=== PATIENT | male | born 1940 | race Caucasian/White ===

== ENCOUNTER 2018-01-17 13:00 | Inpatient (IN) | payer MEDICARE, SELFPAY ==
[2018-01-17] VITALS (11 sets, daily range): BP systolic 122–168; BP diastolic 60–97; PULSE 103–123; RESP 18–28; TEMP 36.5–37.3; O2SAT 89–96; BMI 25.2
--- NOTE | 2018-01-17 13:31 | EKG12_ITS ---
Test Reason : SOB Blood Pressure : / mmHG Vent. Rate : 104 BPM Atrial Rate : 104 BPM P-R Int : 182 ms QRS Dur : 082 ms QT Int : 336 ms P-R-T Axes : 049 028 092 degrees QTc Int : 441 ms Sinus tachycardia Nonspecific T wave abnormality Abnormal ECG Confirmed by HARSHA MARINELLI, GRAHAM ([id number]), multimedia editor AZAEL MEJIA ([id number] on 01/19/2018 1:26:49 PM Referred By: Artem Ward Confirmed By:GRAHAM MCLEOD MD
--- NOTE | 2018-01-17 13:32 | ED.VISSUMM ---
- ER Visit Summary Date of Service: 01/17/18 Chief Complaint: Shortness of breath History of Present Illness: The patient is a 77 M presenting with shortness of breath. This has been worsening over the past week. It is worse with exertion. He has had a productive cough. He denies fever. He denies chest pain. He is not currently on home O2. He has history of COPD, diabetes, hypertension. He is a smoker. Physical Examination: Vitals are stable. Patient is afebrile. Alert no acute distress. HEENT exam is unremarkable. Neck is supple. Lungs are wheezing bilaterally. Heart is regular rate and rhythm. Abdomen is soft nontender nondistended. Extremities are unremarkable. Skin is warm and dry. No focal neurologic deficit. Remainder of exam is unremarkable. Emergency Department Course and Treatment: Patient given albuterol, Atrovent aerosol. EKG is sinus tachycardia rate of 104. Chest x-ray shows no acute process. CBC shows a white count 11.9. Chemistry shows sodium 130, glucose 167. Troponin is less than 0.015. With attempting ambulation, patient's pulse ox dropped to 88% with just sitting in bed on room air. He was given Solu-Medrol IV. Will discuss with the hospitalist for admission. Disposition: Admission Impression: COPD exacerbation This note was generated with [employer] ([employer] / [employer]) dictation software. It may contain incorrect words, spelling, and punctuation that were not noted in review of the chart prior to signing ED Disposition - Plan for ED Patient: Chief Complaint: Shortness of Breath Referrals: [facility] [Primary Care Provider] -
[2018-01-17] MEDS: Albuterol 2.5 MG/3 ML VIAL.NEB. INHALATION ×2 (13:41)
[2018-01-17] MEDS: Ipratropium/Albuterol Sulfate 3 ML AMPUL.NEB INHALATION ×2 (13:41→19:16)
--- NOTE | 2018-01-17 13:45 | RAD_ITS ---
STUDY: X-RAY CHEST REASON FOR EXAM: Male, 77 years old. Shortness of breath, dysphagia. TECHNIQUE: Portable chest COMPARISON: 08/05/2016. FINDINGS: Median sternotomy, CABG. No cardiomegaly. Normal mediastinal silhouette, amanda and pleural margins. Clear bilateral lungs. No effusion, pneumothorax or infiltrate. No acute osseous or upper abdominal process. RAD/Chest 1 View (Portable) IMPRESSION: No acute cardiopulmonary process. Electronically Signed: Jag Haynes, at 14:10 EDT Tel , Service support ,
[2018-01-17 13:52] LABS: Absolute Lymphocyte Count 0.95 X10^3/ul (0.83-4.51); Absolute Neutrophil Count 9.9 X10^3/uL (2.0-7.7); Basophil# 0.02 X10^3/uL; Basophil% 0.2 % (0-1); Eosinophil# 0.14 X10^3/uL; Eosinophils% 1.2 % (0-5); Hematocrit 39.6 % (40-54); Hemoglobin 13.3 g/dl (13.0-16.5); Lymphocyte # 0.95 X10^3/ul (4.0); Mean Corp Hgb Conc 33.6 g/gl (32-36); Mean Corpuscular Hgb 31.8 pg (27.0-32.0); Mean Corpuscular Volume 94.7 fL (80-94); Mean Platelet Vol. 10.2 fl (6.2-12.0); Monocyte# 0.88 X10^3/uL; Monocyte% 7.4 % (0-10); Neutrophil # 9.93 X10^3/uL (2.7-7.7); Neutrophil % 83.1 % (47-70); Platelet Count 177 K/mm3 (150-450); RBC Distribution Width CV 12.2 % (11.6-14.6); RBC Distribution Width SD 41.5 fl (35.1-43.9); Red Blood Count 4.18 M/mm3 (4.6-6.2); White Blood Count 11.9 K/mm3 (4.4-11.0)
[2018-01-17 13:53] LABS: POSITIVE COUNT NO; POSITIVE DIFFERENTIAL NO; POSITIVE MORPHOLOGY NO
[2018-01-17 14:08] LABS: Anion Gap 7 (5-15); BUN 12 mg/dL (7-18); BUN/Creat Ratio 15.3 RATIO (10-20); Calcium,Total 8.6 mg/dL (8.5-10.1); Chloride 94 mmol/L (98-107); Creatinine, Serum 0.78 mg/dL (0.70-1.30); EST Glomerular Filtration Rate 102 mL/min (>60); Est Glom Filt Rate - Afr Amer 124 mL/min (>60); Estimated Creatinine Clearance 72.13 ml/min; Glucose 167 mg/dL (74-106); Potassium 3.7 mmol/L (3.5-5.1); Sodium Level 130 mmol/L (136-145)
--- NOTE | 2018-01-17 15:05 | NURSING ---
MED SURG COPD EXAC, HYPOXIA KARL
[2018-01-17] MEDS: MethylPREDNISolone 125 MG/2 ML Vial IV (15:22)
--- NOTE | 2018-01-17 15:36 | HP.PCM_ITS ---
<Yosvany Lugo - Last Filed: 01/17/18 15:32> Problem List (1) Acute respiratory failure with hypoxia Status: Acute (2) Sepsis Status: Acute (3) Acute bronchitis Status: Acute (4) COPD exacerbation Status: Acute (5) Stage 3 severe COPD by GOLD classification Status: Chronic (6) CAD S/P percutaneous coronary angioplasty Status: Chronic Comment: Stents x 3 (7) Tobacco dependence syndrome Status: Chronic (8) History of gastroesophageal reflux (GERD) Status: Chronic (9) Dyslipidemia Status: Chronic (10) Benign essential hypertension Status: Chronic (11) GERD (gastroesophageal reflux disease) Status: Chronic (12) Iron deficiency anemia Status: Chronic (13) BPH (benign prostatic hypertrophy) Status: Chronic (14) Vitamin D deficiency Status: Chronic (15) Atrial fibrillation Status: Chronic (16) Hyperlipidemia Status: Chronic (17) Hypertension Status: Chronic (18) Diabetes mellitus Status: Chronic History of Present Illness Date of Admission: 01/17/18 Chief Complaint: sob The patient is a 77 year old M with a hx of severe COPD, still smokes 4-6 cigarettes/day, CAD, type 2 diabetes, paroxysmal atrial fibrillation, GERD, BPH, hypertension, hyperlipidemia who presents the emergency room with chief complaint of worsening shortness of breath over the past week. Shortness of breath has been progressively worsening, and he has developed a significant cough with green mucus production. He has no fevers or chills. He denies sick contacts. He has no chest pain or pleurisy. No dizziness, lightheadedness. He does not normally use oxygen at home. He was found to be hypoxic in the emergency room and requires 4 L/min of oxygen via nasal cannula to maintain good saturations at this time. He is a patient of [facility]. [] Past Medical History Past Medical History (Chronic Problems): Chronic Problems (Last Updated 06/13/17 @ 13:39 by Selena Guido) Stage 3 severe COPD by GOLD classification (Chronic) CAD S/P percutaneous coronary angioplasty (Chronic) Stents x 3 Tobacco dependence syndrome (Chronic) History of gastroesophageal reflux (GERD) (Chronic) Dyslipidemia (Chronic) Type II diabetes mellitus (Chronic) BPH (benign prostatic hyperplasia) (Chronic) Benign essential hypertension (Chronic) Shortness of breath (Chronic) GERD (gastroesophageal reflux disease) (Chronic) Iron deficiency anemia (Chronic) BPH (benign prostatic hypertrophy) (Chronic) Vitamin D deficiency (Chronic) History of alcohol dependence (Chronic) Atrial fibrillation (Chronic) Hyperlipidemia (Chronic) Hypertension (Chronic) Diabetes mellitus (Chronic) Chronic obstruct airways disease (Chronic) Medical History: Medical History (Last Updated 06/13/17 @ 13:39 by Selena Guido) Hypoxia (Acute) R09.02 Stage 3 severe COPD by GOLD classification (Chronic) J44.9 CAD S/P percutaneous coronary angioplasty (Chronic) I25.10, Z98.61 Stents x 3 Tobacco dependence syndrome (Chronic) F17.200 History of gastroesophageal reflux (GERD) (Chronic) Z87.19 Dyslipidemia (Chronic) E78.5 Type II diabetes mellitus (Chronic) E11.9 BPH (benign prostatic hyperplasia) (Chronic) Benign essential hypertension (Chronic) I10 Adenovirus infection (Acute) Shortness of breath (Chronic) R06.02 GERD (gastroesophageal reflux disease) (Chronic) K21.9 Iron deficiency anemia (Chronic) D50.9 BPH (benign prostatic hypertrophy) (Chronic) N40.0 Vitamin D deficiency (Chronic) E55.9 History of alcohol dependence (Chronic) F10.21 Atrial fibrillation (Chronic) I48.91 Hyperlipidemia (Chronic) E78.5 Hypertension (Chronic) I10 Diabetes mellitus (Chronic) E11.9 Unstable angina (Acute) Abnormal electrocardiogram [ECG] [EKG] (Acute) R94.31 Pneumonia (Acute) J18.9 Chest pain (Acute) R07.9 Chronic obstruct airways disease (Chronic) J44.9 Allergies propoxyphene HCl [From Darvon] Allergy (Verified 01/17/18 13:05) Itching Home Medications: Ambulatory Orders Medication Instructions Recorded Metoprolol Tartrate [Lopressor 75 mg PO BID 07/24/16 (beta killian)] Multivitamin [Daily Multiple 1 ea PO DAILY 07/24/16 Vitamin] Tiotropium [place] [Spiriva] 1 puff IH DAILY 07/24/16 Docusate Sodium [Colace] 100 mg PO BID PRN PRN cap 07/30/16 Acetaminophen [Tylenol Tablet] 650 mg PO Q6H PRN 01/17/18 Albuterol Aerosols [Ventolin 2.5 mg INHALATION Q6H PRN PRN 01/17/18 Aerosols] Albuterol Inhaler [Ventolin Hfa] 2 puff INHALATION Q6H PRN 01/17/18 Aspirin E.C. [Ecotrin] 81 mg PO DAILY@0800 01/17/18 Atorvastatin Calcium [Lipitor] 80 mg PO QHS 01/17/18 Carboxymethylcellulose Sodium 1 drop EACH EYE TID 01/17/18 [Lubricant Plus] Cholecalciferol (VIT D3) [Vitamin 2,000 unit PO DAILY 01/17/18 D3] Clopidogrel Bisulfate [Clopidogrel] 75 mg PO DAILY 01/17/18 Finasteride [Proscar] 5 mg PO DAILY 01/17/18 Hydrochlorothiazide [Hctz] 25 mg PO DAILY 01/17/18 Lisinopril [Zestril] 20 mg PO BID 01/17/18 Magnesium Oxide 420 mg PO DAILY 01/17/18 Metformin HCl [Glucophage] 1,000 mg PO BIDCM 01/17/18 Nitroglycerin [Nitrostat] 0.4 mg SUBLINGUAL Q5M PRN 01/17/18 Pantoprazole Sodium [Protonix] 20 mg PO DAILY 01/17/18 Tamsulosin HCl [Flomax] 0.8 mg PO QHS 01/17/18 Surgical History: rotator cuff repair, - Psychiatric History: Depression Lives: Alone Smoking Status: Current every day smoker Tobacco Use: Cigarettes Alcohol: None Drugs: None - *Family History Sibling Family History: Family History (Last Updated 06/13/17 @ 13:40 by Selena Guido) Father Polio History Items: Cancer Maternal Family History: Family History (Last Updated 06/13/17 @ 13:40 by Selena Guido) Father Polio History Items: Cancer, - Paternal Family History: Family History (Last Updated 06/13/17 @ 13:40 by Selena Guido) Father Polio History Items: - Review of Systems Constitutional: Denies: Chills, Fever, Weight Change HEENT: Denies: Head Aches, Sinus Congestion, Sinus Drainage Cardiovascular: Denies: Chest Pain, Palpitations Respiratory: Reports: Cough, Shortness of Breath, Shortness of breath at rest, Sputum production, Wheezing. Denies: Hemoptysis Gastrointestinal: Denies: Abdominal Pain, Nausea, Vomiting Genitourinary: Denies: Dysuria Musculoskeletal: Denies: Joint Pain, Joint Tenderness Skin: Denies: Rash, Wounds Neurological: Denies: Numbness, Tingling, Focal weakness Psychiatric: Denies: Anxiety, Depression, Homicidal Ideations, Suicidal Ideations Hematologic/ Lymphatic: Denies: Easy Bruising, Easy Bleeding VTE Information - Inpt Only VTE Present on Admission: No VTE Mechan Device Prophylaxis: None VTE Pharm Prophylaxis ordered?: Yes Patient Problems: Active and Suspected Problems (Last Updated 06/13/17 @ 13:39 by Selena Guido) Acute respiratory failure with hypoxia (Acute) Sepsis (Acute) Acute bronchitis (Acute) COPD exacerbation (Acute) - Physical Exam General: Alert, Oriented x3, Cooperative HEENT: Atraumatic, PERRLA, EOMI, Normocephalic Neck: Supple, No JVD, Negative Carotid Bruits Lungs: Diminished, Wheezes Cardiovascular: Regular rate, No murmurs Abdomen: Bowel Sounds Present, Soft, Non Tender Extremities: No edema, Capillary Refill Less than 3 Seconds Skin: No rashes, No breakdown Musculoskeletal: No Tenderness to Palpation of Joints or Extremities Neurological: Cranial nerves II-XII grossly intact Psych/Mental Status: Normal Affect, Appropriate, Alert and oriented to time, place, person, mood and affect Vital Signs Temp Pulse Resp BP Pulse Ox 99.1 F 118 H 28 H 122/80 H 93 01/17/18 13:01 01/17/18 15:23 01/17/18 15:23 01/17/18 15:23 01/17/18 15:23 Oxygen Flow Rate (L/min) 4 Oxygen Delivery Method Nasal Cannula Weight: 190 lb 14.052 oz Body Mass Index (BMI) 25.2 Laboratory Tests Past 24 Hrs 01/17/18 01/17/18 13:40 13:40 WBC 11.9 H RBC 4.18 L Hgb 13.3 Hct 39.6 L MCV 94.7 H MCH 31.8 MCHC 33.6 RDW 12.2 RDW Differential 41.5 Plt Count 177 MPV 10.2 Immature Gran % (Auto) 0.100 Neut % (Auto) 83.1 H Lymph % (Auto) 8.0 L [place] % (Auto) 7.4 Eos % (Auto) 1.2 Baso % (Auto) 0.2 Absolute Neuts (auto) 9.9 H Absolute Lymphs (auto) 0.95 Total Counted Not Reportable Sodium 130 L Potassium 3.7 Chloride 94 L Carbon Dioxide 29.0 Anion Gap 7 BUN 12 Creatinine 0.78 Estim Creat Clear Calc 72.13 Est GFR (MDRD) Af Amer 124 Est GFR (MDRD) Non-Af 102 BUN/Creatinine Ratio 15.3 Glucose 167 H Calcium 8.6 Troponin I < 0.015 Assessment/Plan All Active Problems (Last Updated 06/13/17 @ 13:39 by Selena Guido) Acute respiratory failure with hypoxia (Acute) Sepsis (Acute) Acute bronchitis (Acute) COPD exacerbation (Acute) Hypoxia (Acute) Adenovirus infection (Acute) Unstable angina (Acute) Abnormal electrocardiogram [ECG] [EKG] (Acute) Pneumonia (Acute) Chest pain (Acute) 1. Acute sepsis 2/2 acute bronchitis - start doxy. CXR without infiltrate. Check lactate, blood and sputum cultures. + white count, tachycardia. Trop neg. Afebrile. Provide duonebs, Solumedrol, IS, PEP therapy. Provide IV fluids. No sign of volume overload. 2. Acute hypoxic respiratory failure 2/2 acute COPD exacerbation - requiring 4lpm to maintain good sats. Otherwise care as above. Not on home o2. follows [facility] 3. Nicotine abuse - declines patch 4. CAD - no CP, trop neg. asa, statin, bb, janes. 5. T2 DM - titrate insulins and add SSI. 6. Paroxysmal Afib - sinus tachy. Continue beta killian, cardizem. Not on OAC. 7. GERD - ppi 8. Hyponatremia - unclear etiology. Provide IV gentle IV fluids. hold diuretics. DVT ppx: lovenox DC Planning: PTOT, may need home o2 This patient was seen by Yosvany Lugo PA-C under the supervision of Doctor Ed. <Artem Ward - Last Filed: 01/17/18 17:38> History of Present Illness The patient is a 77 year old M [] Past Medical History Medical History: Medical History (Last Updated 06/13/17 @ 13:39 by Selena Guido) Hypoxia (Acute) R09.02 Stage 3 severe COPD by GOLD classification (Chronic) J44.9 CAD S/P percutaneous coronary angioplasty (Chronic) I25.10, Z98.61 Stents x 3 Tobacco dependence syndrome (Chronic) F17.200 History of gastroesophageal reflux (GERD) (Chronic) Z87.19 Dyslipidemia (Chronic) E78.5 Type II diabetes mellitus (Chronic) E11.9 BPH (benign prostatic hyperplasia) (Chronic) Benign essential hypertension (Chronic) I10 Adenovirus infection (Acute) Shortness of breath (Chronic) R06.02 GERD (gastroesophageal reflux disease) (Chronic) K21.9 Iron deficiency anemia (Chronic) D50.9 BPH (benign prostatic hypertrophy) (Chronic) N40.0 Vitamin D deficiency (Chronic) E55.9 History of alcohol dependence (Chronic) F10.21 Atrial fibrillation (Chronic) I48.91 Hyperlipidemia (Chronic) E78.5 Hypertension (Chronic) I10 Diabetes mellitus (Chronic) E11.9 Unstable angina (Acute) Abnormal electrocardiogram [ECG] [EKG] (Acute) R94.31 Pneumonia (Acute) J18.9 Chest pain (Acute) R07.9 Chronic obstruct airways disease (Chronic) J44.9 Allergies propoxyphene HCl [From Darvon] Allergy (Verified 01/17/18 13:05) Itching - *Family History Sibling Family History: Family History (Last Updated 06/13/17 @ 13:40 by Selena Guido) Father Polio Maternal Family History: Family History (Last Updated 06/13/17 @ 13:40 by Selena Guido) Father Polio Paternal Family History: Family History (Last Updated 06/13/17 @ 13:40 by Selena Guido) Father Polio - Physical Exam Vital Signs Temp Pulse Resp BP Pulse Ox 98.7 F 116 H 28 H 168/90 H 93 01/17/18 16:51 01/17/18 16:51 01/17/18 16:51 01/17/18 16:51 01/17/18 16:51 Oxygen Flow Rate (L/min) 4 Oxygen Delivery Method Nasal Cannula Weight: 190 lb 12.8 oz Body Mass Index (BMI) 25.2 Laboratory Tests Past 24 Hrs 01/17/18 01/17/18 01/17/18 13:40 13:40 16:16 WBC 11.9 H RBC 4.18 L Hgb 13.3 Hct 39.6 L MCV 94.7 H MCH 31.8 MCHC 33.6 RDW 12.2 RDW Differential 41.5 Plt Count 177 MPV 10.2 Immature Gran % (Auto) 0.100 Neut % (Auto) 83.1 H Lymph % (Auto) 8.0 L [place] % (Auto) 7.4 Eos % (Auto) 1.2 Baso % (Auto) 0.2 Absolute Neuts (auto) 9.9 H Absolute Lymphs (auto) 0.95 Total Counted Not Reportable Sodium 130 L Potassium 3.7 Chloride 94 L Carbon Dioxide 29.0 Anion Gap 7 BUN 12 Creatinine 0.78 Estim Creat Clear Calc 72.13 Est GFR (MDRD) Af Amer 124 Est GFR (MDRD) Non-Af 102 BUN/Creatinine Ratio 15.3 Glucose 167 H Lactic Acid 1.7 Calcium 8.6 Troponin I < 0.015 Code Visit Addendum: Dr. Ward I personally examined the patient and reviewed the chart. I agree with the above. 35-year-old man with a history of coronary artery disease, COPD, diabetes, hyperlipidemia presents with worsening shortness of breath. ER he was hypoxic and required nasal cannula to maintain sats greater than 92. On exam he has a significant amount of expiratory wheezing bilaterally. Will provide duo nebs, Solu-Medrol 40 mg 3 times daily IV, and azithromycin. Inpatient E&M: 37560 Init Hosp L3
[2018-01-17 17:03] LABS: Lactic Acid 1.7 mmol/L (0.4-2.0)
[2018-01-17] MEDS: Glucerna Shake 120 ML LIQUID PO ×2 (18:15→21:22)
[2018-01-17 18:35] LABS: Bedside Glucose 209 mg/dL (70-110)
[2018-01-17] MEDS: Atorvastatin Calcium 80 MG Tablet PO (21:22)
[2018-01-17] MEDS: 0.9% NaCl Peripheral Flush Adult/Peds IV (21:22)
[2018-01-17] MEDS: Tamsulosin HCl 0.4 MG Capsule 0.8 MG PO (21:22)
[2018-01-17] MEDS: guaiFENesin 10 ML UDC (200MG/10ML) PO (21:22)
[2018-01-17] MEDS: Lisinopril 20 MG Tablet PO (21:22)
[2018-01-17] MEDS: Glycerin/Hypromellose/PEG400 15 ml Bottle 1 DRP EACH EYE (21:22)
[2018-01-17] MEDS: Heparin Injection (Vial) 5,000 UNIT/ML VIAL 5000 UNIT SC (21:22)
[2018-01-17] MEDS: Metoprolol Tartrate 25 MG Tablet 75 MG PO (21:22)
[2018-01-17] MEDS: Insulin Lispro 100 UNIT/ML INSULN.PEN SC (21:23)
[2018-01-17 22:05] LABS: Bedside Glucose 268 mg/dL (70-110)
[2018-01-18] VITALS (11 sets, daily range): BP systolic 129–153; BP diastolic 77–96; PULSE 84–102; RESP 18–22; TEMP 36.4–36.7; O2SAT 90–94
[2018-01-18] MEDS: Ipratropium/Albuterol Sulfate 3 ML AMPUL.NEB INHALATION ×5 (01:02→19:40)
[2018-01-18 06:15] LABS: Absolute Lymphocyte Count 0.64 X10^3/ul (0.83-4.51); Absolute Neutrophil Count 10.3 X10^3/uL (2.0-7.7); Basophil# 0.01 X10^3/uL; Basophil% 0.1 % (0-1); Hematocrit 40.7 % (40-54); Hemoglobin 13.8 g/dl (13.0-16.5); Lymphocyte # 0.64 X10^3/ul (4.0); Lymphocyte % 5.6 % (19-41); Mean Corp Hgb Conc 33.9 g/gl (32-36); Mean Corpuscular Hgb 32.2 pg (27.0-32.0); Mean Corpuscular Volume 94.9 fL (80-94); Mean Platelet Vol. 10.7 fl (6.2-12.0); Monocyte# 0.46 X10^3/uL; Platelet Count 183 K/mm3 (150-450); RBC Distribution Width CV 12.1 % (11.6-14.6); RBC Distribution Width SD 40.9 fl (35.1-43.9); Red Blood Count 4.29 M/mm3 (4.6-6.2); White Blood Count 11.4 K/mm3 (4.4-11.0)
[2018-01-18 06:22] LABS: POSITIVE COUNT NO; POSITIVE DIFFERENTIAL NO; POSITIVE MORPHOLOGY NO
[2018-01-18 06:27] LABS: Anion Gap 9 (5-15); BUN 13 mg/dL (7-18); BUN/Creat Ratio 18.1 RATIO (10-20); Calcium,Total 8.9 mg/dL (8.5-10.1); Chloride 97 mmol/L (98-107); Creatinine, Serum 0.72 mg/dL (0.70-1.30); EST Glomerular Filtration Rate 113 mL/min (>60); Est Glom Filt Rate - Afr Amer 137 mL/min (>60); Estimated Creatinine Clearance 72.13 ml/min; Glucose 158 mg/dL (74-106); Potassium 4.3 mmol/L (3.5-5.1); Sodium Level 134 mmol/L (136-145)
[2018-01-18] MEDS: Glycerin/Hypromellose/PEG400 15 ml Bottle 1 DRP EACH EYE ×3 (06:30→22:54)
[2018-01-18] MEDS: 0.9% Saline Lock 10 ML Syringe IV ×2 (06:30→23:01)
[2018-01-18 06:41] LABS: Bedside Glucose 145 mg/dL (70-110)
[2018-01-18] MEDS: Aspirin E.C. 81 MG Tablet PO (08:40)
[2018-01-18] MEDS: Pantoprazole Sodium 20 MG Tablet PO (08:41)
[2018-01-18] MEDS: hydroCHLOROthiazide 25 MG Tablet PO (08:41)
[2018-01-18] MEDS: Finasteride 5 MG Tablet PO (08:42)
--- NOTE | 2018-01-18 10:35 | CASEMGMT ---
LEXY WELLS Face to Face with patient for initial transition planning/care coordination assessment. RN RUSSELL introduced self and role at [facility]. Patient sitting in chair, alert and oriented. Patient willing to participate in assessment and is able to answer all questions appropriately. Care providers, pharmacy, and demographics verified. Patient lives with sister in 1 story home. Patient is independent at home and sister can provide transportation. Patient wishes to discharge home, denies need for home health at this time. Patient states he has no further needs or concerns at this time. CM to follow for discharge planning needs that may arise. Disposition Plan: Patient to discharge home with family support and follow-up plans in place. Will monitor for need for home oxygen. Elina GOLDSTEIN, RN, CM
[2018-01-18] MEDS: Heparin Injection (Vial) 5,000 UNIT/ML VIAL 5000 UNIT SC (11:46)
[2018-01-18] MEDS: Metoprolol Tartrate 25 MG Tablet 75 MG PO ×2 (11:47→22:56)
[2018-01-18] MEDS: Clopidogrel Bisulfate 75 MG Tablet PO (11:51)
[2018-01-18] MEDS: Lisinopril 20 MG Tablet PO ×2 (11:51→22:55)
[2018-01-18] MEDS: Glucerna Shake 120 ML LIQUID PO ×3 (11:51→23:00)
[2018-01-18] MEDS: Insulin Lispro 100 UNIT/ML INSULN.PEN SC ×3 (12:20→22:55)
[2018-01-18 12:25] LABS: Bedside Glucose 221 mg/dL (70-110)
--- NOTE | 2018-01-18 13:37 | PCM.PROGNOTE ---
Patient Problems: Active and Suspected Problems (Last Updated 06/13/17 @ 13:39 by Selena Guido) Acute respiratory failure with hypoxia (Acute) Sepsis (Acute) Acute bronchitis (Acute) COPD exacerbation (Acute) Subjective: Still very wheezy and SOB. Using O2. Does not use at home. Cough with yellow mucus production. No fever or chills. No LE edema. States is very ill with the same thing now. - Physical Exam General: Alert, Oriented x3, Cooperative HEENT: Atraumatic, PERRLA, EOMI, Normocephalic Neck: Supple, No JVD, Negative Carotid Bruits Lungs: Rales - R>L, Wheezes Cardiovascular: Regular rate, No murmurs Abdomen: Bowel Sounds Present, Soft, Non Tender Extremities: No edema, Capillary Refill Less than 3 Seconds Skin: No rashes, No breakdown Musculoskeletal: No Tenderness to Palpation of Joints or Extremities Neurological: Cranial nerves II-XII grossly intact Psych/Mental Status: Normal Affect, Appropriate, Alert and oriented to time, place, person, mood and affect Vital Signs Temp Pulse Resp BP Pulse Ox 98.0 F 102 H 22 H 129/77 H 92 01/18/18 08:30 01/18/18 11:47 01/18/18 11:05 01/18/18 11:47 01/18/18 08:30 Oxygen Flow Rate (L/min) 3 Oxygen Delivery Method Nasal Cannula Weight: 190 lb 12.785 oz Body Mass Index (BMI) 25.2 Intake and Output for Last 24 Hours 01/16/18 01/17/18 01/18/18 23:59 23:59 23:59 Intake Total 300 / 300 380 / 380 Output Total 375 / 375 525 / 525 Balance -75 / -75 -145 / -145 Microbiology Past 72 Hours 01/18/18 07:30 Respiratory Panel (PCR) - Final Mucosa - Nasopharyngeal Laboratory Tests Past 24 Hrs 01/17/18 01/17/18 01/17/18 13:40 13:40 16:16 WBC 11.9 H RBC 4.18 L Hgb 13.3 Hct 39.6 L MCV 94.7 H MCH 31.8 MCHC 33.6 RDW 12.2 RDW Differential 41.5 Plt Count 177 MPV 10.2 Immature Gran % (Auto) 0.100 Neut % (Auto) 83.1 H Lymph % (Auto) 8.0 L [place] % (Auto) 7.4 Eos % (Auto) 1.2 Baso % (Auto) 0.2 Absolute Neuts (auto) 9.9 H Absolute Lymphs (auto) 0.95 Total Counted Not Reportable Sodium 130 L Potassium 3.7 Chloride 94 L Carbon Dioxide 29.0 Anion Gap 7 BUN 12 Creatinine 0.78 Estim Creat Clear Calc 72.13 Est GFR (MDRD) Af Amer 124 Est GFR (MDRD) Non-Af 102 BUN/Creatinine Ratio 15.3 Glucose 167 H Lactic Acid 1.7 Calcium 8.6 Troponin I < 0.015 01/18/18 01/18/18 05:20 05:20 WBC 11.4 H RBC 4.29 L Hgb 13.8 Hct 40.7 MCV 94.9 H MCH 32.2 H MCHC 33.9 RDW 12.1 RDW Differential 40.9 Plt Count 183 MPV 10.7 Immature Gran % (Auto) 0.300 Neut % (Auto) 90.0 H Lymph % (Auto) 5.6 L [place] % (Auto) 4.0 Eos % (Auto) 0.0 Baso % (Auto) 0.1 Absolute Neuts (auto) 10.3 H Absolute Lymphs (auto) 0.64 L Total Counted Not Reportable Sodium 134 L Potassium 4.3 Chloride 97 L Carbon Dioxide 28.0 Anion Gap 9 BUN 13 Creatinine 0.72 Estim Creat Clear Calc 72.13 Est GFR (MDRD) Af Amer 137 Est GFR (MDRD) Non-Af 113 BUN/Creatinine Ratio 18.1 Glucose 158 H Lactic Acid Calcium 8.9 Troponin I POC Glucose 01/18/18 01/18/18 01/17/18 12:18 06:28 21:18 POC Glucose 221 H 145 H 268 H 01/17/18 18:30 POC Glucose 209 H Medical Necessity - Tobacco Use Smoking Status: Current every day smoker Tobacco Use: Cigarettes Assessment/Plan All Active Problems (Last Updated 06/13/17 @ 13:39 by Selena Guido) Acute respiratory failure with hypoxia (Acute) Sepsis (Acute) Acute bronchitis (Acute) COPD exacerbation (Acute) Hypoxia (Acute) Adenovirus infection (Acute) Unstable angina (Acute) Abnormal electrocardiogram [ECG] [EKG] (Acute) Pneumonia (Acute) Chest pain (Acute) 1. Acute sepsis 2/2 acute bronchitis - azithro, sputum cultures. lactate neg. Resp panel neg. 2. Acute hypoxic respiratory failure 2/2 acute COPD exacerbation - still very wheezy and requiring O2. Continue duonebs/solumedrol. 3. Nicotine abuse - declines patch 4. CAD - no CP, trop neg. asa, statin, bb, janes. 5. T2 DM - titrate insulins and add SSI. 6. Paroxysmal Afib - sinus tachy. Continue beta killian, cardizem. Not on OAC. 7. GERD - ppi 8. Hyponatremia - improved. dc HCTZ. DVT ppx: lovenox DC Planning: PTOT, may need home o2 This patient was seen by Yosvany Lugo PA-C under the supervision of Doctor Vale.
[2018-01-18] MEDS: guaiFENesin 10 ML UDC (200MG/10ML) PO ×2 (13:59→17:31)
[2018-01-18 17:25] LABS: Bedside Glucose 158 mg/dL (70-110)
[2018-01-18] MEDS: Tamsulosin HCl 0.4 MG Capsule 0.8 MG PO (22:54)
[2018-01-18] MEDS: Atorvastatin Calcium 80 MG Tablet PO (22:55)
[2018-01-18 23:21] LABS: Bedside Glucose 192 mg/dL (70-110)
[2018-01-19] VITALS (15 sets, daily range): BP systolic 139–168; BP diastolic 82–94; PULSE 77–95; RESP 18–24; TEMP 36.4–36.7; O2SAT 87–96
--- NOTE | 2018-01-19 03:50 | NURSING ---
CPS called for breathing treatment for pt.
[2018-01-19] MEDS: guaiFENesin 10 ML UDC (200MG/10ML) PO (03:51)
--- NOTE | 2018-01-19 05:10 | NURSING ---
called cps as breathing treatment hasnt been completed on pt yet. cps states pt said he could wait until morning treatment. pt has audible wheezing ,asked cps to come and give pt a breathing treatment. spoke to pt who agrees to take treatment.
[2018-01-19] MEDS: Glycerin/Hypromellose/PEG400 15 ml Bottle 1 DRP EACH EYE ×3 (05:16→21:28)
[2018-01-19] MEDS: Enoxaparin 40 MG/0.4 ML Syringe SC (05:16)
[2018-01-19] MEDS: 0.9% Saline Lock 10 ML Syringe IV ×3 (05:17→21:37)
[2018-01-19] MEDS: Albuterol 2.5 MG/3 ML VIAL.NEB. INHALATION ×2 (05:20→13:56)
[2018-01-19 06:21] LABS: Absolute Lymphocyte Count 0.97 X10^3/ul (0.83-4.51); Absolute Neutrophil Count 13.6 X10^3/uL (2.0-7.7); Hemoglobin 13.2 g/dl (13.0-16.5); Lymphocyte # 0.97 X10^3/ul (4.0); Lymphocyte % 6.3 % (19-41); Mean Corp Hgb Conc 33.8 g/gl (32-36); Mean Corpuscular Hgb 31.9 pg (27.0-32.0); Mean Corpuscular Volume 94.2 fL (80-94); Mean Platelet Vol. 10.6 fl (6.2-12.0); Monocyte# 0.77 X10^3/uL; Neutrophil # 13.56 X10^3/uL (2.7-7.7); Neutrophil % 88.4 % (47-70); Platelet Count 223 K/mm3 (150-450); RBC Distribution Width CV 11.6 % (11.6-14.6); RBC Distribution Width SD 39.4 fl (35.1-43.9); Red Blood Count 4.14 M/mm3 (4.6-6.2); White Blood Count 15.3 K/mm3 (4.4-11.0)
[2018-01-19 06:23] LABS: POSITIVE COUNT NO; POSITIVE DIFFERENTIAL NO; POSITIVE MORPHOLOGY NO
[2018-01-19 06:34] LABS: Anion Gap 6 (5-15); BUN 16 mg/dL (7-18); BUN/Creat Ratio 21.8 RATIO (10-20); Calcium,Total 8.3 mg/dL (8.5-10.1); Chloride 95 mmol/L (98-107); Creatinine, Serum 0.74 mg/dL (0.70-1.30); EST Glomerular Filtration Rate 110 mL/min (>60); Est Glom Filt Rate - Afr Amer 134 mL/min (>60); Estimated Creatinine Clearance 72.13 ml/min; Glucose 150 mg/dL (74-106); Potassium 4.5 mmol/L (3.5-5.1); Sodium Level 130 mmol/L (136-145)
[2018-01-19] MEDS: Insulin Lispro 100 UNIT/ML INSULN.PEN SC ×4 (06:34→21:28)
[2018-01-19 06:41] LABS: Bedside Glucose 163 mg/dL (70-110)
[2018-01-19] MEDS: Ipratropium/Albuterol Sulfate 3 ML AMPUL.NEB INHALATION ×5 (06:57→22:54)
[2018-01-19] MEDS: Pantoprazole Sodium 20 MG Tablet PO (08:19)
[2018-01-19] MEDS: Metoprolol Tartrate 25 MG Tablet 75 MG PO ×2 (08:19→21:34)
[2018-01-19] MEDS: Lisinopril 20 MG Tablet PO ×2 (08:19→21:35)
[2018-01-19] MEDS: Clopidogrel Bisulfate 75 MG Tablet PO (08:19)
[2018-01-19] MEDS: Finasteride 5 MG Tablet PO (08:20)
[2018-01-19] MEDS: Aspirin E.C. 81 MG Tablet PO (08:20)
[2018-01-19] MEDS: hydroCHLOROthiazide 25 MG Tablet PO (08:21)
[2018-01-19] MEDS: Glucerna Shake 120 ML LIQUID PO ×4 (08:23→21:36)
[2018-01-19 11:30] LABS: Bedside Glucose 200 mg/dL (70-110)
[2018-01-19 16:15] LABS: Bedside Glucose 151 mg/dL (70-110)
--- NOTE | 2018-01-19 16:16 | PCM.PN.HOSP ---
Patient Problems: Active and Suspected Problems (Last Updated 06/13/17 @ 13:39 by Selena Guido) Acute respiratory failure with hypoxia (Acute) Sepsis (Acute) Acute bronchitis (Acute) COPD exacerbation (Acute) Subjective: Patient seen and examined. Complains of worsening SOB and wheezes. Denies fever, chills. Vitals/I&O's: Vital Signs Temp Pulse Resp BP Pulse Ox 98.0 F 95 20 H 168/89 H 96 01/19/18 16:13 01/19/18 16:13 01/19/18 16:13 01/19/18 16:13 01/19/18 16:13 Oxygen Flow Rate (L/min) 4 Oxygen Delivery Method Nasal Cannula Weight: 86.545 kg Body Mass Index (BMI) 25.2 Intake and Output for Last 24 Hours 01/17/18 01/18/18 01/19/18 23:59 23:59 23:59 Intake Total 300 / 300 1360 / 1360 708 / 708 Output Total 375 / 375 1600 / 1600 1800 / 1800 Balance -75 / -75 -240 / -240 -1092 / -1092 General: Alert, Oriented x3, Cooperative, No apparent distress, - - on 4L oxygen HEENT: Atraumatic, PERRLA, EOMI, Normocephalic Oral: Moist Mucosa Neck: Supple, No JVD, Negative Carotid Bruits Lungs: Diminished, Wheezes Cardiovascular: Regular rate, Regular Rhythm, Normal S1, Normal S2, No murmurs Abdomen: Bowel Sounds Present, Soft, Non Tender, Non-Distended, No Hepato-splenomegaly Extremities: No edema Skin: No rashes, No breakdown Musculoskeletal: No Tenderness to Palpation of Joints or Extremities Lymphatic: No Cervical, Supraclavicular, or Inguinal Adenopathy Neurological: Cranial nerves II-XII grossly intact, Neuro grossly intact Psych/Mental Status: Normal Affect, Appropriate Microbiology Past 72 Hours 01/18/18 11:07 Sputum, Expectorated/Coughed Gram Stain - Final 01/18/18 07:30 Mucosa - Nasopharyngeal Respiratory Panel (PCR) - Final Laboratory Results 01/18/18 16:35: POC Glucose 158 H 01/18/18 22:51: POC Glucose 192 H 01/19/18 05:32: WBC 15.3 H, RBC 4.14 L, Hgb 13.2, Hct 39.0 L, MCV 94.2 H, MCH 31.9, MCHC 33.8, RDW 11.6, RDW Differential 39.4, Plt Count 223, MPV 10.6, Immature Gran % (Auto) 0.300, Neut % (Auto) 88.4 H, Lymph % (Auto) 6.3 L, [place] % (Auto) 5.0, Eos % (Auto) 0.0, Baso % (Auto) 0.0, Absolute Neuts (auto) 13.6 H, Absolute Lymphs (auto) 0.97, Total Counted Not Reportable 01/19/18 05:32: Sodium 130 L, Potassium 4.5, Chloride 95 L, Carbon Dioxide 29.0, Anion Gap 6, BUN 16, Creatinine 0.74, Estim Creat Clear Calc 72.13, Est GFR (MDRD) Af Amer 134, Est GFR (MDRD) Non-Af 110, BUN/Creatinine Ratio 21.8 H, Glucose 150 H, Calcium 8.3 L 01/19/18 06:32: POC Glucose 163 H 01/19/18 11:14: POC Glucose 200 H 01/19/18 16:07: POC Glucose 151 H Current Medications Acetaminophen (Tylenol) 650 mg PO Q6H PRN PRN PRN Reason: PAIN Albuterol Sulfate (Ventolin Aerosols) 2.5 mg INHALATION Q2H PRN PRN PRN Reason: dyspnea, wheezing Last Admin: 01/19/18 13:56 Dose: 2.5 mg Albuterol/Ipratropium (Duoneb) 3 ml INHALATION Q4HWA.RT [facility] Last Admin: 01/19/18 15:40 Dose: 3 ml Aspirin (Ecotrin) 81 mg PO DAILY@0800 [facility] Last Admin: 01/19/18 08:20 Dose: 81 mg Atorvastatin Calcium (Lipitor) 80 mg PO QHS [facility] Last Admin: 01/18/18 22:55 Dose: 80 mg Cholecalciferol (Vitamin D) 2,000 unit PO DAILYCM [facility] Last Admin: 01/19/18 08:19 Dose: 2,000 unit Clopidogrel Bisulfate (Plavix) 75 mg PO DAILY [facility] Last Admin: 01/19/18 08:19 Dose: 75 mg Docusate Sodium (Colace) 100 mg PO BID PRN PRN PRN Reason: Constipation Enoxaparin Sodium (Lovenox) 40 mg SC DAILY@0600 [facility] Last Admin: 01/19/18 05:16 Dose: 40 mg Finasteride (Proscar) 5 mg PO DAILY [facility] Last Admin: 01/19/18 08:20 Dose: 5 mg Guaifenesin (Robitussin) 10 ml PO Q4H PRN PRN PRN Reason: COUGH Last Admin: 01/19/18 03:51 Dose: 10 ml Hydrochlorothiazide (Hctz) 25 mg PO DAILY [facility] Last Admin: 01/19/18 08:21 Dose: 25 mg Sodium Chloride () 250 mls @ 15 mls/hr IV .[id number] PRN PRN Reason: SALINE FLUSH Azithromycin 500 mg/ Dextrose 255 mls @ 250 mls/hr IV Q24@2200 [facility] Last Admin: 01/18/18 23:01 Dose: 250 mls/hr Insulin Human Lispro (Humalog Kwikpen (Bkc)) 0 unit SC ACHS [facility]; Protocol Last Admin: 01/19/18 16:08 Dose: 1 units Lisinopril (Zestril) 20 mg PO BID [facility] Last Admin: 01/19/18 08:19 Dose: 20 mg Magnesium Hydroxide (Milk Of Magnesia) 30 ml PO DAILY PRN PRN PRN Reason: Constipation Methylprednisolone (Solu-Medrol) 40 mg IV Q8 [facility] Last Admin: 01/19/18 13:15 Dose: 40 mg Metoprolol Tartrate (Lopressor (Beta Killian)) 75 mg PO BID [facility] Last Admin: 01/19/18 08:19 Dose: 75 mg Nutritional Formula (Lactose Free) (Glucerna Shake) 120 ml PO 4X/DAY [facility] Last Admin: 01/19/18 16:12 Dose: 120 ml Pantoprazole Sodium (Protonix) 20 mg PO DAILY [facility] Last Admin: 01/19/18 08:19 Dose: 20 mg Sodium Chloride () 5 - 30 ml IV UD PRN PRN Reason: SALINE FLUSH Last Admin: 01/19/18 05:17 Dose: 10 ml Tamsulosin HCl (Flomax) 0.8 mg PO QHS [facility] Last Admin: 01/18/18 22:54 Dose: 0.8 mg Medical Necessity - Tobacco Use Smoking Status: Current every day smoker Tobacco Use: Cigarettes Assessment/Plan All Active Problems (Last Updated 06/13/17 @ 13:39 by Selena Guido) Acute respiratory failure with hypoxia (Acute) Sepsis (Acute) Acute bronchitis (Acute) COPD exacerbation (Acute) Hypoxia (Acute) Adenovirus infection (Acute) Unstable angina (Acute) Abnormal electrocardiogram [ECG] [EKG] (Acute) Pneumonia (Acute) Chest pain (Acute) 77 y/o male with PMHx of Chronic nicotine use disorder, COPD, not on oxygen, GERD, Hypertension, hyperlipidemia Diabetes mellitus type II admitted with worsening shortness of breath. 1. Acute Sepsis secondary to Acute on chronic COPD exacerbation/Bronchitis, patient has very slight improvement, remains on 4 L of oxygen Will continue on IV Solu-Medrol, IV Azithromycin, scheduled breathing treatment, encourage use of incentive spirometer 2. Acute Hypoxia secondary to acute on chronic COPD exacerbation, will continue to wean off oxygen, encourage incentive spirometer, will need ambulatory oxygen assessment prior to discharge 3. Diabetes mellitus type II, sugars are fairly controlled, continue on ADA diet, accu checks w/ ISS. 4. CAD, s/p PCI x 3, on asa, plavix, statin, BB. 5. PAF: Maintain on home metoprolol regimen, asa, plavix, sinus tachycardia upon presentation. 6. Tobacco Abuse: Encouraged cessation, inpatient consultation per RT, NR if desired. 7. Hypertension, blood pressure has been fluctuating, continue on regimen including lisinopril, metoprolol. We will add a calcium channel killian from tomorrow if blood pressure remains uncontrolled 8. Hyponatremia, secondary to hydrochlorothiazide use as well as dehydration, HCTZ on hold, sodium appears the same as admission, will continue to monitor with BMP trending 9. BPH, on flomax. 10. DVT Ppx- Lovenox SC Code Visit Inpatient E&M: 47509 Subs Hosp L2
--- NOTE | 2018-01-19 16:21 | PN_ITS ---
Patient Problems: Active and Suspected Problems (Last Updated 06/13/17 @ 13:39 by Selena Guido) Acute respiratory failure with hypoxia (Acute) Sepsis (Acute) Acute bronchitis (Acute) COPD exacerbation (Acute) Subjective: Patient seen and examined. Complains of worsening SOB and wheezes. Denies fever, chills. Vitals/I&O's: Vital Signs Temp Pulse Resp BP Pulse Ox 98.0 F 95 20 H 168/89 H 96 01/19/18 16:13 01/19/18 16:13 01/19/18 16:13 01/19/18 16:13 01/19/18 16:13 Oxygen Flow Rate (L/min) 4 Oxygen Delivery Method Nasal Cannula Weight: 86.545 kg Body Mass Index (BMI) 25.2 Intake and Output for Last 24 Hours 01/17/18 01/18/18 01/19/18 23:59 23:59 23:59 Intake Total 300 / 300 1360 / 1360 708 / 708 Output Total 375 / 375 1600 / 1600 1800 / 1800 Balance -75 / -75 -240 / -240 -1092 / -1092 General: Alert, Oriented x3, Cooperative, No apparent distress, - - on 4L oxygen HEENT: Atraumatic, PERRLA, EOMI, Normocephalic Oral: Moist Mucosa Neck: Supple, No JVD, Negative Carotid Bruits Lungs: Diminished, Wheezes Cardiovascular: Regular rate, Regular Rhythm, Normal S1, Normal S2, No murmurs Abdomen: Bowel Sounds Present, Soft, Non Tender, Non-Distended, No Hepato- splenomegaly Extremities: No edema Skin: No rashes, No breakdown Musculoskeletal: No Tenderness to Palpation of Joints or Extremities Lymphatic: No Cervical, Supraclavicular, or Inguinal Adenopathy Neurological: Cranial nerves II-XII grossly intact, Neuro grossly intact Psych/Mental Status: Normal Affect, Appropriate Microbiology Past 72 Hours 01/18/18 11:07 Sputum, Expectorated/Coughed Gram Stain - Final 01/18/18 07:30 Mucosa - Nasopharyngeal Respiratory Panel (PCR) - Final Laboratory Results 01/18/18 16:35: POC Glucose 158 H 01/18/18 22:51: POC Glucose 192 H 01/19/18 05:32: WBC 15.3 H, RBC 4.14 L, Hgb 13.2, Hct 39.0 L, MCV 94.2 H, MCH 31.9, MCHC 33.8, RDW 11.6, RDW Differential 39.4, Plt Count 223, MPV 10.6, Immature Gran % (Auto) 0.300, Neut % (Auto) 88.4 H, Lymph % (Auto) 6.3 L, [place] % (Auto) 5.0, Eos % (Auto) 0.0, Baso % (Auto) 0.0, Absolute Neuts (auto) 13.6 H, Absolute Lymphs (auto) 0.97, Total Counted Not Reportable 01/19/18 05:32: Sodium 130 L, Potassium 4.5, Chloride 95 L, Carbon Dioxide 29.0, Anion Gap 6, BUN 16, Creatinine 0.74, Estim Creat Clear Calc 72.13, Est GFR (MDRD) Af Amer 134, Est GFR (MDRD) Non-Af 110, BUN/Creatinine Ratio 21.8 H, Glucose 150 H, Calcium 8.3 L 01/19/18 06:32: POC Glucose 163 H 01/19/18 11:14: POC Glucose 200 H 01/19/18 16:07: POC Glucose 151 H Current Medications Acetaminophen (Tylenol) 650 mg PO Q6H PRN PRN PRN Reason: PAIN Albuterol Sulfate (Ventolin Aerosols) 2.5 mg INHALATION Q2H PRN PRN PRN Reason: dyspnea, wheezing Last Admin: 01/19/18 13:56 Dose: 2.5 mg Albuterol/Ipratropium (Duoneb) 3 ml INHALATION Q4HWA.RT [facility] Last Admin: 01/19/18 15:40 Dose: 3 ml Aspirin (Ecotrin) 81 mg PO DAILY@0800 [facility] Last Admin: 01/19/18 08:20 Dose: 81 mg Atorvastatin Calcium (Lipitor) 80 mg PO QHS [facility] Last Admin: 01/18/18 22:55 Dose: 80 mg Cholecalciferol (Vitamin D) 2,000 unit PO DAILYCM [facility] Last Admin: 01/19/18 08:19 Dose: 2,000 unit Clopidogrel Bisulfate (Plavix) 75 mg PO DAILY [facility] Last Admin: 01/19/18 08:19 Dose: 75 mg Docusate Sodium (Colace) 100 mg PO BID PRN PRN PRN Reason: Constipation Enoxaparin Sodium (Lovenox) 40 mg SC DAILY@0600 [facility] Last Admin: 01/19/18 05:16 Dose: 40 mg Finasteride (Proscar) 5 mg PO DAILY [facility] Last Admin: 01/19/18 08:20 Dose: 5 mg Guaifenesin (Robitussin) 10 ml PO Q4H PRN PRN PRN Reason: COUGH Last Admin: 01/19/18 03:51 Dose: 10 ml Hydrochlorothiazide (Hctz) 25 mg PO DAILY [facility] Last Admin: 01/19/18 08:21 Dose: 25 mg Sodium Chloride () 250 mls @ 15 mls/hr IV .[id number] PRN PRN Reason: SALINE FLUSH Azithromycin 500 mg/ Dextrose 255 mls @ 250 mls/hr IV Q24@2200 [facility] Last Admin: 01/18/18 23:01 Dose: 250 mls/hr Insulin Human Lispro (Humalog Kwikpen (Bkc)) 0 unit SC ACHS [facility]; Protocol Last Admin: 01/19/18 16:08 Dose: 1 units Lisinopril (Zestril) 20 mg PO BID [facility] Last Admin: 01/19/18 08:19 Dose: 20 mg Magnesium Hydroxide (Milk Of Magnesia) 30 ml PO DAILY PRN PRN PRN Reason: Constipation Methylprednisolone (Solu-Medrol) 40 mg IV Q8 [facility] Last Admin: 01/19/18 13:15 Dose: 40 mg Metoprolol Tartrate (Lopressor (Beta Killian)) 75 mg PO BID [facility] Last Admin: 01/19/18 08:19 Dose: 75 mg Nutritional Formula (Lactose Free) (Glucerna Shake) 120 ml PO 4X/DAY [facility] Last Admin: 01/19/18 16:12 Dose: 120 ml Pantoprazole Sodium (Protonix) 20 mg PO DAILY [facility] Last Admin: 01/19/18 08:19 Dose: 20 mg Sodium Chloride () 5 - 30 ml IV UD PRN PRN Reason: SALINE FLUSH Last Admin: 01/19/18 05:17 Dose: 10 ml Tamsulosin HCl (Flomax) 0.8 mg PO QHS [facility] Last Admin: 01/18/18 22:54 Dose: 0.8 mg Medical Necessity - Tobacco Use Smoking Status: Current every day smoker Tobacco Use: Cigarettes Assessment/Plan All Active Problems (Last Updated 06/13/17 @ 13:39 by Selena Guido) Acute respiratory failure with hypoxia (Acute) Sepsis (Acute) Acute bronchitis (Acute) COPD exacerbation (Acute) Hypoxia (Acute) Adenovirus infection (Acute) Unstable angina (Acute) Abnormal electrocardiogram [ECG] [EKG] (Acute) Pneumonia (Acute) Chest pain (Acute) 77 y/o male with PMHx of Chronic nicotine use disorder, COPD, not on oxygen, G ERD, Hypertension, hyperlipidemia Diabetes mellitus type II admitted with worsening shortness of breath. 1. Acute Sepsis secondary to Acute on chronic COPD exacerbation/Bronchitis, patient has very slight improvement, remains on 4 L of oxygen Will continue on IV Solu-Medrol, IV Azithromycin, scheduled breathing treatment, encourage use of incentive spirometer 2. Acute Hypoxia secondary to acute on chronic COPD exacerbation, will continue to wean off oxygen, encourage incentive spirometer, will need ambulatory oxygen assessment prior to discharge 3. Diabetes mellitus type II, sugars are fairly controlled, continue on ADA diet, accu checks w/ ISS. 4. CAD, s/p PCI x 3, on asa, plavix, statin, BB. 5. PAF: Maintain on home metoprolol regimen, asa, plavix, sinus tachycardia upon presentation. 6. Tobacco Abuse: Encouraged cessation, inpatient consultation per RT, NR if desired. 7. Hypertension, blood pressure has been fluctuating, continue on regimen including lisinopril, metoprolol. We will add a calcium channel killian from tomorrow if blood pressure remains uncontrolled 8. Hyponatremia, secondary to hydrochlorothiazide use as well as dehydration, HCTZ on hold, sodium appears the same as admission, will continue to monitor with BMP trending 9. BPH, on flomax. 10. DVT Ppx- Lovenox SC Code Visit Inpatient E&M: 22928 Subs Hosp L2
[2018-01-19 21:26] LABS: Bedside Glucose 212 mg/dL (70-110)
[2018-01-19] MEDS: Atorvastatin Calcium 80 MG Tablet PO (21:35)
[2018-01-19] MEDS: Tamsulosin HCl 0.4 MG Capsule 0.8 MG PO (21:35)
[2018-01-20] VITALS (15 sets, daily range): BP systolic 143–200; BP diastolic 85–124; PULSE 79–100; RESP 18–24; TEMP 36.6–36.9; O2SAT 92–94
[2018-01-20] MEDS: Albuterol 2.5 MG/3 ML VIAL.NEB. INHALATION (02:32)
[2018-01-20] MEDS: 0.9% Saline Lock 10 ML Syringe IV ×2 (05:33→15:27)
[2018-01-20] MEDS: Enoxaparin 40 MG/0.4 ML Syringe SC (05:33)
[2018-01-20] MEDS: Glycerin/Hypromellose/PEG400 15 ml Bottle 1 DRP EACH EYE ×3 (05:33→22:13)
[2018-01-20] MEDS: Insulin Lispro 100 UNIT/ML INSULN.PEN SC ×4 (06:34→22:14)
[2018-01-20 06:41] LABS: Bedside Glucose 186 mg/dL (70-110)
[2018-01-20 06:46] LABS: Absolute Lymphocyte Count 1.16 X10^3/ul (0.83-4.51); Basophil# 0.02 X10^3/uL; Basophil% 0.1 % (0-1); Eosinophil# 0.01 X10^3/uL; Eosinophils% 0.1 % (0-5); Hemoglobin 14.6 g/dl (13.0-16.5); Lymphocyte # 1.16 X10^3/ul (4.0); Lymphocyte % 8.2 % (19-41); Mean Corpuscular Hgb 31.8 pg (27.0-32.0); Mean Corpuscular Volume 93.7 fL (80-94); Mean Platelet Vol. 10.6 fl (6.2-12.0); Monocyte% 6.4 % (0-10); Neutrophil # 11.95 X10^3/uL (2.7-7.7); Neutrophil % 84.3 % (47-70); Platelet Count 257 K/mm3 (150-450); RBC Distribution Width CV 11.8 % (11.6-14.6); RBC Distribution Width SD 39.9 fl (35.1-43.9); Red Blood Count 4.59 M/mm3 (4.6-6.2); White Blood Count 14.2 K/mm3 (4.4-11.0)
[2018-01-20 06:47] LABS: POSITIVE COUNT NO; POSITIVE DIFFERENTIAL NO; POSITIVE MORPHOLOGY NO
[2018-01-20 06:53] LABS: Anion Gap 11 (5-15); BUN 18 mg/dL (7-18); BUN/Creat Ratio 20.4 RATIO (10-20); Chloride 93 mmol/L (98-107); Creatinine, Serum 0.88 mg/dL (0.70-1.30); EST Glomerular Filtration Rate 89 mL/min (>60); Est Glom Filt Rate - Afr Amer 108 mL/min (>60); Estimated Creatinine Clearance 81.97 ml/min; Glucose 157 mg/dL (74-106); Potassium 4.3 mmol/L (3.5-5.1); Sodium Level 132 mmol/L (136-145)
[2018-01-20] MEDS: Ipratropium/Albuterol Sulfate 3 ML AMPUL.NEB INHALATION ×5 (06:53→22:24)
[2018-01-20] MEDS: Lisinopril 20 MG Tablet PO ×2 (09:58→16:44)
[2018-01-20] MEDS: Magnesium Oxide 400 MG Tablet PO (09:58)
[2018-01-20] MEDS: Finasteride 5 MG Tablet PO (09:58)
[2018-01-20] MEDS: Clopidogrel Bisulfate 75 MG Tablet PO (09:58)
[2018-01-20] MEDS: Aspirin E.C. 81 MG Tablet PO (09:59)
[2018-01-20] MEDS: hydroCHLOROthiazide 25 MG Tablet PO (09:59)
[2018-01-20] MEDS: Pantoprazole Sodium 20 MG Tablet PO (09:59)
[2018-01-20] MEDS: Metoprolol Tartrate 25 MG Tablet 75 MG PO ×2 (09:59→16:44)
[2018-01-20] MEDS: Glucerna Shake 120 ML LIQUID PO ×4 (10:02→22:13)
[2018-01-20] MEDS: guaiFENesin 10 ML UDC (200MG/10ML) PO ×2 (10:03→15:36)
--- NOTE | 2018-01-20 10:15 | CASEMGMT ---
RN CM Note. Intro role of CM to patient in room. [facility]. Pt is declining transfer, understands hospitalization will be billed to [facility]. Questions answered, [facility]. Gilbert SNIDERN RN ACM
[2018-01-20] MEDS: Multivitamins,Therapeutic Tablet 1 TABLET PO (11:32)
--- NOTE | 2018-01-20 13:59 | PCM.PN.HOSP ---
Patient Problems: Active and Suspected Problems (Last Updated 06/13/17 @ 13:39 by Selena Guido) Acute respiratory failure with hypoxia (Acute) Sepsis (Acute) Acute bronchitis (Acute) COPD exacerbation (Acute) Subjective: Patient was seen and examined. Feels slightly improved. Denies any fever. Remains on 4 L of oxygen Objective: General: Alert, Oriented x3, Cooperative, No apparent distress, - - on 4L oxygen HEENT: Atraumatic, PERRLA, EOMI, Normocephalic Oral: Moist Mucosa Neck: Supple, No JVD, Negative Carotid Bruits Lungs: Diminished, Wheezes, generalised, improved from yesterday Cardiovascular: Regular rate, Regular Rhythm, Normal S1, Normal S2, No murmurs Abdomen: Bowel Sounds Present, Soft, Non Tender, Non-Distended, No Hepato-splenomegaly Extremities: No edema Skin: No rashes, No breakdown Musculoskeletal: No Tenderness to Palpation of Joints or Extremities Lymphatic: No Cervical, Supraclavicular, or Inguinal Adenopathy Neurological: Cranial nerves II-XII grossly intact, Neuro grossly intact Psych/Mental Status: Normal Affect, Appropriate Vitals/I&O's: Vital Signs Temp Pulse Resp BP Pulse Ox 98.2 F 79 22 H 143/85 H 94 01/20/18 10:05 01/20/18 11:43 01/20/18 11:43 01/20/18 10:05 01/20/18 10:05 Oxygen Flow Rate (L/min) 4 Oxygen Delivery Method Nasal Cannula Weight: 86.545 kg Body Mass Index (BMI) 25.2 Intake and Output for Last 24 Hours 01/18/18 01/19/18 01/20/18 23:59 23:59 23:59 Intake Total 1360 / 1360 1068 / 1068 1189 / 1189 Output Total 1600 / 1600 1800 / 1800 1250 / 1250 Balance -240 / -240 -732 / -732 -61 / -61 Microbiology Past 72 Hours 01/18/18 11:07 Sputum, Expectorated/Coughed Gram Stain - Final 01/18/18 11:07 Sputum, Expectorated/Coughed Respiratory Culture - Preliminary Haemophilus influenzae Gram negative allie 01/18/18 07:30 Mucosa - Nasopharyngeal Respiratory Panel (PCR) - Final Laboratory Results 01/19/18 16:07: POC Glucose 151 H 01/19/18 21:17: POC Glucose 212 H 01/20/18 05:30: WBC 14.2 H, RBC 4.59 L, Hgb 14.6, Hct 43.0, MCV 93.7, MCH 31.8, MCHC 34.0, RDW 11.8, RDW Differential 39.9, Plt Count 257, MPV 10.6, Immature Gran % (Auto) 0.900, Neut % (Auto) 84.3 H, Lymph % (Auto) 8.2 L, [place] % (Auto) 6.4, Eos % (Auto) 0.1, Baso % (Auto) 0.1, Absolute Neuts (auto) 12.0 H, Absolute Lymphs (auto) 1.16, Total Counted Not Reportable 01/20/18 05:30: Sodium 132 L, Potassium 4.3, Chloride 93 L, Carbon Dioxide 28.0, Anion Gap 11, BUN 18, Creatinine 0.88, Estim Creat Clear Calc 81.97, Est GFR (MDRD) Af Amer 108, Est GFR (MDRD) Non-Af 89, BUN/Creatinine Ratio 20.4 H, Glucose 157 H, Calcium 9.0 01/20/18 06:29: POC Glucose 186 H Current Medications Acetaminophen (Tylenol) 650 mg PO Q6H PRN PRN PRN Reason: PAIN Albuterol Sulfate (Ventolin Aerosols) 2.5 mg INHALATION Q2H PRN PRN PRN Reason: dyspnea, wheezing Last Admin: 01/20/18 02:32 Dose: 2.5 mg Albuterol/Ipratropium (Duoneb) 3 ml INHALATION Q4HWA.RT [facility] Last Admin: 01/20/18 11:42 Dose: 3 ml Aspirin (Ecotrin) 81 mg PO DAILY@0800 [facility] Last Admin: 01/20/18 09:59 Dose: 81 mg Atorvastatin Calcium (Lipitor) 80 mg PO QHS [facility] Last Admin: 01/19/18 21:35 Dose: 80 mg Cholecalciferol (Vitamin D) 2,000 unit PO DAILYCM [facility] Last Admin: 01/20/18 09:59 Dose: 2,000 unit Clopidogrel Bisulfate (Plavix) 75 mg PO DAILY [facility] Last Admin: 01/20/18 09:58 Dose: 75 mg Docusate Sodium (Colace) 100 mg PO BID PRN PRN PRN Reason: Constipation Enoxaparin Sodium (Lovenox) 40 mg SC DAILY@0600 [facility] Last Admin: 01/20/18 05:33 Dose: 40 mg Finasteride (Proscar) 5 mg PO DAILY [facility] Last Admin: 01/20/18 09:58 Dose: 5 mg Guaifenesin (Robitussin) 10 ml PO Q4H PRN PRN PRN Reason: COUGH Last Admin: 01/20/18 10:03 Dose: 10 ml Hydrochlorothiazide (Hctz) 25 mg PO DAILY [facility] Last Admin: 01/20/18 09:59 Dose: 25 mg Sodium Chloride () 250 mls @ 15 mls/hr IV .[id number] PRN PRN Reason: SALINE FLUSH Azithromycin 500 mg/ Dextrose 255 mls @ 250 mls/hr IV Q24@2200 [facility] Last Admin: 01/19/18 21:37 Dose: 250 mls/hr Insulin Human Lispro (Humalog Kwikpen (Bkc)) 0 [facility] SC [facility]; Protocol Last Admin: 01/20/18 11:30 Dose: 3 units Lisinopril (Zestril) 20 mg PO BID [facility] Last Admin: 01/20/18 09:58 Dose: 20 mg Magnesium Hydroxide (Milk Of Magnesia) 30 ml PO DAILY PRN PRN PRN Reason: Constipation Magnesium Oxide (Mag-Ox 400) 400 mg PO DAILY [facility] Last Admin: 01/20/18 09:58 Dose: 400 mg Metformin [facility] ([facility]uc[facility]) [facility] Methylprednisolone (Solu-Medrol) 40 mg IV Q8 [facility] Last Admin: 01/20/18 05:33 Dose: 40 mg Metoprolol Tartrate (Lopressor (Beta Naif)) 75 mg PO BID [facility] Last Admin: 01/20/18 09:59 Dose: 75 mg Multivitamins (Multivitamin) 1 tablet PO DAILY@0800 [facility] Last Admin: 01/20/18 11:32 Dose: 1 tablet Nutritional Formula (Lactose Free) (Glucerna Shake) 120 ml PO 4X/DAY [facility] Last Admin: 01/20/18 10:02 Dose: 120 ml Pantoprazole Sodium (Protonix) 20 mg PO DAILY [facility] Last Admin: 01/20/18 09:59 Dose: 20 mg Sodium Chloride () 5 - 30 ml IV UD PRN PRN Reason: SALINE FLUSH Last Admin: 01/20/18 05:33 Dose: 10 ml Tamsulosin HCl (Flomax) 0.8 mg PO QHS [facility] Last Admin: 01/19/18 21:35 Dose: 0.8 mg Medical Necessity - Tobacco Use Smoking Status: Current every day smoker Tobacco Use: Cigarettes Assessment/Plan All Active Problems (Last Updated 06/13/17 @ 13:39 by Selena Guido) Acute respiratory failure with hypoxia (Acute) Sepsis (Acute) Acute bronchitis (Acute) COPD exacerbation (Acute) Hypoxia (Acute) Adenovirus infection (Acute) Unstable angina (Acute) Abnormal electrocardiogram [ECG] [EKG] (Acute) Pneumonia (Acute) Chest pain (Acute) 77 y/o male with PMHx of Chronic nicotine use disorder, COPD, not on oxygen, GERD, Hypertension, hyperlipidemia Diabetes mellitus type II admitted with worsening shortness of breath. 1. Acute Sepsis secondary to Acute on chronic COPD exacerbation/ Haemophilus infuenzae, beta-lactamase negative bronchitis, Sputum cultures grew above organism improving, on azithromycin(day 5), will add Augmentin for H. influenzae for 1 week. 2. Acute Hypoxic respiratory failure secondary to acute on chronic COPD exacerbation, remains on 4 L of oxygen, minimal improvement Patient does not wear oxygen at home, admitted with SPO2 of 88% will continue to attempt to wean off oxygen, encourage incentive spirometer, ambulatory oxygen assessment prior to discharge Start steroid taper from tomorrow. 3. Diabetes mellitus type II, sugars are uncontrolled, resume home metformin, continue on ADA diet, accuchecks w/ ISS. 4. CAD, s/p PCI x 3, on aspirin, plavix, statin, BB. 5. PAF, in NSR, on metoprolol, asa, plavix, 6. Nicotine dependency, advised to quit 7. Hypertension, blood pressure has been fluctuating, continue on regimen including lisinopril, metoprolol. Will continue to monitor. 8. Hyponatremia, secondary to hydrochlorothiazide use as well as dehydration, HCTZ on hold, sodium remains about the same, will monitor 9. BPH, on flomax. 10. DVT Ppx- Lovenox SC Code Visit Inpatient E&M: 79213 Subs Hosp L2
[2018-01-20 14:16] LABS: Bedside Glucose 245 mg/dL (70-110)
--- NOTE | 2018-01-20 14:21 | PN_ITS ---
Patient Problems: Active and Suspected Problems (Last Updated 06/13/17 @ 13:39 by Selena Guido) Acute respiratory failure with hypoxia (Acute) Sepsis (Acute) Acute bronchitis (Acute) COPD exacerbation (Acute) Subjective: Patient was seen and examined. Feels slightly improved. Denies any fever. Remains on 4 L of oxygen Objective: General: Alert, Oriented x3, Cooperative, No apparent distress, - - on 4L oxygen HEENT: Atraumatic, PERRLA, EOMI, Normocephalic Oral: Moist Mucosa Neck: Supple, No JVD, Negative Carotid Bruits Lungs: Diminished, Wheezes, generalised, improved from yesterday Cardiovascular: Regular rate, Regular Rhythm, Normal S1, Normal S2, No murmurs Abdomen: Bowel Sounds Present, Soft, Non Tender, Non-Distended, No Hepato- splenomegaly Extremities: No edema Skin: No rashes, No breakdown Musculoskeletal: No Tenderness to Palpation of Joints or Extremities Lymphatic: No Cervical, Supraclavicular, or Inguinal Adenopathy Neurological: Cranial nerves II-XII grossly intact, Neuro grossly intact Psych/Mental Status: Normal Affect, Appropriate Vitals/I&O's: Vital Signs Temp Pulse Resp BP Pulse Ox 98.2 F 79 22 H 143/85 H 94 01/20/18 10:05 01/20/18 11:43 01/20/18 11:43 01/20/18 10:05 01/20/18 10:05 Oxygen Flow Rate (L/min) 4 Oxygen Delivery Method Nasal Cannula Weight: 86.545 kg Body Mass Index (BMI) 25.2 Intake and Output for Last 24 Hours 01/18/18 01/19/18 01/20/18 23:59 23:59 23:59 Intake Total 1360 / 1360 1068 / 1068 1189 / 1189 Output Total 1600 / 1600 1800 / 1800 1250 / 1250 Balance -240 / -240 -732 / -732 -61 / -61 Microbiology Past 72 Hours 01/18/18 11:07 Sputum, Expectorated/Coughed Gram Stain - Final 01/18/18 11:07 Sputum, Expectorated/Coughed Respiratory Culture - Preliminary Haemophilus influenzae Gram negative allie 01/18/18 07:30 Mucosa - Nasopharyngeal Respiratory Panel (PCR) - Final Laboratory Results 01/19/18 16:07: POC Glucose 151 H 01/19/18 21:17: POC Glucose 212 H 01/20/18 05:30: WBC 14.2 H, RBC 4.59 L, Hgb 14.6, Hct 43.0, MCV 93.7, MCH 31.8, MCHC 34.0, RDW 11.8, RDW Differential 39.9, Plt Count 257, MPV 10.6, Immature Gran % (Auto) 0.900, Neut % (Auto) 84.3 H, Lymph % (Auto) 8.2 L, [place] % (Auto) 6.4, Eos % (Auto) 0.1, Baso % (Auto) 0.1, Absolute Neuts (auto) 12.0 H, Absolute Lymphs (auto) 1.16, Total Counted Not Reportable 01/20/18 05:30: Sodium 132 L, Potassium 4.3, Chloride 93 L, Carbon Dioxide 28.0, Anion Gap 11, BUN 18, Creatinine 0.88, Estim Creat Clear Calc 81.97, Est GFR (MDRD) Af Amer 108, Est GFR (MDRD) Non-Af 89, BUN/Creatinine Ratio 20.4 H, Glucose 157 H, Calcium 9.0 01/20/18 06:29: POC Glucose 186 H Current Medications Acetaminophen (Tylenol) 650 mg PO Q6H PRN PRN PRN Reason: PAIN Albuterol Sulfate (Ventolin Aerosols) 2.5 mg INHALATION Q2H PRN PRN PRN Reason: dyspnea, wheezing Last Admin: 01/20/18 02:32 Dose: 2.5 mg Albuterol/Ipratropium (Duoneb) 3 ml INHALATION Q4HWA.RT [facility] Last Admin: 01/20/18 11:42 Dose: 3 ml Aspirin (Ecotrin) 81 mg PO DAILY@0800 [facility] Last Admin: 01/20/18 09:59 Dose: 81 mg Atorvastatin Calcium (Lipitor) 80 mg PO QHS [facility] Last Admin: 01/19/18 21:35 Dose: 80 mg Cholecalciferol (Vitamin D) 2,000 unit PO DAILYCM [facility] Last Admin: 01/20/18 09:59 Dose: 2,000 unit Clopidogrel Bisulfate (Plavix) 75 mg PO DAILY [facility] Last Admin: 01/20/18 09:58 Dose: 75 mg Docusate Sodium (Colace) 100 mg PO BID PRN PRN PRN Reason: Constipation Enoxaparin Sodium (Lovenox) 40 mg SC DAILY@0600 [facility] Last Admin: 01/20/18 05:33 Dose: 40 mg Finasteride (Proscar) 5 mg PO DAILY [facility] Last Admin: 01/20/18 09:58 Dose: 5 mg Guaifenesin (Robitussin) 10 ml PO Q4H PRN PRN PRN Reason: COUGH Last Admin: 01/20/18 10:03 Dose: 10 ml Hydrochlorothiazide (Hctz) 25 mg PO DAILY [facility] Last Admin: 01/20/18 09:59 Dose: 25 mg Sodium Chloride () 250 mls @ 15 mls/hr IV .[id number] PRN PRN Reason: SALINE FLUSH Azithromycin 500 mg/ Dextrose 255 mls @ 250 mls/hr IV Q24@2200 [facility] Last Admin: 01/19/18 21:37 Dose: 250 mls/hr Insulin Human Lispro (Humalog Kwikpen (Bkc)) 0 unit SC [facility]; Protocol Last Admin: 01/20/18 11:30 Dose: 3 units Lisinopril (Zestril) 20 mg PO BID [facility] Last Admin: 01/20/18 09:58 Dose: 20 mg Magnesium Hydroxide (Milk Of Magnesia) 30 ml PO DAILY PRN PRN PRN Reason: Constipation Magnesium Oxide (Mag-Ox 400) 400 mg PO DAILY [facility] Last Admin: 01/20/18 09:58 Dose: 400 mg Metformin HCl (Glucophage) [facility] Methylprednisolone (Solu-Medrol) 40 mg IV Q8 [facility] Last Admin: 01/20/18 05:33 Dose: 40 mg Metoprolol Tartrate (Lopressor (Beta Naif)) 75 mg PO BID [facility] Last Admin: 01/20/18 09:59 Dose: 75 mg Multivitamins (Multivitamin) 1 tablet PO DAILY@0800 [facility] Last Admin: 01/20/18 11:32 Dose: 1 tablet Nutritional Formula (Lactose Free) (Glucerna Shake) 120 ml PO 4X/DAY [facility] Last Admin: 01/20/18 10:02 Dose: 120 ml Pantoprazole Sodium (Protonix) 20 mg PO DAILY [facility] Last Admin: 01/20/18 09:59 Dose: 20 mg Sodium Chloride () 5 - 30 ml IV UD PRN PRN Reason: SALINE FLUSH Last Admin: 01/20/18 05:33 Dose: 10 ml Tamsulosin HCl (Flomax) 0.8 mg PO QHS [facility] Last Admin: 01/19/18 21:35 Dose: 0.8 mg Medical Necessity - Tobacco Use Smoking Status: Current every day smoker Tobacco Use: Cigarettes Assessment/Plan All Active Problems (Last Updated 06/13/17 @ 13:39 by Selena Guido) Acute respiratory failure with hypoxia (Acute) Sepsis (Acute) Acute bronchitis (Acute) COPD exacerbation (Acute) Hypoxia (Acute) Adenovirus infection (Acute) Unstable angina (Acute) Abnormal electrocardiogram [ECG] [EKG] (Acute) Pneumonia (Acute) Chest pain (Acute) 77 y/o male with PMHx of Chronic nicotine use disorder, COPD, not on oxygen, GERD, Hypertension, hyperlipidemia Diabetes mellitus type II admitted with worsening shortness of breath. 1. Acute Sepsis secondary to Acute on chronic COPD exacerbation/ Haemophilus infuenzae, beta-lactamase negative bronchitis, Sputum cultures grew above organism improving, on azithromycin(day 5), will add Augmentin for H. influenzae for 1 week. 2. Acute Hypoxic respiratory failure secondary to acute on chronic COPD exacerbation, remains on 4 L of oxygen, minimal improvement Patient does not wear oxygen at home, admitted with SPO2 of 88% will continue to attempt to wean off oxygen, encourage incentive spirometer, ambulatory oxygen assessment prior to discharge Start steroid taper from tomorrow. 3. Diabetes mellitus type II, sugars are uncontrolled, resume home metformin, continue on ADA diet, accuchecks w/ ISS. 4. CAD, s/p PCI x 3, on aspirin, plavix, statin, BB. 5. PAF, in NSR, on metoprolol, asa, plavix, 6. Nicotine dependency, advised to quit 7. Hypertension, blood pressure has been fluctuating, continue on regimen including lisinopril, metoprolol. Will continue to monitor. 8. Hyponatremia, secondary to hydrochlorothiazide use as well as dehydration, HCTZ on hold, sodium remains about the same, will monitor 9. BPH, on flomax. 10. DVT Ppx- Lovenox SC Code Visit Inpatient E&M: 20373 Subs Hosp L2
[2018-01-20] MEDS: Amox/Clavulanate 875 MG Tablet PO ×2 (15:30→22:12)
[2018-01-20] MEDS: metFORMIN HCl 1,000 MG Tablet 1000 MG PO (16:44)
[2018-01-20 17:00] LABS: Bedside Glucose 178 mg/dL (70-110)
[2018-01-20] MEDS: Atorvastatin Calcium 80 MG Tablet PO (22:12)
[2018-01-20] MEDS: Tamsulosin HCl 0.4 MG Capsule 0.8 MG PO (22:12)
[2018-01-20] MEDS: hydrALAZINE 20 MG/ML Vial 10 MG IV (22:21)
[2018-01-20 22:35] LABS: Bedside Glucose 160 mg/dL (70-110)
[2018-01-21] VITALS (10 sets, daily range): BP systolic 125–160; BP diastolic 73–86; PULSE 79–100; RESP 16–20; TEMP 36.4–36.9; O2SAT 91–94
[2018-01-21] MEDS: Albuterol 2.5 MG/3 ML VIAL.NEB. INHALATION (02:51)
[2018-01-21] MEDS: Insulin Lispro 100 UNIT/ML INSULN.PEN SC (06:56)
[2018-01-21] MEDS: Enoxaparin 40 MG/0.4 ML Syringe SC (06:57)
[2018-01-21] MEDS: Glycerin/Hypromellose/PEG400 15 ml Bottle 1 DRP EACH EYE (06:59)
[2018-01-21 07:06] LABS: Bedside Glucose 166 mg/dL (70-110)
[2018-01-21] MEDS: Ipratropium/Albuterol Sulfate 3 ML AMPUL.NEB INHALATION ×2 (07:17→10:54)
[2018-01-21] MEDS: amLODIPine 5 MG Tablet PO (08:32)
[2018-01-21] MEDS: Metoprolol Tartrate 25 MG Tablet 75 MG PO (08:32)
[2018-01-21] MEDS: Finasteride 5 MG Tablet PO (08:32)
[2018-01-21] MEDS: Pantoprazole Sodium 20 MG Tablet PO (08:32)
[2018-01-21] MEDS: metFORMIN HCl 1,000 MG Tablet 1000 MG PO (08:33)
[2018-01-21] MEDS: Amox/Clavulanate 875 MG Tablet PO (08:33)
[2018-01-21] MEDS: Lisinopril 20 MG Tablet PO (08:33)
[2018-01-21] MEDS: Azithromycin 250 MG Tablet 500 MG PO (08:33)
[2018-01-21] MEDS: predniSONE 10 MG Tablet 40 MG PO (08:33)
[2018-01-21] MEDS: Clopidogrel Bisulfate 75 MG Tablet PO (08:33)
[2018-01-21] MEDS: Glucerna Shake 120 ML LIQUID PO (08:33)
[2018-01-21] MEDS: Aspirin E.C. 81 MG Tablet PO (08:33)
[2018-01-21] MEDS: hydroCHLOROthiazide 25 MG Tablet PO (08:33)
[2018-01-21] MEDS: Multivitamins,Therapeutic Tablet 1 TABLET PO (08:33)
[2018-01-21] MEDS: Magnesium Oxide 400 MG Tablet PO (08:34)
[2018-01-21] MEDS: guaiFENesin 10 ML UDC (200MG/10ML) PO (09:25)
--- NOTE | 2018-01-21 09:56 | PCM.DC ---
- Discharge Diagnoses Current Active Problems: Current Active and Chronic Problems (Last Updated 06/13/17 @ 13:39 by Selena Guido) Acute respiratory failure with hypoxia (Acute) Sepsis (Acute) Acute bronchitis (Acute) COPD exacerbation (Acute) Reason(s) for Visit for Discharge Instructions: Shortness of breath You will use the following diet at home:: Calorie/Carbohydrate Controlled (specify 1200, 1400, etc), Cardiac Your food should be the consistency of: Regular Your liquids should be the consistency of: Regular/Thin Discharge Activity: Return to Normal Activity Additional Instructions: Follow-up within 2 weeks with your primary care doctor and block making machine operator. Continue to use your breathing treatments. Complete your prednisone taper. Complete your antibiotics. Allergies/Adverse Reactions: Allergies propoxyphene HCl [From Darvon] Allergy (Verified 01/17/18 13:05) Itching Medications to take at Discharge Metoprolol Tartrate [Lopressor (beta killian)] 75 mg PO BID 07/24/16 Multivitamin [Daily Multiple Vitamin] 1 ea PO DAILY 07/24/16 Tiotropium [place] [Spiriva] 1 puff IH DAILY 07/24/16 Docusate Sodium [Colace] 100 mg PO BID PRN PRN cap 07/30/16 Acetaminophen [Tylenol Tablet] 650 mg PO Q6H PRN 01/17/18 Albuterol Aerosols [Ventolin Aerosols] 2.5 mg INHALATION Q6H PRN PRN 01/17/18 Albuterol Inhaler [Ventolin Hfa] 2 puff INHALATION Q6H PRN 01/17/18 Aspirin E.C. [Ecotrin] 81 mg PO DAILY@0800 01/17/18 Atorvastatin Calcium [Lipitor] 80 mg PO QHS 01/17/18 Carboxymethylcellulose Sodium [Lubricant Plus] 1 drop EACH EYE TID 01/17/18 Cholecalciferol (VIT D3) [Vitamin D3] 2,000 unit PO DAILY 01/17/18 Clopidogrel Bisulfate [Clopidogrel] 75 mg PO DAILY 01/17/18 Finasteride [Proscar] 5 mg PO DAILY 01/17/18 Hydrochlorothiazide [Hctz] 25 mg PO DAILY 01/17/18 Lisinopril [Zestril] 20 mg PO BID 01/17/18 Magnesium Oxide 420 mg PO DAILY 01/17/18 Metformin HCl [Glucophage] 1,000 mg PO BIDCM 01/17/18 Nitroglycerin [Nitrostat] 0.4 mg SUBLINGUAL Q5M PRN 01/17/18 Pantoprazole Sodium [Protonix] 20 mg PO DAILY 01/17/18 Tamsulosin HCl [Flomax] 0.8 mg PO QHS 01/17/18 Amlodipine [Norvasc] 5 mg PO DAILY #30 tablet 01/21/18 Amox/Clavulanate Tablet [Augmentin Tablet] 875 mg PO BID #12 tablet 01/21/18 Glucerna Shake 120 ml PO 4X/DAY #100 liquid 01/21/18 Ipratropium/Albuterol Sulfate [Duoneb] 3 ml INHALATION Q4HWA.RT #1 box 01/21/18 Prednisone 10 mg PO UD #30 tablet 01/21/18 The following prescriptions were given: Amlodipine [Norvasc] 5 mg PO DAILY #30 tablet Prednisone 10 mg PO UD #30 tablet Amox/Clavulanate Tablet [Augmentin Tablet] 875 mg PO BID #12 tablet Glucerna Shake 120 ml PO 4X/DAY #100 liquid Primary Care Physician: [facility],[place] [Primary Care Provider] - Please follow up with your Primary Care Physician in: within 2 weeks with your primary care doctor and block making machine operator Test Results: Test results from this visit will be discussed in further detail at your follow-up appointment, if applicable. Proposed Discharge Date: 01/21/18
--- NOTE | 2018-01-21 10:00 | DCINST_ITS ---
- Discharge Diagnoses Current Active Problems: Current Active and Chronic Problems (Last Updated 06/13/17 @ 13:39 by Selena Guido) Acute respiratory failure with hypoxia (Acute) Sepsis (Acute) Acute bronchitis (Acute) COPD exacerbation (Acute) Reason(s) for Visit for Discharge Instructions: Shortness of breath You will use the following diet at home:: Calorie/Carbohydrate Controlled (specify 1200, 1400, etc), Cardiac Your food should be the consistency of: Regular Your liquids should be the consistency of: Regular/Thin Discharge Activity: Return to Normal Activity Additional Instructions: Follow-up within 2 weeks with your primary care doctor and assistant food service manager. Continue to use your breathing treatments. Complete your prednisone taper. Complete your antibiotics. Allergies/Adverse Reactions: Allergies propoxyphene HCl [From Darvon] Allergy (Verified 01/17/18 13:05) Itching Medications to take at Discharge Metoprolol Tartrate [Lopressor (beta killian)] 75 mg PO BID 07/24/16 Multivitamin [Daily Multiple Vitamin] 1 ea PO DAILY 07/24/16 Tiotropium [place] [Spiriva] 1 puff IH DAILY 07/24/16 Docusate Sodium [Colace] 100 mg PO BID PRN PRN cap 07/30/16 Acetaminophen [Tylenol Tablet] 650 mg PO Q6H PRN 01/17/18 Albuterol Aerosols [Ventolin Aerosols] 2.5 mg INHALATION Q6H PRN PRN 01/17/18 Albuterol Inhaler [Ventolin Hfa] 2 puff INHALATION Q6H PRN 01/17/18 Aspirin E.C. [Ecotrin] 81 mg PO DAILY@0800 01/17/18 Atorvastatin Calcium [Lipitor] 80 mg PO QHS 01/17/18 Carboxymethylcellulose Sodium [Lubricant Plus] 1 drop EACH EYE TID 01/17/18 Cholecalciferol (VIT D3) [Vitamin D3] 2,000 unit PO DAILY 01/17/18 Clopidogrel Bisulfate [Clopidogrel] 75 mg PO DAILY 01/17/18 Finasteride [Proscar] 5 mg PO DAILY 01/17/18 Hydrochlorothiazide [Hctz] 25 mg PO DAILY 01/17/18 Lisinopril [Zestril] 20 mg PO BID 01/17/18 Magnesium Oxide 420 mg PO DAILY 01/17/18 Metformin HCl [Glucophage] 1,000 mg PO BIDCM 01/17/18 Nitroglycerin [Nitrostat] 0.4 mg SUBLINGUAL Q5M PRN 01/17/18 Pantoprazole Sodium [Protonix] 20 mg PO DAILY 01/17/18 Tamsulosin HCl [Flomax] 0.8 mg PO QHS 01/17/18 Amlodipine [Norvasc] 5 mg PO DAILY #30 tablet 01/21/18 Amox/Clavulanate Tablet [Augmentin Tablet] 875 mg PO BID #12 tablet 01/21/18 Glucerna Shake 120 ml PO 4X/DAY #100 liquid 01/21/18 Ipratropium/Albuterol Sulfate [Duoneb] 3 ml INHALATION Q4HWA.RT #1 box 01/21/18 Prednisone 10 mg PO UD #30 tablet 01/21/18 The following prescriptions were given: Amlodipine [Norvasc] 5 mg PO DAILY #30 tablet Prednisone 10 mg PO UD #30 tablet Amox/Clavulanate Tablet [Augmentin Tablet] 875 mg PO BID #12 tablet Glucerna Shake 120 ml PO 4X/DAY #100 liquid Primary Care Physician: [facility],[place] [Primary Care Provider] - Please follow up with your Primary Care Physician in: within 2 weeks with your primary care doctor and assistant food service manager Test Results: Test results from this visit will be discussed in further detail at your follow- up appointment, if applicable. Proposed Discharge Date: 01/21/18
--- NOTE | 2018-01-21 10:02 | PCM.DC.SUM ---
Discharge Date and Diagnosis Date of Admission: 01/17/18 Date of Discharge: 01/21/18 - Primary Discharge Diagnosis Active and Suspected Problems (Last Updated 06/13/17 @ 13:39 by Selena Guido) Acute respiratory failure with hypoxia (Acute) Sepsis (Acute) Acute bronchitis (Acute) COPD exacerbation (Acute) - Secondary Discharge Diagnosis Chronic Problems (Last Updated 06/13/17 @ 13:39 by Selena Guido) Stage 3 severe COPD by GOLD classification (Chronic) CAD S/P percutaneous coronary angioplasty (Chronic) Stents x 3 Tobacco dependence syndrome (Chronic) History of gastroesophageal reflux (GERD) (Chronic) Dyslipidemia (Chronic) Type II diabetes mellitus (Chronic) BPH (benign prostatic hyperplasia) (Chronic) Benign essential hypertension (Chronic) Shortness of breath (Chronic) GERD (gastroesophageal reflux disease) (Chronic) Iron deficiency anemia (Chronic) BPH (benign prostatic hypertrophy) (Chronic) Vitamin D deficiency (Chronic) History of alcohol dependence (Chronic) Atrial fibrillation (Chronic) Hyperlipidemia (Chronic) Hypertension (Chronic) Diabetes mellitus (Chronic) Chronic obstruct airways disease (Chronic) Hospital Course and Treatment Imaging Results: Clinical Impression(s) from Imaging Studies Chest X-Ray 01/17/18 13:45 IMPRESSION: No acute cardiopulmonary process. Electronically Signed: Jag Haynes, at 14:10 EDT Tel , Service support , None Operations: None Procedures: None Summary of Care Provided: The patient is a 77 year old M past medical history of severe COPD, chronic smoker, type II DM, paroxysmal atrial fibrillation, GERD, BPH, comes seen with shortness of breath worsening over 1 week prior to admission. Patient was found to be hypoxic with SPO2 88% in the emergency room requiring 4 L of oxygen. He does not use oxygen at home. He follows up with pulmonology in the [place]. Patient was admitted and managed as acute COPD exacerbation, put on breathing treatments, IV steroids. Respiratory panel was negative. Sputum cultures grew Haemophilus influenza as well as Pseudomonas. He was managed on IV azithromycin in the hospital and discharged on Augmentin and Levaquin. He was also discharged on a prednisone taper. Subjective: On the day of discharge, patient felt improved, he was on room air. He ambulated and was saturating 91-92% on room air. No worsening shortness of breath. Objective: Physical exam: General: Alert, Oriented x3, Cooperative, No apparent distress, off oxygen Oral: Moist Mucosa Neck: Supple, No JVD, Negative Carotid Bruits Lungs: Diminished, Wheezes, generalised, improved from yesterday Cardiovascular: Regular rate, Regular Rhythm, Normal S1, Normal S2, No murmurs Abdomen: Bowel Sounds Present, Soft, Non Tender, Non-Distended, No Hepato-splenomegaly Extremities: No edema Skin: No rashes, No breakdown Musculoskeletal: No Tenderness to Palpation of Joints or Extremities Lymphatic: No Cervical, Supraclavicular, or Inguinal Adenopathy Neurological: Cranial nerves II-XII grossly intact, Neuro grossly intact Psych/Mental Status: Normal Affect, Appropriate - Physical Exam Vital Signs Temp Pulse Resp BP Pulse Ox 97.5 F L 100 20 H 148/86 H 91 01/21/18 08:54 01/21/18 08:54 01/21/18 09:25 01/21/18 08:54 01/21/18 09:42 Oxygen Flow Rate (L/min) 4 Oxygen Delivery Method Nasal Cannula Weight: 86.545 kg Body Mass Index (BMI) 25.2 Intake and Output for Last 24 Hours 01/19/18 01/20/18 01/21/18 23:59 23:59 23:59 Intake Total 1068 / 1068 1539 / 1539 550 / 550 Output Total 1800 / 1800 1650 / 1650 2350 / 2350 Balance -732 / -732 -111 / -111 -1800 / -1800 Microbiology Past 72 Hours 01/18/18 11:07 Gram Stain - Final Sputum, Expectorated/Coughed Respiratory Culture - Final Haemophilus influenzae Pseudomonas spp 01/18/18 07:30 Respiratory Panel (PCR) - Final Mucosa - Nasopharyngeal POC Glucose 01/21/18 01/20/18 01/20/18 06:56 22:07 16:37 POC Glucose 166 H 160 H 178 H 01/20/18 11:29 POC Glucose 245 H Discharge Diet: Low fat/ Low Cholesterol, 2000 mg Sodium Diet, Carb Control Diet Discharge Activity: Return to Normal Activity Home Medications: Medications to take at Discharge Metoprolol Tartrate [Lopressor (beta killian)] 75 mg PO BID 07/24/16 Multivitamin [Daily Multiple Vitamin] 1 ea PO DAILY 07/24/16 Tiotropium [place] [Spiriva] 1 puff IH DAILY 07/24/16 Docusate Sodium [Colace] 100 mg PO BID PRN PRN cap 07/30/16 Acetaminophen [Tylenol Tablet] 650 mg PO Q6H PRN 01/17/18 Albuterol Aerosols [Ventolin Aerosols] 2.5 mg INHALATION Q6H PRN PRN 01/17/18 Albuterol Inhaler [Ventolin Hfa] 2 puff INHALATION Q6H PRN 01/17/18 Aspirin E.C. [Ecotrin] 81 mg PO DAILY@0800 01/17/18 Atorvastatin Calcium [Lipitor] 80 mg PO QHS 01/17/18 Carboxymethylcellulose Sodium [Lubricant Plus] 1 drop EACH EYE TID 01/17/18 Cholecalciferol (VIT D3) [Vitamin D3] 2,000 unit PO DAILY 01/17/18 Clopidogrel Bisulfate [Clopidogrel] 75 mg PO DAILY 01/17/18 Finasteride [Proscar] 5 mg PO DAILY 01/17/18 Hydrochlorothiazide [Hctz] 25 mg PO DAILY 01/17/18 Lisinopril [Zestril] 20 mg PO BID 01/17/18 Magnesium Oxide 420 mg PO DAILY 01/17/18 Metformin HCl [Glucophage] 1,000 mg PO BIDCM 01/17/18 Nitroglycerin [Nitrostat] 0.4 mg SUBLINGUAL Q5M PRN 01/17/18 Pantoprazole Sodium [Protonix] 20 mg PO DAILY 01/17/18 Tamsulosin HCl [Flomax] 0.8 mg PO QHS 01/17/18 Amlodipine [Norvasc] 5 mg PO DAILY #30 tablet 01/21/18 Amox/Clavulanate Tablet [Augmentin Tablet] 875 mg PO BID #12 tablet 01/21/18 Glucerna Shake 120 ml PO 4X/DAY #100 liquid 01/21/18 Ipratropium/Albuterol Sulfate [Duoneb] 3 ml INHALATION Q4HWA.RT #1 box 01/21/18 Prednisone 10 mg PO UD #30 tab 01/21/18 Following Prescrptions Were Given to Patient: Ipratropium/Albuterol Sulfate [Duoneb] 3 ml INHALATION Q4HWA.RT #1 box Amlodipine [Norvasc] 5 mg PO DAILY #30 tablet Prednisone 10 mg PO UD #30 tab Amox/Clavulanate Tablet [Augmentin Tablet] 875 mg PO BID #12 tablet Glucerna Shake 120 ml PO 4X/DAY #100 liquid Primary Care Physician: [facility],[place] [Primary Care Provider] - Please follow up with your Primary Care Physician in: within 2 weeks with your primary care doctor and asphalt paving superintendent Disposition: Home Minutes spent on discharge:: 40 Patient Condition:: Stable Medical Necessity - Tobacco Use Smoking Status: Current every day smoker Tobacco Use: Cigarettes Meaningful Use Info Meaningful Use Diagnoses (Choose all that apply): None applicable Code Visit Inpatient E&M: 27998 Disch Hosp
--- NOTE | 2018-01-24 16:06 | CASEMGMT ---
LEXY WELLS Discharge Follow-up Phone Call: FRANCIENorah: Armen Strata: 4 Call Date: 01/24/18 Discharge Date: 01/21/18 Time of Call: 1605 Duration: 3 min Admitting Diagnosis: Shortness of breath. COPD RN RUSSELL completed follow-up phone call after recent hospitalization. Patient states that he is doing fine and his breathing is ok. Patient had no concerns or questions regarding discharge instructions or medication and was able to leaf size picker prescription without any problems. Patient states that he has follow-up appts scheduled at the [place].
== END 2018-01-21 11:55 | disposition home or self-care (01) | DRG 871 ==
LOC: ED 15:16 → MS3 15:31
PROVIDERS: Family Medicine; Physician Assistant; Admitting Provider Family Medicine; Emergency Provider Emergency Medicine; Referring Provider Family Medicine; Visit Provider Internal Medicine
DX: A41.3 Sepsis due to Hemophilus influenzae (principal); J96.01 Acute respiratory failure with hypoxia; E87.1 Hypo-osmolality and hyponatremia; J44.0 Chronic obstructive pulmonary disease with (acute) lower respiratory infection; J44.1 Chronic obstructive pulmonary disease with (acute) exacerbation; F17.210 Nicotine dependence, cigarettes, uncomplicated; I25.10 Atherosclerotic heart disease of native coronary artery without angina pectoris; N40.0 Benign prostatic hyperplasia without lower urinary tract symptoms; E78.5 Hyperlipidemia, unspecified; I48.0 Paroxysmal atrial fibrillation; E11.9 Type 2 diabetes mellitus without complications; K21.9 Gastro-esophageal reflux disease without esophagitis; E86.0 Dehydration; T50.2X5A Adverse effect of carbonic-anhydrase inhibitors, benzothiadiazides and other diuretics, initial encounter; J20.1 Acute bronchitis due to Hemophilus influenzae; Z98.61 Coronary angioplasty status; I10 Essential (primary) hypertension; Z79.84 Long term (current) use of oral hypoglycemic drugs
CPT/HCPCS: 36415; 71045; 80048; 82962; 83605; 84484; 85025; 87070; 87077; 87184; 87186; 87205; 87633; 93005; 94640; 94667; 94668; 97162; 97165; 97530; 97535; 97802; 99285; J7040; A4216

== ENCOUNTER 2020-01-29 06:53 | Emergency (ER) | payer OTHER, MEDICARE, SELFPAY ==
[2020-01-29 06:54] VITALS: BP 160/92; PULSE 78; RESP 18; O2SAT 95
[2020-01-29 06:55] VITALS: PULSE 79; RESP 18; TEMP 36.8; O2SAT 95; BMI 28.6
--- NOTE | 2020-01-29 07:29 | EKG12_ITS ---
Test Reason : FALL Blood Pressure : / mmHG Vent. Rate : 071 BPM Atrial Rate : 071 BPM P-R Int : 192 ms QRS Dur : 076 ms QT Int : 412 ms P-R-T Axes : 051 020 055 degrees QTc Int : 447 ms Normal sinus rhythm Normal ECG Confirmed by HARSHA MARINELLI, GRAHAM ([id number]), medical transcription editor ANJUM CANTRELL ([id number]) on 02/04/2020 11:50:29 AM Referred By: CORAL Confirmed By:GRAHAM MCLEOD MD
[2020-01-29 07:30] VITALS: O2SAT 93
--- NOTE | 2020-01-29 07:30 | RAD_ITS ---
STUDY: X-RAY - LUMBAR SPINE REASON FOR EXAM: Male, 79 years old. FALL FROM BED LAID ON FLOOR FOR NIGHT TECHNIQUE: 3 view(s) of the lumbar spine were obtained. COMPARISON: None FINDINGS: Normal lumbar lordosis. There is no substantial scoliosis. There is a normal alignment of the vertebrae. Disc space narrowing and spondylosis at the L4-L5 and L5-S1 levels. Facet joint osteoarthritis. There is atherosclerotic calcification of the abdominal aorta without a demonstrated aneurysm. RAD/Lumbar Spine 2 or 3 Views IMPRESSION: Degenerative changes of the spine, as detailed above. Electronically Signed: Gregory Cota, at 8:34 EDT , Service support ,
--- NOTE | 2020-01-29 07:30 | RAD_ITS ---
STUDY: X-RAY CHEST REASON FOR EXAM: Male, 79 years old. FALL FROM BEDS LAID ON FLOOR FOR NIGHT, HX HTN, CABG X 4, AND COPD TECHNIQUE: AP and lateral views of the chest. COMPARISON: Comparison is made with prior study dated 01/17/2018. FINDINGS: Hyperinflation. No acute abnormality is seen. There is no demonstrated pleural abnormality. Sternal cerclage wires and vascular clips are present from a prior sternotomy and coronary artery bypass graft procedure (CABG). Normal mediastinum and amanda. Normal visualized pulmonary arteries. Normal visualized aortic arch and descending thoracic aorta. There is demineralization of the osseous structures. Minimal loss of height of the mid dorsal vertebrae. Evidence of prior right rotator cuff surgery. There is no demonstrated abnormality of the visualized soft tissue structures of the upper abdomen. RAD/Chest PA and Lateral IMPRESSION: Hyperinflation. No acute abnormality is seen. Electronically Signed: Gregory Cota, at 8:37 EDT , Service support ,
--- NOTE | 2020-01-29 07:30 | RAD_ITS ---
STUDY: X-RAY - THORACIC SPINE REASON FOR EXAM: Male, 79 years old. FALL FROM BED LAID ON FLOOR FOR NIGHT TECHNIQUE: 3 view(s) of the thoracic spine were obtained. COMPARISON: None. FINDINGS: There is an increase in the normal thoracic kyphosis. There is no substantial scoliosis. There is demineralization of the thoracic spine with endplate spondylosis. There is multilevel disc space narrowing of the thoracic spine. The soft tissue structures are unremarkable. RAD/Thoracic Spine 3 Views IMPRESSION: Multilevel disc space narrowing and spondylosis. Electronically Signed: Gregory Cota, at 8:37 EDT , Service support ,
--- NOTE | 2020-01-29 07:31 | CT_ITS ---
STUDY: CT CERVICAL SPINE WITHOUT CONTRAST REASON FOR EXAM: Male, 79 years old. Trauma, fell last night out of bed, no LOC. Hx diabetes, hypertension. RADIATION DOSAGE (If Supplied By Facility): CTDIvol = ( 29.28 ) mGy, DLP = ( 656.41 ) mGycm TECHNIQUE: High resolution transaxial imaging was performed without contrast material. Sagittal and coronal images were reconstructed. Individualized dose optimization techniques were used for this CT. COMPARISON: None FINDINGS: Normal craniovertebral junction. Normal anterior atlantoaxial articulation. Normal odontoid process. There is straightening of the normal cervical lordosis. Normal vertebral bodies and posterior osseous elements. C2-3: Facet joint hypertrophy and osteoarthritis on the left side. Uncovertebral arthrosis. Mild degree of left neural foraminal stenosis. C3-4: Mild degree of disc space narrowing. Facet joint osteoarthritis and hypertrophy worse on the left side. No significant neural foraminal stenosis is seen. C4-5: Moderate degree of disc space narrowing. Anterior spondylosis. Uncovertebral arthrosis. Mild degree of right neural foraminal stenosis. C5-6: Marked degree of disc space narrowing with a spondylosis. Uncovertebral arthrosis. Moderate degree of bilateral neural foraminal stenosis worse on the left side. C6-7: Marked degree of disc space narrowing with spondylosis. Uncovertebral arthrosis. Marked degree of left neural foraminal stenosis and moderate degree of neural foraminal stenosis on the left. C7-T1: Mild degree of disc space narrowing. Atherosclerotic calcification of the carotid bifurcations. CT/Spine Cervical without Contras IMPRESSION: Multilevel degenerative changes, as described above. Electronically Signed: Gregory Cota, at 8:39 EDT , Service support ,
--- NOTE | 2020-01-29 07:31 | CT_ITS ---
STUDY: CT BRAIN WITHOUT CONTRAST REASON FOR EXAM: Male, 79 years old. Trauma, fell last night out of bed, no LOC. Hx diabetes, hypertension. RADIATION DOSAGE (If Supplied By Facility): CTDIvol = ( 44.99 ) mGy, DLP = ( 812.98 ) mGycm TECHNIQUE: Transaxial CT imaging of the brain was performed without administration of intravenous contrast material. Individualized dose optimization techniques were used for this CT. COMPARISON: No relevant priors. FINDINGS: Normal soft tissue structures. Normal calvarium. There is mild cerebral atrophy with widening of the extra-axial spaces and ventricular dilatation. There are areas of decreased attenuation within the white matter tracts of the supratentorial brain, consistent with microvascular disease changes. Normal basal ganglia and thalami. Normal brainstem. Normal cerebellum. There is no intracranial hemorrhage. There are no findings of an acute ischemic infarction. Normal visualized paranasal sinuses. CT/Brain/Head without Contrast IMPRESSION: 1. No acute intracranial hemorrhage or mass effect. 2. Central parenchymal volume loss. White matter changes that are nonspecific but most commonly associated with chronic small vessel ischemic disease. Electronically Signed: Shaka Almaguer MD ([facility]) at 8:00 EDT , Service support ,
[2020-01-29 07:39] LABS: Absolute Lymphocyte Count 0.67 X10^3/uL (0.83-4.51); Absolute Neutrophil Count 4.2 X10^3/uL (2.0-7.7); Basophil# 0.01 X10^3/uL; Basophil% 0.2 % (0-1); Eosinophil# 0.18 X10^3/uL; Eosinophils% 3.1 % (0-5); Hemoglobin 13.1 g/dL (13.0-16.5); Lymphocyte # 0.67 X10^3/ul (4.0); Lymphocyte % 11.6 % (19-41); Mean Corp Hgb Conc 32.8 g/dL (32-36); Mean Corpuscular Volume 97.6 fL (80-94); Mean Platelet Vol. 10.3 fl (6.2-12.0); Monocyte# 0.74 X10^3/uL; Monocyte% 12.8 % (0-10); NRBC Flagged by Analyzer 0 % (0-5); Neutrophil # 4.16 X10^3/uL (2.7-7.7); Neutrophil % 72.1 % (47-70); POSITIVE MORPHOLOGY YES; Platelet Count 150 K/mm3 (150-450); RBC Distribution Width CV 12.2 % (11.6-14.6); RBC Distribution Width SD 43.8 fl (35.1-43.9); White Blood Count 5.8 K/mm3 (4.4-11.0)
[2020-01-29 07:40] LABS: Differential Indicated SCAN CRITERIA MET
--- NOTE | 2020-01-29 07:44 | ED.VIS.GEN ---
History of Present Illness Chief Complaint: Fall Informant: Patient Narrative: Patient is a 79-year-old male who presents to the emergency department after he fell out of his bed last night. He states that this occurred around 11 PM. He was not able to get himself off the floor. He states that he does have chronic issues with weakness and this is why he could not get up. He lives with his sister who found him on the ground. He has a skin tear to the left elbow. He did hit his head but denies any loss of consciousness. His only initial complaint was right-sided rib pain. He denies any shortness of breath associated with this. He believes that this pain is improving. He denies any headache, neck pain or back pain. He denies any other injury to his extremities besides the skin tear. He is not on any anticoagulation. He denies any abdominal pain or nausea/vomiting. Past Medical History - Allergies and Home Meds Allergies/Adverse Reactions: Allergies propoxyphene HCl [From Darvon] Allergy (Verified 01/29/20 07:01) Itching Primary Care Physician: [place] [place] [Primary Care Provider] - 2 Days Past Medical History: - - CAD, A. fib, COPD Surgical History: rotator cuff repair, - Smoking Status: Current every day smoker - Family History Sibling Family History: Family History (Last Updated 06/13/17 @ 13:40 by Selena Guido) Father Polio Family History: Reports: Cancer Maternal Family History: Family History (Last Updated 06/13/17 @ 13:40 by Selena Guido) Father Polio Family History: Reports: Cancer, - Paternal Family History: Family History (Last Updated 06/13/17 @ 13:40 by Selena Guido) Father Polio Family History: Reports: - Review of Systems All systems negative except as indicated General: Denies: Chills, Fever, Sweats Eyes: Denies: Visual changes - bilaterally, Diplopia ENT: Denies: Rhinorrhea, Sore throat Cardiovascular: Reports: Chest pain - Right chest wall. Denies: Palpitations Respiratory: Denies: Dyspnea, Cough, Dyspnea on exertion Gastrointestinal: Denies: Abdominal pain, Nausea, Vomiting, Diarrhea Genitourinary: Denies: Dysuria, Hematuria, Frequency Musculoskeletal: Denies: Back pain, Extremity Pain Skin: Reports: Abrasions. Denies: Rash, Wounds Neurological: Denies: Headache, Weakness, Numbness Physical Exam Vital Signs/Narrative: Vital Signs Temp Pulse Resp BP Pulse Ox 01/29/20 06:55 98.2 F 79 18 95 01/29/20 06:54 78 18 160/92 H 95 Inital Vital Signs reviewed: Yes General: Well nourished, Well developed, No Acute Distress Head: Normocephalic, Atraumatic Eyes: Perrl, EOMI ENT: Moist mucous membranes, No rhinorrhea Neck: Supple, Nontender Cardiovascular: Regular rate, Regular rhythm, No murmurs Respiratory: No distress, Chest nontender, Wheezing - Diffuse, expiratory Abdomen: Soft, Nontender, Nondistended, Normal bowel sounds Back: Normal Inspection, Spinal tenderness - Around the lower thoracic/lumbar region. No step-off sign. Extremities: Nontender, No edema, - Skin: Normal color, No rash, Trauma - Skin tear over left elbow. No active bleeding. Neurological: Alert, Oriented x3, Cranial nerves II-XII grossly intact, Normal Strength, Normal Sensation Psychological: Normal affect, Normal Mood Diagnostic/Tx/Re-eval - EKG Initial EKG Interpretation: - - Rate of 71 bpm and normal sinus rhythm. Normal intervals. Normal axis. No ST elevations or depressions appreciated. No T wave abnormalities. - Medical Decision Making Patient presents to the emergency department after falling out of bed. On physical exam he is having some lower back pain. Was complaining of right-sided chest pain. He did strike his head but denies any headache at this time. Imaging being obtained. Will check basic lab work as he was on the ground all night. We will give a DuoNeb breathing treatment as he states he typically takes inhalers in the morning and is wheezy. Imaging does not reveal any traumatic findings. Lab workup unremarkable for significant acute abnormality including CK level. He was able to ambulate around the ED without issue. Will discharge him home in stable condition. He is to follow up with his PCP. Warning signs and symptoms for which to return to the ED are reviewed with him. He understands and is agreeable with this plan. ED Disposition - Plan for ED Patient: Disposition: Home or Assisted Living Diagnosis: Skin tear, Closed head injury, Low back pain, Fall Instructions: ED Back Pain Acute or Chronic, ED Head Injury Adult, ED AVULSION LACERATION [facility] [Primary Care Provider] - 2 Days
[2020-01-29 07:53] LABS: Anion Gap 4 (5-15); BUN 15 mg/dL (7-18); BUN/Creat Ratio 21.2 RATIO (10-20); CPK Total, Creatine Kinase 139 U/L (39-308); Calcium,Total 8.6 mg/dL (8.5-10.1); Chloride 99 mmol/L (98-107); Creatinine, Serum 0.71 mg/dL (0.70-1.30); EST Glomerular Filtration Rate 114 mL/min (>60); Est Glom Filt Rate - Afr Amer 138 mL/min (>60); Estimated Creatinine Clearance 69.91 ml/min; Glucose 133 mg/dL (74-106); Sodium Level 133 mmol/L (136-145)
[2020-01-29 08:05] VITALS: PULSE 73; RESP 18
[2020-01-29] MEDS: Ipratropium/Albuterol Sulfate 3 ML AMPUL.NEB INHALATION (08:05)
== END 2020-01-29 10:05 | disposition home or self-care (01) ==
PROVIDERS: Emergency Provider Emergency Medicine
DX: S51.012A Laceration without foreign body of left elbow, initial encounter (principal); S09.90XA Unspecified injury of head, initial encounter; R07.89 Other chest pain; M54.5 Low back pain; W06.XXXA Fall from bed, initial encounter; Y93.9 Activity, unspecified; Y92.9 Unspecified place or not applicable; I25.10 Atherosclerotic heart disease of native coronary artery without angina pectoris; I48.91 Unspecified atrial fibrillation; J44.9 Chronic obstructive pulmonary disease, unspecified; Z95.1 Presence of aortocoronary bypass graft; Z79.82 Long term (current) use of aspirin; Z79.899 Other long term (current) drug therapy; F17.200 Nicotine dependence, unspecified, uncomplicated
CPT/HCPCS: 70450; 71046; 72072; 72100; 72125; 80048; 82550; 84484; 85025; 93005; 94640; 99285; A4216

== ENCOUNTER 2020-04-18 10:36 | Inpatient (IN) | payer OTHER, MEDICARE, SELFPAY ==
[2020-04-18] VITALS (8 sets, daily range): BP systolic 132–160; BP diastolic 69–101; PULSE 66–98; RESP 16–18; TEMP 36.4–37; O2SAT 92–99; BMI 26.2; BMI 25.4
--- NOTE | 2020-04-18 10:45 | EKG12_ITS ---
Test Reason : PAIN Blood Pressure : / mmHG Vent. Rate : 065 BPM Atrial Rate : 065 BPM P-R Int : 192 ms QRS Dur : 086 ms QT Int : 434 ms P-R-T Axes : 000 145 021 degrees QTc Int : 451 ms Normal sinus rhythm Left posterior fascicular block Abnormal ECG Confirmed by MICHAEL MARINELLI, RAYMOND ([id number]), newspaper or periodical editor ANJUM CANTRELL ([id number]) on 04/21/2020 9:39:48 AM Referred By: [facility] Confirmed By:RAYMOND RODRIGUEZ MD
--- NOTE | 2020-04-18 10:45 | ED.VIS.GEN ---
History of Present Illness Chief Complaint: Weakness Informant: Patient Onset: Month(s) Context: Gradual Onset Current Severity: Moderate Maximum Severity: Moderate Narrative: Patient presents secondary to generalized weakness. He reports has been getting worse over the past couple of months. 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 Knee pain has been worse recently and sister with whom he lives states that he has not been able to get up out of his chair for the past 2 days. Patient states when he tries to get up his legs felt they are going to give out on him. Patient states he last fell a couple days ago. He denies any injury from falls. - Past Medical History (1) Atrial fibrillation Status: Chronic (2) BPH (benign prostatic hypertrophy) Status: Chronic (3) Benign essential hypertension Status: Chronic (4) CAD S/P percutaneous coronary angioplasty Status: Chronic Comment: Stents x 3 (5) Diabetes mellitus Status: Chronic (6) Dyslipidemia Status: Chronic (7) GERD (gastroesophageal reflux disease) Status: Chronic (8) History of gastroesophageal reflux (GERD) Status: Chronic (9) Hyperlipidemia Status: Chronic (10) Stage 3 severe COPD by GOLD classification Status: Chronic Past Medical History - Allergies and Home Meds Allergies/Adverse Reactions: Allergies propoxyphene HCl [From Darvon] Allergy (Verified 04/18/20 10:41) Itching Primary Care Physician: [facility] [Primary Care Provider] - Prior records reviewed: Yes Surgical History: rotator cuff repair, - Lives: With Family Smoking Status: Current every day smoker - Family History Sibling Family History: Family History (Last Updated 06/13/17 @ 13:40 by Selena Guido) Father Polio Family History: Reports: Cancer Maternal Family History: Family History (Last Updated 06/13/17 @ 13:40 by Selena Guido) Father Polio Family History: Reports: Cancer, - Paternal Family History: Family History (Last Updated 06/13/17 @ 13:40 by Selena Guido) Father Polio Family History: Reports: - Review of Systems General: Denies: Chills, Fever Eyes: Denies: Visual changes - bilaterally ENT: Denies: Bilateral ear pain Cardiovascular: Denies: Chest pain Respiratory: Denies: Dyspnea, Cough Gastrointestinal: Denies: Abdominal pain, Vomiting, Diarrhea Musculoskeletal: Reports: Extremity Pain Skin: Denies: Wounds Neurological: Reports: Weakness Hematologic: Denies: Easy bruising, Easy bleeding Allergy: Denies: Uticaria Physical Exam Vital Signs/Narrative: Vital Signs Temp Pulse Resp BP Pulse Ox 04/18/20 10:37 98.3 F 66 18 144/92 H 96 Inital Vital Signs reviewed: Yes General: Well nourished, Well developed Head: Normocephalic ENT: Moist mucous membranes Neck: Supple Cardiovascular: Regular rate, Regular rhythm Respiratory: No distress, CTA bilaterally Abdomen: Soft, Nontender Extremities: - - Mild tenderness to palpation over the knees. No erythema or significant edema. Skin: Normal color Neurological: Alert, Oriented x3, - - No focal neurologic deficits. Psychological: Normal affect Diagnostic/Tx/Re-eval 04/18/20 10:52 Mucosa - Nose SARS-CoV-2 Antigen (Rapid) - Final Laboratory Results 04/18/20 04/18/20 04/18/20 10:50 10:50 11:45 WBC 11.3 H RBC 4.27 L Hgb 13.3 Hct 40.5 MCV 94.8 H MCH 31.1 MCHC 32.8 RDW Std Deviation 43.4 RDW Coeff of Genaro 12.4 Plt Count 253 MPV 10.5 Immature Gran % (Auto) 0.400 Neut % (Auto) 81.5 H Lymph % (Auto) 9.1 L [place] % (Auto) 8.1 Eos % (Auto) 0.7 Baso % (Auto) 0.2 Absolute Neuts (auto) 9.2 H Absolute Lymphs (auto) 1.03 Nucleated RBC % 0 Sodium 134 L Potassium 4.1 Chloride 100 Carbon Dioxide 29.0 Anion Gap 5 BUN 18 Creatinine 0.87 Estim Creat Clear Calc 80.36 Est GFR (MDRD) Af Amer 109 Est GFR (MDRD) Non-Af 90 BUN/Creatinine Ratio 20.6 H Glucose 125 H Calcium 8.7 Urine Color Yellow Urine Clarity Sl. Cloudy Urine pH 6.5 Ur Specific [place] 1.015 Urine Protein Negative Urine Glucose (UA) Normal Urine Ketones Negative Urine Occult Blood 10 H Urine Nitrite Negative Urine Bilirubin 6 H Urine Urobilinogen Normal Ur Leukocyte Esterase 500 H Urine RBC 0 SEEN Urine WBC 10-25 SEEN Ur Squamous Epith Cells 0-5 SEEN Ur Transition Epith Cell 0-5 SEEN Urine Bacteria 1+ Urine Mucus 0 SEEN - EKG Initial EKG Interpretation: Sinus Rhythm - Sinus at 65 with no acute ischemia. - Medical Decision Making Patient's blood work is largely unremarkable. Covid swab is negative. Urinalysis does show bacteria and white blood cells. Urine culture will be sent and he will be given a dose of IV Rocephin. Patient was seen by social work. He would prefer to go to TCU if at all possible for rehab but they do not have beds available today. Patient states he would have to consult with family as far as what other facilities he would be willing to go to. At this time we will admit the patient for antibiotics as well as physical therapy evaluation. ED Disposition - Plan for ED Patient: Disposition: Acute Care [facility] Diagnosis: Weakness, UTI (urinary tract infection) [facility] [Primary Care Provider] -
[2020-04-18 11:01] LABS: Absolute Lymphocyte Count 1.03 X10^3/uL (0.83-4.51); Absolute Neutrophil Count 9.2 X10^3/uL (2.0-7.7); Basophil# 0.02 X10^3/uL; Basophil% 0.2 % (0-1); Eosinophil# 0.08 X10^3/uL; Eosinophils% 0.7 % (0-5); Hematocrit 40.5 % (40-54); Hemoglobin 13.3 g/dL (13.0-16.5); Lymphocyte # 1.03 X10^3/ul (4.0); Lymphocyte % 9.1 % (19-41); Mean Corp Hgb Conc 32.8 g/dL (32-36); Mean Corpuscular Hgb 31.1 pg (27.0-32.0); Mean Corpuscular Volume 94.8 fL (80-94); Mean Platelet Vol. 10.5 fl (6.2-12.0); Monocyte# 0.92 X10^3/uL; Monocyte% 8.1 % (0-10); NRBC Flagged by Analyzer 0 % (0-5); Neutrophil # 9.24 X10^3/uL (2.7-7.7); Neutrophil % 81.5 % (47-70); Platelet Count 253 K/mm3 (150-450); RBC Distribution Width CV 12.4 % (11.6-14.6); RBC Distribution Width SD 43.4 fl (35.1-43.9); Red Blood Count 4.27 M/mm3 (4.6-6.2); White Blood Count 11.3 K/mm3 (4.4-11.0)
[2020-04-18 11:13] LABS: Anion Gap 5 (5-15); BUN 18 mg/dL (7-18); BUN/Creat Ratio 20.6 RATIO (10-20); Calcium,Total 8.7 mg/dL (8.5-10.1); Chloride 100 mmol/L (98-107); Creatinine, Serum 0.87 mg/dL (0.70-1.30); EST Glomerular Filtration Rate 90 mL/min (>60); Est Glom Filt Rate - Afr Amer 109 mL/min (>60); Estimated Creatinine Clearance 80.36 ml/min; Glucose 125 mg/dL (74-106); Potassium 4.1 mmol/L (3.5-5.1); Sodium Level 134 mmol/L (136-145)
--- NOTE | 2020-04-18 11:45 | NURSING ---
NOTIFIED NINO WITH [facility] PT WILL NEED ADMISSION
[2020-04-18 11:50] LABS: Mucous, Urine 0 SEEN /hpf (<or=2+); Red Blood Cells-Urine 0 SEEN /hpf (0-5)
[2020-04-18 12:02] LABS: Color, Urine Yellow (Yellow); Glucose, Dipstick Normal (Normal); Ketone-Dipstick Negative (Negative); Leukocyte Esterase-Dipstick 500 /ul (Negative); Nitrite-Dipstick Negative (Negative); Occult Blood-Urine 10 /ul (Negative); Protein-Dipstick Negative (Negative); Specific Gravity, Urine 1.015 (1.002-1.030); Urine Clarity Sl. Cloudy (Clear); Urine Urobilinogen Normal (Normal); Urine pH 6.5 (5.0 - 8.0)
[2020-04-18 12:12] LABS: Urine Bilirubin Dipstick 6 mg/dL (Negative)
[2020-04-18 12:15] LABS: Bacteria 1+ /hpf (None Seen); Squamous Epithelial Cells - UA 0-5 SEEN /hpf (0-5); Transitional Epithelial - Ur 0-5 SEEN /hpf (0-5); White Blood Cells 10-25 SEEN /hpf (0-5)
--- NOTE | 2020-04-18 12:20 | CM.ED ---
SOCIAL WORK ASSESSMENT Informant: Dr. Marquis Reason for Consult: Discharge Planning Chief Compliant: Patient comes in from home with sister. EMS reported sister states patient has been in chair for 2 days, weakness and needing rehab prior to home going. Met with patient in room. Introduced role and reason for referral. Patient reports lives home with sisterMiroslava in a 1 story home with basement and 2 steps to enter. Patient reports sometimes uses a walker or cane for assistance with ambulation. Patient states has aide services through [employer] who assist with bathing and dressing. Patient reports increased weakness and falls. Patient in agreement with plan for SNF. Patient provided with list of facilities and requested referral to TCU. Referral called to Selena in TCU. No bed available this day. Patient added to list. Updated patient and discussed with patient's son, Narendra over the phone. Patient requesting extra time to review list and speak with family if unable to go to TCU. Dr. Marquis updated on the above. Patient to be admitted with PT/OT consult. SW to follow up with patient tomorrow. Plan: Admit with plan for SNF upon discharge Sulaiman Price, [employer], [employer]
--- NOTE | 2020-04-18 12:31 | ED.RN ---
pt unsure what meds he takes. Meds verified with sister who he lives with. Updated that pt will be admitted. Attempted to contact son per pts sister but no answer.
[2020-04-18] MEDS: Ceftriaxone 1 GM/50 ML BAG IV (12:46)
--- NOTE | 2020-04-18 13:45 | HP.PCM_ITS ---
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 The patient is a 79 year old M with past medical history as mentioned above presented to the emergency room because of weakness. The patient himself mentioned that he has been having trouble walking because of which is generalized. He mentioned that he was taken off premedication recently by his doctor and since then, he has been having increasing joint pain, all over, associated with increasing difficulty ambulating. He reported associated generalized weakness. Currently, he lives with his sister who reportedly stated that she is not able to take care of him anymore. Patient mentions that he had a mechanical fall 2 days ago because he was too weak and his knees gave out. He had a history of CAD status post stents and he has been on aspirin, statins, lisinopril and metoprolol, EKG today was unremarkable. He had a history of benign prostatic hypertrophy and he has been on Proscar and Flomax. He had a history of COPD, has been on inhalers at home but currently not on home oxygen. In the emergency department, his blood pressure was slight elevated, other vital signs were stable, afebrile. Routine blood work was remarkable for minimal leukocytosis, otherwise normal. Urinalysis revealed cloudy urine, there was 500 leukocyte esterase, 10-25 WBCs and 1+ bacteria. EKG revealed normal sinus rhythm without evidence of acute ischemic changes. Patient is being admitted for acute cystitis, physical debility and functional decline and he will need placement to intermediate facility. Past Medical History Past Medical History (Chronic Problems): Chronic Problems (Last Updated 04/18/20 @ 13:[address] 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) CAD S/P percutaneous coronary angioplasty (Chronic) Stents x 3 Tobacco dependence syndrome (Chronic) History of gastroesophageal reflux (GERD) (Chronic) Dyslipidemia (Chronic) Type II diabetes mellitus (Chronic) BPH (benign prostatic hyperplasia) (Chronic) Benign essential hypertension (Chronic) GERD (gastroesophageal reflux disease) (Chronic) Iron deficiency anemia (Chronic) Vitamin D deficiency (Chronic) History of alcohol dependence (Chronic) Atrial fibrillation (Chronic) Hyperlipidemia (Chronic) Diabetes mellitus (Chronic) Medical History: Medical History (Last Updated 04/18/20 @ 13:[address] Linda Mccall MD) Stage 3 severe COPD by GOLD classification (Chronic) J44.9 CAD S/P percutaneous coronary angioplasty (Chronic) I25.10, Z98.61 Stents x 3 Tobacco dependence syndrome (Chronic) F17.200 History of gastroesophageal reflux (GERD) (Chronic) Z87.19 Dyslipidemia (Chronic) E78.5 Type II diabetes mellitus (Chronic) E11.9 Benign essential hypertension (Chronic) I10 GERD (gastroesophageal reflux disease) (Chronic) K21.9 Iron deficiency anemia (Chronic) D50.9 Vitamin D deficiency (Chronic) E55.9 History of alcohol dependence (Chronic) F10.21 Atrial fibrillation (Chronic) I48.91 Hyperlipidemia (Chronic) E78.5 Diabetes mellitus (Chronic) E11.9 Abnormal electrocardiogram [ECG] [EKG] (Inactive) R94.31 Allergies propoxyphene HCl [From Darvon] Allergy (Verified 04/18/20 10:41) Itching Home Medications: Ambulatory Orders Medication Instructions Recorded Metoprolol Tartrate [Lopressor 50 mg PO BID 07/24/16 (beta killian)] Multivitamin [Daily Multiple 1 ea PO DAILY 07/24/16 Vitamin] Tiotropium [place] [Spiriva] 1 puff IH DAILY 07/24/16 Docusate Sodium [Colace] 100 mg PO BID PRN PRN cap 07/30/16 Acetaminophen [Tylenol Tablet] 650 mg PO Q6H PRN 01/17/18 Albuterol Aerosols [Ventolin 2.5 mg INHALATION Q6H PRN PRN 01/17/18 Aerosols] Albuterol Inhaler [Ventolin Hfa] 2 puff INHALATION Q6H PRN 01/17/18 Aspirin E.C. [Ecotrin] 81 mg PO DAILY@0800 01/17/18 Atorvastatin Calcium [Lipitor] 80 mg PO QHS 01/17/18 Cholecalciferol (VIT D3) [Vitamin 2,000 unit PO DAILY 01/17/18 D3] Finasteride [Proscar] 5 mg PO DAILY 01/17/18 Hydrochlorothiazide [Hctz] 25 mg PO DAILY 01/17/18 Lisinopril [Zestril] 20 mg PO BID 01/17/18 Magnesium Oxide 420 mg PO BID 01/17/18 Nitroglycerin (INPATIENT USE) 0.4 mg SUBLINGUAL Q5M PRN 01/17/18 [Nitrostat] Pantoprazole Sodium [Protonix] 20 mg PO DAILY 01/17/18 Tamsulosin HCl [Flomax] 0.4 mg PO QHS 01/17/18 Sertraline HCl 50 mg PO DAILY 04/18/20 Surgical History: rotator cuff repair, - Psychiatric History: Depression Lives: With Family Smoking Status: Current every day smoker Tobacco Use: Cigarettes Alcohol: None Drugs: None - *Family History Sibling Family History: Family History (Last Updated 06/13/17 @ 13:40 by Selena Guido) Father Polio History Items: Cancer Maternal Family History: Family History (Last Updated 06/13/17 @ 13:40 by Selena Guido) Father Polio History Items: Cancer, - Paternal Family History: Family History (Last Updated 06/13/17 @ 13:40 by Selena Guido) Father Polio History Items: - Review of Systems Constitutional: Reports: Weakness, Fatigue. Denies: Anorexia, Chills, Fever Eyes: Denies: Blurred vision, Double vision, Drainage, Redness HEENT: Denies: Ear Pain, Eye Pain, Nasal Congestion, Sore Throat Cardiovascular: Denies: Chest Pain, Claudication, Chest Tightness, Edema, Syncope Respiratory: Denies: Cough, Pleuritic Pain, Shortness of Breath, Sputum production, Wheezing Gastrointestinal: Denies: Abdominal Pain, Constipation, Diarrhea, Nausea, Vomiting Genitourinary: Reports: Frequency. Denies: Dysuria, Hematuria Musculoskeletal: Reports: Joint Pain. Denies: Arm Pain, Back Pain, Foot Pain Skin: Denies: Dryness, Rash Neurological: Denies: Balance problems, Double vision, Change in Speech, Slurred speech, Confusion, Headaches, Incoordination, Numbness Psychiatric: Reports: Depression Endocrine: Denies: Change in Body Habitus, Polydipsia, Polyuria VTE Information - Inpt Only VTE Present on Admission: No VTE Mechan Device Prophylaxis: None VTE Pharm Prophylaxis ordered?: Yes - Physical Exam Vitals/I&O's: Vital Signs Temp Pulse Resp BP Pulse Ox 97.6 F L 66 17 143/101 H 99 04/18/20 12:44 04/18/20 12:44 04/18/20 12:44 04/18/20 12:44 04/18/20 12:44 Oxygen Delivery Method Room Air Weight: 198 lb 10.184 oz Body Mass Index (BMI) 26.2 Intake and Output for Last 24 Hours 04/16/20 04/17/20 04/18/20 23:59 23:59 23:59 Intake Total 50 / 50 Balance 50 / 50 General: Alert, Oriented x3, Cooperative, No apparent distress HEENT: Atraumatic, PERRLA, EOMI, Normocephalic Oral: Moist Mucosa, No Gingival or Mucosal Lesions/ Ulcerations Neck: Supple, No JVD, Negative Carotid Bruits, Trachea Midline, Thyroid Normal Size and Texture Lungs: Clear to auscultation, Normal air movement, No rhonchi, No wheeze, No rales, Diminished Cardiovascular: Regular rate, Regular Rhythm, Normal S1, Normal S2, PMI Normal Abdomen: Bowel Sounds Present, Soft, Non Tender, Non-Distended, No Hepato- splenomegaly Extremities: No clubbing, No cyanosis, No edema Skin: No rashes, No breakdown Lymphatic: No Cervical, Supraclavicular, or Inguinal Adenopathy Neurological: Cranial nerves II-XII grossly intact, Motor Exam 5/5 strength throughout Psych/Mental Status: Normal Affect, Appropriate, Alert and oriented to time, place, person, mood and affect Microbiology Past 72 Hours 04/18/20 10:52 Mucosa - Nose SARS-CoV-2 Antigen (Rapid) - Final Laboratory Results 04/18/20 10:50: WBC 11.3 H, RBC 4.27 L, Hgb 13.3, Hct 40.5, MCV 94.8 H, MCH 31.1, MCHC 32.8, RDW Std Deviation 43.4, RDW Coeff of [place] 12.4, Plt Count 253, MPV 10.5, Immature Gran % (Auto) 0.400, Neut % (Auto) 81.5 H, Lymph % (Auto) 9.1 L, [place] % (Auto) 8.1, Eos % (Auto) 0.7, Baso % (Auto) 0.2, Absolute Neuts (auto) 9.2 H, Absolute Lymphs (auto) 1.03, Nucleated RBC % 0 04/18/20 10:50: Sodium 134 L, Potassium 4.1, Chloride 100, Carbon Dioxide 29.0, Anion Gap 5, BUN 18, Creatinine 0.87, Estim Creat Clear Calc 80.36, Est GFR (MDRD) Af Amer 109, Est GFR (MDRD) Non-Af 90, BUN/Creatinine Ratio 20.6 H, Glucose 125 H, Calcium 8.7 04/18/20 11:45: Urine Color Yellow, Urine Clarity Sl. Cloudy, Urine pH 6.5, Ur Specific [place] 1.015, Urine Protein Negative, Urine Glucose (UA) Normal, Urine Ketones Negative, Urine Occult Blood 10 H, Urine Nitrite Negative, Urine Bilirubin 6 H, Urine Urobilinogen Normal, Ur Leukocyte Esterase 500 H, Urine RBC 0 SEEN, Urine WBC 10-25 SEEN, Ur Squamous Epith Cells 0-5 SEEN, Ur Transition Epith Cell 0-5 SEEN, Urine Bacteria 1+, Urine Mucus 0 SEEN Assessment/Plan All Active Problems (Last Updated 04/18/20 @ 13:[address] Linda Mccall MD) Acute cystitis (Acute) Physical debility (Acute) This is a 79 years old male patient presented to the emergency room because of weakness and difficulty ambulating, found to have acute cystitis and he is being admitted for treatment and he will need placement to intermediate facility. #1 acute cystitis: Urinalysis reviewed. No evidence of sepsis or severe sepsis. COVID-19 antigen was negative. Plan: Admit to MedSurg floor, gentle IV fluids for hydration, Tylenol as needed, urine culture, start IV Rocephin, Zofran as needed, repeat CBC and BMP tomorrow morning, chest x-ray, PT OT evaluation and treatment. #2 physical debility/functional decline/recurrent falls: Patient lives at home with his sister who was not able to take care of him anymore. Plan for PT OT, patient is agreeable to go to intermediate facility. #3 joint pain/history of arthritis: Patient mentioned that he was taken off pain medication recently and since then, he has been having increasing joint pain, generalized. Plan for Tylenol as needed, tramadol as needed, PT OT. #4 CAD status post stents: Stable, EKG without acute segment changes. No chest pain. Continue aspirin, statins, lisinopril and metoprolol. #5 hypertension: Blood pressure stable, continue HCTZ, lisinopril and metoprolol. #6 COPD: Currently on room air, stable. Plan for chest x-ray, DuoNeb every 6 hours, albuterol as needed. #7 hyperlipidemia: Continue statins. #8 history of type 2 diabetes mellitus: Hemoglobin A1c was 5.9% on July,. We will do Accu-Cheks and check hemoglobin A1c. #9 DVT prophylaxis: Subcu Lovenox. This note was generated with [employer] dictation software. It may contain incorrect words, spelling, and punctuation that were not noted in checking the note before signing. Inpatient E&M: 79760 Init Hosp L2
--- NOTE | 2020-04-18 13:50 | RAD_ITS ---
STUDY: X-RAY CHEST REASON FOR EXAM: Male, 79 years old. Weakness. TECHNIQUE: Single AP portable view of the chest. COMPARISON: 01/29/2020. FINDINGS: The lungs are well expanded. There is no acute infiltrate or mass. There is chronic interstitial changes. There is no demonstrated pleural abnormality. Sternal cerclage wires are present from a prior sternotomy. The heart is normal in size. Normal mediastinum and amanda. Normal visualized pulmonary arteries. There is atherosclerotic calcification of the aortic arch with tortuosity. The thoracic spine is obscured by the mediastinum. There is surgical changes of the right shoulder. There is no demonstrated abnormality of the visualized soft tissue structures of the upper abdomen. RAD/Chest 1 View (Portable) IMPRESSION: No acute cardiopulmonary disease or major interval change. Electronically Signed: Clay York DO at 17:21 EST Tel [phone], Service support ,
--- NOTE | 2020-04-18 15:04 | CASEMGMT ---
Selena from TCU said she will have a bed for patient Tuesday. SW notified patient and he asked SW to notify his sister. SW called patient's sister, Miroslava and left her a message letting her know there will be a bed for patient in TCU tomorrow. Green sheet on chart. Plan: [facility] TCU under skilled level of care. Dana GAY
[2020-04-18] MEDS: 0.9% Normal Saline 1,000 ML 100 ML IV (15:20)
[2020-04-18 16:25] LABS: Bedside Glucose 180 mg/dL (70-110)
[2020-04-18] MEDS: Ipratropium/Albuterol Sulfate 3 ML AMPUL.NEB INHALATION (19:59)
[2020-04-18] MEDS: Atorvastatin Calcium 80 MG Tablet PO (22:43)
[2020-04-18] MEDS: Metoprolol Tartrate 50 MG Tablet PO (22:43)
[2020-04-18] MEDS: Tamsulosin HCl 0.4 MG Capsule PO (22:43)
[2020-04-18] MEDS: Lisinopril 20 MG Tablet PO (22:43)
[2020-04-18 23:11] LABS: Bedside Glucose 135 mg/dL (70-110)
--- NOTE | 2020-04-18 23:50 | NURSING ---
Report given to Brielle Tyson RN who assuming care of the pt. at this time.
--- NOTE | 2020-04-18 23:57 | PCS.PANDOC ---
PANDEMIC DOCUMENTATION INITIATED: Date: 04/18/20 Time: 13:49
[2020-04-19] VITALS (7 sets, daily range): BP systolic 107–143; BP diastolic 60–90; PULSE 69–83; RESP 16–18; TEMP 36.6–37; O2SAT 91–94
[2020-04-19] MEDS: Ipratropium/Albuterol Sulfate 3 ML AMPUL.NEB INHALATION ×3 (00:10→13:04)
[2020-04-19] MEDS: Acetaminophen 325 MG Tablet 650 MG PO (03:16)
[2020-04-19 06:51] LABS: Bedside Glucose 94 mg/dL (70-110)
--- NOTE | 2020-04-19 08:01 | PN_ITS ---
Subjective: Chief complaint: Follow-up after admission for acute cystitis, physical debility and functional decline. Patient seen and examined. No acute events overnight. Today, he is feeling better. Testicular emboli joint pain. No other complaints. His vital signs are stable. - Physical Exam Vitals/I&O's: Vital Signs Temp Pulse Resp BP Pulse Ox 98.1 F 80 16 143/90 H 94 04/19/20 03:15 04/19/20 03:15 04/19/20 03:15 04/19/20 03:15 04/19/20 03:15 Oxygen Delivery Method Room Air Weight: 192 lb 7 oz Body Mass Index (BMI) 25.4 Intake and Output for Last 24 Hours 04/17/20 04/18/20 04/19/20 23:59 23:59 23:59 Intake Total 350 / 590 1330 / 1330 Output Total 1300 / 1300 Balance 350 / -335 General: Alert, Oriented x3, Cooperative, No apparent distress HEENT: Atraumatic, PERRLA, EOMI, Normocephalic Oral: Moist Mucosa, No Gingival or Mucosal Lesions/ Ulcerations Neck: Supple, No JVD, Negative Carotid Bruits, Trachea Midline, Thyroid Normal Size and Texture Lungs: Clear to auscultation, No rhonchi, No wheeze, No rales, Diminished Cardiovascular: Regular rate, Regular Rhythm, Normal S1, Normal S2, PMI Normal Abdomen: Bowel Sounds Present, Soft, Non Tender, Non-Distended, No Hepato- splenomegaly Extremities: No clubbing, No cyanosis, No edema Skin: No rashes, No breakdown Lymphatic: No Cervical, Supraclavicular, or Inguinal Adenopathy Neurological: Cranial nerves II-XII grossly intact, Neuro grossly intact Psych/Mental Status: Normal Affect, Appropriate, Alert and oriented to time, place, person, mood and affect Microbiology Past 72 Hours 04/18/20 10:52 Mucosa - Nose SARS-CoV-2 Antigen (Rapid) - Final Laboratory Results 04/18/20 10:50: WBC 11.3 H, RBC 4.27 L, Hgb 13.3, Hct 40.5, MCV 94.8 H, MCH 31.1, MCHC 32.8, RDW Std Deviation 43.4, RDW Coeff of [place] 12.4, Plt Count 253, MPV 10.5, Immature Gran % (Auto) 0.400, Neut % (Auto) 81.5 H, Lymph % (Auto) 9.1 L, [place] % (Auto) 8.1, Eos % (Auto) 0.7, Baso % (Auto) 0.2, Absolute Neuts (auto) 9.2 H, Absolute Lymphs (auto) 1.03, Nucleated RBC % 0 04/18/20 10:50: Sodium 134 L, Potassium 4.1, Chloride 100, Carbon Dioxide 29.0, Anion Gap 5, BUN 18, Creatinine 0.87, Estim Creat Clear Calc 80.36, Est GFR (MDRD) Af Amer 109, Est GFR (MDRD) Non-Af 90, BUN/Creatinine Ratio 20.6 H, Glucose 125 H, Calcium 8.7 04/18/20 10:50: Hemoglobin A1c 6.0 H 04/18/20 11:45: Urine Color Yellow, Urine Clarity Sl. Cloudy, Urine pH 6.5, Ur Specific [place] 1.015, Urine Protein Negative, Urine Glucose (UA) Normal, Urine Ketones Negative, Urine Occult Blood 10 H, Urine Nitrite Negative, Urine Bilirubin 6 H, Urine Urobilinogen Normal, Ur Leukocyte Esterase 500 H, Urine RBC 0 SEEN, Urine WBC 10-25 SEEN, Ur Squamous Epith Cells 0-5 SEEN, Ur Transition Epith Cell 0-5 SEEN, Urine Bacteria 1+, Urine Mucus 0 SEEN 04/18/20 16:22: POC Glucose 180 H 04/18/20 22:42: POC Glucose 135 H 04/19/20 06:47: POC Glucose 94 Current Medications Acetaminophen (Acetaminophen 325 Mg Tablet) 650 mg PO Q6H PRN PRN PRN Reason: Pain Score 1-10/Temp > 100.7 F Last Admin: 04/19/20 03:16 Dose: 650 mg Documented by: Albuterol Sulfate (Albuterol 2.5 Mg/3 Ml Vial.Neb.) 2.5 mg INHALATION Q4H PRN PRN PRN Reason: Shortness of breath, wheezing Albuterol/Ipratropium (Ipratropium/Albuterol Sulfate 3 Ml Ampul.Neb) 3 ml INHALATION Q6H.RT VANESSA Last Admin: 04/19/20 07:18 Dose: 3 ml Documented by: Aspirin (Aspirin E.C. 81 Mg Tablet) 81 mg PO DAILY@0800 [facility] Atorvastatin Calcium (Atorvastatin Calcium 80 Mg Tablet) 80 mg PO QHS [facility] Last Admin: 04/18/20 22:43 Dose: 80 mg Documented by: Enoxaparin Sodium (Enoxaparin 40 Mg/0.4 Ml Syringe) 40 mg SC DAILY [facility] Finasteride (Finasteride 5 Mg Tablet) 5 mg PO DAILY [facility] Hydralazine HCl (Hydralazine 20 Mg/Ml Vial) 10 mg IV Q8H PRN PRN PRN Reason: for SBP>160 Hydrochlorothiazide (Hydrochlorothiazide 25 Mg Tablet) 25 mg PO DAILY [facility] Ceftriaxone Sodium (Rocephin) 1 gm in 50 mls @ 100 mls/hr IV Q24 [facility] Sodium Chloride () 250 mls @ 15 mls/hr IV .[id number] PRN PRN Reason: Saline Flush Sodium Chloride () 250 mls @ 15 mls/hr IV .[id number] PRN PRN Reason: Additional IVPB Infusion Lisinopril (Lisinopril 20 Mg Tablet) 20 mg PO BID [facility] Last Admin: 04/18/20 22:43 Dose: 20 mg Documented by: Metoprolol Tartrate (Metoprolol Tartrate 50 Mg Tablet) 50 mg PO BID [facility] Last Admin: 04/18/20 22:43 Dose: 50 mg Documented by: Ondansetron HCl (Ondansetron 4 Mg/2 Ml Vial) 4 mg IV Q8H PRN PRN PRN Reason: NAUSEA/VOMITING Pantoprazole Sodium (Pantoprazole Sodium 20 Mg Tablet) 20 mg PO DAILY [facility] Senna/Docusate Sodium (Senna/Docusate Sodium 1 Tablet) 2 tablet PO BID PRN PRN PRN Reason: Constipation Sertraline HCl (Sertraline 50 Mg Tablet) 50 mg PO DAILY [facility] Sodium Chloride (0.9% Saline Lock 10 Ml Syringe) 10 - 40 ml IV UD PRN PRN Reason: SALINE FLUSH Tamsulosin HCl (Tamsulosin Hcl 0.4 Mg Capsule) 0.4 mg PO QHS [facility] Last Admin: 04/18/20 22:43 Dose: 0.4 mg Documented by: Tramadol HCl (Tramadol 50 Mg Tablet) 50 mg PO TID PRN PRN PRN Reason: Pain Score 4-10 Zolpidem Tartrate (Zolpidem Tartrate 5 Mg Tablet) 5 mg PO QHS PRN PRN PRN Reason: INSOMNIA Medical Necessity - Tobacco Use Smoking Status: Current every day smoker Tobacco Use: Cigarettes Assessment/Plan All Active Problems (Last Updated 04/18/20 @ 13:[address] Linda Mccall MD) Acute cystitis (Acute) Physical debility (Acute) This is a 79 years old male patient presented to the emergency room because of weakness and difficulty ambulating, found to have acute cystitis and he is being admitted for treatment and he will need placement to longterm facility. #1 acute cystitis: Urinalysis reviewed. No evidence of sepsis or severe sepsis. COVID-19 antigen was negative. Plan: Admit to MedSurg floor, gentle IV fluids for hydration, Tylenol as needed, urine culture, start IV Rocephin, Zofran as needed, repeat CBC and BMP tomorrow morning, chest x-ray, PT OT evaluation and treatment. #2 physical debility/functional decline/recurrent falls: Patient lives at home with his sister who was not able to take care of him anymore. Plan for PT OT, patient is agreeable to go to longterm facility. #3 joint pain/history of arthritis: Patient mentioned that he was taken off pain medication recently and since then, he has been having increasing joint pain, generalized. Plan for Tylenol as needed, tramadol as needed, PT OT. #4 CAD status post stents: Stable, EKG without acute segment changes. No chest pain. Continue aspirin, statins, lisinopril and metoprolol. #5 hypertension: Blood pressure stable, continue HCTZ, lisinopril and metoprolol. #6 COPD: Currently on room air, stable. Plan for chest x-ray, DuoNeb every 6 hours, albuterol as needed. #7 hyperlipidemia: Continue statins. #8 history of type 2 diabetes mellitus: Hemoglobin A1c was 5.9% on July,. We will do Accu-Cheks and check hemoglobin A1c. #9 DVT prophylaxis: Subcu Lovenox. This note was generated with [employer] software. It may contain incorrect words, spelling, and punctuation that were not noted in checking the note before signing.
[2020-04-19] MEDS: Aspirin E.C. 81 MG Tablet PO (08:31)
[2020-04-19] MEDS: hydroCHLOROthiazide 25 MG Tablet PO (08:31)
[2020-04-19] MEDS: Metoprolol Tartrate 50 MG Tablet PO (08:32)
[2020-04-19] MEDS: Finasteride 5 MG Tablet PO (08:33)
[2020-04-19] MEDS: Pantoprazole Sodium 20 MG Tablet PO (08:33)
[2020-04-19] MEDS: Lisinopril 20 MG Tablet PO (08:34)
[2020-04-19] MEDS: Sertraline 50 MG Tablet PO (08:34)
[2020-04-19] MEDS: Ceftriaxone 1 GM/50 ML BAG IV (08:35)
[2020-04-19 09:14] LABS: Absolute Lymphocyte Count 1.23 X10^3/uL (0.83-4.51); Absolute Neutrophil Count 6.7 X10^3/uL (2.0-7.7); Basophil# 0.03 X10^3/uL; Basophil% 0.3 % (0-1); Eosinophil# 0.09 X10^3/uL; Hematocrit 40.3 % (40-54); Hemoglobin 12.8 g/dL (13.0-16.5); Lymphocyte # 1.23 X10^3/ul (4.0); Lymphocyte % 13.9 % (19-41); Mean Corp Hgb Conc 31.8 g/dL (32-36); Mean Corpuscular Volume 94.6 fL (80-94); Mean Platelet Vol. 10.9 fl (6.2-12.0); Monocyte# 0.83 X10^3/uL; Monocyte% 9.4 % (0-10); NRBC Flagged by Analyzer 0 % (0-5); Neutrophil # 6.65 X10^3/uL (2.7-7.7); Neutrophil % 74.9 % (47-70); Platelet Count 223 K/mm3 (150-450); RBC Distribution Width CV 12.4 % (11.6-14.6); RBC Distribution Width SD 43.3 fl (35.1-43.9); Red Blood Count 4.26 M/mm3 (4.6-6.2); White Blood Count 8.9 K/mm3 (4.4-11.0)
[2020-04-19 09:31] LABS: Anion Gap 7 (5-15); BUN 20 mg/dL (7-18); BUN/Creat Ratio 25.2 RATIO (10-20); Calcium,Total 8.6 mg/dL (8.5-10.1); Chloride 102 mmol/L (98-107); EST Glomerular Filtration Rate 100 mL/min (>60); Est Glom Filt Rate - Afr Amer 121 mL/min (>60); Estimated Creatinine Clearance 87.39 ml/min; Glucose 110 mg/dL (74-106); Potassium 3.8 mmol/L (3.5-5.1); Sodium Level 136 mmol/L (136-145)
[2020-04-19 11:11] LABS: Bedside Glucose 170 mg/dL (70-110)
--- NOTE | 2020-04-19 11:15 | PCM.TXEXTCAR ---
- Diet 04/18/20 13:48 Diet: Cardiac - Heart Healthy Food consistency:: Regular Liquid Consistency:: Regular/Thin - Suggestions for Active Care Change Position every (hours): 3 Hours to sit in a chair: 2 Times a day to sit in chair: 3 - Therapies Weight Bearing: Weight bearing as tolerated Physical Therapy: Eval and Treat Occupational Therapy: Eval and Treat - Problem/Diagnosis (1) Hypertension Status: Chronic (2) Stage 3 severe COPD by GOLD classification Status: Chronic (3) CAD S/P percutaneous coronary angioplasty Status: Chronic Comment: Stents x 3 (4) History of gastroesophageal reflux (GERD) Status: Chronic (5) Dyslipidemia Status: Deleted (6) Type II diabetes mellitus Status: Chronic (7) BPH (benign prostatic hyperplasia) Status: Chronic (8) Benign essential hypertension Status: Chronic (9) Hyperlipidemia Status: Chronic (10) Diabetes mellitus Status: Deleted - Allergies/Procedures Done in Hospital Allergies/Adverse Reactions: Allergies propoxyphene HCl [From Darvon] Allergy (Verified 04/18/20 10:41) Itching - Type of Care/Length of Stay Estimated LOS: Convalescent Care Less Than 30 days Type of Care Needed: Skilled Rehab Potential: Fair Prognosis: Fair - Additional Orders/Day of Discharge H&P will serve as current which was dated: 04/18/20 Day of Discharge: 04/19/20 - Dietary and Speech Recommendations Dietitian Recommendations/Changes: Will continue diet as ordered - if bld gluc levels increase, will consider change to CHO Control/Cardiac diet at time of follow up - Follow Up Care Primary Care Physician: [facility],[place] [Primary Care Provider] - Please follow up with your Primary Care Physician in: 2 WEEKS.
--- NOTE | 2020-04-19 11:22 | NURSING ---
Message left with Endy to inform Miroslava that patient will be going to TCU today.
--- NOTE | 2020-04-19 12:34 | DS.PCM_ITS ---
Discharge Date and Diagnosis Date of Admission: 04/18/20 Date of Discharge: 04/19/20 - Primary Discharge Diagnosis Acute Problems: #1 acute cystitis. #2 physical debility/functional decline/recurrent falls. - Secondary Discharge Diagnosis Chronic Problems: Chronic Problems (Last Updated 04/18/20 @ 13:[address] 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) CAD S/P percutaneous coronary angioplasty (Chronic) Stents x 3 Tobacco dependence syndrome (Chronic) History of gastroesophageal reflux (GERD) (Chronic) Type II diabetes mellitus (Chronic) BPH (benign prostatic hyperplasia) (Chronic) Benign essential hypertension (Chronic) GERD (gastroesophageal reflux disease) (Chronic) Iron deficiency anemia (Chronic) Vitamin D deficiency (Chronic) History of alcohol dependence (Chronic) Atrial fibrillation (Chronic) Hyperlipidemia (Chronic) Hospital Course and Treatment Imaging Results: Clinical Impression(s) from Imaging Studies Chest X-Ray 04/18/20 13:50 IMPRESSION: No acute cardiopulmonary disease or major interval change. Electronically Signed: Clay York DO at 17:21 EST Tel [phone], Service support , Operations: None Procedures: None Summary of Care Provided: Patient seen and examined on the day of discharge and appeared to be stable to discharge to TCU. He still complaining of generalized joint pain which is chronic but improved with Tylenol. His vital signs are stable. The patient is a 79 year old M presented to the emergency room because of weakness and difficulty ambulating, found to have acute cystitis. On admission, routine blood work revealed mild leukocytosis, otherwise unremarkable. Chest x- ray showed no acute findings. Urinalysis revealed cloudy urine, 500 leukocyte esterase, there was 10-25 WBCs and 1+ bacteria. There was no evidence of sepsis or severe sepsis. Patient was treated with IV fluids and IV Rocephin. He complained of generalized joint pain which is chronic but he mentioned that he was taken off some pain medication by his doctor. He was given Tylenol as needed as well as tramadol as needed. Patient remained afebrile, leukocytosis resolved with IV antibiotics. COVID-19 antigen came back negative. Urine culture was pending at the time of discharge. Patient lives with his sister who stated that she is not able to take care of him anymore. Patient was seen by PT OT and he was appropriate for placement to SNF. Patient discharged to transitional care unit in a stable medical condition, discharged on Keflex 500 mg p.o. 3 times daily for 5 days, continued on his other previous home medications without any changes recommended follow-up with PCP in 2 week. - Physical Exam Vitals/I&O's: Vital Signs Temp Pulse Resp BP Pulse Ox 97.9 F 79 18 117/74 92 04/19/20 08:26 04/19/20 08:32 04/19/20 08:26 04/19/20 08:32 04/19/20 08:26 Oxygen Delivery Method Room Air Weight: 192 lb 7 oz Body Mass Index (BMI) 25.4 Intake and Output for Last 24 Hours 04/17/20 04/18/20 04/19/20 23:59 23:59 23:59 Intake Total 350 / 590 1500 / 1500 Output Total 1425 / 1425 Balance 350 / -335 75 / 75 General: Alert, Oriented x3, Cooperative, No apparent distress HEENT: Atraumatic, PERRLA, EOMI, Normocephalic Oral: Moist Mucosa, No Gingival or Mucosal Lesions/ Ulcerations Neck: Supple, No JVD, Negative Carotid Bruits, Trachea Midline, Thyroid Normal Size and Texture Lungs: Clear to auscultation, No rhonchi, No wheeze, No rales Cardiovascular: Regular rate, Regular Rhythm, Normal S1, Normal S2, PMI Normal Abdomen: Bowel Sounds Present, Soft, Non Tender, Non-Distended, No Hepato-splenomegaly Extremities: No clubbing, No cyanosis, No edema Skin: No rashes, No breakdown Lymphatic: No Cervical, Supraclavicular, or Inguinal Adenopathy Neurological: Cranial nerves II-XII grossly intact, Neuro grossly intact Psych/Mental Status: Normal Affect, Appropriate Microbiology Past 72 Hours 04/18/20 10:52 Mucosa - Nose SARS-CoV-2 Antigen (Rapid) - Final Laboratory Results 04/18/20 10:50: Hemoglobin A1c 6.0 H 04/18/20 16:22: POC Glucose 180 H 04/18/20 22:42: POC Glucose 135 H 04/19/20 06:47: POC Glucose 94 04/19/20 08:27: WBC 8.9, RBC 4.26 L, Hgb 12.8 L, Hct 40.3, MCV 94.6 H, MCH 30.0, MCHC 31.8 L, RDW Std Deviation 43.3, RDW Coeff of [place] 12.4, Plt Count 223, MPV 10.9, Immature Gran % (Auto) 0.500, Neut % (Auto) 74.9 H, Lymph % (Auto) 13.9 L, [place] % (Auto) 9.4, Eos % (Auto) 1.0, Baso % (Auto) 0.3, Absolute Neuts (auto) 6.7, Absolute Lymphs (auto) 1.23, Nucleated RBC % 0 04/19/20 08:27: Sodium 136, Potassium 3.8, Chloride 102, Carbon Dioxide 27.0, Anion Gap 7, BUN 20 H, Creatinine 0.80, Estim Creat Clear Calc 87.39, Est GFR (MDRD) Af Amer 121, Est GFR (MDRD) Non-Af 100, BUN/Creatinine Ratio 25.2 H, Glucose 110 H, Calcium 8.6 04/19/20 11:06: POC Glucose 170 H Current Medications Acetaminophen (Acetaminophen 325 Mg Tablet) 650 mg PO Q6H PRN PRN PRN Reason: Pain Score 1-10/Temp > 100.7 F Last Admin: 04/19/20 03:16 Dose: 650 mg Documented by: Albuterol Sulfate (Albuterol 2.5 Mg/3 Ml Vial.Neb.) 2.5 mg INHALATION Q4H PRN PRN PRN Reason: Shortness of breath, wheezing Albuterol/Ipratropium (Ipratropium/Albuterol Sulfate 3 Ml Ampul.Neb) 3 ml INHALATION Q6H.RT [facility] Last Admin: 04/19/20 07:18 Dose: 3 ml Documented by: Aspirin (Aspirin E.C. 81 Mg Tablet) 81 mg PO DAILY@0800 [facility] Last Admin: 04/19/20 08:31 Dose: 81 mg Documented by: Atorvastatin Calcium (Atorvastatin Calcium 80 Mg Tablet) 80 mg PO QHS [facility] Last Admin: 04/18/20 22:43 Dose: 80 mg Documented by: Enoxaparin Sodium (Enoxaparin 40 Mg/0.4 Ml Syringe) 40 mg SC DAILY [facility] Last Admin: 04/19/20 08:32 Dose: Not Given Documented by: Finasteride (Finasteride 5 Mg Tablet) 5 mg PO DAILY [facility] Last Admin: 04/19/20 08:33 Dose: 5 mg Documented by: Hydralazine HCl (Hydralazine 20 Mg/Ml Vial) 10 mg IV Q8H PRN PRN PRN Reason: for SBP>160 Hydrochlorothiazide (Hydrochlorothiazide 25 Mg Tablet) 25 mg PO DAILY [facility] Last Admin: 04/19/20 08:31 Dose: 25 mg Documented by: Ceftriaxone Sodium (Rocephin) 1 gm in 50 mls @ 100 mls/hr IV Q24 [facility] Last Infusion: 04/19/20 09:17 Dose: Infused Documented by: Sodium Chloride () 250 mls @ 15 mls/hr IV .[id number] PRN PRN Reason: Saline Flush Sodium Chloride () 250 mls @ 15 mls/hr IV .[id number] PRN PRN Reason: Additional IVPB Infusion Lisinopril (Lisinopril 20 Mg Tablet) 20 mg PO BID [facility] Last Admin: 04/19/20 08:34 Dose: 20 mg Documented by: Metoprolol Tartrate (Metoprolol Tartrate 50 Mg Tablet) 50 mg PO BID [facility] Last Admin: 04/19/20 08:32 Dose: 50 mg Documented by: Ondansetron HCl (Ondansetron 4 Mg/2 Ml Vial) 4 mg IV Q8H PRN PRN PRN Reason: NAUSEA/VOMITING Pantoprazole Sodium (Pantoprazole Sodium 20 Mg Tablet) 20 mg PO DAILY [facility] Last Admin: 04/19/20 08:33 Dose: 20 mg Documented by: Senna/Docusate Sodium (Senna/Docusate Sodium 1 Tablet) 2 tablet PO BID PRN PRN PRN Reason: Constipation Sertraline HCl (Sertraline 50 Mg Tablet) 50 mg PO DAILY [facility] Last Admin: 04/19/20 08:34 Dose: 50 mg Documented by: Sodium Chloride (0.9% Saline Lock 10 Ml Syringe) 10 - 40 ml IV UD PRN PRN Reason: SALINE FLUSH Tamsulosin HCl (Tamsulosin Hcl 0.4 Mg Capsule) 0.4 mg PO QHS [facility] Last Admin: 04/18/20 22:43 Dose: 0.4 mg Documented by: Tramadol HCl (Tramadol 50 Mg Tablet) 50 mg PO TID PRN PRN PRN Reason: Pain Score 4-10 Zolpidem Tartrate (Zolpidem Tartrate 5 Mg Tablet) 5 mg PO QHS PRN PRN PRN Reason: INSOMNIA Home Medications: Medications to take at Discharge Metoprolol Tartrate [Lopressor (beta killian)] 50 mg PO BID 07/24/16 Multivitamin [Daily Multiple Vitamin] 1 ea PO DAILY 07/24/16 Tiotropium [place] [Spiriva] 1 puff IH DAILY 07/24/16 Docusate Sodium [Colace] 100 mg PO BID PRN PRN cap 07/30/16 Acetaminophen [Tylenol Tablet] 650 mg PO Q6H PRN 01/17/18 Albuterol Aerosols [Ventolin Aerosols] 2.5 mg INHALATION Q6H PRN PRN 01/17/18 Albuterol Inhaler [Ventolin Hfa] 2 puff INHALATION Q6H PRN 01/17/18 Aspirin E.C. [Ecotrin] 81 mg PO DAILY@0800 01/17/18 Atorvastatin Calcium [Lipitor] 80 mg PO QHS 01/17/18 Cholecalciferol (VIT D3) [Vitamin D3] 2,000 unit PO DAILY 01/17/18 Finasteride [Proscar] 5 mg PO DAILY 01/17/18 Hydrochlorothiazide [Hctz] 25 mg PO DAILY 01/17/18 Lisinopril [Zestril] 20 mg PO BID 01/17/18 Magnesium Oxide 420 mg PO BID 01/17/18 Nitroglycerin (INPATIENT USE) [Nitrostat] 0.4 mg SUBLINGUAL Q5M PRN 01/17/18 Pantoprazole Sodium [Protonix] 20 mg PO DAILY 01/17/18 Tamsulosin HCl [Flomax] 0.4 mg PO QHS 01/17/18 Sertraline HCl 50 mg PO DAILY 04/18/20 Cephalexin [Keflex] 500 mg PO Q8 04/19/20 [facility] Care Physician: [facility] [Primary Care Provider] - Please follow up with your Primary Care Physician in: 2 WEEKS. Disposition: Snf facility Minutes spent on discharge:: 26 Patient Condition:: Stable Medical Necessity - Tobacco Use Smoking Status: Current every day smoker Tobacco Use: Cigarettes Meaningful Use Info Meaningful Use Diagnoses (Choose all that apply): None applicable Inpatient E&M: 72662 Disch Hosp
== END 2020-04-19 15:10 | disposition skilled nursing facility (03) | DRG 690 ==
LOC: ED 12:29 → PCU 13:07
PROVIDERS: Admitting Provider Hospitalist; Emergency Provider Emergency Medicine; Visit Provider Hospitalist
DX: N30.00 Acute cystitis without hematuria (principal); R53.81 Other malaise; R29.6 Repeated falls; I10 Essential (primary) hypertension; J44.9 Chronic obstructive pulmonary disease, unspecified; I25.10 Atherosclerotic heart disease of native coronary artery without angina pectoris; F17.210 Nicotine dependence, cigarettes, uncomplicated; N40.0 Benign prostatic hyperplasia without lower urinary tract symptoms; I48.91 Unspecified atrial fibrillation; E78.5 Hyperlipidemia, unspecified; E11.9 Type 2 diabetes mellitus without complications; D50.9 Iron deficiency anemia, unspecified; K21.9 Gastro-esophageal reflux disease without esophagitis; E55.9 Vitamin D deficiency, unspecified; M19.90 Unspecified osteoarthritis, unspecified site; Z79.82 Long term (current) use of aspirin; Z79.899 Other long term (current) drug therapy; Z98.61 Coronary angioplasty status; Z87.19 Personal history of other diseases of the digestive system
CPT/HCPCS: 36415; 71045; 80048; 81001; 82962; 83036; 85025; 87086; 87426; 93005; 94640; 97162; 97166; 99251; 99285; 99406; J7030; J7040; A4216; G0463

== ENCOUNTER 2020-04-19 15:20 | Inpatient (IN) | payer MEDICARE, SELFPAY ==
[2020-04-18 13:48] VITALS: BMI 25.4
[2020-04-19 15:33] VITALS: BP 129/77; PULSE 77; RESP 16; TEMP 37.2; O2SAT 92
[2020-04-19 15:54] VITALS: BMI 25.3
[2020-04-19 15:57] VITALS: BP 129/77; PULSE 77; RESP 16; TEMP 37.2; O2SAT 92
[2020-04-19 16:00] VITALS: BP 129/77; PULSE 77; RESP 16; TEMP 37.2; O2SAT 92
[2020-04-19 16:20] VITALS: BMI 25.3
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
[2020-04-19 16:40] LABS: Bedside Glucose 133 mg/dL (70-110)
[2020-04-19 17:18] VITALS: BP 129/77; PULSE 77
[2020-04-19] MEDS: Metoprolol Tartrate 50 MG Tablet PO (17:18)
[2020-04-19] MEDS: Magnesium Chloride 64 MG Delay Rel.Tablet 128 MG PO (17:18)
[2020-04-19] MEDS: Senna/Docusate Sodium 1 Tablet PO (17:19)
[2020-04-19] MEDS: Lisinopril 20 MG Tablet PO (17:19)
[2020-04-19 18:49] VITALS: PULSE 77; RESP 16; O2SAT 92
--- NOTE | 2020-04-19 19:39 | NURSING ---
Lab called this nurse asking if the covid test was in house or send out told her the order was in correct that it was a send out. Lab then stated they were already running in house. Asked if it was okay to run in house stated that was fine since they already started running it.
[2020-04-19 20:10] VITALS: PULSE 86; RESP 16; O2SAT 92
[2020-04-19] MEDS: Albuterol 2.5 MG/3 ML VIAL.NEB. INHALATION (20:10)
[2020-04-19] MEDS: Acetaminophen 500 MG Tablet 1000 MG PO (21:18)
[2020-04-19] MEDS: Cephalexin 500 MG Capsule PO (21:19)
[2020-04-19] MEDS: Atorvastatin Calcium 80 MG Tablet PO (21:19)
[2020-04-19] MEDS: Tamsulosin HCl 0.4 MG Capsule PO (21:20)
[2020-04-19 21:36] LABS: Bedside Glucose 151 mg/dL (70-110)
[2020-04-20] VITALS (7 sets, daily range): BP systolic 124–139; BP diastolic 69–78; PULSE 74–84; RESP 16–20; TEMP 36.3–36.9; O2SAT 92–93
[2020-04-20] MEDS: Magnesium Chloride 64 MG Delay Rel.Tablet 128 MG PO ×2 (05:57→18:03)
[2020-04-20] MEDS: Enoxaparin 40 MG/0.4 ML Syringe SC (05:57)
[2020-04-20] MEDS: Umeclidinium Bromide Inhaler 1 PUFF IH (05:57)
[2020-04-20] MEDS: Cephalexin 500 MG Capsule PO ×3 (05:58→20:30)
[2020-04-20] MEDS: Metoprolol Tartrate 50 MG Tablet PO ×2 (05:58→18:03)
[2020-04-20] MEDS: Finasteride 5 MG Tablet PO (05:59)
[2020-04-20] MEDS: Senna/Docusate Sodium 1 Tablet PO ×2 (05:59→18:03)
[2020-04-20] MEDS: hydroCHLOROthiazide 25 MG Tablet PO (05:59)
[2020-04-20] MEDS: Lisinopril 20 MG Tablet PO ×2 (05:59→18:03)
[2020-04-20] MEDS: Sertraline 50 MG Tablet PO (06:00)
[2020-04-20] MEDS: Pantoprazole Sodium 20 MG Tablet PO (06:00)
[2020-04-20 06:36] LABS: Bedside Glucose 121 mg/dL (70-110)
[2020-04-20 06:53] LABS: Absolute Lymphocyte Count 1.35 X10^3/uL (0.83-4.51); Absolute Neutrophil Count 7.5 X10^3/uL (2.0-7.7); Basophil# 0.03 X10^3/uL; Basophil% 0.3 % (0-1); Eosinophil# 0.13 X10^3/uL; Eosinophils% 1.3 % (0-5); Hematocrit 40.7 % (40-54); Hemoglobin 13.2 g/dL (13.0-16.5); Lymphocyte # 1.35 X10^3/ul (4.0); Lymphocyte % 13.7 % (19-41); Mean Corp Hgb Conc 32.4 g/dL (32-36); Mean Corpuscular Hgb 30.8 pg (27.0-32.0); Mean Corpuscular Volume 95.1 fL (80-94); Mean Platelet Vol. 10.8 fl (6.2-12.0); Monocyte# 0.83 X10^3/uL; Monocyte% 8.4 % (0-10); NRBC Flagged by Analyzer 0 % (0-5); Neutrophil # 7.48 X10^3/uL (2.7-7.7); Neutrophil % 75.8 % (47-70); Platelet Count 244 K/mm3 (150-450); RBC Distribution Width CV 12.5 % (11.6-14.6); RBC Distribution Width SD 43.4 fl (35.1-43.9); Red Blood Count 4.28 M/mm3 (4.6-6.2); White Blood Count 9.9 K/mm3 (4.4-11.0)
[2020-04-20 07:25] LABS: Anion Gap 7 (5-15); BUN 28 mg/dL (7-18); BUN/Creat Ratio 33.1 RATIO (10-20); Calcium,Total 8.9 mg/dL (8.5-10.1); Chloride 101 mmol/L (98-107); Creatinine, Serum 0.85 mg/dL (0.70-1.30); EST Glomerular Filtration Rate 93 mL/min (>60); Est Glom Filt Rate - Afr Amer 113 mL/min (>60); Estimated Creatinine Clearance 82.25 ml/min; Glucose 113 mg/dL (74-106); Sodium Level 137 mmol/L (136-145)
[2020-04-20] MEDS: Multivitamins,Therapeutic Tablet 1 TABLET PO (07:59)
[2020-04-20] MEDS: Aspirin E.C. 81 MG Tablet PO (07:59)
[2020-04-20] MEDS: Albuterol 2.5 MG/3 ML VIAL.NEB. INHALATION ×2 (10:15→21:59)
[2020-04-20] MEDS: Acetaminophen 500 MG Tablet 1000 MG PO (11:14)
[2020-04-20] MEDS: Tuberculin,Purif.prot.deriv. 50 TU/ML Vial 5 ML ID (11:16)
[2020-04-20 11:26] LABS: Bedside Glucose 120 mg/dL (70-110)
[2020-04-20 16:50] LABS: Bedside Glucose 182 mg/dL (70-110)
[2020-04-20] MEDS: Glycerin/Hypromellose/PEG400 15 ml Bottle 1 DRP EACH EYE (18:04)
[2020-04-20] MEDS: Tamsulosin HCl 0.4 MG Capsule PO (20:30)
[2020-04-20] MEDS: Atorvastatin Calcium 80 MG Tablet PO (20:30)
[2020-04-20 21:25] LABS: Bedside Glucose 134 mg/dL (70-110)
[2020-04-21 03:40] VITALS: BP 119/62; PULSE 80; RESP 16; TEMP 36.8; O2SAT 92
[2020-04-21] MEDS: Umeclidinium Bromide Inhaler 1 PUFF IH (05:48)
[2020-04-21] MEDS: Finasteride 5 MG Tablet PO (05:48)
[2020-04-21] MEDS: Cephalexin 500 MG Capsule PO ×3 (05:48→20:15)
[2020-04-21 05:49] VITALS: BP 119/62; PULSE 80
[2020-04-21] MEDS: Metoprolol Tartrate 50 MG Tablet PO ×2 (05:49→17:50)
[2020-04-21] MEDS: Enoxaparin 40 MG/0.4 ML Syringe SC (05:49)
[2020-04-21] MEDS: Magnesium Chloride 64 MG Delay Rel.Tablet 128 MG PO ×2 (05:49→17:50)
[2020-04-21] MEDS: hydroCHLOROthiazide 25 MG Tablet PO (05:50)
[2020-04-21] MEDS: Lisinopril 20 MG Tablet PO ×2 (05:50→17:51)
[2020-04-21] MEDS: Pantoprazole Sodium 20 MG Tablet PO (05:50)
[2020-04-21] MEDS: Sertraline 50 MG Tablet PO (05:50)
[2020-04-21] MEDS: Senna/Docusate Sodium 1 Tablet PO ×2 (05:50→17:51)
[2020-04-21 06:35] LABS: Bedside Glucose 130 mg/dL (70-110)
[2020-04-21] MEDS: Aspirin E.C. 81 MG Tablet PO (08:11)
[2020-04-21] MEDS: Glycerin/Hypromellose/PEG400 15 ml Bottle 1 DRP EACH EYE ×2 (08:11→14:22)
[2020-04-21] MEDS: Multivitamins,Therapeutic Tablet 1 TABLET PO (08:11)
[2020-04-21] MEDS: Acetaminophen 500 MG Tablet 1000 MG PO (10:14)
[2020-04-21 10:30] VITALS: PULSE 71; RESP 16; O2SAT 92
[2020-04-21] MEDS: Albuterol 2.5 MG/3 ML VIAL.NEB. INHALATION (10:30)
[2020-04-21 11:15] LABS: Bedside Glucose 141 mg/dL (70-110)
[2020-04-21 14:35] VITALS: BP 122/69; PULSE 76; RESP 20; TEMP 36.6; O2SAT 95
[2020-04-21 17:15] LABS: Bedside Glucose 110 mg/dL (70-110)
[2020-04-21 17:50] VITALS: PULSE 76
[2020-04-21] MEDS: traMADol 50 MG Tablet PO (20:14)
[2020-04-21] MEDS: Atorvastatin Calcium 80 MG Tablet PO (20:15)
[2020-04-21] MEDS: Tamsulosin HCl 0.4 MG Capsule PO (20:15)
[2020-04-21 21:31] LABS: Bedside Glucose 139 mg/dL (70-110)
[2020-04-22 04:30] VITALS: BP 110/64; PULSE 74; RESP 16; TEMP 36.9; O2SAT 96
[2020-04-22 04:32] VITALS: BP 110/64; PULSE 74
[2020-04-22] MEDS: Enoxaparin 40 MG/0.4 ML Syringe SC (04:32)
[2020-04-22] MEDS: Magnesium Chloride 64 MG Delay Rel.Tablet 128 MG PO ×2 (04:32→17:10)
[2020-04-22] MEDS: Metoprolol Tartrate 50 MG Tablet PO ×2 (04:32→17:11)
[2020-04-22] MEDS: Cephalexin 500 MG Capsule PO ×3 (04:32→20:59)
[2020-04-22] MEDS: Sertraline 50 MG Tablet PO (04:33)
[2020-04-22] MEDS: Finasteride 5 MG Tablet PO (04:33)
[2020-04-22] MEDS: Pantoprazole Sodium 20 MG Tablet PO (04:33)
[2020-04-22] MEDS: hydroCHLOROthiazide 25 MG Tablet PO (04:33)
[2020-04-22] MEDS: Lisinopril 20 MG Tablet PO ×2 (04:33→17:10)
[2020-04-22] MEDS: Umeclidinium Bromide Inhaler 1 PUFF IH (04:38)
[2020-04-22] MEDS: traMADol 50 MG Tablet PO (04:40)
[2020-04-22 06:15] LABS: Bedside Glucose 120 mg/dL (70-110)
[2020-04-22] MEDS: Acetaminophen 500 MG Tablet 1000 MG PO (08:18)
[2020-04-22] MEDS: Aspirin E.C. 81 MG Tablet PO (08:19)
[2020-04-22] MEDS: Multivitamins,Therapeutic Tablet 1 TABLET PO (08:19)
[2020-04-22 10:46] LABS: Bedside Glucose 153 mg/dL (70-110)
--- NOTE | 2020-04-22 12:23 | CASEMGMT ---
Social Work Discussed code status with pt. Pt wishes to be DNR-CCA, intubation. Nursing notified. MOLST form reviewed, communication to , placed in chart. Pt would like to complete POA/LW paperwork and name ex-, Mei, as POA. Pt provided permission for SW to contact ex-. Contacted ex-. She agreed to be POA; however, she is looking for old documents the pt believed he already has completed. Offered to complete new documents during stay if needed, but to notify SW. Ex- also wanted to discuss DC plans. She stated the pt has been living with his sister for the last 7 years and she no longer can take care of him as she is 83 years old. She reports pt does not do anything for himself. He sits in his chair and watches TV all day. One time he didn't move for two days. The sister does not want him to return. The pt has two sons whom are not able to care for him and the ex- has her own medical issues and kindly reminded him she him 20 years ago. Ex- and sister suggested AL. Explained pt is doing well so far in therapy and doesn't anticipate needing physical assistance at home. Could he return living with sister if she didn't need assist? Sister stated no - pt works hard while in therapy but then comes home and just sits. Discussed AL - private pay unless on Medicaid and there are limited PRACHI AL's and must apply for Waiver to be placed on waitlist. Ex- stated pt gets about $1200 in income and could not pay privately, but believes he already has PRACHI but has [facility] insurance. An aide through the VA was assisting at home with personal care once a week. Explained unsure [place] if would pay for LTC or AL but can contact [facility] SW to inquire about his benefits. Explained pt's Medicare benefit and no secondary insurance with [facility] by 05/09. Pt is progressing well thus far and do not anticipate long length of stay, thus to focus on concrete DC plans. Ex- appreciative of assistance. Contacted [facility] for PRACHI status and left message with Phillip CORTES. Will continue to follow. Estefanía Mathur, [employer]
[2020-04-22 15:16] VITALS: PULSE 67; RESP 20
[2020-04-22] MEDS: Albuterol 2.5 MG/3 ML VIAL.NEB. INHALATION (15:16)
[2020-04-22 15:30] VITALS: BP 97/52; PULSE 67; RESP 18; TEMP 36.7; O2SAT 93
[2020-04-22 16:15] LABS: Bedside Glucose 131 mg/dL (70-110)
[2020-04-22 17:11] VITALS: BP 129/64; PULSE 79
[2020-04-22] MEDS: Senna/Docusate Sodium 1 Tablet PO (17:11)
[2020-04-22 18:15] VITALS: PULSE 67; RESP 18; O2SAT 93
[2020-04-22] MEDS: Tamsulosin HCl 0.4 MG Capsule PO (20:54)
[2020-04-22] MEDS: Atorvastatin Calcium 80 MG Tablet PO (20:54)
[2020-04-22 21:25] LABS: Bedside Glucose 174 mg/dL (70-110)
[2020-04-23 06:21] LABS: Bedside Glucose 113 mg/dL (70-110)
[2020-04-23] MEDS: Umeclidinium Bromide Inhaler 1 PUFF IH (06:55)
[2020-04-23] MEDS: traMADol 50 MG Tablet PO ×2 (06:58→14:20)
[2020-04-23] MEDS: Enoxaparin 40 MG/0.4 ML Syringe SC (06:59)
[2020-04-23] MEDS: Sertraline 50 MG Tablet PO (06:59)
[2020-04-23] MEDS: Finasteride 5 MG Tablet PO (06:59)
[2020-04-23] MEDS: Cephalexin 500 MG Capsule PO ×3 (06:59→20:40)
[2020-04-23] MEDS: Magnesium Chloride 64 MG Delay Rel.Tablet 128 MG PO ×2 (06:59→16:50)
[2020-04-23] MEDS: Pantoprazole Sodium 20 MG Tablet PO (06:59)
[2020-04-23] MEDS: hydroCHLOROthiazide 25 MG Tablet PO (06:59)
[2020-04-23 07:01] VITALS: BP 141/81; PULSE 84; RESP 22; TEMP 36.6; O2SAT 92
[2020-04-23] MEDS: Metoprolol Tartrate 50 MG Tablet PO ×2 (07:01→16:51)
[2020-04-23] MEDS: Lisinopril 20 MG Tablet PO ×2 (07:06→16:51)
[2020-04-23] MEDS: Aspirin E.C. 81 MG Tablet PO (08:35)
[2020-04-23] MEDS: Multivitamins,Therapeutic Tablet 1 TABLET PO (08:35)
--- NOTE | 2020-04-23 08:39 | PCM.PN.RX ---
<Kassandra Sommers - Last Filed: 04/23/20 08:39> Progress Note - Pharmacy Subjective: TCU Admission Objective: Allergies propoxyphene HCl [From Darvon] Allergy (Verified 04/18/20 10:41) Itching Current Medications Generic Name Dose Route Start Last Admin Trade Name Freq PRN Reason Stop Dose Admin Acetaminophen 1,000 mg 04/19/20 16:44 04/22/20 08:18 Acetaminophen 500 Mg Tablet PO 1,000 mg Q6H PRN Administration Pain Score 1-3 Albuterol Sulfate 2.5 mg 04/19/20 15:55 04/22/20 15:16 Albuterol 2.5 Mg/3 Ml Vial.Neb. INHALATION 2.5 mg Q6H PRN PRN Administration SHORTNESS OF BREATH Aspirin 81 mg 04/20/20 08:00 04/23/20 08:35 Aspirin E.C. 81 Mg Tablet PO 81 mg DAILY@0800 VANESSA Administration Atorvastatin Calcium 80 mg 04/19/20 22:00 04/22/20 20:54 Atorvastatin Calcium 80 Mg Tablet PO 80 mg QHS VANESSA Administration Bisacodyl 10 mg 04/19/20 16:44 Bisacodyl 10 Mg Suppository RECTAL DAILY PRN Constipation Cephalexin 500 mg 04/19/20 22:00 04/23/20 06:59 Cephalexin 500 Mg Capsule PO 04/25/20 23:59 500 mg Q8 VANESSA Administration Cholecalciferol 2,000 unit 04/20/20 06:00 04/23/20 07:05 Cholecalciferol (Vit D3) 1,000 Unit (25mcg) PO 2,000 unit DAILY VANESSA Administration Enoxaparin Sodium 40 mg 04/20/20 06:00 04/23/20 06:59 Enoxaparin 40 Mg/0.4 Ml Syringe SC 40 mg DAILY@0600 VANESSA Administration Finasteride 5 mg 04/20/20 06:00 04/23/20 06:59 Finasteride 5 Mg Tablet PO 5 mg DAILY VANESSA Administration Hydrochlorothiazide 25 mg 04/20/20 06:00 04/23/20 06:59 Hydrochlorothiazide 25 Mg Tablet PO 25 mg DAILY VANESSA Administration Lisinopril 20 mg 04/19/20 18:00 04/23/20 07:06 Lisinopril 20 Mg Tablet PO 20 mg BID VANESSA Administration Magnesium Chloride 128 mg 04/19/20 18:00 04/23/20 06:59 Magnesium Chloride 64 Mg Delay Rel.Tablet PO 128 mg BID VANESSA Administration Magnesium Hydroxide 30 ml 04/19/20 16:44 Magnesium Hydroxide 30 Ml Udc PO DAILY PRN Constipation Metoprolol Tartrate 50 mg 04/19/20 18:00 04/23/20 07:01 Metoprolol Tartrate 50 Mg Tablet PO 50 mg BID VANESSA Administration Multivitamins 1 tablet 04/20/20 08:00 04/23/20 08:35 Multivitamins,Therapeutic Tablet PO 1 tablet DAILYCM VANESSA Administration Nitroglycerin 0.4 mg 04/19/20 15:55 Nitroglycerin (Inpatient Use) 0.4 Mg Tab.Subl SUBLINGUAL Q5M PRN ANGINA/CHEST PAIN Pantoprazole Sodium 20 mg 04/20/20 06:00 04/23/20 06:59 Pantoprazole Sodium 20 Mg Tablet PO 20 mg DAILY VANESSA Administration Polyethylene Glycol 17 gm 04/20/20 06:00 04/23/20 06:43 Polyethylene Glycol 3350 17 Gm Packet PO Not Given DAILY VANESSA Senna/Docusate Sodium 1 tablet 04/19/20 18:00 04/23/20 06:43 Senna/Docusate Sodium 1 Tablet PO Not Given BID VANESSA Sertraline HCl 50 mg 04/20/20 06:00 04/23/20 06:59 Sertraline 50 Mg Tablet PO 50 mg DAILY VANESSA Administration Tamsulosin HCl 0.4 mg 04/19/20 22:00 04/22/20 20:54 Tamsulosin Hcl 0.4 Mg Capsule PO 0.4 mg QHS [facility] Administration Tramadol HCl 50 mg 04/21/20 17:39 04/23/20 06:58 Tramadol 50 Mg Tablet PO 50 mg Q6H PRN PRN Administration Pain Score 4-10 Tuberculin PPD 5 tu 04/27/20 10:00 Tuberculin,Purif.Prot.Deriv. 50 Tu/Ml Vial ID 04/27/20 10:01 X1 ONE Umeclidinium Underwood 1 puff 04/20/20 06:00 04/23/20 06:55 Umeclidinium Underwood Inhaler IH 1 puff DAILY VANESSA Administration Problem List (Last Updated 04/18/20 @ 13:[address] Linda Mccall MD) Debility (Acute) Weakness (Acute) Urinary tract infection (Acute) Diabetes mellitus (Chronic) BPH (benign prostatic hyperplasia) (Chronic) Osteoarthritis of knees, bilateral (Chronic) COPD (chronic obstructive pulmonary disease) (Chronic) Depression (Chronic) Coronary artery disease (Chronic) Hypomagnesemia (Chronic) Hypertension (Chronic) GERD (gastroesophageal reflux disease) (Chronic) Iron deficiency anemia (Chronic) Vitamin D deficiency (Chronic) Atrial fibrillation (Chronic) Hyperlipidemia (Chronic) Vital Signs Temp Pulse Resp BP Pulse Ox 97.8 F 84 22 H 141/81 H 92 04/23/20 07:01 04/23/20 07:01 04/23/20 07:01 04/23/20 07:01 04/23/20 07:01 Oxygen Delivery Method Room Air Weight: 86.954 kg Body Mass Index (BMI) 25.3 Sodium 137 mmol/L (136-145) 04/20/20 06:30 Potassium 4.0 mmol/L (3.5-5.1) 04/20/20 06:30 Chloride 101 mmol/L (98-107) 04/20/20 06:30 Carbon Dioxide 29.0 mmol/L (21.0-32.0) 04/20/20 06:30 Anion Gap 7 (5-15) 04/20/20 06:30 BUN 28 mg/dL (7-18) H 04/20/20 06:30 Creatinine 0.85 mg/dL (0.70-1.30) 04/20/20 06:30 Est GFR (MDRD) Af Amer 113 mL/min (>60) 04/20/20 06:30 Est GFR (MDRD) Non-Af 93 mL/min (>60) 04/20/20 06:30 BUN/Creatinine Ratio 33.1 RATIO (10-20) H 04/20/20 06:30 Glucose 113 mg/dL (74-106) H 04/20/20 06:30 Assessment/Plan: 1. Pain: acetaminophen 1000mg PO Q6H PRN pain 1-310 and tramadol 50mg PO Q6H PRN pain 4-1010. Please continue to monitor for increased pain, PRN usage, constipation, and respiratory depression. 2. DVT prophylaxis: enoxaparin 40mg SC daily. Please continue to monitor for S/S of bleeding/DVT, renal function, hemoglobin (last 13.2g/dL) and platelets (last 244,000). 3. UTI: cephalexin 500mg Q8H thru 04/25/20. Please continue to monitor for S/S of infection, renal function, and diarrhea. 4. CAD/hypertension: metoprolol tartrate 50mg PO BID, lisinopril 20mg PO BID, hydrochlorothiazide 25mg PO daily, aspirin 81mg PO DAILYCM, and nitroglycerin 0.4mg SL Q5M PRN chest pain. Please continue to monitor BP (last 141/81), HR (last 84), potassium (lat 4 mmol/L), renal function, S/S of bleeding, hemoglobin, and chest pain. 5. COPD: Incruse ellipta 1inhalation daily and albuterol nebulized soln 2.5mg inhalation Q6H PRN SOB. Please continue to monitor for S/S of COPD, increased HR, and PRN usage. 6. Hyperlipidemia: atorvastatin 80mg PO QHS. Please consider ordering a lipid panel now and then as clinically appropriate. Last level from 02/2016. Thanks. Please continue to monitor for muscle pain. 7. BPH: finasteride 5mg PO daily and tamsulosin 0.4mg PO QHS. Please continue to monitor for hypotension and urine flow. 8. GERD: pantoprazole 20mg PO daily. Please continue to monitor for S/S of GERD and diarrhea. *9. Overall nutrition/vitamin/mineral deficiencies: multivitamin 1T PO DAILYCM, cholecalciferol 2,000 units PO daily, magnesium 128mg PO BID. Please consider ordering a vitamin D level and magnesium level (last 07/2016). Thanks. Psychotropic Medications: 1. Depression: sertraline 50mg PO daily. Please see physician note regarding GDR. Please continue to monitor for GI side effects. Unnecessary Medications: *Bowel Regimen: Miralax 17gm PO daily, senna/docusate 1T PO BID, MOM 30mL PO daily PRN constipation, and bisacodyl 10mg [place] daily PRN constipation. Please consider changing Miralax from scheduled to PRN. Patient has refused 4/4 doses. Thanks. Please continue to monitor for constipation. Date of Note:: 04/23/20 - Provider Comments Provider responsibility: Provider responsible to enter orders to implement recommendations <David,Patrick Chi - Last Filed: 04/23/20 17:03> Progress Note - Pharmacy Subjective: [] Objective: Allergies propoxyphene HCl [From Darvon] Allergy (Verified 04/18/20 10:41) Itching Current Medications Generic Name Dose Route Start Last Admin Trade Name Freq PRN Reason Stop Dose Admin Acetaminophen 1,000 mg 04/19/20 16:44 04/22/20 08:18 Acetaminophen 500 Mg Tablet PO 1,000 mg Q6H PRN Administration Pain Score 1-3 Albuterol Sulfate 2.5 mg 04/19/20 15:55 04/23/20 09:21 Albuterol 2.5 Mg/3 Ml Vial.Neb. INHALATION 2.5 mg Q6H PRN PRN Administration SHORTNESS OF BREATH Aspirin 81 mg 04/20/20 08:00 04/23/20 08:35 Aspirin E.C. 81 Mg Tablet PO 81 mg DAILY@0800 VANESSA Administration Atorvastatin Calcium 80 mg 04/19/20 22:00 04/22/20 20:54 Atorvastatin Calcium 80 Mg Tablet PO 80 mg QHS VANESSA Administration Bisacodyl 10 mg 04/19/20 16:44 Bisacodyl 10 Mg Suppository RECTAL DAILY PRN Constipation Cephalexin 500 mg 04/19/20 22:00 04/23/20 12:51 Cephalexin 500 Mg Capsule PO 04/25/20 23:59 500 mg Q8 VANESSA Administration Cholecalciferol 2,000 unit 04/20/20 06:00 04/23/20 07:05 Cholecalciferol (Vit D3) 1,000 Unit (25mcg) PO 2,000 unit DAILY VANESSA Administration Enoxaparin Sodium 40 mg 04/20/20 06:00 04/23/20 06:59 Enoxaparin 40 Mg/0.4 Ml Syringe SC 40 mg DAILY@0600 VANESSA Administration Finasteride 5 mg 04/20/20 06:00 04/23/20 06:59 Finasteride 5 Mg Tablet PO 5 mg DAILY VANESSA Administration Hydrochlorothiazide 25 mg 04/20/20 06:00 04/23/20 06:59 Hydrochlorothiazide 25 Mg Tablet PO 25 mg DAILY VANESSA Administration Lisinopril 20 mg 04/19/20 18:00 04/23/20 16:51 Lisinopril 20 Mg Tablet PO 20 mg BID VANESSA Administration Magnesium Chloride 128 mg 04/19/20 18:00 04/23/20 16:50 Magnesium Chloride 64 Mg Delay Rel.Tablet PO 128 mg BID VANESSA Administration Magnesium Hydroxide 30 ml 04/19/20 16:44 Magnesium Hydroxide 30 Ml Udc PO DAILY PRN Constipation Metoprolol Tartrate 50 mg 04/19/20 18:00 04/23/20 16:51 Metoprolol Tartrate 50 Mg Tablet PO 50 mg BID [facility] Administration Multivitamins 1 tablet 04/20/20 08:00 04/23/20 08:35 Multivitamins,Therapeutic Tablet PO 1 tablet DAILYCM VANESSA Administration Nitroglycerin 0.4 mg 04/19/20 15:55 Nitroglycerin (Inpatient Use) 0.4 Mg Tab.Subl SUBLINGUAL Q5M PRN ANGINA/CHEST PAIN Pantoprazole Sodium 20 mg 04/20/20 06:00 04/23/20 06:59 Pantoprazole Sodium 20 Mg Tablet PO 20 mg DAILY [facility] Administration Polyethylene Glycol 17 gm 04/20/20 06:00 04/23/20 06:43 Polyethylene Glycol 3350 17 Gm Packet PO Not Given DAILY [facility] Senna/Docusate Sodium 1 tablet 04/19/20 18:00 04/23/20 16:51 Senna/Docusate Sodium 1 Tablet PO 1 tablet BID [facility] Administration Sertraline HCl 50 mg 04/20/20 06:00 04/23/20 06:59 Sertraline 50 Mg Tablet PO 50 mg DAILY [facility] Administration Tamsulosin HCl 0.4 mg 04/19/20 22:00 04/22/20 20:54 Tamsulosin Hcl 0.4 Mg Capsule PO 0.4 mg QHS [facility] Administration Tramadol HCl 50 mg 04/21/20 17:39 04/23/20 14:20 Tramadol 50 Mg Tablet PO 50 mg Q6H PRN PRN Administration Pain Score 4-10 Tuberculin PPD 5 tu 04/27/20 10:00 Tuberculin,Purif.Prot.Deriv. 50 Tu/Ml Vial ID 04/27/20 10:01 X1 ONE Umeclidinium Underwood 1 puff 04/20/20 06:00 04/23/20 06:55 Umeclidinium Underwood Inhaler IH 1 puff DAILY [facility] Administration Problem List (Last Updated 04/18/20 @ 13:[address] Linda Mccall MD) Debility (Acute) Weakness (Acute) Urinary tract infection (Acute) Diabetes mellitus (Chronic) BPH (benign prostatic hyperplasia) (Chronic) Osteoarthritis of knees, bilateral (Chronic) COPD (chronic obstructive pulmonary disease) (Chronic) Depression (Chronic) Coronary artery disease (Chronic) Hypomagnesemia (Chronic) Hypertension (Chronic) GERD (gastroesophageal reflux disease) (Chronic) Iron deficiency anemia (Chronic) Vitamin D deficiency (Chronic) Atrial fibrillation (Chronic) Hyperlipidemia (Chronic) Vital Signs Temp Pulse Resp BP Pulse Ox 97.6 F L 76 16 114/67 92 04/23/20 14:02 04/23/20 16:51 04/23/20 14:02 04/23/20 14:02 04/23/20 14:02 Oxygen Delivery Method Room Air Weight: 86.954 kg Body Mass Index (BMI) 25.3 Sodium 137 mmol/L (136-145) 04/20/20 06:30 Potassium 4.0 mmol/L (3.5-5.1) 04/20/20 06:30 Chloride 101 mmol/L (98-107) 04/20/20 06:30 Carbon Dioxide 29.0 mmol/L (21.0-32.0) 04/20/20 06:30 Anion Gap 7 (5-15) 04/20/20 06:30 BUN 28 mg/dL (7-18) H 04/20/20 06:30 Creatinine 0.85 mg/dL (0.70-1.30) 04/20/20 06:30 Est GFR (MDRD) Af Amer 113 mL/min (>60) 04/20/20 06:30 Est GFR (MDRD) Non-Af 93 mL/min (>60) 04/20/20 06:30 BUN/Creatinine Ratio 33.1 RATIO (10-20) H 04/20/20 06:30 Glucose 113 mg/dL (74-106) H 04/20/20 06:30 Assessment/Plan: Psychotropic Medications: Unnecessary Medications: Bowel Regimen: - Provider Comments Provider responsibility: Provider responsible to enter orders to implement recommendations Provider Comments to Recommendations by Pharmacy: Agree
[2020-04-23 09:21] VITALS: PULSE 68; RESP 14; O2SAT 92
[2020-04-23] MEDS: Albuterol 2.5 MG/3 ML VIAL.NEB. INHALATION ×2 (09:21→23:15)
[2020-04-23 10:41] LABS: Bedside Glucose 149 mg/dL (70-110)
[2020-04-23 14:02] VITALS: BP 114/67; PULSE 76; RESP 16; TEMP 36.4; O2SAT 92
--- NOTE | 2020-04-23 15:32 | CASEMGMT ---
Social Work IDT met with patient via conference call for care plan meeting. Discussed patient's progress in therapy. Pt is SBA for bed mobility, tx min-mod, ambulating 80 at CGA with FWW. Pt is Sergei for combing hair, mod for UE ADLS due to shoulder limitations, min for LE ADLS while seated, Sergei for toileting. Pt is on a cardiac diet, good intake, weight is stable. Pt is out of isolation 05/03. Explained Medicare benefit. Pt does not have secondary insurance and unsure if he can pay out of pocket for copays. Day 21 is 05/09. The goal is for DC by day 21. Discussed Medicaid and possibly AL, if pt cannot return to sister's (sister has not spoken to him about this yet). Pt is agreeable to both, but concerned about being able to take his dog to AL with him. SW to assist with PRACHI darshan and AL Waiver along with contacting ALs for pet regulations. Contacted all three ALs accepting Medicaid waiver. All stated the AL Waiver will take several months to obtain and extra paperwork is needed to complete. The goal for [facility] and [facility] is for pt to admit to their shelter first under Medicaid until waiver is approved, then transition pt to AL. [facility] and [facility] accept small dogs, [facility] does not accept dogs. Pt does have a 16 year old lab. Will update pt on above information. Will continue to follow. VICTOR HUGO JenkinsW
[2020-04-23 16:50] LABS: Bedside Glucose 110 mg/dL (70-110)
[2020-04-23 16:51] VITALS: PULSE 76
[2020-04-23] MEDS: Senna/Docusate Sodium 1 Tablet PO (16:51)
[2020-04-23] MEDS: Tamsulosin HCl 0.4 MG Capsule PO (20:39)
[2020-04-23] MEDS: Atorvastatin Calcium 80 MG Tablet PO (20:41)
[2020-04-23 21:16] LABS: Bedside Glucose 154 mg/dL (70-110)
[2020-04-23 23:15] VITALS: PULSE 69; RESP 18
[2020-04-24 06:13] VITALS: BP 128/70; PULSE 71; RESP 16; TEMP 36.8
[2020-04-24] MEDS: Polyethylene Glycol 3350 17 GM PACKET PO (06:15)
[2020-04-24] MEDS: Enoxaparin 40 MG/0.4 ML Syringe SC (06:15)
[2020-04-24 06:16] VITALS: BP 128/70; PULSE 71
[2020-04-24] MEDS: Cephalexin 500 MG Capsule PO ×3 (06:16→20:40)
[2020-04-24] MEDS: Pantoprazole Sodium 20 MG Tablet PO (06:16)
[2020-04-24] MEDS: hydroCHLOROthiazide 25 MG Tablet PO (06:16)
[2020-04-24] MEDS: Lisinopril 20 MG Tablet PO ×2 (06:16→17:02)
[2020-04-24] MEDS: Metoprolol Tartrate 50 MG Tablet PO ×2 (06:16→17:01)
[2020-04-24] MEDS: Magnesium Chloride 64 MG Delay Rel.Tablet 128 MG PO ×2 (06:16→17:02)
[2020-04-24] MEDS: Umeclidinium Bromide Inhaler 1 PUFF IH (06:17)
[2020-04-24] MEDS: Sertraline 50 MG Tablet PO (06:18)
[2020-04-24] MEDS: Finasteride 5 MG Tablet PO (06:18)
[2020-04-24] MEDS: Senna/Docusate Sodium 1 Tablet PO ×2 (06:18→17:02)
[2020-04-24] MEDS: traMADol 50 MG Tablet PO (06:22)
[2020-04-24 06:25] LABS: Bedside Glucose 115 mg/dL (70-110)
[2020-04-24] MEDS: Aspirin E.C. 81 MG Tablet PO (08:07)
[2020-04-24] MEDS: Multivitamins,Therapeutic Tablet 1 TABLET PO (08:07)
[2020-04-24 13:07] VITALS: BP 106/63; PULSE 61; RESP 18; TEMP 36.7; O2SAT 93
[2020-04-24 13:46] VITALS: PULSE 74; RESP 16
[2020-04-24] MEDS: Albuterol 2.5 MG/3 ML VIAL.NEB. INHALATION (13:46)
[2020-04-24 17:01] VITALS: BP 106/63; PULSE 74
[2020-04-24] MEDS: Tamsulosin HCl 0.4 MG Capsule PO (20:40)
[2020-04-24] MEDS: Atorvastatin Calcium 80 MG Tablet PO (20:40)
[2020-04-24] MEDS: Glycerin/Hypromellose/PEG400 15 ml Bottle 1 DRP EACH EYE (20:42)
[2020-04-24 21:26] LABS: Bedside Glucose 168 mg/dL (70-110)
[2020-04-25 03:40] VITALS: PULSE 73; RESP 16
[2020-04-25] MEDS: Albuterol 2.5 MG/3 ML VIAL.NEB. INHALATION ×2 (03:40→13:42)
[2020-04-25 03:48] VITALS: BP 117/57; PULSE 71; RESP 17; TEMP 36.5; O2SAT 97
[2020-04-25] MEDS: Umeclidinium Bromide Inhaler 1 PUFF IH (04:55)
[2020-04-25] MEDS: Enoxaparin 40 MG/0.4 ML Syringe SC (04:56)
[2020-04-25] MEDS: Magnesium Chloride 64 MG Delay Rel.Tablet 128 MG PO ×2 (04:57→17:02)
[2020-04-25] MEDS: Senna/Docusate Sodium 1 Tablet PO (04:57)
[2020-04-25] MEDS: Pantoprazole Sodium 20 MG Tablet PO (04:57)
[2020-04-25 04:58] VITALS: BP 117/57; PULSE 71
[2020-04-25] MEDS: hydroCHLOROthiazide 25 MG Tablet PO (04:58)
[2020-04-25] MEDS: Lisinopril 20 MG Tablet PO ×2 (04:58→17:02)
[2020-04-25] MEDS: Cephalexin 500 MG Capsule PO ×3 (04:58→20:28)
[2020-04-25] MEDS: Sertraline 50 MG Tablet PO (04:58)
[2020-04-25] MEDS: Metoprolol Tartrate 50 MG Tablet PO ×2 (04:58→17:02)
[2020-04-25] MEDS: Finasteride 5 MG Tablet PO (05:00)
[2020-04-25 06:25] LABS: Bedside Glucose 129 mg/dL (70-110)
[2020-04-25] MEDS: Multivitamins,Therapeutic Tablet 1 TABLET PO (08:02)
[2020-04-25] MEDS: Aspirin E.C. 81 MG Tablet PO (08:02)
--- NOTE | 2020-04-25 08:48 | CASEMGMT ---
Social Work BIMS and PHQ-9 was completed for MDS assessment. MEKA Almonte
--- NOTE | 2020-04-25 11:11 | CASEMGMT ---
Social Work SW met w/pt in room, completed the [facility] Medicaid Pending Referral Questionnaire w/pt. SW offered to assist in completion of LW/POA, pt now states is not certain who he would like to put as POA. SW informed pt to let staff know should he want to complete the forms, and SW will come back. SW faxed the [facility] Medicaid Pending Referral Questionnaire to [facility]. SW also faxed the completed AL Waiver assessment to [facility]. MEKA Almonte
[2020-04-25 13:42] VITALS: PULSE 77; RESP 20
[2020-04-25 13:46] VITALS: BP 113/66; PULSE 72; RESP 16; TEMP 36.7; O2SAT 93
[2020-04-25] MEDS: traMADol 50 MG Tablet PO (14:43)
[2020-04-25 17:02] VITALS: PULSE 72
[2020-04-25] MEDS: Acetaminophen 500 MG Tablet 1000 MG PO (17:04)
[2020-04-25] MEDS: Tamsulosin HCl 0.4 MG Capsule PO (20:28)
[2020-04-25] MEDS: Atorvastatin Calcium 80 MG Tablet PO (20:28)
[2020-04-25] MEDS: Glycerin/Hypromellose/PEG400 15 ml Bottle 1 DRP EACH EYE (21:08)
[2020-04-26 05:41] VITALS: BP 131/73; PULSE 68; RESP 16; TEMP 36.5; O2SAT 93
[2020-04-26] MEDS: hydroCHLOROthiazide 25 MG Tablet PO (05:43)
[2020-04-26] MEDS: Umeclidinium Bromide Inhaler 1 PUFF IH (05:43)
[2020-04-26] MEDS: Lisinopril 20 MG Tablet PO ×2 (05:43→17:49)
[2020-04-26 05:44] VITALS: BP 131/73; PULSE 68
[2020-04-26] MEDS: Pantoprazole Sodium 20 MG Tablet PO (05:44)
[2020-04-26] MEDS: Metoprolol Tartrate 50 MG Tablet PO ×2 (05:44→17:48)
[2020-04-26] MEDS: Finasteride 5 MG Tablet PO (05:44)
[2020-04-26] MEDS: Sertraline 50 MG Tablet PO (05:44)
[2020-04-26] MEDS: Magnesium Chloride 64 MG Delay Rel.Tablet 128 MG PO ×2 (05:44→17:48)
[2020-04-26] MEDS: Senna/Docusate Sodium 1 Tablet PO ×2 (05:45→17:49)
[2020-04-26] MEDS: Enoxaparin 40 MG/0.4 ML Syringe SC (05:45)
[2020-04-26 06:21] LABS: Bedside Glucose 127 mg/dL (70-110)
[2020-04-26] MEDS: traMADol 50 MG Tablet PO (06:58)
[2020-04-26] MEDS: Multivitamins,Therapeutic Tablet 1 TABLET PO (06:58)
[2020-04-26] MEDS: Aspirin E.C. 81 MG Tablet PO (06:58)
[2020-04-26 13:55] VITALS: BP 109/64; PULSE 69; RESP 16; TEMP 36.3; O2SAT 94
[2020-04-26 17:48] VITALS: BP 155/88; PULSE 77
[2020-04-26 19:40] VITALS: PULSE 72; RESP 16
[2020-04-26] MEDS: Albuterol 2.5 MG/3 ML VIAL.NEB. INHALATION (19:40)
[2020-04-26] MEDS: Tamsulosin HCl 0.4 MG Capsule PO (20:04)
[2020-04-26] MEDS: Atorvastatin Calcium 80 MG Tablet PO (20:05)
[2020-04-27 05:26] VITALS: BP 129/71; PULSE 72; RESP 18; TEMP 37.2; O2SAT 92
[2020-04-27] MEDS: Magnesium Chloride 64 MG Delay Rel.Tablet 128 MG PO ×2 (05:27→17:00)
[2020-04-27 05:28] VITALS: BP 129/71; PULSE 72
[2020-04-27] MEDS: Metoprolol Tartrate 50 MG Tablet PO ×2 (05:28→17:00)
[2020-04-27] MEDS: Sertraline 50 MG Tablet PO (05:28)
[2020-04-27] MEDS: Lisinopril 20 MG Tablet PO ×2 (05:28→17:01)
[2020-04-27] MEDS: Pantoprazole Sodium 20 MG Tablet PO (05:28)
[2020-04-27] MEDS: hydroCHLOROthiazide 25 MG Tablet PO (05:28)
[2020-04-27] MEDS: Senna/Docusate Sodium 1 Tablet PO (05:28)
[2020-04-27] MEDS: Polyethylene Glycol 3350 17 GM PACKET PO (05:29)
[2020-04-27] MEDS: Finasteride 5 MG Tablet PO (05:29)
[2020-04-27] MEDS: Umeclidinium Bromide Inhaler 1 PUFF IH (05:30)
[2020-04-27] MEDS: Enoxaparin 40 MG/0.4 ML Syringe SC (05:30)
[2020-04-27 06:15] LABS: Absolute Lymphocyte Count 1.39 X10^3/uL (0.83-4.51); Absolute Neutrophil Count 7.1 X10^3/uL (2.0-7.7); Basophil# 0.02 X10^3/uL; Basophil% 0.2 % (0-1); Eosinophil# 0.12 X10^3/uL; Eosinophils% 1.3 % (0-5); Hematocrit 38.4 % (40-54); Hemoglobin 12.3 g/dL (13.0-16.5); Lymphocyte # 1.39 X10^3/ul (4.0); Lymphocyte % 14.7 % (19-41); Mean Corpuscular Hgb 30.4 pg (27.0-32.0); Mean Corpuscular Volume 94.8 fL (80-94); Mean Platelet Vol. 10.6 fl (6.2-12.0); Monocyte# 0.83 X10^3/uL; Monocyte% 8.8 % (0-10); NRBC Flagged by Analyzer 0 % (0-5); Neutrophil # 7.06 X10^3/uL (2.7-7.7); Neutrophil % 74.4 % (47-70); Platelet Count 254 K/mm3 (150-450); RBC Distribution Width CV 12.3 % (11.6-14.6); RBC Distribution Width SD 43.3 fl (35.1-43.9); Red Blood Count 4.05 M/mm3 (4.6-6.2); White Blood Count 9.5 K/mm3 (4.4-11.0)
[2020-04-27 06:21] LABS: Bedside Glucose 132 mg/dL (70-110)
[2020-04-27 06:45] LABS: Anion Gap 4 (5-15); BUN 24 mg/dL (7-18); Calcium,Total 8.8 mg/dL (8.5-10.1); Chloride 106 mmol/L (98-107); Creatinine, Serum 0.68 mg/dL (0.70-1.30); EST Glomerular Filtration Rate 119 mL/min (>60); Est Glom Filt Rate - Afr Amer 144 mL/min (>60); Estimated Creatinine Clearance 69.91 ml/min; Glucose 103 mg/dL (74-106); Sodium Level 137 mmol/L (136-145)
[2020-04-27] MEDS: Aspirin E.C. 81 MG Tablet PO (08:12)
[2020-04-27] MEDS: Multivitamins,Therapeutic Tablet 1 TABLET PO (08:12)
[2020-04-27] MEDS: traMADol 50 MG Tablet PO ×2 (08:15→21:28)
[2020-04-27] MEDS: Tuberculin,Purif.prot.deriv. 50 TU/ML Vial 5 ML ID (11:04)
[2020-04-27 13:46] VITALS: BP 125/65; PULSE 72; RESP 16; TEMP 37; O2SAT 92
[2020-04-27 14:55] VITALS: PULSE 72; RESP 16; O2SAT 96
[2020-04-27] MEDS: Albuterol 2.5 MG/3 ML VIAL.NEB. INHALATION (14:55)
[2020-04-27 17:00] VITALS: PULSE 76
[2020-04-27] MEDS: Tamsulosin HCl 0.4 MG Capsule PO (21:29)
[2020-04-27] MEDS: Atorvastatin Calcium 80 MG Tablet PO (21:29)
[2020-04-28] VITALS (9 sets, daily range): BP systolic 85–178; BP diastolic 49–100; PULSE 66–80; RESP 16–20; TEMP 36.2–37.2; O2SAT 91–98
[2020-04-28] MEDS: Albuterol 2.5 MG/3 ML VIAL.NEB. INHALATION ×2 (01:03→21:45)
[2020-04-28] MEDS: Polyethylene Glycol 3350 17 GM PACKET PO (04:42)
[2020-04-28] MEDS: Magnesium Chloride 64 MG Delay Rel.Tablet 128 MG PO ×2 (04:43→18:31)
[2020-04-28] MEDS: Pantoprazole Sodium 20 MG Tablet PO (04:43)
[2020-04-28] MEDS: Lisinopril 20 MG Tablet PO (04:43)
[2020-04-28] MEDS: Senna/Docusate Sodium 1 Tablet PO ×2 (04:43→18:32)
[2020-04-28] MEDS: Finasteride 5 MG Tablet PO (04:43)
[2020-04-28] MEDS: Umeclidinium Bromide Inhaler 1 PUFF IH (04:44)
[2020-04-28] MEDS: Metoprolol Tartrate 50 MG Tablet PO (04:44)
[2020-04-28] MEDS: hydroCHLOROthiazide 25 MG Tablet PO (04:44)
[2020-04-28] MEDS: Sertraline 50 MG Tablet PO (04:45)
[2020-04-28] MEDS: traMADol 50 MG Tablet PO (04:49)
[2020-04-28 06:15] LABS: Bedside Glucose 136 mg/dL (70-110)
[2020-04-28] MEDS: Multivitamins,Therapeutic Tablet 1 TABLET PO (08:23)
[2020-04-28] MEDS: Aspirin E.C. 81 MG Tablet PO (08:23)
[2020-04-28] MEDS: Acetaminophen 500 MG Tablet 1000 MG PO (08:32)
[2020-04-28] MEDS: 0.9% Normal Saline 1,000 ML 1000 ML IV (11:29)
[2020-04-28 12:05] LABS: Bedside Glucose 143 mg/dL (70-110)
--- NOTE | 2020-04-28 12:07 | NURSING ---
Addendum entered by Allegra Evans 04/28/20 12:12: Checked Blood sugar 143. Original Note: PT came to this nurse and state that pt wasn't feeling well and felt very clammy Checked Pt VS BP 85/49 Left arm sitting Pulse 66 Spo2 92% on RA. Called Dr. Hernandez for new orders. Ordered 1000ml Bolus of NS. Iv started in Right wrist. Also, ordered to decrease Zestril to 10mg BID and Lopressor to 25mg BID. Will recheck BP after Bolus.
[2020-04-28] MEDS: MethylPREDNISolone DosePak 4 MG BOX PO ×4 (12:39→22:16)
--- NOTE | 2020-04-28 13:06 | NURSING ---
Pt still very clammy received Bolus of NS rechecked BP 103/[address] Hernandez updated and ordered Urinalysis, APPLICATIONS TESTER, Respiratory panel CBC w/Diff BMP.
[2020-04-28 13:10] LABS: Absolute Lymphocyte Count 1.08 X10^3/uL (0.83-4.51); Absolute Neutrophil Count 8.8 X10^3/uL (2.0-7.7); Basophil# 0.02 X10^3/uL; Basophil% 0.2 % (0-1); Eosinophil# 0.08 X10^3/uL; Eosinophils% 0.7 % (0-5); Hematocrit 37.6 % (40-54); Hemoglobin 12.2 g/dL (13.0-16.5); Lymphocyte # 1.08 X10^3/ul (4.0); Lymphocyte % 10.1 % (19-41); Mean Corp Hgb Conc 32.4 g/dL (32-36); Mean Corpuscular Hgb 31.1 pg (27.0-32.0); Mean Corpuscular Volume 95.9 fL (80-94); Mean Platelet Vol. 10.3 fl (6.2-12.0); Monocyte# 0.71 X10^3/uL; Monocyte% 6.6 % (0-10); NRBC Flagged by Analyzer 0 % (0-5); Neutrophil # 8.79 X10^3/uL (2.7-7.7); Neutrophil % 81.9 % (47-70); Platelet Count 299 K/mm3 (150-450); RBC Distribution Width CV 12.5 % (11.6-14.6); RBC Distribution Width SD 43.9 fl (35.1-43.9); Red Blood Count 3.92 M/mm3 (4.6-6.2); White Blood Count 10.7 K/mm3 (4.4-11.0)
[2020-04-28 13:23] LABS: Anion Gap 8 (5-15); BUN 24 mg/dL (7-18); BUN/Creat Ratio 22.6 RATIO (10-20); Calcium,Total 8.6 mg/dL (8.5-10.1); Chloride 105 mmol/L (98-107); Creatinine, Serum 1.06 mg/dL (0.70-1.30); EST Glomerular Filtration Rate 72 mL/min (>60); Est Glom Filt Rate - Afr Amer 87 mL/min (>60); Estimated Creatinine Clearance 65.96 ml/min; Glucose 177 mg/dL (74-106); Potassium 4.3 mmol/L (3.5-5.1); Sodium Level 137 mmol/L (136-145)
--- NOTE | 2020-04-28 14:23 | NURSING ---
OT updated Family.
--- NOTE | 2020-04-28 14:26 | NURSING ---
called Pt's sister to give update Left a voicemail.
[2020-04-28 17:46] LABS: Bacteria 0 SEEN /hpf (None Seen); Mucous, Urine 0 SEEN /hpf (<or=2+); Red Blood Cells-Urine 0 SEEN /hpf (0-5); Squamous Epithelial Cells - UA 0 SEEN /hpf (0-5)
[2020-04-28 17:51] LABS: Color, Urine Yellow (Yellow); Glucose, Dipstick Normal (Normal); Ketone-Dipstick Negative (Negative); Leukocyte Esterase-Dipstick 25 /ul (Negative); Nitrite-Dipstick Negative (Negative); Occult Blood-Urine Negative /ul (Negative); Protein-Dipstick Negative (Negative); Urine Bilirubin Dipstick Negative (Negative); Urine Clarity Clear (Clear); Urine Urobilinogen Normal (Normal)
--- NOTE | 2020-04-28 18:05 | EKG12_ITS ---
Test Reason : DYSRHYTHMIA Blood Pressure : / mmHG Vent. Rate : 077 BPM Atrial Rate : 077 BPM P-R Int : 190 ms QRS Dur : 084 ms QT Int : 388 ms P-R-T Axes : 034 002 022 degrees QTc Int : 439 ms Normal sinus rhythm Normal ECG Confirmed by HARSHA MARINELLI, GRAHAM ([id number]), editorial manager MAR TREJO ([id number]) on 05/05/2020 12:56:26 PM Referred By: DANIEL Confirmed By:GRAHAM MCLEOD MD
[2020-04-28 18:06] LABS: White Blood Cells 0-5 SEEN /hpf (0-5)
[2020-04-28] MEDS: Metoprolol Tartrate 25 MG Tablet PO (18:32)
[2020-04-28] MEDS: Lisinopril 10 MG Tablet PO (18:32)
--- NOTE | 2020-04-28 18:34 | RAD_ITS ---
STUDY: X-RAY CHEST REASON FOR EXAM: Male, 79 years old. INCREASED CONFUSION TECHNIQUE: PA and lateral views of the chest. COMPARISON: April 18, 2020 FINDINGS: There is hyperinflation of the lungs consistent with chronic obstructive lung disease (COPD). No visualized infiltrate. There is no demonstrated pleural abnormality. Sternal cerclage wires and vascular clips are present from a prior sternotomy and coronary artery bypass graft procedure (CABG). Normal heart size. Normal mediastinum and amanda. Normal visualized pulmonary arteries. There is atherosclerotic tortuosity of the aortic arch and descending thoracic aorta. Stable visualized osseous structures including suture anchors of the right humeral head. There is no demonstrated abnormality of the visualized soft tissue structures of the upper abdomen. RAD/Chest PA and Lateral IMPRESSION: COPD/emphysematous changes Electronically Signed: Jason Dodd MD at 19:20 EST , Service support ,
[2020-04-28 18:51] LABS: CPK Total, Creatine Kinase 52 U/L (39-308)
--- NOTE | 2020-04-28 19:01 | NURSING ---
Pt blood pressure 178/[address] Hernandez made aware Ordered Cardiac enzyme labs Chest x-ray and EKG. Pt still very diaphoretic and did not know where he was. Negative for FAST.
[2020-04-28] MEDS: Atorvastatin Calcium 80 MG Tablet PO (21:29)
[2020-04-28] MEDS: Tamsulosin HCl 0.4 MG Capsule PO (21:29)
--- NOTE | 2020-04-28 21:34 | NURSING ---
Lying in bed,skin slightly moist, denies feeling warm, denies pain, requesting breathing treatment, no respdistress at rest, pt had accidently pulled out sl in rt hand, see vs
[2020-04-29 05:27] VITALS: BP 134/86; PULSE 89; RESP 18; TEMP 36.8; O2SAT 92
[2020-04-29 05:31] VITALS: BP 134/86; PULSE 89
[2020-04-29] MEDS: Metoprolol Tartrate 25 MG Tablet PO ×2 (05:31→16:52)
[2020-04-29] MEDS: Umeclidinium Bromide Inhaler 1 PUFF IH (05:31)
[2020-04-29] MEDS: Magnesium Chloride 64 MG Delay Rel.Tablet 128 MG PO ×2 (05:31→16:53)
[2020-04-29] MEDS: Pantoprazole Sodium 20 MG Tablet PO (05:32)
[2020-04-29] MEDS: hydroCHLOROthiazide 25 MG Tablet PO (05:32)
[2020-04-29] MEDS: Finasteride 5 MG Tablet PO (05:32)
[2020-04-29] MEDS: Senna/Docusate Sodium 1 Tablet PO ×2 (05:32→16:52)
[2020-04-29] MEDS: Lisinopril 10 MG Tablet PO ×2 (05:32→16:52)
[2020-04-29] MEDS: Sertraline 50 MG Tablet PO (05:32)
[2020-04-29] MEDS: Polyethylene Glycol 3350 17 GM PACKET PO (05:32)
[2020-04-29 06:20] LABS: Bedside Glucose 164 mg/dL (70-110)
[2020-04-29] MEDS: Aspirin E.C. 81 MG Tablet PO (07:58)
[2020-04-29] MEDS: MethylPREDNISolone DosePak 4 MG BOX PO ×4 (07:58→20:45)
[2020-04-29] MEDS: Multivitamins,Therapeutic Tablet 1 TABLET PO (07:58)
--- NOTE | 2020-04-29 10:07 | MDS.RN ---
Information for the mds was obtained from review of the clinical record, interview of resident, staff, and direct observation of resident's care.
[2020-04-29] MEDS: traMADol 50 MG Tablet PO (10:43)
[2020-04-29 11:36] VITALS: BP 123/70; PULSE 77; RESP 17; TEMP 36.9; O2SAT 94
--- NOTE | 2020-04-29 12:28 | CASEMGMT ---
Social Work Spoke with pt about DC options as is approaching. [id number], pt needs to spend down the $17,000 in his savings account. Provided options of remaining in TCU and paying privately for copays until ready to DC. Or DC to SNF/AL combo, still pay privately but can accept PRACHI when approved and assist with transition to AL. Explained regardless pt will need to transfer to SNF prior to AL until waiver is approved. Pt expressed understanding and would like to remain in TCU, pay copays privately, then transfer to SNF when ready. Pt requested SW update sister on plans. Sister expressed understanding and appreciation. SW will continue to follow. Estefanía Mathur, MECHANICAL TECHNICIAN MECHANICAL TECHNICIAN
[2020-04-29] MEDS: Glycerin/Hypromellose/PEG400 15 ml Bottle 1 DRP EACH EYE (15:43)
[2020-04-29 16:52] VITALS: PULSE 71
[2020-04-29] MEDS: Tamsulosin HCl 0.4 MG Capsule PO (20:44)
[2020-04-29] MEDS: Atorvastatin Calcium 80 MG Tablet PO (20:45)
[2020-04-29] MEDS: Albuterol 2.5 MG/3 ML VIAL.NEB. INHALATION (22:26)
[2020-04-29 22:27] VITALS: PULSE 76; RESP 18; O2SAT 94
[2020-04-30] VITALS (8 sets, daily range): BP systolic 121–123; BP diastolic 67–73; PULSE 67–85; RESP 16–20; TEMP 36.6–37.5; O2SAT 92–97
[2020-04-30 06:20] LABS: Bedside Glucose 155 mg/dL (70-110)
[2020-04-30] MEDS: hydroCHLOROthiazide 25 MG Tablet PO (07:19)
[2020-04-30] MEDS: Lisinopril 10 MG Tablet PO ×2 (07:20→17:31)
[2020-04-30] MEDS: Magnesium Chloride 64 MG Delay Rel.Tablet 128 MG PO ×2 (07:20→17:30)
[2020-04-30] MEDS: Pantoprazole Sodium 20 MG Tablet PO (07:20)
[2020-04-30] MEDS: Sertraline 50 MG Tablet PO (07:20)
[2020-04-30] MEDS: Senna/Docusate Sodium 1 Tablet PO ×2 (07:20→17:31)
[2020-04-30] MEDS: Metoprolol Tartrate 25 MG Tablet PO ×2 (07:20→17:30)
[2020-04-30] MEDS: Finasteride 5 MG Tablet PO (07:21)
[2020-04-30] MEDS: Polyethylene Glycol 3350 17 GM PACKET PO (07:22)
[2020-04-30] MEDS: Umeclidinium Bromide Inhaler 1 PUFF IH (07:25)
[2020-04-30] MEDS: traMADol 50 MG Tablet PO ×2 (07:32→21:36)
[2020-04-30] MEDS: MethylPREDNISolone DosePak 4 MG BOX PO ×4 (08:16→21:27)
[2020-04-30] MEDS: Multivitamins,Therapeutic Tablet 1 TABLET PO (08:17)
[2020-04-30] MEDS: Aspirin E.C. 81 MG Tablet PO (08:17)
[2020-04-30 08:59] LABS: Myoglobin, Serum 41 ng/mL (28-72)
[2020-04-30] MEDS: Glycerin/Hypromellose/PEG400 15 ml Bottle 1 DRP EACH EYE (11:09)
[2020-04-30] MEDS: Atorvastatin Calcium 80 MG Tablet PO (21:27)
[2020-04-30] MEDS: Tamsulosin HCl 0.4 MG Capsule PO (21:27)
[2020-04-30] MEDS: Albuterol 2.5 MG/3 ML VIAL.NEB. INHALATION (22:19)
[2020-05-01] VITALS (7 sets, daily range): BP systolic 99–123; BP diastolic 58–65; PULSE 70–92; RESP 16–19; TEMP 36.3; O2SAT 93–95
[2020-05-01] MEDS: Lisinopril 10 MG Tablet PO ×2 (05:20→17:23)
[2020-05-01] MEDS: Umeclidinium Bromide Inhaler 1 PUFF IH (05:20)
[2020-05-01] MEDS: Sertraline 50 MG Tablet PO (05:20)
[2020-05-01] MEDS: Pantoprazole Sodium 20 MG Tablet PO (05:20)
[2020-05-01] MEDS: Magnesium Chloride 64 MG Delay Rel.Tablet 128 MG PO ×2 (05:20→17:23)
[2020-05-01] MEDS: hydroCHLOROthiazide 25 MG Tablet PO (05:21)
[2020-05-01] MEDS: Finasteride 5 MG Tablet PO (05:21)
[2020-05-01] MEDS: Metoprolol Tartrate 25 MG Tablet PO ×2 (05:21→17:23)
[2020-05-01 06:21] LABS: Bedside Glucose 150 mg/dL (70-110)
[2020-05-01] MEDS: MethylPREDNISolone DosePak 4 MG BOX PO ×3 (08:16→21:54)
[2020-05-01] MEDS: Aspirin E.C. 81 MG Tablet PO (08:16)
[2020-05-01] MEDS: Multivitamins,Therapeutic Tablet 1 TABLET PO (08:16)
--- NOTE | 2020-05-01 14:01 | NURSING ---
Resident and family updated on current COVID status on the unit.
[2020-05-01] MEDS: traMADol 50 MG Tablet PO ×2 (14:45→21:51)
[2020-05-01] MEDS: Albuterol 2.5 MG/3 ML VIAL.NEB. INHALATION (17:10)
[2020-05-01] MEDS: Tamsulosin HCl 0.4 MG Capsule PO (21:53)
[2020-05-01] MEDS: Atorvastatin Calcium 80 MG Tablet PO (21:53)
[2020-05-02 00:25] VITALS: PULSE 77; RESP 18
[2020-05-02] MEDS: Albuterol 2.5 MG/3 ML VIAL.NEB. INHALATION ×2 (00:25→11:33)
[2020-05-02 05:15] VITALS: BP 140/88; PULSE 73; RESP 18; TEMP 36.5; O2SAT 94
[2020-05-02] MEDS: hydroCHLOROthiazide 25 MG Tablet PO (05:18)
[2020-05-02 05:19] VITALS: BP 140/88; PULSE 73
[2020-05-02] MEDS: Metoprolol Tartrate 25 MG Tablet PO ×2 (05:19→17:13)
[2020-05-02] MEDS: Umeclidinium Bromide Inhaler 1 PUFF IH (05:19)
[2020-05-02] MEDS: Magnesium Chloride 64 MG Delay Rel.Tablet 128 MG PO ×2 (05:19→17:13)
[2020-05-02] MEDS: Finasteride 5 MG Tablet PO (05:20)
[2020-05-02] MEDS: Polyethylene Glycol 3350 17 GM PACKET PO (05:20)
[2020-05-02] MEDS: Pantoprazole Sodium 20 MG Tablet PO (05:20)
[2020-05-02] MEDS: Sertraline 50 MG Tablet PO (05:21)
[2020-05-02] MEDS: Lisinopril 10 MG Tablet PO ×2 (05:21→17:14)
[2020-05-02] MEDS: Senna/Docusate Sodium 1 Tablet PO (05:21)
[2020-05-02 05:41] LABS: Bedside Glucose 139 mg/dL (70-110)
[2020-05-02] MEDS: Multivitamins,Therapeutic Tablet 1 TABLET PO (08:55)
[2020-05-02] MEDS: Aspirin E.C. 81 MG Tablet PO (08:55)
[2020-05-02] MEDS: MethylPREDNISolone DosePak 4 MG BOX PO ×2 (08:55→21:11)
[2020-05-02 11:33] VITALS: PULSE 81; RESP 22
[2020-05-02 14:48] VITALS: BP 150/80; PULSE 77; RESP 14; TEMP 36.7; O2SAT 94
[2020-05-02 17:13] VITALS: BP 150/80; PULSE 77
[2020-05-02] MEDS: Tamsulosin HCl 0.4 MG Capsule PO (21:10)
[2020-05-02] MEDS: Atorvastatin Calcium 80 MG Tablet PO (21:10)
[2020-05-03] VITALS (9 sets, daily range): BP systolic 96–198; BP diastolic 53–110; PULSE 72–87; RESP 18–20; TEMP 36.7–36.9; O2SAT 95–96
[2020-05-03] MEDS: Nitroglycerin (INPATIENT USE) 0.4 MG TAB.SUBL SUBLINGUAL (03:34)
--- NOTE | 2020-05-03 03:49 | NURSING ---
Pt called out c/o chest pain radiates to back, rated at 5/10,BP 198/110, med with NTG SL, stat EKG NSR, o2 started at 2 l/m via , slight wheezing, resp therapy here, gave pt aerosol treatment, pt states pain is relieved at 5 minutes, rates pain at 0/10, second BP 123/83
[2020-05-03] MEDS: Albuterol 2.5 MG/3 ML VIAL.NEB. INHALATION ×3 (03:50→20:05)
--- NOTE | 2020-05-03 04:02 | EKG12_ITS ---
Test Reason : CP Blood Pressure : / mmHG Vent. Rate : 087 BPM Atrial Rate : 087 BPM P-R Int : 180 ms QRS Dur : 084 ms QT Int : 382 ms P-R-T Axes : 050 030 025 degrees QTc Int : 459 ms Sinus rhythm Normal ECG When compared with ECG of 28-APR-2020 19:00, MANUAL COMPARISON REQUIRED, DATA IS UNCONFIRMED Confirmed by MICHAEL MARINELLI, RAYMOND ([id number]), editor newspaper MAR TREJO ([id number]) on 05/07/2020 11:18:31 AM Referred By: DANIEL Confirmed By:RAYMOND RODRIGUEZ MD
--- NOTE | 2020-05-03 04:07 | NURSING ---
Lying in bed with HOB elevated, denies chest pain, denies resp distress no wheezing noted,
--- NOTE | 2020-05-03 04:45 | NURSING ---
Sitting up in bed , denies chest pain or resp ditress
[2020-05-03] MEDS: Polyethylene Glycol 3350 17 GM PACKET PO (05:18)
[2020-05-03] MEDS: Umeclidinium Bromide Inhaler 1 PUFF IH (05:18)
[2020-05-03] MEDS: Lisinopril 10 MG Tablet PO ×2 (05:20→17:40)
[2020-05-03] MEDS: Pantoprazole Sodium 20 MG Tablet PO (05:20)
[2020-05-03] MEDS: Metoprolol Tartrate 25 MG Tablet PO ×2 (05:20→17:40)
[2020-05-03] MEDS: Magnesium Chloride 64 MG Delay Rel.Tablet 128 MG PO ×2 (05:20→17:40)
[2020-05-03] MEDS: Sertraline 50 MG Tablet PO (05:20)
[2020-05-03] MEDS: Finasteride 5 MG Tablet PO (05:21)
[2020-05-03] MEDS: Senna/Docusate Sodium 1 Tablet PO ×2 (05:21→17:41)
[2020-05-03] MEDS: hydroCHLOROthiazide 25 MG Tablet PO (05:21)
[2020-05-03 06:26] LABS: Bedside Glucose 158 mg/dL (70-110)
[2020-05-03] MEDS: Aspirin E.C. 81 MG Tablet PO (08:44)
[2020-05-03] MEDS: MENTHOL 226.8 GM JAR 1 APPLIC TP ×2 (08:44→22:02)
[2020-05-03] MEDS: Multivitamins,Therapeutic Tablet 1 TABLET PO (08:44)
--- NOTE | 2020-05-03 17:52 | NURSING ---
NO CHEST PAIN TODAY, DR SANCHEZ UPDATED.
[2020-05-03] MEDS: Tamsulosin HCl 0.4 MG Capsule PO (22:01)
[2020-05-03] MEDS: Atorvastatin Calcium 80 MG Tablet PO (22:01)
[2020-05-03] MEDS: Acetaminophen 500 MG Tablet 1000 MG PO (22:06)
[2020-05-04 06:11] VITALS: BP 101/70; PULSE 70; RESP 17; TEMP 37; O2SAT 92
[2020-05-04] MEDS: Polyethylene Glycol 3350 17 GM PACKET PO (06:13)
[2020-05-04 06:14] VITALS: BP 101/70; PULSE 70
[2020-05-04] MEDS: Sertraline 50 MG Tablet PO (06:14)
[2020-05-04] MEDS: Metoprolol Tartrate 25 MG Tablet PO ×2 (06:14→17:05)
[2020-05-04] MEDS: Senna/Docusate Sodium 1 Tablet PO ×2 (06:14→17:05)
[2020-05-04] MEDS: Lisinopril 10 MG Tablet PO ×2 (06:14→17:05)
[2020-05-04] MEDS: Magnesium Chloride 64 MG Delay Rel.Tablet 128 MG PO ×2 (06:14→17:05)
[2020-05-04] MEDS: Umeclidinium Bromide Inhaler 1 PUFF IH (06:15)
[2020-05-04] MEDS: hydroCHLOROthiazide 25 MG Tablet PO (06:15)
[2020-05-04] MEDS: Finasteride 5 MG Tablet PO (06:15)
[2020-05-04] MEDS: Pantoprazole Sodium 20 MG Tablet PO (06:15)
[2020-05-04 06:16] LABS: Absolute Lymphocyte Count 2.31 X10^3/uL (0.83-4.51); Absolute Neutrophil Count 7.3 X10^3/uL (2.0-7.7); Basophil# 0.05 X10^3/uL; Basophil% 0.5 % (0-1); Eosinophil# 0.17 X10^3/uL; Eosinophils% 1.6 % (0-5); Hematocrit 40.8 % (40-54); Hemoglobin 13.4 g/dL (13.0-16.5); Lymphocyte # 2.31 X10^3/ul (4.0); Lymphocyte % 21.2 % (19-41); Mean Corp Hgb Conc 32.8 g/dL (32-36); Mean Corpuscular Hgb 30.6 pg (27.0-32.0); Mean Corpuscular Volume 93.2 fL (80-94); Monocyte# 0.87 X10^3/uL; NRBC Flagged by Analyzer 0 % (0-5); Neutrophil # 7.26 X10^3/uL (2.7-7.7); Neutrophil % 66.7 % (47-70); Platelet Count 271 K/mm3 (150-450); RBC Distribution Width CV 12.5 % (11.6-14.6); RBC Distribution Width SD 43.2 fl (35.1-43.9); Red Blood Count 4.38 M/mm3 (4.6-6.2); White Blood Count 10.9 K/mm3 (4.4-11.0)
[2020-05-04 06:26] LABS: Bedside Glucose 127 mg/dL (70-110)
[2020-05-04 06:39] LABS: Anion Gap 7 (5-15); BUN 26 mg/dL (7-18); BUN/Creat Ratio 29.9 RATIO (10-20); Calcium,Total 8.5 mg/dL (8.5-10.1); Chloride 100 mmol/L (98-107); Creatinine, Serum 0.87 mg/dL (0.70-1.30); EST Glomerular Filtration Rate 90 mL/min (>60); Est Glom Filt Rate - Afr Amer 109 mL/min (>60); Estimated Creatinine Clearance 80.36 ml/min; Glucose 117 mg/dL (74-106); Potassium 4.3 mmol/L (3.5-5.1); Sodium Level 133 mmol/L (136-145)
[2020-05-04 07:15] VITALS: PULSE 65; RESP 12; O2SAT 93
[2020-05-04] MEDS: Albuterol 2.5 MG/3 ML VIAL.NEB. INHALATION ×2 (07:15→20:10)
[2020-05-04] MEDS: Aspirin E.C. 81 MG Tablet PO (08:17)
[2020-05-04] MEDS: Multivitamins,Therapeutic Tablet 1 TABLET PO (08:17)
[2020-05-04] MEDS: Acetaminophen 500 MG Tablet 1000 MG PO (08:19)
[2020-05-04 13:53] VITALS: BP 89/52; PULSE 76; RESP 16; TEMP 36.7; O2SAT 92
[2020-05-04 17:05] VITALS: BP 118/71; PULSE 80
[2020-05-04 20:10] VITALS: PULSE 68; RESP 18; O2SAT 95
[2020-05-04] MEDS: MENTHOL 226.8 GM JAR 1 APPLIC TP (20:31)
[2020-05-04] MEDS: Atorvastatin Calcium 80 MG Tablet PO (20:31)
[2020-05-04] MEDS: Tamsulosin HCl 0.4 MG Capsule PO (20:31)
[2020-05-05] VITALS (7 sets, daily range): BP systolic 92–112; BP diastolic 60–64; PULSE 60–75; RESP 16–18; TEMP 36.7–37.4; O2SAT 92–97
[2020-05-05] MEDS: Polyethylene Glycol 3350 17 GM PACKET PO (05:36)
[2020-05-05] MEDS: Umeclidinium Bromide Inhaler 1 PUFF IH (05:36)
[2020-05-05] MEDS: Metoprolol Tartrate 25 MG Tablet PO ×2 (05:37→17:40)
[2020-05-05] MEDS: hydroCHLOROthiazide 25 MG Tablet PO (05:37)
[2020-05-05] MEDS: Senna/Docusate Sodium 1 Tablet PO (05:38)
[2020-05-05] MEDS: Lisinopril 10 MG Tablet PO ×2 (05:38→17:40)
[2020-05-05] MEDS: Sertraline 50 MG Tablet PO (05:38)
[2020-05-05] MEDS: Pantoprazole Sodium 20 MG Tablet PO (05:38)
[2020-05-05] MEDS: Magnesium Chloride 64 MG Delay Rel.Tablet 128 MG PO ×2 (05:38→17:40)
[2020-05-05] MEDS: Finasteride 5 MG Tablet PO (05:38)
[2020-05-05 06:51] LABS: Bedside Glucose 122 mg/dL (70-110)
[2020-05-05] MEDS: Multivitamins,Therapeutic Tablet 1 TABLET PO (08:27)
[2020-05-05] MEDS: Aspirin E.C. 81 MG Tablet PO (08:27)
[2020-05-05] MEDS: traMADol 50 MG Tablet PO ×2 (10:47→20:47)
[2020-05-05] MEDS: Albuterol 2.5 MG/3 ML VIAL.NEB. INHALATION ×2 (11:25→22:20)
--- NOTE | 2020-05-05 15:18 | CASEMGMT ---
Addendum entered by Estefanía Mathur 05/06/20 13:08: Attempted to contact sister again - successful. Spoke with sister about pt's progress and if pt would be able to DC home with her. Sister clearly in distress about her decision, but continues to stand firmly that she is unable to have pt return home due to her own health and age issues. She states the pt does not pull his own weight at home, regardless if he cant do things for himself. Her dtr joined conversation and attested to these statements. SW provided supportive listening and emotional support, and expressed understanding to sister's decision. Explained SW has been working with pt on SNF/AL placement in preparation that sister would not change her decision. Sister appreciative. SW to follow up with pt to discuss DC plans. Will continue to follow. Original Note: Social Work Left message with sister to discuss pt's progress and DC plans. Estefanía Mathur, VICTOR HUGO CANOW
[2020-05-05] MEDS: Tamsulosin HCl 0.4 MG Capsule PO (20:47)
[2020-05-05] MEDS: Atorvastatin Calcium 80 MG Tablet PO (20:47)
[2020-05-06 04:00] VITALS: BP 106/66; PULSE 78; RESP 16; TEMP 36.4; O2SAT 92
[2020-05-06] MEDS: Umeclidinium Bromide Inhaler 1 PUFF IH (05:17)
[2020-05-06] MEDS: traMADol 50 MG Tablet PO ×2 (05:17→20:34)
[2020-05-06 05:18] VITALS: BP 106/66; PULSE 78
[2020-05-06] MEDS: Magnesium Chloride 64 MG Delay Rel.Tablet 128 MG PO ×2 (05:18→17:43)
[2020-05-06] MEDS: Finasteride 5 MG Tablet PO (05:18)
[2020-05-06] MEDS: Pantoprazole Sodium 20 MG Tablet PO (05:18)
[2020-05-06] MEDS: Metoprolol Tartrate 25 MG Tablet PO ×2 (05:18→17:43)
[2020-05-06] MEDS: Lisinopril 10 MG Tablet PO ×2 (05:19→17:44)
[2020-05-06] MEDS: Sertraline 50 MG Tablet PO (05:19)
[2020-05-06] MEDS: hydroCHLOROthiazide 25 MG Tablet PO (05:19)
[2020-05-06 06:26] LABS: Bedside Glucose 109 mg/dL (70-110)
[2020-05-06] MEDS: Multivitamins,Therapeutic Tablet 1 TABLET PO (08:43)
[2020-05-06] MEDS: Aspirin E.C. 81 MG Tablet PO (08:43)
[2020-05-06] MEDS: Acetaminophen 500 MG Tablet 1000 MG PO (08:48)
[2020-05-06 13:47] VITALS: BP 86/54; PULSE 65; RESP 18; TEMP 36.6; O2SAT 93
[2020-05-06 17:43] VITALS: BP 107/63; PULSE 67
[2020-05-06] MEDS: Senna/Docusate Sodium 1 Tablet PO (17:44)
[2020-05-06 20:10] VITALS: BP 91/60; PULSE 65; RESP 16; TEMP 36.7; O2SAT 94
[2020-05-06] MEDS: Tamsulosin HCl 0.4 MG Capsule PO (20:29)
[2020-05-06] MEDS: Atorvastatin Calcium 80 MG Tablet PO (20:29)
[2020-05-06] MEDS: MENTHOL 226.8 GM JAR 1 APPLIC TP (20:29)
[2020-05-07] VITALS (7 sets, daily range): BP systolic 92–139; BP diastolic 55–78; PULSE 65–78; RESP 16–22; TEMP 36.4–37; O2SAT 93–95
[2020-05-07] MEDS: Pantoprazole Sodium 20 MG Tablet PO (05:42)
[2020-05-07] MEDS: Sertraline 50 MG Tablet PO (05:42)
[2020-05-07] MEDS: Magnesium Chloride 64 MG Delay Rel.Tablet 128 MG PO ×2 (05:42→16:33)
[2020-05-07] MEDS: traMADol 50 MG Tablet PO ×2 (05:42→21:00)
[2020-05-07] MEDS: Senna/Docusate Sodium 1 Tablet PO ×2 (05:43→16:34)
[2020-05-07] MEDS: hydroCHLOROthiazide 25 MG Tablet PO (05:43)
[2020-05-07] MEDS: Metoprolol Tartrate 25 MG Tablet PO ×2 (05:43→16:34)
[2020-05-07] MEDS: Polyethylene Glycol 3350 17 GM PACKET PO (05:43)
[2020-05-07] MEDS: Umeclidinium Bromide Inhaler 1 PUFF IH (05:43)
[2020-05-07] MEDS: Lisinopril 10 MG Tablet PO ×2 (05:43→16:34)
[2020-05-07] MEDS: Finasteride 5 MG Tablet PO (05:44)
[2020-05-07 06:16] LABS: Bedside Glucose 163 mg/dL (70-110)
[2020-05-07] MEDS: Albuterol 2.5 MG/3 ML VIAL.NEB. INHALATION ×2 (06:18→20:33)
[2020-05-07] MEDS: Multivitamins,Therapeutic Tablet 1 TABLET PO (08:32)
[2020-05-07] MEDS: Aspirin E.C. 81 MG Tablet PO (08:32)
[2020-05-07] MEDS: MENTHOL 226.8 GM JAR 1 APPLIC TP ×2 (08:34→21:00)
--- NOTE | 2020-05-07 08:47 | CASEMGMT ---
Social Work Harvinder Butt from [facility] called, inquiring if pt is still here. He has been speaking w/pt regarding the assisted living waiver. SW reviewed chart, explained to Harvinder that plan still looks to be assisted living vs. SNF, and the SW here in TCU plans to follow up w/pt again regarding the plan. Harvinder is going to follow back up w/pt and pt's sister, and will leave SW in TCU a message regarding their conversation and what pt and family tells Harvinder in regard to his plan from TCU. MEKA Almonte
[2020-05-07] MEDS: Acetaminophen 500 MG Tablet 1000 MG PO (11:20)
--- NOTE | 2020-05-07 16:35 | CASEMGMT ---
Social Work Received voicemail from Harvinder Butt whom spoke with pt on Passport and AL waiver options. Explained pt would need to spend down his money to qualify. Spoke with pt about conversation with Harvinder and the conversation SW had with sister the day prior. Sw explained to sister pt's current level of functioning and if he could return home. Explained that sister was very torn on the decision but still decided for pt not to return. Pt upset and hoped he could return home. Provided emotional support. Pt asked 'what now?'. Explained pt could transfer to [facility], [facility] or [facility], pay privately to spend down money, then they will assist with AL waiver and pt could transfer to AL. Pt agreeable to plan but unsure of preference. SW offered to gather further information to provide to pt to make informed decision. pt agreeable and appreciative. Provided information to pt. Pt to notify SW of decision. Will continue to follow. Estefanía Mathur, VICTOR HUGO REHAB LIAISON
[2020-05-07] MEDS: Tamsulosin HCl 0.4 MG Capsule PO (21:00)
[2020-05-07] MEDS: Atorvastatin Calcium 80 MG Tablet PO (21:00)
[2020-05-08] MEDS: Lisinopril 10 MG Tablet PO ×2 (06:28→17:29)
[2020-05-08] MEDS: Finasteride 5 MG Tablet PO (06:28)
[2020-05-08] MEDS: Pantoprazole Sodium 20 MG Tablet PO (06:28)
[2020-05-08] MEDS: Sertraline 50 MG Tablet PO (06:28)
[2020-05-08] MEDS: MENTHOL 226.8 GM JAR 1 APPLIC TP ×2 (06:28→20:11)
[2020-05-08] MEDS: Magnesium Chloride 64 MG Delay Rel.Tablet 128 MG PO ×2 (06:28→17:29)
[2020-05-08] MEDS: Umeclidinium Bromide Inhaler 1 PUFF IH (06:29)
[2020-05-08] MEDS: hydroCHLOROthiazide 25 MG Tablet PO (06:30)
[2020-05-08 06:31] LABS: Bedside Glucose 106 mg/dL (70-110)
[2020-05-08 06:36] VITALS: BP 126/79; PULSE 75
[2020-05-08] MEDS: Metoprolol Tartrate 25 MG Tablet PO ×2 (06:36→17:29)
[2020-05-08 06:48] VITALS: BP 126/79; PULSE 75; RESP 18; TEMP 36.3; O2SAT 96
[2020-05-08] MEDS: Multivitamins,Therapeutic Tablet 1 TABLET PO (08:19)
[2020-05-08] MEDS: Aspirin E.C. 81 MG Tablet PO (08:19)
[2020-05-08] MEDS: traMADol 50 MG Tablet PO (08:22)
[2020-05-08] MEDS: Acetaminophen 500 MG Tablet 1000 MG PO (11:26)
[2020-05-08 12:56] VITALS: BP 92/48; PULSE 78; RESP 17; TEMP 36.4; O2SAT 95
[2020-05-08 17:29] VITALS: BP 99/59; PULSE 70
[2020-05-08] MEDS: Senna/Docusate Sodium 1 Tablet PO (17:29)
[2020-05-08] MEDS: Tamsulosin HCl 0.4 MG Capsule PO (20:10)
[2020-05-08] MEDS: Atorvastatin Calcium 80 MG Tablet PO (20:10)
[2020-05-09] VITALS (7 sets, daily range): BP systolic 95–123; BP diastolic 44–64; PULSE 66–82; RESP 16–18; TEMP 36.8–37.1; O2SAT 93–99
[2020-05-09] MEDS: Umeclidinium Bromide Inhaler 1 PUFF IH (05:21)
[2020-05-09] MEDS: Metoprolol Tartrate 25 MG Tablet PO ×2 (05:22→17:53)
[2020-05-09] MEDS: hydroCHLOROthiazide 25 MG Tablet PO (05:22)
[2020-05-09] MEDS: Senna/Docusate Sodium 1 Tablet PO (05:22)
[2020-05-09] MEDS: Sertraline 50 MG Tablet PO (05:22)
[2020-05-09] MEDS: Pantoprazole Sodium 20 MG Tablet PO (05:22)
[2020-05-09] MEDS: Finasteride 5 MG Tablet PO (05:23)
[2020-05-09] MEDS: Magnesium Chloride 64 MG Delay Rel.Tablet 128 MG PO ×2 (05:23→17:52)
[2020-05-09] MEDS: Lisinopril 10 MG Tablet PO ×2 (05:23→17:53)
[2020-05-09 06:21] LABS: Bedside Glucose 116 mg/dL (70-110)
[2020-05-09] MEDS: Multivitamins,Therapeutic Tablet 1 TABLET PO (08:08)
[2020-05-09] MEDS: Aspirin E.C. 81 MG Tablet PO (08:08)
[2020-05-09] MEDS: Albuterol 2.5 MG/3 ML VIAL.NEB. INHALATION ×2 (11:00→23:07)
--- NOTE | 2020-05-09 16:36 | CASEMGMT ---
Social Work Followed up with patient several times to inquire about decision. Offered assistance in making decision. Pt unsure of which facility to chose. Explained IDT set DC date 05/15. Pt agreeable. Will continue to follow for DC location. Update [facility] and [facility]. Estefanía Mathur, RD LAB TECHNICIAN GAME MANAGER
[2020-05-09] MEDS: traMADol 50 MG Tablet PO (22:28)
[2020-05-09] MEDS: Atorvastatin Calcium 80 MG Tablet PO (22:29)
[2020-05-09] MEDS: Tamsulosin HCl 0.4 MG Capsule PO (22:29)
[2020-05-10 05:00] VITALS: BP 135/81; PULSE 79; RESP 17; TEMP 37.6; O2SAT 93
[2020-05-10] MEDS: Lisinopril 10 MG Tablet PO ×2 (05:05→17:00)
[2020-05-10] MEDS: Sertraline 50 MG Tablet PO (05:05)
[2020-05-10] MEDS: Polyethylene Glycol 3350 17 GM PACKET PO (05:05)
[2020-05-10] MEDS: Umeclidinium Bromide Inhaler 1 PUFF IH (05:05)
[2020-05-10] MEDS: Senna/Docusate Sodium 1 Tablet PO (05:05)
[2020-05-10 05:06] VITALS: BP 135/81; PULSE 79
[2020-05-10] MEDS: Pantoprazole Sodium 20 MG Tablet PO (05:06)
[2020-05-10] MEDS: Metoprolol Tartrate 25 MG Tablet PO ×2 (05:06→17:00)
[2020-05-10] MEDS: Magnesium Chloride 64 MG Delay Rel.Tablet 128 MG PO ×2 (05:06→17:00)
[2020-05-10] MEDS: hydroCHLOROthiazide 25 MG Tablet PO (05:06)
[2020-05-10] MEDS: Finasteride 5 MG Tablet PO (05:06)
[2020-05-10 06:17] LABS: Bedside Glucose 122 mg/dL (70-110)
[2020-05-10] MEDS: Aspirin E.C. 81 MG Tablet PO (08:39)
[2020-05-10] MEDS: Multivitamins,Therapeutic Tablet 1 TABLET PO (08:39)
[2020-05-10] MEDS: Glycerin/Hypromellose/PEG400 15 ml Bottle 1 DRP EACH EYE (08:40)
[2020-05-10 13:55] VITALS: BP 115/65; PULSE 68; RESP 17; TEMP 37.1; O2SAT 93
[2020-05-10 14:00] VITALS: PULSE 70; RESP 16
[2020-05-10] MEDS: Albuterol 2.5 MG/3 ML VIAL.NEB. INHALATION (14:00)
[2020-05-10 17:00] VITALS: PULSE 68
[2020-05-10] MEDS: Tamsulosin HCl 0.4 MG Capsule PO (20:15)
[2020-05-10] MEDS: Atorvastatin Calcium 80 MG Tablet PO (20:16)
[2020-05-11 05:00] VITALS: BP 124/71; PULSE 68; RESP 16; TEMP 36.9; O2SAT 97
[2020-05-11] MEDS: Umeclidinium Bromide Inhaler 1 PUFF IH (05:24)
[2020-05-11] MEDS: Magnesium Chloride 64 MG Delay Rel.Tablet 128 MG PO ×2 (05:24→16:59)
[2020-05-11 05:25] VITALS: BP 124/71; PULSE 68
[2020-05-11] MEDS: Metoprolol Tartrate 25 MG Tablet PO ×2 (05:25→16:59)
[2020-05-11] MEDS: Sertraline 50 MG Tablet PO (05:25)
[2020-05-11] MEDS: Finasteride 5 MG Tablet PO (05:25)
[2020-05-11] MEDS: Lisinopril 10 MG Tablet PO ×2 (05:25→16:59)
[2020-05-11] MEDS: Pantoprazole Sodium 20 MG Tablet PO (05:25)
[2020-05-11] MEDS: hydroCHLOROthiazide 25 MG Tablet PO (05:25)
[2020-05-11 06:20] LABS: Bedside Glucose 119 mg/dL (70-110)
[2020-05-11 06:34] LABS: Absolute Lymphocyte Count 1.43 X10^3/uL (0.83-4.51); Absolute Neutrophil Count 7.5 X10^3/uL (2.0-7.7); Basophil# 0.02 X10^3/uL; Basophil% 0.2 % (0-1); Eosinophil# 0.18 X10^3/uL; Eosinophils% 1.8 % (0-5); Hematocrit 38.8 % (40-54); Hemoglobin 12.6 g/dL (13.0-16.5); Lymphocyte # 1.43 X10^3/ul (4.0); Lymphocyte % 14.4 % (19-41); Mean Corp Hgb Conc 32.5 g/dL (32-36); Mean Corpuscular Hgb 30.7 pg (27.0-32.0); Mean Corpuscular Volume 94.4 fL (80-94); Mean Platelet Vol. 10.4 fl (6.2-12.0); Monocyte# 0.74 X10^3/uL; Monocyte% 7.4 % (0-10); NRBC Flagged by Analyzer 0 % (0-5); Neutrophil # 7.54 X10^3/uL (2.7-7.7); Neutrophil % 75.7 % (47-70); Platelet Count 177 K/mm3 (150-450); RBC Distribution Width CV 12.8 % (11.6-14.6); Red Blood Count 4.11 M/mm3 (4.6-6.2)
[2020-05-11 06:57] LABS: Anion Gap 6 (5-15); BUN 24 mg/dL (7-18); Calcium,Total 8.8 mg/dL (8.5-10.1); Chloride 104 mmol/L (98-107); Creatinine, Serum 0.77 mg/dL (0.70-1.30); EST Glomerular Filtration Rate 103 mL/min (>60); Est Glom Filt Rate - Afr Amer 125 mL/min (>60); Estimated Creatinine Clearance 69.91 ml/min; Glucose 115 mg/dL (74-106); Potassium 4.2 mmol/L (3.5-5.1); Sodium Level 136 mmol/L (136-145)
[2020-05-11] MEDS: Aspirin E.C. 81 MG Tablet PO (07:42)
[2020-05-11] MEDS: Multivitamins,Therapeutic Tablet 1 TABLET PO (07:42)
[2020-05-11] MEDS: Albuterol 2.5 MG/3 ML VIAL.NEB. INHALATION ×2 (12:26→22:50)
[2020-05-11 12:27] VITALS: PULSE 82; RESP 18
[2020-05-11] MEDS: traMADol 50 MG Tablet PO (12:29)
[2020-05-11 14:04] VITALS: BP 123/62; PULSE 82; RESP 17; TEMP 36.6; O2SAT 91
[2020-05-11 16:59] VITALS: PULSE 82
[2020-05-11] MEDS: Atorvastatin Calcium 80 MG Tablet PO (20:19)
[2020-05-11] MEDS: Glycerin/Hypromellose/PEG400 15 ml Bottle 1 DRP EACH EYE (20:19)
[2020-05-11] MEDS: Tamsulosin HCl 0.4 MG Capsule PO (20:20)
[2020-05-11] MEDS: MENTHOL 226.8 GM JAR 1 APPLIC TP (20:21)
[2020-05-11 22:50] VITALS: PULSE 82; RESP 18
[2020-05-12 05:22] VITALS: BP 101/61; PULSE 74; RESP 16; TEMP 36.8; O2SAT 91
[2020-05-12] MEDS: Magnesium Chloride 64 MG Delay Rel.Tablet 128 MG PO ×2 (05:24→17:25)
[2020-05-12 05:25] VITALS: BP 101/61; PULSE 74
[2020-05-12] MEDS: Metoprolol Tartrate 25 MG Tablet PO ×2 (05:25→17:25)
[2020-05-12] MEDS: Finasteride 5 MG Tablet PO (05:25)
[2020-05-12] MEDS: Pantoprazole Sodium 20 MG Tablet PO (05:25)
[2020-05-12] MEDS: hydroCHLOROthiazide 25 MG Tablet PO (05:25)
[2020-05-12] MEDS: Sertraline 50 MG Tablet PO (05:25)
[2020-05-12] MEDS: Lisinopril 10 MG Tablet PO ×2 (05:25→17:26)
[2020-05-12] MEDS: Senna/Docusate Sodium 1 Tablet PO ×2 (05:26→17:25)
[2020-05-12] MEDS: Umeclidinium Bromide Inhaler 1 PUFF IH (05:28)
[2020-05-12 06:16] LABS: Bedside Glucose 116 mg/dL (70-110)
[2020-05-12] MEDS: Multivitamins,Therapeutic Tablet 1 TABLET PO (07:56)
[2020-05-12] MEDS: Aspirin E.C. 81 MG Tablet PO (07:56)
[2020-05-12] MEDS: traMADol 50 MG Tablet PO ×2 (07:58→14:20)
[2020-05-12 10:50] VITALS: PULSE 75; RESP 18
[2020-05-12] MEDS: Albuterol 2.5 MG/3 ML VIAL.NEB. INHALATION (10:50)
--- NOTE | 2020-05-12 12:02 | CASEMGMT ---
Social Work Spoke with pt about choosing a facility as IDT set DC date for 05/15. Pt would like to go to [facility] to stay in town close to family. Notified [facility] and [facility]. Completed PASRR. Pt will admit private pay initially. Plan: DC to [facility] SNF then transition to AL. VICTOR HUGO JenkinsW
[2020-05-12 15:05] VITALS: BP 88/49; PULSE 82; RESP 14; TEMP 35.7; O2SAT 94
[2020-05-12 17:25] VITALS: BP 118/67; PULSE 82
--- NOTE | 2020-05-12 18:45 | DCINST_ITS ---
- Discharge Diagnoses Current Active Problems: Current Active and Chronic Problems (Last Updated 04/18/20 @ 13:[address] Linda Mccall MD) Debility (Acute) Weakness (Acute) Urinary tract infection (Acute) Diabetes mellitus (Chronic) BPH (benign prostatic hyperplasia) (Chronic) Osteoarthritis of knees, bilateral (Chronic) COPD (chronic obstructive pulmonary disease) (Chronic) Depression (Chronic) Coronary artery disease (Chronic) Hypomagnesemia (Chronic) Hypertension (Chronic) GERD (gastroesophageal reflux disease) (Chronic) Iron deficiency anemia (Chronic) Vitamin D deficiency (Chronic) Atrial fibrillation (Chronic) Hyperlipidemia (Chronic) You will use the following diet at home:: No restrictions, Regular Your food should be the consistency of: Regular Your liquids should be the consistency of: Regular/Thin Discharge Activity: Return to Normal Activity, May Shower, Use Walker Weight Bearing Status: Weight bearing as tolerated Call your doctor if you observe: Fever of 101 or Higher, Inability to urinate, Inability to have a bowel movement, Shortness of breath, Chest pain, Uncontrolled pain Allergies/Adverse Reactions: Allergies propoxyphene HCl [From Darvon] Allergy (Verified 04/18/20 10:41) Itching Medications to take at Discharge Metoprolol Tartrate [Lopressor (beta killian)] 50 mg PO BID 07/24/16 Multivitamin [Daily Multiple Vitamin] 1 ea PO DAILY 07/24/16 Tiotropium [place] [Spiriva] 1 puff IH DAILY 07/24/16 Albuterol Aerosols [Ventolin Aerosols] 2.5 mg INHALATION Q6H PRN PRN 01/17/18 Aspirin E.C. [Ecotrin] 81 mg PO DAILY@0800 01/17/18 Atorvastatin Calcium [Lipitor] 80 mg PO QHS 01/17/18 Cholecalciferol (VIT D3) [Vitamin D3] 2,000 unit PO DAILY 01/17/18 Finasteride [Proscar] 5 mg PO DAILY 01/17/18 Hydrochlorothiazide [Hctz] 25 mg PO DAILY 01/17/18 Lisinopril [Zestril] 20 mg PO BID 01/17/18 Magnesium Oxide 420 mg PO BID 01/17/18 Nitroglycerin (INPATIENT USE) [Nitrostat] 0.4 mg SUBLINGUAL Q5M PRN 01/17/18 Pantoprazole Sodium [Protonix] 20 mg PO DAILY 01/17/18 Tamsulosin HCl [Flomax] 0.4 mg PO QHS 01/17/18 Sertraline HCl 50 mg PO DAILY 04/18/20 Acetaminophen [Tylenol] 1,000 mg PO Q6H PRN tablet 05/12/20 Menthol [Blue Gel] 1 applic TP 4X/DAY PRN PRN jar 05/12/20 Peg 400/Hypromellose/Glycerin [Artificial Tears] 1 drop EACH EYE Q1H PRN bottle 05/12/20 Polyethylene Glycol 3350 [Miralax] 17 gm PO DAILY packet 05/12/20 Senna/Docusate Sodium [Senokot-S] 1 tablet PO BID tablet 05/12/20 traMADol [Ultram] 50 mg PO Q6H PRN PRN #12 tab 05/12/20 The following prescriptions were given: traMADol [Ultram] 50 mg PO Q6H PRN PRN #12 tab PRN Reason: Pain Score 4-10 Prescription Printed Primary Care Physician: [facility],[place] [Primary Care Provider] - Please follow up with your Primary Care Physician in: 1 week. Test Results: Test results from this visit will be discussed in further detail at your follow- up appointment, if applicable. Proposed Discharge Date: 05/15/20
--- NOTE | 2020-05-12 18:47 | PCM.DC.SUM ---
Discharge Date and Diagnosis - Problem List Patient Problems: Active and Suspected Problems (Last Updated 04/18/20 @ 13:[address] Linda Mccall MD) Debility (Acute) Weakness (Acute) Urinary tract infection (Acute) Date of Admission: 04/19/20 Date of Discharge: 05/15/20 - Primary Discharge Diagnosis Acute Problems: Active Problems (Last Updated 04/18/20 @ 13:[address] Linda Mccall MD) Debility (Acute) Weakness (Acute) Urinary tract infection (Acute) - Secondary Discharge Diagnosis Chronic Problems: Chronic Problems (Last Updated 04/18/20 @ 13:[address] Linda Mccall MD) Diabetes mellitus (Chronic) BPH (benign prostatic hyperplasia) (Chronic) Osteoarthritis of knees, bilateral (Chronic) COPD (chronic obstructive pulmonary disease) (Chronic) Depression (Chronic) Coronary artery disease (Chronic) Hypomagnesemia (Chronic) Hypertension (Chronic) Stage 3 severe COPD by GOLD classification (Chronic) CAD S/P percutaneous coronary angioplasty (Chronic) Stents x 3 Tobacco dependence syndrome (Chronic) History of gastroesophageal reflux (GERD) (Chronic) Type II diabetes mellitus (Chronic) BPH (benign prostatic hyperplasia) (Chronic) Benign essential hypertension (Chronic) GERD (gastroesophageal reflux disease) (Chronic) Iron deficiency anemia (Chronic) Vitamin D deficiency (Chronic) History of alcohol dependence (Chronic) Atrial fibrillation (Chronic) Hyperlipidemia (Chronic) Hospital Course and Treatment Imaging Results: 04/19/20 16:02 Diet: Cardiac - Heart Healthy Food consistency:: Regular Liquid Consistency:: Regular/Thin Is pt able to select menu?: Yes Clinical Impression(s) from Imaging Studies Chest X-Ray 04/28/20 18:34 IMPRESSION: COPD/emphysematous changes Electronically Signed: Jason Dodd MD at 19:20 EST , Service support , Labs (Last 48 Hours) 05/11/20 05/11/20 05/11/20 06:13 06:27 06:27 WBC 10.0 RBC 4.11 L Hgb 12.6 L Hct 38.8 L MCV 94.4 H MCH 30.7 MCHC 32.5 RDW Std Deviation 44.0 H RDW Coeff of [place] 12.8 Plt Count 177 MPV 10.4 Immature Gran % (Auto) 0.500 Neut % (Auto) 75.7 H Lymph % (Auto) 14.4 L [place] % (Auto) 7.4 Eos % (Auto) 1.8 Baso % (Auto) 0.2 Absolute Neuts (auto) 7.5 Absolute Lymphs (auto) 1.43 Nucleated RBC % 0 Sodium 136 Potassium 4.2 Chloride 104 Carbon Dioxide 26.0 Anion Gap 6 BUN 24 H Creatinine 0.77 Estim Creat Clear Calc 69.91 Est GFR (MDRD) Af Amer 125 Est GFR (MDRD) Non-Af 103 BUN/Creatinine Ratio 31.0 H Glucose 115 H Calcium 8.8 POC Glucose 119 H 05/12/20 06:05 WBC RBC Hgb Hct MCV MCH MCHC RDW Std Deviation RDW Coeff of [place]aro Plt Count MPV Immature Gran % (Auto) Neut % (Auto) Lymph % (Auto) [place] % (Auto) Eos % (Auto) Baso % (Auto) Absolute Neuts (auto) Absolute Lymphs (auto) Nucleated RBC % Sodium Potassium Chloride Carbon Dioxide Anion Gap BUN Creatinine Estim Creat Clear Calc Est GFR (MDRD) Af Amer Est GFR (MDRD) Non-Af BUN/Creatinine Ratio Glucose Calcium POC Glucose 116 H Microbiology 05/12/20 10:37 Nasal Secretion SARS-CoV-2 Antigen (Rapid) - Final Operations: None Procedures: None Summary of Care Provided: The patient is a 79 year old Male with below past medical history hospitalized for urinary tract infection, admitted to TCU with debility, here for rehabilitation, strengthening, prior to disposition determination. Discharge to [facility], then transition to Assisted Living. Patient Problems: Active and Suspected Problems (Last Updated 04/18/20 @ 13:[address] Linda Mcclal MD) Debility (Acute) Weakness (Acute) Urinary tract infection (Acute) - Physical Exam Vitals/I&O's: Vital Signs Temp Pulse Resp BP Pulse Ox 96.3 F L 82 14 118/67 94 05/12/20 15:05 05/12/20 17:25 05/12/20 15:05 05/12/20 17:25 05/12/20 15:05 Oxygen Delivery Method Room Air Weight: 86.324 kg Body Mass Index (BMI) 25.3 Intake and Output for Last 24 Hours 05/10/20 05/11/20 05/12/20 23:59 23:59 23:59 Intake Total 1360 / 1360 1080 / 1080 960 / 960 Output Total 575 / 575 Balance 1360 / 1360 505 / 505 960 / 960 Microbiology Past 72 Hours 05/12/20 10:37 Nasal Secretion SARS-CoV-2 Antigen (Rapid) - Final Laboratory Results 05/12/20 06:05: POC Glucose 116 H Current Medications Acetaminophen (Acetaminophen 500 Mg Tablet) 1,000 mg PO Q6H PRN PRN Reason: Pain Score 1-3 Last Admin: 05/08/20 11:26 Dose: 1,000 mg Documented by: Albuterol Sulfate (Albuterol 2.5 Mg/3 Ml Vial.Neb.) 2.5 mg INHALATION Q6H PRN PRN PRN Reason: SHORTNESS OF BREATH Last Admin: 05/12/20 10:50 Dose: 2.5 mg Documented by: Aspirin (Aspirin E.C. 81 Mg Tablet) 81 mg PO DAILY@0800 [facility] Last Admin: 05/12/20 07:56 Dose: 81 mg Documented by: Atorvastatin Calcium (Atorvastatin Calcium 80 Mg Tablet) 80 mg PO QHS [facility] Last Admin: 05/11/20 20:19 Dose: 80 mg Documented by: Bisacodyl (Bisacodyl 10 Mg Suppository) 10 mg RECTAL DAILY PRN PRN Reason: Constipation Cholecalciferol (Cholecalciferol (Vit D3) 1,000 Unit (25mcg)) 2,000 unit PO DAILY [facility] Last Admin: 05/12/20 05:25 Dose: 2,000 unit Documented by: Finasteride (Finasteride 5 Mg Tablet) 5 mg PO DAILY [facility] Last Admin: 05/12/20 05:25 Dose: 5 mg Documented by: Hydrochlorothiazide (Hydrochlorothiazide 25 Mg Tablet) 25 mg PO DAILY [facility] Last Admin: 05/12/20 05:25 Dose: 25 mg Documented by: Lisinopril (Lisinopril 10 Mg Tablet) 10 mg PO BID [facility] Last Admin: 05/12/20 17:26 Dose: 10 mg Documented by: Magnesium Chloride (Magnesium Chloride 64 Mg Delay Rel.Tablet) 128 mg PO BID [facility] Last Admin: 05/12/20 17:25 Dose: 128 mg Documented by: Magnesium Hydroxide (Magnesium Hydroxide 30 Ml Udc) 30 ml PO DAILY PRN PRN Reason: Constipation Menthol (Menthol 226.8 Gm Jar) 1 applic TP 4X/DAY PRN PRN PRN Reason: Pain Score 1-10 Last Admin: 05/11/20 20:21 Dose: 1 applic Documented by: Metoprolol Tartrate (Metoprolol Tartrate 25 Mg Tablet) 25 mg PO BID [facility] Last Admin: 05/12/20 17:25 Dose: 25 mg Documented by: Multivitamins ([facility]ivitamins,Therapeutic Tablet) [facility] Last Admin: 05/12/20 07:56 Dose: 1 tablet Documented by: Nitroglycerin (Nitroglycerin (Inpatient Use) 0.4 Mg Tab.Subl) 0.4 mg SUBLINGUAL Q5M PRN PRN Reason: ANGINA/CHEST PAIN Last Admin: 05/03/20 03:34 Dose: 1 tablet Documented by: Pantoprazole Sodium (Pantoprazole Sodium 20 Mg Tablet) 20 mg PO DAILY [facility] Last Admin: 05/12/20 05:25 Dose: 20 mg Documented by: Polyethylene Glycol (Polyethylene Glycol 3350 17 Gm Packet) 17 gm PO DAILY [facility] Last Admin: 05/12/20 05:25 Dose: Not Given Documented by: Senna/Docusate Sodium (Senna/Docusate Sodium 1 Tablet) 1 tablet PO BID [facility] Last Admin: 05/12/20 17:25 Dose: 1 tablet Documented by: Sertraline HCl (Sertraline 50 Mg Tablet) 50 mg PO DAILY [facility] Last Admin: 05/12/20 05:25 Dose: 50 mg Documented by: Sodium Chloride (0.9% Saline Lock 10 Ml Syringe) 10 - 40 ml IV UD PRN PRN Reason: SALINE FLUSH Tamsulosin HCl (Tamsulosin Hcl 0.4 Mg Capsule) 0.4 mg PO QHS [facility] Last Admin: 05/11/20 20:20 Dose: 0.4 mg Documented by: Tramadol HCl (Tramadol 50 Mg Tablet) 50 mg PO Q6H PRN PRN PRN Reason: Pain Score 4-10 Last Admin: 05/12/20 14:20 Dose: 50 mg Documented by: Umeclidinium [place] (Umeclidinium [place] Inhaler) 1 puff IH DAILY [facility] Last Admin: 05/12/20 05:28 Dose: 1 puff Documented by: Discharge Diet: No Restrictions Discharge Activity: Return to Normal Activity, May Shower, Use Walker Weight Bearing Status: Weight bearing as tolerated Call your doctor if you observe: Fever of 101 or Higher, Inability to urinate, Inability to have a bowel movement, Shortness of breath, Chest pain, Uncontrolled pain Home Medications: Medications to take at Discharge Metoprolol Tartrate [Lopressor (beta killian)] 50 mg PO BID 07/24/16 Multivitamin [Daily Multiple Vitamin] 1 ea PO DAILY 07/24/16 Tiotropium [place] [Spiriva] 1 puff IH DAILY 07/24/16 Albuterol Aerosols [Ventolin Aerosols] 2.5 mg INHALATION Q6H PRN PRN 01/17/18 Aspirin E.C. [Ecotrin] 81 mg PO DAILY@0800 01/17/18 Atorvastatin Calcium [Lipitor] 80 mg PO QHS 01/17/18 Cholecalciferol (VIT D3) [Vitamin D3] 2,000 unit PO DAILY 01/17/18 Finasteride [Proscar] 5 mg PO DAILY 01/17/18 Hydrochlorothiazide [Hctz] 25 mg PO DAILY 01/17/18 Lisinopril [Zestril] 20 mg PO BID 01/17/18 Magnesium Oxide 420 mg PO BID 01/17/18 Nitroglycerin (INPATIENT USE) [Nitrostat] 0.4 mg SUBLINGUAL Q5M PRN 01/17/18 Pantoprazole Sodium [Protonix] 20 mg PO DAILY 01/17/18 Tamsulosin HCl [Flomax] 0.4 mg PO QHS 01/17/18 Sertraline HCl 50 mg PO DAILY 04/18/20 Acetaminophen [Tylenol] 1,000 mg PO Q6H PRN tablet 05/12/20 Menthol [Blue Gel] 1 applic TP 4X/DAY PRN PRN jar 05/12/20 Peg 400/Hypromellose/Glycerin [Artificial Tears] 1 drop EACH EYE Q1H PRN bottle 05/12/20 Polyethylene Glycol 3350 [Miralax] 17 gm PO DAILY packet 05/12/20 Senna/Docusate Sodium [Senokot-S] 1 tablet PO BID tablet 05/12/20 traMADol [Ultram] 50 mg PO Q6H PRN PRN #12 tab 05/12/20 Following Prescriptions Were Given to Patient: traMADol [Ultram] 50 mg PO Q6H PRN PRN #12 tab PRN Reason: Pain Score 4-10 Prescription Printed Primary Care Physician: STEPHEN Tran [Primary Care Provider] - Please follow up with your Primary Care Physician in: 1 week. Disposition: Fdc facility Minutes spent on discharge:: 35 Patient Condition:: Stable Medical Necessity - Tobacco Use Smoking Status: Current every day smoker Tobacco Use: Cigarettes Meaningful Use Info Meaningful Use Diagnoses (Choose all that apply): None applicable
--- NOTE | 2020-05-12 18:48 | TREXTCAR_ITS ---
- Diet 04/19/20 16:02 Diet: Cardiac - Heart Healthy Food consistency:: Regular Liquid Consistency:: Regular/Thin Is pt able to select menu?: Yes - Routine Orders/Code Status Code Status: DNRCC-A - With intubation. - Wound(s) Chest Wound Type: Surgical Incision - Therapies Weight Bearing: Weight bearing as tolerated Extremity Affected:: Bilateral Lower Physical Therapy: Eval and Treat Occupational Therapy: Eval and Treat - Problem/Diagnosis (1) Debility Status: Acute (2) Weakness Status: Acute (3) Urinary tract infection Status: Acute (4) Diabetes mellitus Status: Chronic (5) BPH (benign prostatic hyperplasia) Status: Chronic (6) Osteoarthritis of knees, bilateral Status: Chronic (7) COPD (chronic obstructive pulmonary disease) Status: Chronic (8) Depression Status: Chronic (9) Coronary artery disease Status: Chronic (10) Hypomagnesemia Status: Chronic (11) Hypertension Status: Chronic (12) GERD (gastroesophageal reflux disease) Status: Chronic (13) Iron deficiency anemia Status: Chronic (14) Vitamin D deficiency Status: Chronic (15) Atrial fibrillation Status: Chronic (16) Hyperlipidemia Status: Chronic - Allergies/Procedures Done in Hospital Allergies/Adverse Reactions: Allergies propoxyphene HCl [From Darvon] Allergy (Verified 04/18/20 10:41) Itching - Type of Care/Length of Stay Estimated LOS: Convalescent Care Less Than 30 days Type of Care Needed: Skilled Rehab Potential: Fair Prognosis: Fair - Additional Orders/Day of Discharge Day of Discharge: 05/15/20 - Dietary and Speech Recommendations Dietitian Recommendations/Changes: continue diet as ordered - Follow Up Care Primary Care Physician: [facility],[place] [Primary Care Provider] - Please follow up with your Primary Care Physician in: 1 week.
[2020-05-12] MEDS: MENTHOL 226.8 GM JAR 1 APPLIC TP (19:55)
[2020-05-12] MEDS: Atorvastatin Calcium 80 MG Tablet PO (20:02)
[2020-05-12] MEDS: Tamsulosin HCl 0.4 MG Capsule PO (20:02)
[2020-05-13] VITALS (8 sets, daily range): BP systolic 93–126; BP diastolic 49–69; PULSE 65–88; RESP 16–18; TEMP 36.5–36.6; O2SAT 91–97
[2020-05-13] MEDS: Umeclidinium Bromide Inhaler 1 PUFF IH (05:44)
[2020-05-13] MEDS: Magnesium Chloride 64 MG Delay Rel.Tablet 128 MG PO ×2 (05:44→18:01)
[2020-05-13] MEDS: Pantoprazole Sodium 20 MG Tablet PO (05:45)
[2020-05-13] MEDS: Finasteride 5 MG Tablet PO (05:45)
[2020-05-13] MEDS: Sertraline 50 MG Tablet PO (05:45)
[2020-05-13] MEDS: Metoprolol Tartrate 25 MG Tablet PO ×2 (05:45→18:01)
[2020-05-13] MEDS: Lisinopril 10 MG Tablet PO ×2 (05:45→18:03)
[2020-05-13] MEDS: Senna/Docusate Sodium 1 Tablet PO ×2 (05:45→18:00)
[2020-05-13] MEDS: Polyethylene Glycol 3350 17 GM PACKET PO (05:45)
[2020-05-13] MEDS: hydroCHLOROthiazide 25 MG Tablet PO (05:45)
[2020-05-13 06:21] LABS: Bedside Glucose 117 mg/dL (70-110)
[2020-05-13] MEDS: Albuterol 2.5 MG/3 ML VIAL.NEB. INHALATION ×2 (07:30→20:47)
[2020-05-13] MEDS: Multivitamins,Therapeutic Tablet 1 TABLET PO (08:28)
[2020-05-13] MEDS: traMADol 50 MG Tablet PO ×2 (08:28→21:22)
[2020-05-13] MEDS: Aspirin E.C. 81 MG Tablet PO (08:28)
--- NOTE | 2020-05-13 13:33 | CASEMGMT ---
Social Work Scheduled transport through [facility] at 10:30 am via w/c. Pt aware and provided him with cost. Estefanía Mathur MSW [employer]
[2020-05-13] MEDS: Tamsulosin HCl 0.4 MG Capsule PO (21:22)
[2020-05-13] MEDS: Atorvastatin Calcium 80 MG Tablet PO (21:22)
[2020-05-13] MEDS: MENTHOL 226.8 GM JAR 1 APPLIC TP (21:24)
[2020-05-14] VITALS (7 sets, daily range): BP systolic 97–161; BP diastolic 56–89; PULSE 71–85; RESP 15–20; TEMP 36.4–37.1; O2SAT 90–95
[2020-05-14] MEDS: Finasteride 5 MG Tablet PO (05:42)
[2020-05-14] MEDS: Magnesium Chloride 64 MG Delay Rel.Tablet 128 MG PO ×2 (05:43→17:52)
[2020-05-14] MEDS: Senna/Docusate Sodium 1 Tablet PO ×2 (05:44→17:53)
[2020-05-14] MEDS: Sertraline 50 MG Tablet PO (05:44)
[2020-05-14] MEDS: traMADol 50 MG Tablet PO (05:44)
[2020-05-14] MEDS: Lisinopril 10 MG Tablet PO ×2 (05:45→17:52)
[2020-05-14] MEDS: Metoprolol Tartrate 25 MG Tablet PO ×2 (05:45→17:53)
[2020-05-14] MEDS: hydroCHLOROthiazide 25 MG Tablet PO (05:45)
[2020-05-14] MEDS: Pantoprazole Sodium 20 MG Tablet PO (05:45)
[2020-05-14] MEDS: Umeclidinium Bromide Inhaler 1 PUFF IH (05:46)
[2020-05-14] MEDS: Glycerin/Hypromellose/PEG400 15 ml Bottle 1 DRP EACH EYE (05:56)
[2020-05-14 06:21] LABS: Bedside Glucose 106 mg/dL (70-110)
[2020-05-14] MEDS: Multivitamins,Therapeutic Tablet 1 TABLET PO (07:53)
[2020-05-14] MEDS: Aspirin E.C. 81 MG Tablet PO (07:53)
[2020-05-14] MEDS: Albuterol 2.5 MG/3 ML VIAL.NEB. INHALATION (10:15)
[2020-05-14] MEDS: Tamsulosin HCl 0.4 MG Capsule PO (20:39)
[2020-05-14] MEDS: Atorvastatin Calcium 80 MG Tablet PO (20:40)
[2020-05-15 04:00] VITALS: BP 109/64; PULSE 72; RESP 18; TEMP 36.9; O2SAT 96
[2020-05-15] MEDS: Magnesium Chloride 64 MG Delay Rel.Tablet 128 MG PO (05:50)
[2020-05-15] MEDS: Pantoprazole Sodium 20 MG Tablet PO (05:50)
[2020-05-15] MEDS: Senna/Docusate Sodium 1 Tablet PO (05:50)
[2020-05-15 05:51] VITALS: BP 109/64; PULSE 72
[2020-05-15] MEDS: Metoprolol Tartrate 25 MG Tablet PO (05:51)
[2020-05-15] MEDS: hydroCHLOROthiazide 25 MG Tablet PO (05:51)
[2020-05-15] MEDS: Polyethylene Glycol 3350 17 GM PACKET PO (05:52)
[2020-05-15] MEDS: Lisinopril 10 MG Tablet PO (05:52)
[2020-05-15] MEDS: Finasteride 5 MG Tablet PO (05:52)
[2020-05-15] MEDS: Sertraline 50 MG Tablet PO (05:52)
[2020-05-15] MEDS: Umeclidinium Bromide Inhaler 1 PUFF IH (05:53)
[2020-05-15 06:15] LABS: Bedside Glucose 109 mg/dL (70-110)
[2020-05-15] MEDS: Aspirin E.C. 81 MG Tablet PO (08:09)
[2020-05-15] MEDS: Multivitamins,Therapeutic Tablet 1 TABLET PO (08:09)
[2020-05-15 11:22] VITALS: PULSE 80; RESP 18; O2SAT 94
[2020-05-15 12:06] VITALS: BP 130/82; PULSE 80; RESP 18; TEMP 37; O2SAT 94
== END 2020-05-15 10:45 | disposition skilled nursing facility (03) | DRG 690 ==
PROVIDERS: Admitting Provider Family Medicine Geriatric Medicine; Visit Provider Family Medicine Geriatric Medicine
DX: N39.0 Urinary tract infection, site not specified (principal); I48.20 Chronic atrial fibrillation, unspecified; J44.9 Chronic obstructive pulmonary disease, unspecified; N40.0 Benign prostatic hyperplasia without lower urinary tract symptoms; E78.5 Hyperlipidemia, unspecified; I25.10 Atherosclerotic heart disease of native coronary artery without angina pectoris; E55.9 Vitamin D deficiency, unspecified; K21.9 Gastro-esophageal reflux disease without esophagitis; F32.9 Major depressive disorder, single episode, unspecified; I10 Essential (primary) hypertension; M17.0 Bilateral primary osteoarthritis of knee; E11.9 Type 2 diabetes mellitus without complications; F10.21 Alcohol dependence, in remission; F17.210 Nicotine dependence, cigarettes, uncomplicated
CPT/HCPCS: 36415; 71046; 80048; 81001; 82550; 82962; 83874; 84484; 85025; 87086; 87088; 87426; 87633; 87635; 93005; 94640; 97110; 97116; 97162; 97166; 97530; 97535; 97802; 99406; J7030; U0005; U0002; U0003

== ENCOUNTER 2020-06-01 09:59 | Emergency (ER) | payer MEDICARE, OTHER, SELFPAY ==
[2020-06-01] VITALS (9 sets, daily range): BP systolic 142–181; BP diastolic 82–98; PULSE 82–90; RESP 13–95; TEMP 37.1; O2SAT 95–98; BMI 29.3
--- NOTE | 2020-06-01 10:07 | NURSING ---
STROKE ALERT CALLED PRIOR TO ARRIVAL [id number]
--- NOTE | 2020-06-01 10:08 | NURSING ---
FACESHEET FAXED TO [facility]
--- NOTE | 2020-06-01 10:11 | CT_ITS ---
STUDY: CT BRAIN WITHOUT CONTRAST REASON FOR EXAM: Male, 79 years old. Altered mental status. Stroke alert. RADIATION DOSAGE (If Supplied By Facility): CTDIvol = ( 45 ) mGy, DLP = ( 864 ) mGycm TECHNIQUE: Transaxial CT imaging of the brain was performed without administration of intravenous contrast material. Individualized dose optimization techniques were used for this CT. COMPARISON: 01/29/20 FINDINGS: There is no acute bleed or infarct. There are stable chronic ischemic and atrophic changes. The ventricles are normal in configuration. There is no hydrocephalus. The visualized paranasal sinuses are clear. The mastoid air cells are well aerated. There is no skull fracture. CT/STROKE Brain/Head without Cont IMPRESSION: Stable chronic ischemic and atrophic changes. No acute intracranial abnormality. N.B. : The above information has been verbally conveyed by Greg Davis MD to MD Won, on 06/01/2020 10:37:15 (ET). Electronically Signed: Greg Davis MD at 10:38 EST Tel , Service support ,
--- NOTE | 2020-06-01 10:11 | EKG12_ITS ---
Test Reason : STROKE TEAM Blood Pressure : / mmHG Vent. Rate : 083 BPM Atrial Rate : 083 BPM P-R Int : 180 ms QRS Dur : 080 ms QT Int : 392 ms P-R-T Axes : 037 018 036 degrees QTc Int : 460 ms Normal sinus rhythm Normal ECG Confirmed by MICHAEL MARINELLI, RAYMOND ([id number]), news videotape editor ANJUM CANTRELL ([id number]) on 06/03/2020 11:30:56 AM Referred By: CHOCO Confirmed By:RAYMOND RODRIGUEZ MD
[2020-06-01 10:21] LABS: Absolute Lymphocyte Count 1.69 X10^3/uL (0.83-4.51); Absolute Neutrophil Count 7.7 X10^3/uL (2.0-7.7); Basophil# 0.04 X10^3/uL; Basophil% 0.4 % (0-1); Eosinophil# 0.15 X10^3/uL; Eosinophils% 1.4 % (0-5); Hematocrit 39.7 % (40-54); Hemoglobin 12.8 g/dL (13.0-16.5); Lymphocyte # 1.69 X10^3/ul (4.0); Lymphocyte % 15.8 % (19-41); Mean Corp Hgb Conc 32.2 g/dL (32-36); Mean Corpuscular Hgb 30.6 pg (27.0-32.0); Mean Platelet Vol. 10.3 fl (6.2-12.0); Monocyte# 1.05 X10^3/uL; Monocyte% 9.8 % (0-10); NRBC Flagged by Analyzer 0 % (0-5); Neutrophil # 7.72 X10^3/uL (2.7-7.7); Platelet Count 266 K/mm3 (150-450); RBC Distribution Width CV 12.8 % (11.6-14.6); RBC Distribution Width SD 44.1 fl (35.1-43.9); Red Blood Count 4.18 M/mm3 (4.6-6.2); White Blood Count 10.7 K/mm3 (4.4-11.0)
--- NOTE | 2020-06-01 10:22 | NURSING ---
CALLED [facility], TALKED TO NIKKIE, BED CONTROL. SHE TOOK INFO AND SAID SOMEONE WILL BE CALLING US.
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
[2020-06-01 10:27] LABS: International Normalized Ratio 1.2; Prothrombin Time (Protime)PT. 14.7 SECONDS (11.7-14.9)
[2020-06-01] MEDS: 0.9% Normal Saline 1,000 ML 100 ML IV (10:32)
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
--- NOTE | 2020-06-01 10:32 | NURSING ---
CALLED [facility] ETA 10 TO 12 MIN
[2020-06-01 10:35] LABS: Anion Gap 6 (5-15); BUN 27 mg/dL (7-18); BUN/Creat Ratio 29.6 RATIO (10-20); Chloride 101 mmol/L (98-107); Creatinine, Serum 0.91 mg/dL (0.70-1.30); EST Glomerular Filtration Rate 85 mL/min (>60); Est Glom Filt Rate - Afr Amer 103 mL/min (>60); Estimated Creatinine Clearance 70.19 ml/min; Glucose 120 mg/dL (74-106); Potassium 4.1 mmol/L (3.5-5.1); Sodium Level 138 mmol/L (136-145)
--- NOTE | 2020-06-01 10:50 | RAD_ITS ---
STUDY: X-RAY CHEST REASON FOR EXAM: Male, 79 years old. Altered mental status TECHNIQUE: Frontal view of the chest COMPARISON: 04/28/20 FINDINGS: The lungs are clear. There are no pleural effusions. There is no pneumothorax. The heart is normal in size. Again noted are sternotomy wires. The visualized osseous structures are within normal limits. RAD/Chest 1 View IMPRESSION: No acute thoracic pathology. Electronically Signed: Greg Davis MD at 11:15 EST Tel , Service support ,
--- NOTE | 2020-06-01 10:55 | ED.RN ---
DR. WILHELM AWARE OF ELEVATED PRESSURE, WILL CONTINUE TO MONITOR THE PT NO BP MANAGEMENT AT THIS TIME.
[2020-06-01] MEDS: Labetalol (Prefilled) 20 MG/4 ML IV (10:59)
--- NOTE | 2020-06-01 11:17 | ED.RN ---
LABETOLOL GIVEN PER MD REQUEST FOR BORDERLINE BP DURING TPA ADMINISTRATION.
--- NOTE | 2020-06-01 11:19 | ED.RN ---
THIS NURSE GAVE REPORT TO [facility], THIS NURSE TRIED TO CALL REPORT TO [facility] ER BUT THERE WAS ANSWER.
--- NOTE | 2020-06-01 11:24 | ED.RN ---
FAMILY UPDATED BY THIS NURSE OF THE PT DISPO.
--- NOTE | 2020-06-01 11:24 | ED.RN ---
LONG-TERM UPDATED OF THE PT DISPO BY LEXY ROSARIO.
--- NOTE | 2020-06-01 14:34 | NURSING ---
FAXED L[facility]ON TO [facility] [phone]
== END 2020-06-01 11:10 | disposition short-term general hospital (02) ==
PROVIDERS: Emergency Provider Emergency Medicine
DX: I63.9 Cerebral infarction, unspecified (principal); R29.810 Facial weakness; R47.01 Aphasia; R41.4 Neurologic neglect syndrome; R29.720 NIHSS score 20; I10 Essential (primary) hypertension; E11.9 Type 2 diabetes mellitus without complications; E78.5 Hyperlipidemia, unspecified; I25.10 Atherosclerotic heart disease of native coronary artery without angina pectoris; Z87.440 Personal history of urinary (tract) infections; Z95.5 Presence of coronary angioplasty implant and graft; Z79.82 Long term (current) use of aspirin; Z79.899 Other long term (current) drug therapy
CPT/HCPCS: 70450; 71045; 80048; 84484; 85025; 85610; 85730; 93005; 96365; 99285; J2997; J7030; A4216

== ENCOUNTER 2020-07-30 | Inpatient (IN) | payer OTHER, MEDICARE, SELFPAY ==
[2020-06-01 10:12] VITALS: BMI 29.3
[2020-07-30] VITALS (21 sets, daily range): BP systolic 123–140; BP diastolic 64–71; PULSE 65–74; RESP 18–28; TEMP 36.6–37.2; O2SAT 89–97; BMI 26.3; BMI 24.4; BMI 24.5
--- NOTE | 2020-07-30 00:11 | RAD_ITS ---
STUDY: X-RAY CHEST REASON FOR EXAM: Male, 80 years old. sob TECHNIQUE: Single AP portable view of the chest. COMPARISON: 06/01/2020. FINDINGS: The lungs are slightly underexpanded with mild left basilar atelectasis and vascular crowding. Otherwise clear lungs. There is no demonstrated pleural abnormality. Midline sternotomy wires. Normal cardiac size. Normal mediastinum and amanda. Normal visualized pulmonary arteries. There is atherosclerotic calcification of the aortic arch with tortuosity. There is demineralization of the osseous structures. There is degenerative osteoarthritis of the bilateral shoulders. Postoperative changes of the right shoulder noted. There is no demonstrated abnormality of the visualized soft tissue structures of the upper abdomen. RAD/Chest 1 View (Portable) IMPRESSION: Left basilar atelectasis otherwise no acute cardiopulmonary disease. Electronically Signed: Marcy Gonsales MD at 1:23 EDT , Service support ,
--- NOTE | 2020-07-30 00:11 | EKG12_ITS ---
Test Reason : SOB Blood Pressure : / mmHG Vent. Rate : 071 BPM Atrial Rate : 071 BPM P-R Int : 188 ms QRS Dur : 084 ms QT Int : 422 ms P-R-T Axes : 031 011 056 degrees QTc Int : 458 ms Normal sinus rhythm Normal ECG Confirmed by EPDRO MARINELLI, PEYTON ([id number]), film editor supervisor ANJUM CANTRELL ([id number]) on 08/01/2020 8:05:00 AM Referred By: LORI Confirmed By:SHERYL VASQUEZ MD
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
[2020-07-30] MEDS: Albuterol 2.5 MG/3 ML VIAL.NEB. INHALATION ×4 (00:26→05:45)
[2020-07-30 00:32] LABS: Absolute Lymphocyte Count 1.01 X10^3/uL (0.83-4.51); Basophil# 0.02 X10^3/uL; Basophil% 0.2 % (0-1); Eosinophil# 0.09 X10^3/uL; Eosinophils% 0.7 % (0-5); Hematocrit 36.7 % (40-54); Hemoglobin 11.8 g/dL (13.0-16.5); Lymphocyte # 1.01 X10^3/ul (0.83-4.51); Lymphocyte % 8.3 % (19-41); Mean Corp Hgb Conc 32.2 g/dL (32-36); Mean Corpuscular Hgb 31.1 pg (27.0-32.0); Mean Corpuscular Volume 96.6 fL (80-94); Mean Platelet Vol. 10.6 fl (6.2-12.0); Monocyte# 1.01 X10^3/uL; Monocyte% 8.3 % (0-10); NRBC Flagged by Analyzer 0 % (0-5); Neutrophil # 9.97 X10^3/uL (2.7-7.7); Neutrophil % 82.2 % (47-70); Platelet Count 202 K/mm3 (150-450); RBC Distribution Width CV 13.6 % (11.6-14.6); RBC Distribution Width SD 48.9 fl (35.1-43.9); White Blood Count 12.1 K/mm3 (4.4-11.0)
[2020-07-30 00:44] LABS: Anion Gap 3 (5-15); BUN 19 mg/dL (7-18); BUN/Creat Ratio 23.6 RATIO (10-20); Calcium,Total 8.8 mg/dL (8.5-10.1); Chloride 104 mmol/L (98-107); Creatinine, Serum 0.81 mg/dL (0.70-1.30); EST Glomerular Filtration Rate 99 mL/min (>60); Est Glom Filt Rate - Afr Amer 119 mL/min (>60); Glucose 127 mg/dL (74-106); Potassium 4.1 mmol/L (3.5-5.1); Sodium Level 138 mmol/L (136-145)
[2020-07-30 01:14] LABS: BNP,B-Type NATRIURETIC PEPTIDE 98.6 pg/mL (0-100)
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
[2020-07-30] MEDS: 0.9% Normal Saline 1,000 ML 100 ML IV ×3 (02:52→21:12)
[2020-07-30 03:07] LABS: Procalcitonin 0.06 ng/mL (0.00-0.09)
--- NOTE | 2020-07-30 03:11 | ED.RN ---
swcc notified patient was admitted to hospital
--- NOTE | 2020-07-30 05:55 | RAD_ITS ---
STUDY: X-RAY CHEST REASON FOR EXAM: Male, 80 years old. Dyspnea, cough TECHNIQUE: AP COMPARISON: 07/30/2020 FINDINGS: EKG leads project over the chest. Mild reticular opacity in the left lung base is similar with early reticulation in the right lung base (new). No airspace consolidation. There is no demonstrated pleural abnormality. Normal size heart. Sternal wires and mediastinal surgical clips compatible with prior CABG. Normal visualized pulmonary arteries. There is atherosclerotic calcification of the aortic arch with tortuosity. There are diffuse degenerative changes of the visualized thoracic spine. Operative changes of the right shoulder. There is no demonstrated abnormality of the visualized soft tissue structures of the upper abdomen. RAD/Chest 1 View (Portable) IMPRESSION: Stable left and new right basilar reticulation suggesting atelectasis although early infectious infiltrates also possible. Electronically Signed: Shaka Almaguer MD ([place]) at 9:13 EDT , Service support ,
[2020-07-30 06:04] LABS: Absolute Lymphocyte Count 1.02 X10^3/uL (0.83-4.51); Absolute Neutrophil Count 8.5 X10^3/uL (2.0-7.7); Basophil# 0.02 X10^3/uL; Basophil% 0.2 % (0-1); Eosinophil# 0.08 X10^3/uL; Eosinophils% 0.8 % (0-5); Hematocrit 36.1 % (40-54); Hemoglobin 11.2 g/dL (13.0-16.5); Lymphocyte # 1.02 X10^3/ul (0.83-4.51); Lymphocyte % 9.7 % (19-41); Mean Corpuscular Hgb 30.3 pg (27.0-32.0); Mean Corpuscular Volume 97.6 fL (80-94); Mean Platelet Vol. 10.7 fl (6.2-12.0); Monocyte# 0.85 X10^3/uL; Monocyte% 8.1 % (0-10); NRBC Flagged by Analyzer 0 % (0-5); Neutrophil # 8.46 X10^3/uL (2.7-7.7); Neutrophil % 80.8 % (47-70); Platelet Count 188 K/mm3 (150-450); RBC Distribution Width CV 13.5 % (11.6-14.6); RBC Distribution Width SD 48.2 fl (35.1-43.9); White Blood Count 10.5 K/mm3 (4.4-11.0)
[2020-07-30 06:33] LABS: ALB/GLOB Ratio 0.8 RATIO (0.9-2.4); AST(SGOT) 10 U/L (15-37); Alanine Aminotransfer ALT/SGPT 13 U/L (16-61); Albumin, Serum 2.6 g/dL (3.2-5.0); Alkaline Phosphatase 72 U/L (45-117); BUN 17 mg/dL (7-18); BUN/Creat Ratio 22.6 RATIO (10-20); Calcium,Total 8.5 mg/dL (8.5-10.1); Chloride 105 mmol/L (98-107); Creatinine, Serum 0.75 mg/dL (0.70-1.30); EST Glomerular Filtration Rate 107 mL/min (>60); Est Glom Filt Rate - Afr Amer 129 mL/min (>60); Globulin 3.2 g/dL (2.2-4.2); Glucose 120 mg/dL (74-106); Potassium 4.1 mmol/L (3.5-5.1); Protein, Total 5.8 g/dL (6.4-8.2); Sodium Level 138 mmol/L (136-145)
[2020-07-30 06:34] LABS: Anion Gap 6 (5-15)
[2020-07-30 07:05] LABS: Bedside Glucose 118 mg/dL (70-110)
[2020-07-30] MEDS: Enoxaparin 40 MG/0.4 ML Syringe SC (08:54)
--- NOTE | 2020-07-30 09:55 | CASEMGMT ---
SW met with patient, introduced self and role at [facility]. Patient confirmed his plan is to return to [facility] at discharge. He declined need for a list of nursing homes as his plan is to return to [facility]. SW faxed updates to [facility]. Plan: d/c back to [facility] when ready. Dana Painter LAPEL PADDER JL
[2020-07-30 11:51] LABS: Bedside Glucose 110 mg/dL (70-110)
--- NOTE | 2020-07-30 12:17 | PCM.NTREPORT ---
Nutrition Therapy Report - History Nutrition Services has been consulted to:: Manage nutrient details of diet order, Manage enteral nutrition Current diet / nutrition support order:: regular-puree/nectar thick - Anthropometric Measurements Height:: 6 ft 1 in Weight:: 84.1 kg Body Mass Index (BMI):: 24.4 - Relevant Labs Relevant Labs:: WBC 12.1 K/mm3 (4.4-11.0) H 07/30/20 00:12 RBC 3.70 M/mm3 (4.6-6.2) L 07/30/20 05:50 Hgb 11.2 g/dL (13.0-16.5) L 07/30/20 05:50 Hct 36.1 % (40-54) L 07/30/20 05:50 MCV 97.6 fL (80-94) H 07/30/20 05:50 MCHC 31.0 g/dL (32-36) L 07/30/20 05:50 RDW Std Deviation 48.2 fl (35.1-43.9) H 07/30/20 05:50 Neut % (Auto) 80.8 % (47-70) H 07/30/20 05:50 Lymph % (Auto) 9.7 % (19-41) L 07/30/20 05:50 Absolute Neuts (auto) 8.5 X10^3/uL (2.0-7.7) H 07/30/20 05:50 Anion Gap 3 (5-15) L 07/30/20 00:12 BUN 19 mg/dL (7-18) H 07/30/20 00:12 BUN/Creatinine Ratio 22.6 RATIO (10-20) H 07/30/20 05:50 Glucose 120 mg/dL (74-106) H 07/30/20 05:50 AST 10 U/L (15-37) L 07/30/20 05:50 ALT 13 U/L (16-61) L 07/30/20 05:50 Total Protein 5.8 g/dL (6.4-8.2) L 07/30/20 05:50 Albumin 2.6 g/dL (3.2-5.0) L 07/30/20 05:50 Albumin/Globulin Ratio 0.8 RATIO (0.9-2.4) L 07/30/20 05:50 - Assessment Food / Nutrition-Related History:: At SNF- pt w/ CHO controlled, puree/nectar thick diet ordered plus PEG tube for additional nutrition- Isosource 1.5 250mL bolus TID after meals if PO intake <50% plus 250mL bolus HS. 150mL flush 4x/day. Each bolus provides 375 calories, 17 g protein. Per SNF MAR, it appears that pt typically requires at least 1 bolus after meals/day. If given all 4 boluses, tube feeds will meet 75% of calorie/100% protein needs. Eating lunch at time of assessment, ~40% of meal consumed. Wt appears stable. Was 191# on 05/13/20 per TCU documentation, CBW 185.4#-5.6#/2.9% wt loss x 2 months is not signficant for malnutrition. - Nutrition Diagnosis Problem / Etiology / Signs & Symptoms (PES):: swallowing difficulty r/t dysphagia from previous stroke as evidenced by need for modified textures/consistency, PEG tube for nutrition support. Evidence of Malnutrition Exists:: No - Nutrition Intervention Nutrition Prescription:: [id number] calories/day (RMRx1.3). 67-84 g protein/day (0.8-1.0 g/kg). 1900mL fluid/day (1mL/calorie) - Food / Nutrient Delivery Interventions Summary of nutrition intervention:: Will resume home tube feeds. Pt w/ no questions for RDN. Nutrition support ordered as / adjusted to:: Will resume home tube feeds- 250mL Jevity 1.5 bolus (isosource 1.5 non-formularly) TID after meals if PO intake of meal is <50% and 250mL Jevity 1.5 bolus HS for additional calories/protein. Continue 150mL H2O flush w/ each bolus. Continue regular diet- consistency per QUALITY CONTROL MICROBIOLOGY SUPERVISOR (puree/nectar 07/30). - MNT Monitoring Further MNT monitoring and evaluation required?: Yes MNT Follow-up in:: 3-5 days
[2020-07-30] MEDS: Ipratropium/Albuterol Sulfate 3 ML AMPUL.NEB INHALATION ×2 (13:45→19:52)
[2020-07-30 17:15] LABS: Bedside Glucose 114 mg/dL (70-110)
--- NOTE | 2020-07-30 18:48 | PCM.HOSP.N ---
Hospitalist Note Patient was seen and examined briefly today, he was admitted with respiratory distress and was felt to have aspirated possibly, patient was on Ventimask today but has been since transitioned to nasal cannula oxygen and appears comfortable. Patient's white blood cell count this morning was normal at 10.5, he is afebrile, he has obvious expressive aphasia. Abdomen appears soft, PEG tube in place. I will reevaluate the patient tomorrow.
[2020-07-30] MEDS: Budesonide Respules 0.5 MG/2 ML AMPUL.NEB. INHALATION (19:52)
[2020-07-30] MEDS: Carvedilol 25 MG Tablet PO (21:02)
[2020-07-30] MEDS: Atorvastatin Calcium 20 MG Tablet PO (21:02)
[2020-07-30] MEDS: Jevity 1.5. 1,000 ML Bottle 250 ML GT (21:02)
[2020-07-30] MEDS: Lisinopril 20 MG Tablet PO (21:02)
[2020-07-30] MEDS: APIXABAN 5 MG TABLET PO (21:02)
[2020-07-30] MEDS: Doxazosin 1 MG Tablet 2 MG PO (21:02)
[2020-07-30 23:45] LABS: Bedside Glucose 151 mg/dL (70-110)
[2020-07-31] VITALS (13 sets, daily range): BP systolic 131–151; BP diastolic 53–82; PULSE 65–76; RESP 16–24; TEMP 36.6–37.1; O2SAT 89–98
[2020-07-31] MEDS: 0.9% Normal Saline 1,000 ML 100 ML IV ×2 (05:40→15:46)
[2020-07-31 06:16] LABS: Bedside Glucose 97 mg/dL (70-110)
[2020-07-31] MEDS: Budesonide Respules 0.5 MG/2 ML AMPUL.NEB. INHALATION ×2 (07:27→19:04)
[2020-07-31] MEDS: Ipratropium/Albuterol Sulfate 3 ML AMPUL.NEB INHALATION ×3 (07:27→19:04)
[2020-07-31] MEDS: Carvedilol 25 MG Tablet PO ×2 (09:13→22:03)
[2020-07-31] MEDS: APIXABAN 5 MG TABLET PO ×2 (09:13→22:03)
[2020-07-31] MEDS: Lisinopril 20 MG Tablet PO ×2 (09:13→22:03)
[2020-07-31] MEDS: Sertraline 50 MG Tablet PO (09:13)
[2020-07-31] MEDS: Pantoprazole Sodium 20 MG Tablet PO (09:13)
--- NOTE | 2020-07-31 11:40 | PCM.PROGNOTE ---
Patient Problems: Active and Suspected Problems (Last Reviewed 07/30/20 @ 02:12 by Syeda Anglin, [employer] WORKER-C) Debility (Acute) Weakness (Acute) Urinary tract infection (Acute) Aspiration pneumonia (Acute) Respiratory failure (Acute) Hypoxia (Acute) Acute cystitis (Acute) Physical debility (Acute) Subjective: Patient seen and examined. Breathing improved. Denies cough, fever, chills. No other symptoms or complaints. - Physical Exam Vitals/I&O's: Vital Signs Temp Pulse Resp BP Pulse Ox 98.5 F 73 18 131/66 H 94 07/31/20 09:12 07/31/20 09:12 07/31/20 09:12 07/31/20 09:12 07/31/20 09:12 Oxygen Flow Rate (L/min) 5 Oxygen Delivery Method Nasal Cannula Weight: 191 lb 12.835 oz Body Mass Index (BMI) 24.4 Finger Stick Blood Glucose 147 Intake and Output for Last 24 Hours 07/29/20 07/30/20 07/31/20 23:59 23:59 23:59 Intake Total 3086.67 / 3086.67 946.67 / 946.67 Output Total 100 / 100 Balance 2986.67 / 2986.67 946.67 / 946.67 General: Alert, Oriented x3, Cooperative HEENT: Atraumatic, PERRLA, EOMI, Normocephalic Neck: Supple, No JVD, Negative Carotid Bruits Lungs: Clear to auscultation, Diminished Cardiovascular: Regular rate, Regular Rhythm, No murmurs Abdomen: Bowel Sounds Present, Soft, Non Tender, Non-Distended Extremities: No clubbing, No cyanosis, No edema, Capillary Refill Less than 3 Seconds Skin: No rashes, No breakdown Musculoskeletal: No Tenderness to Palpation of Joints or Extremities Neurological: Cranial nerves II-XII grossly intact, Neuro grossly intact, - - Chronic right-sided weakness and aphasia from prior CVA. Psych/Mental Status: Normal Affect, Appropriate Microbiology Past 72 Hours 07/30/20 05:39 Mucosa - Nasopharyngeal Respiratory Panel (PCR) - Final 07/30/20 04:10 Urine Catheter - Catheter Streptococcus pneumoniae Antigen (M - Final 07/30/20 04:10 Urine Catheter - Catheter Legionella Antigen - Final 07/30/20 00:45 Nasal Secretion SARS-CoV-2 Antigen (Rapid) - Final Laboratory Results 07/30/20 11:45: POC Glucose 110 07/30/20 17:12: POC Glucose 114 H 07/30/20 23:32: POC Glucose 151 H 07/31/20 05:32: POC Glucose 97 Current Medications Acetaminophen (Acetaminophen 325 Mg Tablet) 650 mg PO Q4H PRN PRN PRN Reason: Pain 1-10 or Fever Albuterol Sulfate (Albuterol 2.5 Mg/3 Ml Vial.Neb.) 2.5 mg INHALATION Q2H PRN PRN PRN Reason: Dyspnea, wheezing Last Admin: 07/30/20 05:45 Dose: 2.5 mg Documented by: Albuterol/Ipratropium (Ipratropium/Albuterol Sulfate 3 Ml Ampul.Neb) 3 ml INHALATION Q6HWA.RT [facility] Last Admin: 07/31/20 07:27 Dose: 3 ml Documented by: Apixaban (Apixaban 5 Mg Tablet) 5 mg PO BID [facility] Last Admin: 07/31/20 09:13 Dose: 5 mg Documented by: Atorvastatin Calcium (Atorvastatin Calcium 20 Mg Tablet) 20 mg PO QHS [facility] Last Admin: 07/30/20 21:02 Dose: 20 mg Documented by: Budesonide (Budesonide Respules 0.5 Mg/2 Ml Ampul.Neb.) 0.5 mg INHALATION BID.RT [facility] Last Admin: 07/31/20 07:27 Dose: 0.5 mg Documented by: Carvedilol (Carvedilol 25 Mg Tablet) 25 mg PO BID [facility] Last Admin: 07/31/20 09:13 Dose: 25 mg Documented by: Doxazosin Mesylate (Doxazosin 1 Mg Tablet) 2 mg PO QHS [facility] Last Admin: 07/30/20 21:02 Dose: 2 mg Documented by: Enteral Nutritional Formula (Jevity 1.5. 1,000 Ml Bottle) 250 ml GT TIDPC PRN PRN Reason: .FOR ADDITIONAL NUTRITION IF PO INTAKE INADEQUATE Enteral Nutritional Formula (Jevity 1.5. 1,000 Ml Bottle) 250 ml GT QHS [facility] Last Admin: 07/30/20 21:02 Dose: 250 ml Documented by: Hydralazine HCl (Hydralazine 20 Mg/Ml Vial) 10 mg IV Q4H PRN PRN PRN Reason: SBP > 160 Sodium Chloride () 1,000 mls @ 100 mls/hr IV .Q10H [facility] Last Admin: 07/31/20 05:40 Dose: 100 mls/hr Documented by: Piperacillin Sod/Tazobactam (Sod 3.375 gm/ Sodium Chloride) 50 mls @ 12.5 mls/hr IV Q8 [facility] Last Infusion: 07/31/20 09:53 Dose: Infused Documented by: Insulin Human Lispro (Insulin Lispro 100 Unit/Ml Insuln.Pen) 0 unit SC Q6 [facility]; Protocol Last Admin: 07/31/20 05:39 Dose: Not Given Documented by: Lisinopril (Lisinopril 20 Mg Tablet) 20 mg PO BID [facility] Last Admin: 07/31/20 09:13 Dose: 20 mg Documented by: Ondansetron HCl (Ondansetron 4 Mg/2 Ml Vial) 4 mg IV Q8H PRN PRN PRN Reason: NAUSEA/VOMITING Pantoprazole Sodium (Pantoprazole Sodium 20 Mg Tablet) 20 mg PO DAILY [facility] Last Admin: 07/31/20 09:13 Dose: 20 mg Documented by: Prochlorperazine Edisylate (Prochlorperazine 10 Mg/2 Ml Vial) 5 mg IV Q4H PRN PRN PRN Reason: Breakthrough Nausea/Vomiting Sertraline HCl (Sertraline 50 Mg Tablet) 50 mg PO DAILY [facility] Last Admin: 07/31/20 09:13 Dose: 50 mg Documented by: Sodium Chloride (0.9% Saline Lock 10 Ml Syringe) 10 - 40 ml IV UD PRN PRN Reason: SALINE FLUSH Medical Necessity - Tobacco Use Smoking Status: Former smoker Assessment/Plan All Active Problems (Last Reviewed 07/30/20 @ 02:12 by Syeda Anglin, FARHAN-C) Debility (Acute) Weakness (Acute) Urinary tract infection (Acute) Aspiration pneumonia (Acute) Respiratory failure (Acute) Hypoxia (Acute) Acute cystitis (Acute) Physical debility (Acute) 1. Acute hypoxic respiratory failure secondary to suspected aspiration pneumonia-on IV Zosyn. Albuterol and DuoNeb aerosols. Speech therapy consulted. Continue supplement oxygen to maintain O2 at above 90%. Send sputum for culture. 2. CAD with history of PCI-on Eliquis, statin, carvedilol, lisinopril. 3. Paroxysmal atrial fibrillation-on Eliquis, carvedilol. 4. CVA-residual right-sided hemiplegia and aphasia. PEG tube in place however patient cleared by speech for oral intake. Continue dietary modifications per speech therapy recommendations. On Eliquis, statin. 5. Chronic COPD-as needed albuterol aerosol. 6. Chronic macrocytic anemia 7. Hypertension- on lisinopril, carvedilol. 8. Hyperlipidemia- continue statin. 9. BPH-on flomax, proscar. 10. Anxiety/depression-on sertraline. 11. GERD- on PPI. DVT prophylaxis-Eliquis Discharge planning: Anticipate return to SNF08/01/20 if continued improvement. This patient was seen by JADA Boyer under the supervision of Dr. Sandoval.
[2020-07-31 11:50] LABS: Bedside Glucose 132 mg/dL (70-110)
[2020-07-31 17:06] LABS: Bedside Glucose 119 mg/dL (70-110)
[2020-07-31] MEDS: Jevity 1.5. 1,000 ML Bottle 250 ML GT ×2 (22:03→22:20)
[2020-07-31] MEDS: Doxazosin 1 MG Tablet 2 MG PO (22:03)
[2020-07-31] MEDS: Atorvastatin Calcium 20 MG Tablet PO (22:03)
[2020-07-31] MEDS: Insulin Lispro 100 UNIT/ML INSULN.PEN SC (23:44)
[2020-07-31 23:56] LABS: Bedside Glucose 184 mg/dL (70-110)
[2020-08-01] VITALS (7 sets, daily range): BP systolic 147–158; BP diastolic 72–87; PULSE 67–76; RESP 16–26; TEMP 36.4–36.8; O2SAT 95–97
[2020-08-01] MEDS: 0.9% Normal Saline 1,000 ML 100 ML IV (01:52)
[2020-08-01] MEDS: Albuterol 2.5 MG/3 ML VIAL.NEB. INHALATION (04:36)
[2020-08-01 05:36] LABS: Mean Corp Hgb Conc 30.6 g/dL (32-36); Mean Corpuscular Hgb 29.2 pg (27.0-32.0); Mean Corpuscular Volume 95.5 fL (80-94); Platelet Count 185 K/mm3 (150-450); RBC Distribution Width SD 45.5 fl (35.1-43.9); Red Blood Count 3.77 M/mm3 (4.6-6.2); White Blood Count 6.7 K/mm3 (4.4-11.0)
[2020-08-01 05:45] LABS: Bedside Glucose 108 mg/dL (70-110)
[2020-08-01 05:53] LABS: Anion Gap 5 (5-15); BUN 9 mg/dL (7-18); BUN/Creat Ratio 14.8 RATIO (10-20); Calcium,Total 8.3 mg/dL (8.5-10.1); Chloride 107 mmol/L (98-107); Creatinine, Serum 0.61 mg/dL (0.70-1.30); EST Glomerular Filtration Rate 136 mL/min (>60); Est Glom Filt Rate - Afr Amer 165 mL/min (>60); Glucose 97 mg/dL (74-106); Potassium 3.6 mmol/L (3.5-5.1); Sodium Level 139 mmol/L (136-145)
[2020-08-01] MEDS: Budesonide Respules 0.5 MG/2 ML AMPUL.NEB. INHALATION (07:20)
[2020-08-01] MEDS: Ipratropium/Albuterol Sulfate 3 ML AMPUL.NEB INHALATION ×2 (07:20→13:35)
[2020-08-01] MEDS: APIXABAN 5 MG TABLET PO (09:40)
[2020-08-01] MEDS: Carvedilol 25 MG Tablet PO (09:40)
[2020-08-01] MEDS: Pantoprazole Sodium 20 MG Tablet PO (09:40)
[2020-08-01] MEDS: Sertraline 50 MG Tablet PO (09:40)
[2020-08-01] MEDS: Lisinopril 20 MG Tablet PO (09:40)
--- NOTE | 2020-08-01 10:39 | TREXTCA.CO_ITS ---
- Diet 07/30/20 09:58 Diet: Regular - General Food consistency:: Pureed Liquid Consistency:: [place]/Mildly Thick Is pt able to select menu?: No Diet Comments: 1:1 supervised, meds crushed in purees - Routine Orders/Code Status Enema Type: Fleetz Enema Frequency: Daily PRN Suppository Type: Dulcolax 10mg Suppository Frequency: Daily PRN O2 Liters per Minute: 4 O2 Frequency: Continuous Keep PO Greater than or Equal to (%): 90 Routine Lab Work: - - CBC, BMP Weekly Code Status: Full Code - Suggestions for Active Care Change Position every (hours): 2 Times a day to sit in chair: 3 - Therapies Physical Therapy: Eval and Treat Occupational Therapy: Eval and Treat Speech Therapy: Eval and Treat - Problem/Diagnosis (1) Diabetes mellitus Status: Chronic (2) BPH (benign prostatic hyperplasia) Status: Chronic (3) COPD (chronic obstructive pulmonary disease) Status: Chronic (4) Depression Status: Chronic (5) Respiratory failure Status: Acute (6) Hypertension Status: Chronic (7) Atrial fibrillation Status: Chronic - Allergies/Procedures Done in Hospital Allergies/Adverse Reactions: Allergies propoxyphene HCl [From Darvon] Allergy (Verified 06/01/20 10:14) Itching Procedures: None - Type of Care/Length of Stay Estimated LOS: Convalescent Care Less Than 30 days Type of Care Needed: Skilled Rehab Potential: Fair Prognosis: Fair - Additional Orders/Day of Discharge H&P will serve as current which was dated: 07/30/20 Day of Discharge: 08/01/20 - Dietary and Speech Recommendations Dietitian Recommendations/Changes: Will resume home tube feeds- 250mL Jevity 1.5 bolus (isosource 1.5 non-formularly) TID after meals if PO intake of meal is <50% and 250mL Jevity 1.5 bolus HS for additional calories/protein. Continue 150mL H2O flush w/ each bolus. Continue regular diet- consistency per [employer] (puree/nectar 07/30) Speech Linguistic Eval Summary: Pt oriented to provide full name verbally. Unable to provide but did respond appropriately to yes/no question about . Pt able to softly state [place] when asked about location. Pt's auditory comprehension although delayed is more intact than expressive language as pt able to answer general questions with time to process. Pt with hx of previous CVA and aphasia. - Follow Up Care Primary Care Physician: Wiley Carlson MD [Primary Care Provider] - Please follow up with your Primary Care Physician in: 1 Week
--- NOTE | 2020-08-01 10:49 | DS.PCM_ITS ---
Discharge Date and Diagnosis - Problem List Patient Problems: Active and Suspected Problems (Last Reviewed 07/30/20 @ 02:12 by Syeda Anglin NP-Agus) Debility (Acute) Weakness (Acute) Urinary tract infection (Acute) Aspiration pneumonia (Acute) Respiratory failure (Acute) Hypoxia (Acute) Acute cystitis (Acute) Physical debility (Acute) Date of Admission: 07/30/20 Date of Discharge: 08/01/20 - Primary Discharge Diagnosis Acute Problems: Active Problems (Last Reviewed 07/30/20 @ 02:12 by Syeda Anglin NP-C) 1. Acute on chronic hypoxic respiratory failure secondary to aspiration pneumonia 2. CAD with history of PCI 3. Paroxysmal atrial fibrillation 4. CVA 5. Chronic COPD 6. Chronic macrocytic anemia 7. Hypertension 8. Hyperlipidemia 9. BPH 10. Anxiety/depression 11. GERD - Secondary Discharge Diagnosis Chronic Problems: Chronic Problems (Last Reviewed 07/30/20 @ 02:12 by Syeda Anglin NP-C) Diabetes mellitus (Chronic) BPH (benign prostatic hyperplasia) (Chronic) Osteoarthritis of knees, bilateral (Chronic) COPD (chronic obstructive pulmonary disease) (Chronic) Depression (Chronic) Coronary artery disease (Chronic) Hypomagnesemia (Chronic) Hypertension (Chronic) Stage 3 severe COPD by GOLD classification (Chronic) CAD S/P percutaneous coronary angioplasty (Chronic) Stents x 3 Tobacco dependence syndrome (Chronic) History of gastroesophageal reflux (GERD) (Chronic) Type II diabetes mellitus (Chronic) BPH (benign prostatic hyperplasia) (Chronic) Benign essential hypertension (Chronic) GERD (gastroesophageal reflux disease) (Chronic) Iron deficiency anemia (Chronic) Vitamin D deficiency (Chronic) History of alcohol dependence (Chronic) Atrial fibrillation (Chronic) Hyperlipidemia (Chronic) Hospital Course and Treatment Imaging Results: Diagnostic Data Chest X-Ray 07/30/20 05:55 IMPRESSION: Stable left and new right basilar reticulation suggesting atelectasis although early infectious infiltrates also possible. Electronically Signed: Shaka Almaguer MD (Brooks) at 9:13 EDT , Service support , Operations: None Procedures: None Summary of Care Provided: The patient is a 80 year old M admitted 07/30/2020 CC shortness of breath. 1. Acute on chronic hypoxic respiratory failure secondary to suspected aspiration pneumonia-on IV Zosyn during admission. Albuterol and DuoNeb aerosols. Speech therapy consulted. Continue dietary modifications per speech therapy recommendations. Augmentin at discharge to complete course. Continue supplement oxygen to maintain O2 at above 90%. Unclear what patient's baseline O2 requirements are. 2. CAD with history of PCI-on Eliquis, statin, carvedilol, lisinopril. 3. Paroxysmal atrial fibrillation-on Eliquis, carvedilol. 4. CVA-residual right-sided hemiplegia and aphasia. PEG tube in place however patient cleared by speech for oral intake. Continue dietary modifications per speech therapy recommendations. On Eliquis, statin. 5. Chronic COPD-as needed albuterol aerosol. 6. Chronic macrocytic anemia 7. Hypertension- on lisinopril, carvedilol. 8. Hyperlipidemia- continue statin. 9. BPH-on flomax, proscar. 10. Anxiety/depression-on sertraline. 11. GERD- on PPI. General: Alert, Oriented x3, Cooperative HEENT: Atraumatic, PERRLA, EOMI, Normocephalic Neck: Supple, No JVD, Negative Carotid Bruits Lungs: Clear to auscultation, Diminished Cardiovascular: Regular rate, Regular Rhythm, No murmurs Abdomen: Bowel Sounds Present, Soft, Non Tender, Non-Distended Extremities: No clubbing, No cyanosis, No edema, Capillary Refill Less than 3 Seconds Skin: No rashes, No breakdown Musculoskeletal: No Tenderness to Palpation of Joints or Extremities Neurological: Cranial nerves II-XII grossly intact, Neuro grossly intact, - - Chronic right-sided weakness and aphasia from prior CVA. Psych/Mental Status: Normal Affect, Appropriate Patient seen and examined prior to discharge. Physical assessment as noted above. Patient is stable for discharge with follow up recommendations as noted above. This patient was seen by JADA Boyer under the supervision of Dr. Sandoval. Patient Problems: Active and Suspected Problems (Last Reviewed 07/30/20 @ 02:12 by JADA Mckinney) Debility (Acute) Weakness (Acute) Urinary tract infection (Acute) Aspiration pneumonia (Acute) Respiratory failure (Acute) Hypoxia (Acute) Acute cystitis (Acute) Physical debility (Acute) - Physical Exam Vitals/I&O's: Vital Signs Temp Pulse Resp BP Pulse Ox 97.6 F L 67 18 147/72 H 95 08/01/20 09:29 08/01/20 09:29 08/01/20 09:29 08/01/20 09:29 08/01/20 09:29 Oxygen Flow Rate (L/min) 4 Oxygen Delivery Method Nasal Cannula Weight: 191 lb 12.835 oz Body Mass Index (BMI) 24.4 Finger Stick Blood Glucose 147 Intake and Output for Last 24 Hours 07/30/20 07/31/20 08/01/20 23:59 23:59 23:59 Intake Total 3086.67 / 3086.67 2596.67 / 2656.67 1210 / 1210 Output Total 100 / 100 Balance 2986.67 / 2986.67 2596.67 / 2656.67 1210 / 1210 Microbiology Past 72 Hours 07/30/20 00:42 Blood Culture (Wb) #2 - Right Forearm Blood Culture - Preliminary No growth in 48 hours. 07/30/20 00:12 Blood Culture (Wb) - Left Forearm Blood Culture - Preliminary No growth in 48 hours. 07/30/20 05:39 Mucosa - Nasopharyngeal Respiratory Panel (PCR) - Final 07/30/20 04:10 Urine Catheter - Catheter Streptococcus pneumoniae Antigen (M - Final 07/30/20 04:10 Urine Catheter - Catheter Legionella Antigen - Final 07/30/20 00:45 Nasal Secretion SARS-CoV-2 Antigen (Rapid) - Final Laboratory Results 07/31/20 11:44: POC Glucose 132 H 07/31/20 17:01: POC Glucose 119 H 07/31/20 23:39: POC Glucose 184 H 08/01/20 04:55: WBC 6.7, RBC 3.77 L, Hgb 11.0 L, Hct 36.0 L, MCV 95.5 H, MCH 29.2, MCHC 30.6 L, RDW Std Deviation 45.5 H, RDW Coeff of [place]aro 13.0, Plt Count 185, MPV 11.0 08/01/20 04:55: Sodium 139, Potassium 3.6, Chloride 107, Carbon Dioxide 27.0, Anion Gap 5, BUN 9, Creatinine 0.61 L, Estim Creat Clear Calc 68.80, Est GFR (MDRD) Af Amer 165, Est GFR (MDRD) Non-Af 136, BUN/Creatinine Ratio 14.8, Glucose 97, Calcium 8.3 L 08/01/20 05:35: POC Glucose 108 Current Medications Acetaminophen (Acetaminophen 325 Mg Tablet) 650 mg PO Q4H PRN PRN PRN Reason: Pain 1-10 or Fever Albuterol Sulfate (Albuterol 2.5 Mg/3 Ml Vial.Neb.) 2.5 mg INHALATION Q2H PRN PRN PRN Reason: Dyspnea, wheezing Last Admin: 08/01/20 04:36 Dose: 2.5 mg Documented by: Albuterol/Ipratropium (Ipratropium/Albuterol Sulfate 3 Ml Ampul.Neb) 3 ml INHALATION Q6HWA.RT REPLACED BY [facility] Last Admin: 08/01/20 07:20 Dose: 3 ml Documented by: Amoxicillin/Clavulanate Potassium (Amox/Clavulanate 875 Mg Tablet) 875 mg PO BIDCM REPLACED BY [facility] Apixaban (Apixaban 5 Mg Tablet) 5 mg PO BID REPLAC[facility] BY [facility] Last Admin: 08/01/20 09:40 Dose: 5 mg Documented by: Atorvastatin Calcium (Atorvastatin Calcium 20 Mg Tablet) 20 mg PO QHS [facility] Last Admin: 07/31/20 22:03 Dose: 20 mg Documented by: Budesonide (Budesonide Respules 0.5 Mg/2 Ml Ampul.Neb.) 0.5 mg INHALATION BID.RT [facility]PL[facility] Last Admin: 08/01/20 07:20 Dose: 0.5 mg Documented by: Carvedilol (Carvedilol 25 Mg Tablet) 25 mg PO BID [facility] BY [facility] Last Admin: 08/01/20 09:40 Dose: 25 mg Documented by: Doxazosin Mesylate (Doxazosin 1 Mg Tablet) 2 mg PO QHS [facility]PLACED BY [facility] Last Admin: 07/31/20 22:03 Dose: 2 mg Documented by: Enteral Nutritional Formula (Jevity 1.5. 1,000 Ml Bottle) 250 ml GT TIDPC PRN PRN Reason: .FOR ADDITIONAL NUTRITION IF PO INTAKE INADEQUATE Last Admin: 07/31/20 22:03 Dose: 250 ml Documented by: Enteral Nutritional Formula (Jevity 1.5. 1,000 Ml Bottle) 250 ml GT QHS [facility] Last Admin: 07/31/20 22:20 Dose: 250 ml Documented by: Hydralazine HCl (Hydralazine 20 Mg/Ml Vial) 10 mg IV Q4H PRN PRN PRN Reason: SBP > 160 Sodium Chloride () 1,000 mls @ 100 mls/hr IV .Q10H REPLACED BY [facility] Last Admin: 08/01/20 01:52 Dose: 100 mls/hr Documented by: Insulin Human Lispro (Insulin Lispro 100 Unit/Ml Insuln.Pen) 0 unit SC Q6 REPLACED BY [facility]; Protocol Last Admin: 08/01/20 05:36 Dose: Not Given Documented by: Lisinopril (Lisinopril 20 Mg Tablet) 20 mg PO BID REPLACED BY [facility] Last Admin: 08/01/20 09:40 Dose: 20 mg Documented by: Ondansetron HCl (Ondansetron 4 Mg/2 Ml Vial) 4 mg IV Q8H PRN PRN PRN Reason: NAUSEA/VOMITING Pantoprazole Sodium (Pantoprazole Sodium 20 Mg Tablet) 20 mg PO DAILY REPLACED BY [facility] Last Admin: 08/01/20 09:40 Dose: 20 mg Documented by: Prochlorperazine Edisylate (Prochlorperazine 10 Mg/2 Ml Vial) 5 mg IV Q4H PRN PRN PRN Reason: Breakthrough Nausea/Vomiting Sertraline HCl (Sertraline 50 Mg Tablet) 50 mg PO DAILY REPLACED BY [facility] Last Admin: 08/01/20 09:40 Dose: 50 mg Documented by: Sodium Chloride (0.9% Saline Lock 10 Ml Syringe) 10 - 40 ml IV UD PRN PRN Reason: SALINE FLUSH Home Medications: Medications to take at Discharge Multivitamin [Daily Multiple Vitamin] 1 ea PO DAILY 07/24/16 Albuterol Aerosols [Ventolin Aerosols] 2.5 mg INHALATION Q6H PRN PRN 01/17/18 Atorvastatin Calcium [Lipitor] 20 mg PO QHS 01/17/18 Lisinopril [Zestril] 20 mg PO BID 01/17/18 Magnesium Oxide 400 mg PO BID 01/17/18 Nitroglycerin (INPATIENT USE) [Nitrostat] 0.4 mg SUBLINGUAL Q5M PRN 01/17/18 Pantoprazole Sodium [Protonix] 20 mg PO DAILY 01/17/18 Sertraline HCl 50 mg PO DAILY 04/18/20 Acetaminophen [Tylenol Suppository] 650 mg RECTAL Q4H PRN PRN 07/30/20 Acetaminophen [Tylenol] 2 tablet PO Q4H PRN 07/30/20 Apixaban [Eliquis] 5 mg PO BID 07/30/20 Bisacodyl 10 mg RC X1 PRN 07/30/20 Budesonide/Formoterol Fumarate [Budesonide-Formoterol 160-4.5] 2 puff IH BID 07/30/20 Carvedilol [Coreg] 25 mg PO BID 07/30/20 Cholecalciferol (Vitamin D3) [Vitamin D3] 1,000 unit PO DAILY 07/30/20 Doxazosin Mesylate [Cardura] 2 mg PO QHS 07/30/20 Guaifenesin [Robitussin] 10 ml PO Q4H PRN PRN 07/30/20 Ipratropium/Albuterol Sulfate [Iprat-Albut 0.5-3(2.5) mg/3 ml] 3 ml INHALATION Q6H 07/30/20 Lactose-Reduced Food/Fiber [Isosource 1.5 [place]ar Tube Feed Lq] 250 ml GT PRN PRN 07/30/20 Lactose-Reduced Food/Fiber [Isosource 1.5 [place]ar Tube Feed Lq] 250 ml GT QHS 07/30/20 Mag Hydrox/Aluminum Hyd/Simeth [Antacid Suspension] 30 ml PO Q4H PRN 07/30/20 Magnesium Hydroxide [Milk Of Magnesia] 30 ml PO X1 PRN 07/30/20 Na Phos,M-B/Na Phos,Di-Ba [Fleet Enema] 1 bottle RECTAL X1 PRN 07/30/20 Ondansetron HCl [Zofran] 4 mg PO Q4H PRN 07/30/20 Sennosides 8.6 mg PO DAILY 07/30/20 Tiotropium [place] [Spiriva Respimat] 2.5 mcg IH QHS 07/30/20 Water For Injection,Sterile [Water] 150 ml GT 4X/DAY 07/30/20 Amox/Clavulanate Tablet [Augmentin Tablet] 875 mg PO BID 5 Days tablet 08/01/20 Primary Care Physician: Wiley Carlson MD [Primary Care Provider] - Please follow up with your Primary Care Physician in: 1 Week Disposition: Half-Way facility Minutes spent on discharge:: 35 Patient Condition:: Stable Medical Necessity - Tobacco Use Smoking Status: Former smoker Meaningful Use Info Meaningful Use Diagnoses (Choose all that apply): None applicable
--- NOTE | 2020-08-01 10:54 | PHA.DC.MR ---
Pharmacy Service has performed discharge medication reconciliation for this patient. The patient's discharge medication list was reviewed for discrepancies and discrepancies were resolved. Home Medications Multivitamin [Daily Multiple Vitamin] 1 ea PO DAILY 07/24/16 Albuterol Aerosols [Ventolin Aerosols] 2.5 mg INHALATION Q6H PRN PRN 01/17/18 Atorvastatin Calcium [Lipitor] 20 mg PO QHS 01/17/18 Lisinopril [Zestril] 20 mg PO BID 01/17/18 Magnesium Oxide 400 mg PO BID 01/17/18 Nitroglycerin (INPATIENT USE) [Nitrostat] 0.4 mg SUBLINGUAL Q5M PRN 01/17/18 Pantoprazole Sodium [Protonix] 20 mg PO DAILY 01/17/18 Sertraline HCl 50 mg PO DAILY 04/18/20 Acetaminophen [Tylenol Suppository] 650 mg RECTAL Q4H PRN PRN 07/30/20 Acetaminophen [Tylenol] 2 tablet PO Q4H PRN 07/30/20 Apixaban [Eliquis] 5 mg PO BID 07/30/20 Bisacodyl 10 mg RC X1 PRN 07/30/20 Budesonide/Formoterol Fumarate [Budesonide-Formoterol 160-4.5] 2 puff IH BID 07/30/20 Carvedilol [Coreg] 25 mg PO BID 07/30/20 Cholecalciferol (Vitamin D3) [Vitamin D3] 1,000 unit PO DAILY 07/30/20 Doxazosin Mesylate [Cardura] 2 mg PO QHS 07/30/20 Guaifenesin [Robitussin] 10 ml PO Q4H PRN PRN 07/30/20 Ipratropium/Albuterol Sulfate [Iprat-Albut 0.5-3(2.5) mg/3 ml] 3 ml INHALATION Q6H 07/30/20 Lactose-Reduced Food/Fiber [Isosource 1.5 Kemar Tube Feed Lq] 250 ml GT PRN PRN 07/30/20 Lactose-Reduced Food/Fiber [Isosource 1.5 Kemar Tube Feed Lq] 250 ml GT QHS 07/30/20 Mag Hydrox/Aluminum Hyd/Simeth [Antacid Suspension] 30 ml PO Q4H PRN 07/30/20 Magnesium Hydroxide [Milk Of Magnesia] 30 ml PO X1 PRN 07/30/20 Na Phos,M-B/Na Phos,Di-Ba [Fleet Enema] 1 bottle RECTAL X1 PRN 07/30/20 Ondansetron HCl [Zofran] 4 mg PO Q4H PRN 07/30/20 Sennosides 8.6 mg PO DAILY 07/30/20 Tiotropium [place] [Spiriva Respimat] 2.5 mcg IH QHS 07/30/20 Water For Injection,Sterile [Water] 150 ml GT 4X/DAY 07/30/20 Amox/Clavulanate Tablet [Augmentin Tablet] 875 mg PO BID 5 Days tablet 08/01/20
--- NOTE | 2020-08-01 11:33 | CASEMGMT ---
Patient is ready for discharge back to [facility]. SOPHIA arranged for patient to get picked up at 1330 via cot by [facility]. SW notified RN, financial secretary, fire extinguisher charger, Elina at [facility], and patient's sister Miroslava. SW will also let patient know. Orders were faxed to [facility]. Plan: d/c back to [facility] under skilled level of care. [facility] transported patient via cot. Dana PARIKH
[2020-08-01] MEDS: Insulin Lispro 100 UNIT/ML INSULN.PEN SC (11:59)
[2020-08-01 12:15] LABS: Bedside Glucose 162 mg/dL (70-110)
--- NOTE | 2020-08-01 12:36 | NURSING ---
report called to Corin at [facility]
== END 2020-08-01 13:46 | DRG 177 ==
LOC: ED 01:41 → PCU 01:58
PROVIDERS: Nurse Practitioner Family; Admitting Provider Family Medicine; Emergency Provider Emergency Medicine; PCP Family Medicine; Visit Provider Internal Medicine
DX: J69.0 Pneumonitis due to inhalation of food and vomit (principal); J96.21 Acute and chronic respiratory failure with hypoxia; I69.351 Hemiplegia and hemiparesis following cerebral infarction affecting right dominant side; I69.320 Aphasia following cerebral infarction; J44.9 Chronic obstructive pulmonary disease, unspecified; I25.10 Atherosclerotic heart disease of native coronary artery without angina pectoris; I48.0 Paroxysmal atrial fibrillation; D50.9 Iron deficiency anemia, unspecified; D53.9 Nutritional anemia, unspecified; F32.9 Major depressive disorder, single episode, unspecified; M17.0 Bilateral primary osteoarthritis of knee; F41.9 Anxiety disorder, unspecified; I10 Essential (primary) hypertension; E11.9 Type 2 diabetes mellitus without complications; E78.5 Hyperlipidemia, unspecified; K21.9 Gastro-esophageal reflux disease without esophagitis; E83.42 Hypomagnesemia; N40.0 Benign prostatic hyperplasia without lower urinary tract symptoms; Z93.1 Gastrostomy status; Z98.61 Coronary angioplasty status; Z79.4 Long term (current) use of insulin; Z79.82 Long term (current) use of aspirin; Z79.01 Long term (current) use of anticoagulants; Z87.891 Personal history of nicotine dependence; Z79.899 Other long term (current) drug therapy; Z87.898 Personal history of other specified conditions
CPT/HCPCS: 71045; 80048; 80053; 82962; 83735; 83880; 84145; 84484; 85025; 85027; 87040; 87426; 87449; 87633; 92523; 92526; 92610; 93005; 94640; 97162; 97166; 97530; 97802; 99251; 99285; J7030; J7040; A4216; G0463

== ENCOUNTER → 2020-09-15 05:00 | Outpatient (REF) | payer MEDICARE, SELFPAY ==
[2020-07-30 14:09] VITALS: BMI 24.4
[2020-09-15 09:24] LABS: Hematocrit 39.7 % (40-54); Hemoglobin 12.6 g/dL (13.0-16.5); Mean Corp Hgb Conc 31.7 g/dL (32-36); Mean Corpuscular Hgb 29.9 pg (27.0-32.0); Mean Corpuscular Volume 94.1 fL (80-94); Mean Platelet Vol. 11.6 fl (6.2-12.0); Platelet Count 184 K/mm3 (150-450); RBC Distribution Width CV 13.7 % (11.6-14.6); RBC Distribution Width SD 47.1 fl (35.1-43.9); Red Blood Count 4.22 M/mm3 (4.6-6.2); White Blood Count 6.6 K/mm3 (4.4-11.0)
[2020-09-15 09:37] LABS: Anion Gap 8 (5-15); BUN 17 mg/dL (7-18); BUN/Creat Ratio 22.3 RATIO (10-20); Calcium,Total 8.8 mg/dL (8.5-10.1); Chloride 102 mmol/L (98-107); Creatinine, Serum 0.76 mg/dL (0.70-1.30); EST Glomerular Filtration Rate 105 mL/min (>60); Est Glom Filt Rate - Afr Amer 127 mL/min (>60); Glucose 85 mg/dL (74-106); Potassium 3.8 mmol/L (3.5-5.1); Sodium Level 139 mmol/L (136-145)
== END ==
LOC: OLS.SW300 05:00
PROVIDERS: PCP Family Medicine; Referring Provider Family Medicine; Visit Provider Family Medicine
DX: E11.9 Type 2 diabetes mellitus without complications (principal)
CPT/HCPCS: 36415; 80048; 85027

== ENCOUNTER → 2020-09-22 | Outpatient (REF) | payer MEDICARE, SELFPAY ==
[2020-07-30 14:09] VITALS: BMI 24.4
[2020-09-22 07:31] LABS: Hematocrit 39.4 % (40-54); Hemoglobin 12.5 g/dL (13.0-16.5); Mean Corp Hgb Conc 31.7 g/dL (32-36); Mean Corpuscular Hgb 29.8 pg (27.0-32.0); Mean Platelet Vol. 11.3 fl (6.2-12.0); Platelet Count 184 K/mm3 (150-450); RBC Distribution Width CV 13.6 % (11.6-14.6); RBC Distribution Width SD 46.4 fl (35.1-43.9); Red Blood Count 4.19 M/mm3 (4.6-6.2)
[2020-09-22 07:54] LABS: AST(SGOT) 14 U/L (15-37); Alanine Aminotransfer ALT/SGPT 14 U/L (16-61); Alkaline Phosphatase 81 U/L (45-117); Anion Gap 7 (5-15); BUN 15 mg/dL (7-18); Calcium,Total 8.9 mg/dL (8.5-10.1); Chloride 105 mmol/L (98-107); Creatinine, Serum 0.68 mg/dL (0.70-1.30); EST Glomerular Filtration Rate 119 mL/min (>60); Est Glom Filt Rate - Afr Amer 145 mL/min (>60); Glucose 84 mg/dL (74-106); Potassium 3.8 mmol/L (3.5-5.1); Sodium Level 142 mmol/L (136-145)
== END | disposition home or self-care (01) ==
LOC: OLS.SW300 04:00
PROVIDERS: PCP Family Medicine; Visit Provider Family Medicine
DX: I10 Essential (primary) hypertension (principal); J44.9 Chronic obstructive pulmonary disease, unspecified; E11.9 Type 2 diabetes mellitus without complications; M62.81 Muscle weakness (generalized)
CPT/HCPCS: 36415; 80053; 85027

== ENCOUNTER → 2020-10-22 | Outpatient (REF) | payer MEDICARE, SELFPAY ==
[2020-07-30 14:09] VITALS: BMI 24.4
[2020-10-22 07:25] LABS: Hematocrit 38.7 % (40-54); Hemoglobin 12.2 g/dL (13.0-16.5); Mean Corp Hgb Conc 31.5 g/dL (32-36); Mean Corpuscular Hgb 29.4 pg (27.0-32.0); Mean Corpuscular Volume 93.3 fL (80-94); Mean Platelet Vol. 11.3 fl (6.2-12.0); Platelet Count 175 K/mm3 (150-450); RBC Distribution Width CV 13.6 % (11.6-14.6); RBC Distribution Width SD 45.9 fl (35.1-43.9); Red Blood Count 4.15 M/mm3 (4.6-6.2)
[2020-10-22 07:42] LABS: Anion Gap 5 (5-15); BUN 16 mg/dL (7-18); BUN/Creat Ratio 20.9 RATIO (10-20); Calcium,Total 8.7 mg/dL (8.5-10.1); Chloride 105 mmol/L (98-107); Creatinine, Serum 0.76 mg/dL (0.70-1.30); EST Glomerular Filtration Rate 105 mL/min (>60); Est Glom Filt Rate - Afr Amer 127 mL/min (>60); Glucose 85 mg/dL (74-106); Potassium 3.8 mmol/L (3.5-5.1); Sodium Level 138 mmol/L (136-145)
== END | disposition home or self-care (01) ==
LOC: OLS.SW300 05:00
PROVIDERS: PCP Family Medicine; Referring Provider Family Medicine; Visit Provider Family Medicine
DX: E11.9 Type 2 diabetes mellitus without complications (principal)
CPT/HCPCS: 36415; 80048; 85027

== ENCOUNTER → 2020-10-28 05:00 | Outpatient (REF) | payer MEDICARE, OTHER, SELFPAY ==
[2020-07-30 14:09] VITALS: BMI 24.4
[2020-10-28 07:22] LABS: Hematocrit 38.5 % (40-54); Hemoglobin 12.2 g/dL (13.0-16.5); Mean Corp Hgb Conc 31.7 g/dL (32-36); Mean Corpuscular Hgb 29.9 pg (27.0-32.0); Mean Corpuscular Volume 94.4 fL (80-94); Mean Platelet Vol. 11.7 fl (6.2-12.0); Platelet Count 155 K/mm3 (150-450); RBC Distribution Width CV 13.5 % (11.6-14.6); Red Blood Count 4.08 M/mm3 (4.6-6.2); White Blood Count 6.4 K/mm3 (4.4-11.0)
== END ==
LOC: OLS.SW300 05:00
PROVIDERS: PCP Family Medicine; Visit Provider Family Medicine
DX: I10 Essential (primary) hypertension (principal); E11.9 Type 2 diabetes mellitus without complications
CPT/HCPCS: 36415; 85027

== ENCOUNTER → 2020-11-19 05:00 | Outpatient (REF) | payer MEDICARE, SELFPAY ==
[2020-07-30 14:09] VITALS: BMI 24.4
[2020-11-19 06:57] LABS: Hematocrit 39.3 % (40-54); Hemoglobin 12.5 g/dL (13.0-16.5); Mean Corp Hgb Conc 31.8 g/dL (32-36); Mean Corpuscular Volume 94.2 fL (80-94); Mean Platelet Vol. 11.5 fl (6.2-12.0); Platelet Count 169 K/mm3 (150-450); RBC Distribution Width CV 13.3 % (11.6-14.6); RBC Distribution Width SD 45.8 fl (35.1-43.9); Red Blood Count 4.17 M/mm3 (4.6-6.2); White Blood Count 6.2 K/mm3 (4.4-11.0)
[2020-11-19 07:12] LABS: Anion Gap 5 (5-15); BUN 18 mg/dL (7-18); BUN/Creat Ratio 24.9 RATIO (10-20); Calcium,Total 8.5 mg/dL (8.5-10.1); Chloride 108 mmol/L (98-107); Creatinine, Serum 0.72 mg/dL (0.70-1.30); EST Glomerular Filtration Rate 112 mL/min (>60); Est Glom Filt Rate - Afr Amer 135 mL/min (>60); Glucose 93 mg/dL (74-106); Potassium 3.9 mmol/L (3.5-5.1); Sodium Level 142 mmol/L (136-145)
== END ==
LOC: OLS.SW300 05:00
PROVIDERS: PCP Family Medicine; Referring Provider Family Medicine; Visit Provider Family Medicine
DX: E11.9 Type 2 diabetes mellitus without complications (principal)
CPT/HCPCS: 36415; 80048; 85027

== ENCOUNTER → 2020-12-17 05:00 | Outpatient (REF) | payer MEDICARE, SELFPAY ==
[2020-12-17 07:12] LABS: Hematocrit 39.7 % (40-54); Hemoglobin 12.7 g/dL (13.0-16.5); Mean Corpuscular Hgb 30.4 pg (27.0-32.0); Mean Platelet Vol. 11.4 fl (6.2-12.0); Platelet Count 168 K/mm3 (150-450); RBC Distribution Width CV 13.3 % (11.6-14.6); RBC Distribution Width SD 46.6 fl (35.1-43.9); Red Blood Count 4.18 M/mm3 (4.6-6.2); White Blood Count 6.6 K/mm3 (4.4-11.0)
[2020-12-17 07:48] LABS: Anion Gap 4 (5-15); BUN 18 mg/dL (7-18); BUN/Creat Ratio 25.3 RATIO (10-20); Calcium,Total 8.6 mg/dL (8.5-10.1); Chloride 108 mmol/L (98-107); Creatinine, Serum 0.71 mg/dL (0.70-1.30); EST Glomerular Filtration Rate 114 mL/min (>60); Est Glom Filt Rate - Afr Amer 137 mL/min (>60); Glucose 97 mg/dL (74-106); Potassium 3.7 mmol/L (3.5-5.1); Sodium Level 141 mmol/L (136-145)
== END ==
LOC: OLS.SW300 05:00
PROVIDERS: PCP Family Medicine; Visit Provider Family Medicine
DX: E11.9 Type 2 diabetes mellitus without complications (principal)
CPT/HCPCS: 36415; 80048; 85027

== ENCOUNTER → 2021-01-08 05:43 | Outpatient (REF) | payer MEDICARE, SELFPAY ==
[2021-01-08 09:19] LABS: Anion Gap 7 (5-15); BUN 22 mg/dL (7-18); BUN/Creat Ratio 30.1 RATIO (10-20); Calcium,Total 8.6 mg/dL (8.5-10.1); Chloride 108 mmol/L (98-107); Creatinine, Serum 0.73 mg/dL (0.70-1.30); EST Glomerular Filtration Rate 110 mL/min (>60); Est Glom Filt Rate - Afr Amer 133 mL/min (>60); Glucose 87 mg/dL (74-106); Potassium 4.1 mmol/L (3.5-5.1); Sodium Level 143 mmol/L (136-145)
== END ==
LOC: OLS.SW300 05:43
PROVIDERS: PCP Family Medicine; Visit Provider Family Medicine
DX: I10 Essential (primary) hypertension (principal)
CPT/HCPCS: 36415; 80048

== ENCOUNTER → 2021-01-14 05:00 | Outpatient (REF) | payer MEDICARE, MEDICAID, SELFPAY ==
[2021-01-14 07:53] LABS: Hematocrit 40.7 % (40-54); Hemoglobin 13.2 g/dL (13.0-16.5); Mean Corp Hgb Conc 32.4 g/dL (32-36); Mean Corpuscular Hgb 30.5 pg (27.0-32.0); Mean Platelet Vol. 11.5 fl (6.2-12.0); Platelet Count 162 K/mm3 (150-450); RBC Distribution Width SD 44.4 fl (35.1-43.9); Red Blood Count 4.33 M/mm3 (4.6-6.2); White Blood Count 7.3 K/mm3 (4.4-11.0)
[2021-01-14 08:16] LABS: Anion Gap 7 (5-15); BUN 21 mg/dL (7-18); BUN/Creat Ratio 27.2 RATIO (10-20); Calcium,Total 8.6 mg/dL (8.5-10.1); Chloride 107 mmol/L (98-107); Creatinine, Serum 0.77 mg/dL (0.70-1.30); EST Glomerular Filtration Rate 103 mL/min (>60); Est Glom Filt Rate - Afr Amer 125 mL/min (>60); Glucose 96 mg/dL (74-106); Potassium 3.8 mmol/L (3.5-5.1); Sodium Level 143 mmol/L (136-145)
== END ==
LOC: OLS.SW300 05:00
PROVIDERS: PCP Family Medicine
DX: E11.9 Type 2 diabetes mellitus without complications (principal)
CPT/HCPCS: 36415; 80048; 85027

== ENCOUNTER → 2021-02-09 07:19 | Emergency (ER) | payer MEDICARE, SELFPAY ==
[2021-02-09 07:19] VITALS: BP 174/84; PULSE 77; RESP 22; TEMP 36.1; O2SAT 89; BMI 27.3
--- NOTE | 2021-02-09 07:33 | ED.VIS.DYS ---
HPI History of Present Illness Chief Complaint: Shortness of Breath Informant: patient and SNF Narrative Narrative: 80 -year-old male sent in from [facility]. He is unable to give much of a history. he is limited on answering questions. I will speak to the detention to see the reason why this patient was sent to the hospital because he is unable to answer the question. I spoke to the detention staff. They stated this was all a mistake. Patient was never supposed to come the emergency department. He is scheduled this morning for an outpatient CAT scan for further evaluation of the lung nodule. His ER visit will be concluded and he will be transferred for down to radiology for his CAT scan. [facility] Medical History Abnormal electrocardiogram [ECG] [EKG] Atrial fibrillation Benign essential hypertension CAD S/P percutaneous coronary angioplasty GERD (gastroesophageal reflux disease) History of alcohol dependence History of gastroesophageal reflux (GERD) Hyperlipidemia Iron deficiency anemia Stage 3 severe COPD by GOLD classification Tobacco dependence syndrome Type II diabetes mellitus Vitamin D deficiency Home Medications multivitamin 1 ea PO DAILY 07/24/16 [History Last Taken 07/29/20] albuterol sulfate 2.5 mg INHALATION Q6H PRN PRN 01/17/18 [History Last Taken 01/16/18] atorvastatin 20 mg PO QHS 01/17/18 [History Last Taken 07/29/20] lisinopril [Zestril] 20 mg PO BID 01/17/18 [History Last Taken 07/29/20] magnesium oxide 400 mg PO BID 01/17/18 [History Last Taken 07/29/20] nitroglycerin 0.4 mg SUBLINGUAL Q5M PRN 01/17/18 [History Last Taken Unknown] pantoprazole 20 mg PO DAILY 01/17/18 [History Last Taken 07/29/20] sertraline 50 mg PO DAILY 04/18/20 [History Last Taken 07/29/20] Ipratropium/Albuterol Sulfate [Iprat-Albut 0.5-3(2.5) Mg/3 Ml] 3 ml INHALATION Q6H 07/30/20 [History Last Taken 07/29/20] acetaminophen 2 tablet PO Q4H PRN 07/30/20 [History Last Taken Unknown] acetaminophen 650 mg RECTAL Q4H PRN PRN 07/30/20 [History Last Taken Unknown] alum-mag hydroxide-simeth 30 ml PO Q4H PRN 07/30/20 [History Last Taken Unknown] apixaban 5 mg PO BID 07/30/20 [History Last Taken 07/29/20] bisacodyl 10 mg RC X1 PRN 07/30/20 [History Last Taken Unknown] budesonide-formoterol 2 puff IH BID 07/30/20 [History Last Taken 07/29/20] carvedilol 25 mg PO BID 07/30/20 [History Last Taken 07/29/20] cholecalciferol (vitamin D3) 1,000 unit PO DAILY 07/30/20 [History Last Taken 07/29/20] doxazosin 2 mg PO QHS 07/30/20 [History Last Taken 07/29/20] guaifenesin 10 ml PO Q4H PRN PRN 07/30/20 [History Last Taken Unknown] lactose-reduced food with fibr 250 ml GT PRN PRN 07/30/20 [History Last Taken 07/29/20] lactose-reduced food with fibr 250 ml GT QHS 07/30/20 [History Last Taken 07/29/20] magnesium hydroxide 30 ml PO X1 PRN 07/30/20 [History Last Taken 07/28/20] ondansetron HCl 4 mg PO Q4H PRN 07/30/20 [History Last Taken Unknown] sennosides 8.6 mg PO DAILY 07/30/20 [History Last Taken 07/29/20] sodium phosphates 1 bottle RECTAL X1 PRN 07/30/20 [History Last Taken Unknown] tiotropium bromide 2.5 mcg IH QHS 07/30/20 [History Last Taken 07/29/20] water for injection, sterile 150 ml GT 4X/DAY 07/30/20 [History Last Taken 07/30/20] Allergy/AdvReac Type Severity Reaction Status Date / Time propoxyphene HCl Allergy Itching Verified 02/09/21 07:24 [From [facility]] Family History Father Polio Social History Smoking Status: Former smoker Tobacco: How many years used: 56 Electronic Cigarette Use: not used how long ago did patient quit smokin, 2-3pk/day second hand exposure: Yes alcohol intake: former substance use type: does not use ROS ROS ED ROS Narrative Cough. Review of Systems ROS Unobtainable: Denies due to encephalopathy Constitutional Constitutional ED: Denies fever(s) Eyes Eyes: Denies change in vision ENT ENT ED: Denies ear pain Cardiovascular Cardiovascular: Denies chest pain Respiratory/Chest Respiratory/Chest: Reports cough and dyspnea Gastrointestinal Gastrointestinal: Denies abdominal pain Genitourinary Genitourinary ED: Denies dysuria Musculoskeletal Musculoskeletal: Denies myalgias Integumentary Denies rash Neurologic Neurologic: Denies headache(s) Psychiatric Psychiatric: Denies depression Endocrine Endocrinology: Denies polyuria Hematologic/Lymphatic Hematologic/Lymphatic: Denies easy bruising Allergic/Immunologic Allergic/Immunologic ED: Denies urticaria EXAM Physical Exam Const Vital Signs: 02/09/21 07:19 Temperature 97 F L Temperature Source Temporal Pulse Rate 77 Respiratory Rate 22 H Blood Pressure 174/84 H Blood Pressure Mean 114 Pulse Ox 89 Oxygen Delivery Method Room Air Discharge Plan Triage Chief Complaint: Shortness of Breath ED Provider: Jared Ashton Dx/Rx/DC Orders Prescriptions: No Action multivitamin 1 EACH tablet 1 ea PO DAILY RF: 0 magnesium oxide 420 MG tablet 400 mg PO BID RF: 0 albuterol sulfate 2.5 MG/3 ML Vial.Neb. 2.5 mg inhalation Q6H PRN PRN (Reason: Shortness Of Breath) RF: 0 lisinopril [Zestril] 20 MG tablet 20 mg PO BID RF: 0 nitroglycerin 0.4 MG tablet 0.4 mg sublingual Q5M PRN (Reason: Chest Pain) RF: 0 atorvastatin 80 MG tablet 20 mg PO QHS RF: 0 pantoprazole 20 MG tablet 20 mg PO DAILY RF: 0 sertraline 50 MG tablet 50 mg PO DAILY RF: 0 acetaminophen 325 MG tablet 2 tablet PO Q4H PRN (Reason: Pain 1-10 Or Fever) RF: 0 acetaminophen 650 MG suppository 650 mg RECTAL Q4H PRN PRN (Reason: Pain 1-10 Or Fever) RF: 0 lactose-reduced food with fibr 1,000 ML liquid 250 ml GT PRN PRN (Reason: tube feed) RF: 0 lactose-reduced food with fibr 1,000 ML liquid 250 ml GT QHS RF: 0 water for injection, sterile 10 ML syringe 150 ml GT 4X/DAY RF: 0 alum-mag hydroxide-simeth 355 ML suspension 30 ml PO Q4H PRN (Reason: GI distress) RF: 0 bisacodyl 10 MG suppository 10 mg RC X1 PRN (Reason: Constipation) RF: 0 budesonide-formoterol 10.2 GM HFA aerosol inhaler 2 puff IH BID RF: 0 apixaban 5 MG tablet 5 mg PO BID RF: 0 carvedilol 25 MG tablet 25 mg PO BID RF: 0 sennosides 8.6 MG tablet 8.6 mg PO DAILY RF: 0 guaifenesin 10 ML liquid 10 ml PO Q4H PRN PRN (Reason: Cough) RF: 0 magnesium hydroxide 30 ML suspension 30 ml PO X1 PRN (Reason: Constipation) RF: 0 sodium phosphates 1 BOTTLE enema 1 bottle RECTAL X1 PRN (Reason: Constipation) RF: 0 doxazosin 2 MG tablet 2 mg PO QHS RF: 0 Ipratropium/Albuterol Sulfate [Iprat-Albut 0.5-3(2.5) Mg/3 Ml] 3 ML Ampul.Neb 3 ml INHALATION Q6H RF: 0 ondansetron HCl 4 MG tablet 4 mg PO Q4H PRN (Reason: Nausea) RF: 0 cholecalciferol (vitamin D3) 2,000 UNIT capsule 1,000 unit PO DAILY RF: 0 tiotropium bromide 4 GM mist 2.5 mcg IH QHS RF: 0 Primary Care Provider: Wiley Carlson
--- NOTE | 2021-02-09 07:49 | ED.RN ---
pt not supposed to be here per dr zarate
== END ==
PROVIDERS: Emergency Provider Emergency Medicine; PCP Family Medicine
DX: R06.02 Shortness of breath (principal); I10 Essential (primary) hypertension; D50.9 Iron deficiency anemia, unspecified; E11.9 Type 2 diabetes mellitus without complications; E55.9 Vitamin D deficiency, unspecified; E78.5 Hyperlipidemia, unspecified; I25.10 Atherosclerotic heart disease of native coronary artery without angina pectoris; I48.91 Unspecified atrial fibrillation; J44.9 Chronic obstructive pulmonary disease, unspecified; K21.9 Gastro-esophageal reflux disease without esophagitis; Z79.01 Long term (current) use of anticoagulants; Z79.899 Other long term (current) drug therapy; Z87.891 Personal history of nicotine dependence

== ENCOUNTER → 2021-02-09 07:47 | Outpatient (CLI) | payer MEDICARE, SELFPAY ==
--- NOTE | 2021-02-09 07:49 | CT_ITS ---
STUDY: CT CHEST WITH CONTRAST REASON FOR EXAM: Male, 80 years old. LUNG MASS VS CONSOLIDATION RADIATION DOSAGE (If Supplied By Facility): CTDIvol = ( 17.17 ) mGy, DLP = ( 509.79 ) mGycm TECHNIQUE: Transaxial imaging was performed following intravenous administration of IV 100mL Isovue-300. Multiplanar coronal and sagittal images were reformatted. Individualized dose optimization techniques were used for this CT. COMPARISON: None. FINDINGS: There is a 1.1 cm x 1.6 cm mildly spiculated nodule in the right upper lobe as seen on axial image #54 and coronal image #171. There is evidence of mild degree of increased interstitial markings along the peripheral posterior aspect of the right upper lobe abutting the right minor fissure as well as at the lung bases more prominent on the right side. There is no demonstrated pleural abnormality. Sternal cerclage wires and vascular clips are present from a prior sternotomy and coronary artery bypass graft procedure (CABG). There are calcifications of the coronary arteries. There are multiple small lymph nodes within the mediastinum, which are normal in size and morphology most compatible with reactive lymph hyperplasia. Normal hilar regions. Normal enhanced pulmonary arteries. Normal aorta arch and descending thoracic aorta. There are multi-level degenerative changes of the thoracic spine. Increased kyphosis. There is no demonstrated abnormality of the visualized upper abdomen. CT/Chest WITH Contrast IMPRESSION: 1.1 cm x 1.6 cm slightly spicular nodule in the right upper lobe as seen on axial image #54 and coronal image #17. Correlation with a PET scan is recommended. Mild degree of scarring at the lung bases as well as in the right posterior upper lobe. Electronically Signed: Gregory Cota MD at 10:12 EDT , Service support ,
== END ==
PROVIDERS: PCP Family Medicine; Referring Provider Family Medicine; Visit Provider Family Medicine
DX: R91.1 Solitary pulmonary nodule (principal)
CPT/HCPCS: 71260; Q9967

== ENCOUNTER → 2021-02-11 05:00 | Outpatient (REF) | payer MEDICARE, MEDICAID, SELFPAY ==
[2021-02-11 08:46] LABS: Hematocrit 38.4 % (40-54); Hemoglobin 12.3 g/dL (13.0-16.5); Mean Corpuscular Hgb 30.3 pg (27.0-32.0); Mean Corpuscular Volume 94.6 fL (80-94); Mean Platelet Vol. 11.7 fl (6.2-12.0); Platelet Count 143 K/mm3 (150-450); RBC Distribution Width CV 13.2 % (11.6-14.6); RBC Distribution Width SD 45.3 fl (35.1-43.9); Red Blood Count 4.06 M/mm3 (4.6-6.2); White Blood Count 6.5 K/mm3 (4.4-11.0)
[2021-02-11 09:24] LABS: ALB/GLOB Ratio 0.8 RATIO (0.9-2.4); AST(SGOT) 20 U/L (15-37); Alanine Aminotransfer ALT/SGPT 14 U/L (16-61); Albumin, Serum 2.8 g/dL (3.2-5.0); Alkaline Phosphatase 73 U/L (45-117); Anion Gap 5 (5-15); BUN 18 mg/dL (7-18); BUN/Creat Ratio 23.3 RATIO (10-20); Calcium,Total 8.5 mg/dL (8.5-10.1); Chloride 110 mmol/L (98-107); Creatinine, Serum 0.77 mg/dL (0.70-1.30); EST Glomerular Filtration Rate 103 mL/min (>60); Est Glom Filt Rate - Afr Amer 125 mL/min (>60); Globulin 3.4 g/dL (2.2-4.2); Glucose 93 mg/dL (74-106); Potassium 4.2 mmol/L (3.5-5.1); Protein, Total 6.2 g/dL (6.4-8.2); Sodium Level 141 mmol/L (136-145)
== END ==
LOC: OLS.SW300 05:00
PROVIDERS: PCP Family Medicine; Visit Provider Family Medicine
DX: E11.9 Type 2 diabetes mellitus without complications (principal)
CPT/HCPCS: 36415; 80053; 85027

== ENCOUNTER → 2021-03-11 05:00 | Outpatient (REF) | payer MEDICARE, MEDICAID, SELFPAY ==
[2021-03-11 09:45] LABS: Hematocrit 37.8 % (40-54); Hemoglobin 12.3 g/dL (13.0-16.5); Mean Corp Hgb Conc 32.5 g/dL (32-36); Mean Corpuscular Hgb 30.8 pg (27.0-32.0); Mean Corpuscular Volume 94.5 fL (80-94); Mean Platelet Vol. 12.4 fl (6.2-12.0); Platelet Count 125 K/mm3 (150-450); RBC Distribution Width CV 13.5 % (11.6-14.6); RBC Distribution Width SD 46.8 fl (35.1-43.9); White Blood Count 5.7 K/mm3 (4.4-11.0)
[2021-03-11 10:07] LABS: Anion Gap 7 (5-15); BUN 20 mg/dL (7-18); BUN/Creat Ratio 27.2 RATIO (10-20); Calcium,Total 8.5 mg/dL (8.5-10.1); Chloride 105 mmol/L (98-107); Creatinine, Serum 0.74 mg/dL (0.70-1.30); EST Glomerular Filtration Rate 109 mL/min (>60); Est Glom Filt Rate - Afr Amer 132 mL/min (>60); Glucose 98 mg/dL (74-106); Potassium 4.2 mmol/L (3.5-5.1); Sodium Level 140 mmol/L (136-145)
== END ==
LOC: OLS.SW300 05:00
PROVIDERS: PCP Family Medicine; Visit Provider Family Medicine
DX: E11.9 Type 2 diabetes mellitus without complications (principal)
CPT/HCPCS: 36415; 80048; 85027

== ENCOUNTER → 2021-03-13 07:17 | Outpatient (CLI) | payer MEDICARE, MEDICAID, SELFPAY ==
[2021-03-13] VITALS (15 sets, daily range): BP systolic 154–207; BP diastolic 50–107; PULSE 64–78; RESP 16–27; TEMP 37.2; O2SAT 3–99; BMI 127946.0
--- NOTE | 2021-03-13 | IMM_PTH ---
PATIENT: FER GLORIA LOC: CT U#:[id number] AGE/SX: 84/M ROOM: RE03/13/[address]: Dr. Shashank Perez MD : 1940 BED: DIS: SPEC #: [id number] RECD: 03/13/21 13:39 STATUS: UZMA RERiccardo #: [id number] AMELIA: 03/13/21 00:[address]: Shashank Perez DEPT: IMMUNOHISTOCHEMISTRY RECD BY: Sunni Jennings ENTERED: 03/13/21 13:45 SP TYPE: IMMUNO OTHR DR: Dr. Wiley Carlson MD Tissues: Right upper lobe of lung, NOS Procedures: RCC (add) NAPSIN A (add) CK20 (add) CK5-6 (add) CK7 (add) CK8 (add) HEP PAR (add) TTF1 (add) Pankeratin (initial) P40 (add) PSAP (add) PHYSICIAN & INSTITUTION [address] [address] SPECIMEN INFORMATION: Tissue Source: Right upper lobe of lung Clinical Info: Right upper lobe mass Specimen Number: [id number] CPT code: 30566, 84199 x10 METHODOLOGY: Deparaffinized sections of prefer/formalin-fixed tissue or PAP/DQ stained slides are incubated with monoclonal/polyclonal antibodies/oligonucleotide probes. Localization is made via biotin free immunoperoxidase method. Appropriate controls are performed and reacted as expected. Results on target cell population are indicated in the following table: RESULTS: ANTIBODY / CLONE RESULT AE1-3 (AE1/AE3/PCK26) positive CK7 (OV-TL12/30) negative CK8 (62otmsE84) positive CK20 (KS20.8) noncontributory TTF-1 (8G7G3/1) noncontributory Napsin A (Rabbit Polyclonal) noncontributory HepPar (OCh1E5) noncontributory RCC (PN-15) noncontributory PSAP (PASE/4LJ) noncontributory CK5-6 (D5 & 1684) noncontributory P40 (BC28) noncontributory These tests were developed and their performance characteristics determined by [facility]. They may not have been cleared or approved by the U.S. Food and Drug Administration. The FDA has determined that such clearance or approval is not necessary. The above immunohistochemical/dualISH markers are ordered and reviewed by the Pathologist. INTERPRETATION: Right upper lobe of lung, CT-guided core biopsy: Non-small cell carcinoma. See comment. SJ:britta 03/16/2021 Comment: Only a small focus of carcinoma is noted. Further clarification of tumor is not possible. Clinical correlation is necessary. Case has been reviewed in consultation with Dr. Licona who concurs with the above diagnosis. IDC:CICI
--- NOTE | 2021-03-13 07:28 | CT_ITS ---
PROCEDURE: CT GUIDED CORE NEEDLE BIOPSY OF A right upper lobe LUNG LESION INDICATION: Male, 80 years old. RUL NODULE PHYSICIAN: Dr. MARIA FERNANDA Interiano CONSENT: Written informed consent was obtained having explained the risks, benefits and alternatives in detail with the patient who accepted the risks and agreed to proceed. Laboratory review and clinical assessment was performed. CONSCIOUS SEDATION PROTOCOL: The Drugs used were: 1 mg Versed, IV., and 25 mcg Fentanyl, IV. The sedation time was: 18 minutes. Conscious sedation was started on 9:10 AM and terminated at 9:28 AM. The conscious sedation protocol was independently monitored. RADIATION DOSAGE (If Supplied By Facility): CTDIvol = ( 14 ) mGy, DLP = ( 674.49 ) mGycm Individualized dose optimization techniques were used for this CT. TECHNIQUE: The patient was placed in the supine position. A noncontrast CT was performed to localize the lesion in the right upper lobe . The skin surface was prepped and draped in a sterile fashion. 1% lidocaine was used for local anesthesia. Using CT guidance, a 20-gauge coaxial biopsy device was advanced to the periphery of the lesion. A total of 4 core specimens were obtained. The specimens were placed in a formalin solution. A post procedure CT demonstrated no adverse sequelae or pneumothorax. The patient tolerated the procedure well without adverse event. A negative biopsy does not exclude malignancy. Further imaging or clinical followup based on patient condition and degree of clinical suspicion for malignancy. Suggest rebiopsy, if biopsy results do not match with clinical scenario. CT/Biopsy/Inj or Needle Placement IMPRESSION: 1. CT directed core needle biopsy of the right upper lobe nodule using CT image guidance with image documentation as described. Pathology results are pending. 2. Conscious Sedation protocol utilized with independent monitoring. Electronically Signed: Gregory Cota MD at 9:58 EST , Service support ,
[2021-03-13 07:36] LABS: Absolute Lymphocyte Count 1.13 X10^3/uL (0.83-4.51); Absolute Neutrophil Count 5.5 X10^3/uL (2.0-7.7); Basophil# 0.02 X10^3/uL; Basophil% 0.3 % (0-1); Eosinophil# 0.13 X10^3/uL; Eosinophils% 1.7 % (0-5); Hematocrit 41.6 % (40-54); Hemoglobin 13.1 g/dL (13.0-16.5); Lymphocyte # 1.13 X10^3/ul (0.83-4.51); Lymphocyte % 15.1 % (19-41); Mean Corp Hgb Conc 31.5 g/dL (32-36); Mean Corpuscular Hgb 30.2 pg (27.0-32.0); Mean Corpuscular Volume 95.9 fL (80-94); Mean Platelet Vol. 11.2 fl (6.2-12.0); Monocyte# 0.66 X10^3/uL; Monocyte% 8.8 % (0-10); NRBC Flagged by Analyzer 0 % (0-5); Neutrophil % 73.8 % (47-70); Platelet Count 139 K/mm3 (150-450); RBC Distribution Width CV 13.5 % (11.6-14.6); RBC Distribution Width SD 47.1 fl (35.1-43.9); Red Blood Count 4.34 M/mm3 (4.6-6.2); White Blood Count 7.5 K/mm3 (4.4-11.0)
[2021-03-13 07:52] LABS: International Normalized Ratio 1.5; Partial Thromboplast Time 33.1 Seconds (24.1-36.2); Prothrombin Time (Protime)PT. 17.1 SECONDS (11.7-14.9)
--- NOTE | 2021-03-13 08:01 | RAD_ITS ---
STUDY: X-RAY CHEST REASON FOR EXAM: Male, 80 years old. lung sounds abnormal TECHNIQUE: AP COMPARISON: Biopsy images from 03/13/2021 FINDINGS: Nodule in the right mid lung biopsy earlier on 03/13/2021. Coarsened interstitial lung markings. No pneumothorax. Normal size heart. Normal mediastinum and amanda. Normal visualized pulmonary arteries. There is atherosclerotic tortuosity of the aortic arch and descending thoracic aorta. There is demineralization of the osseous structures. Operative changes of the right humeral head. There is no demonstrated abnormality of the visualized soft tissue structures of the upper abdomen. RAD/Chest 1 View (Portable) IMPRESSION: 1. Right mid lung nodule, biopsied. 2. No demonstrated pneumothorax. Electronically Signed: Shaka Almaguer MD (Brooks) at 17:13 EST , Service support ,
[2021-03-13] MEDS: Midazolam 2 MG/2 ML Syringe IV (09:10)
[2021-03-13] MEDS: Lidocaine 2% (20 ml mdv) 20 ML Vial INFILT (09:15)
--- NOTE | 2021-03-13 09:15 | ASPIGT_PTH ---
PATIENT: FER GLORIA LOC: CT U#:[id number] AGE/SX: 84/M ROOM: RE03/13/[address]: Dr. Shashank Perez MD : 1940 BED: DIS: SPEC #: [id number] RECD: 03/13/21 09:44 STATUS: UZMA RAFIQ #: [id number] AMELIA: 03/13/21 09:[address]: Shashank Perez DEPT: SURGICAL PATHOLOGY RECD BY: Yi Garcia ENTERED: 03/13/21 09:44 SP TYPE: ASP RAD OTHR DR: Dr. Wiley Carlson MD Tissues: Lung, NOS Procedures: FNA Specimen Adequacy Special Stain Group II Surgery Specimen Level IV Imprint (control) HEADER OPERATION: Right upper lobe, CT-guided core biopsy PRE-OP DIAGNOSIS: Mass TISSUE SUBMITTED: Right upper lobe 20-gauge core x4 MICROSCOPIC DIAGNOSIS Right upper lobe, CT-guided core biopsy: A minute focus of non-small cell carcinoma. See comment. EMMA:britta 03/16/2021 COMMENT The specimen is evaluated at the time of biopsy by Dr. Florian. Immediate Evaluation = Atypical cells noted. The specimen predominantly shows lung parenchymal tissue with marked chronic inflammation and fibrosis and pneumocyte-2 hyperplasia. Immunohistochemistry ([id number]) is non-contributory for further classification of carcinoma, due to small focus of carcinoma. Case has been reviewed in consultation with Dr. Licona who concurs with the above diagnosis. IDC:AM MICROSCOPIC DESCRIPTION Slides are reviewed. GROSS DESCRIPTION Received in fixative is one container labeled with the patient's name and designated RUL, CT-guided core biopsy. The specimen consists of multiple elongated fragments of villaseñor soft tissue that in aggregate measure 1 x 0.1 x 0.1 cm. The specimen is totally submitted in one cassette. Two touch imprints are prepared at the time of core biopsy. / SJ:britta 03/13/21 TC:0 CPT: 53844, 21277
[2021-03-13] MEDS: fentaNYL 100 MCG/2 ML Ampul IV (09:16)
[2021-03-13] MEDS: 0.9% Normal Saline 500 ML IV.SOLN. (09:17)
--- NOTE | 2021-03-13 09:35 | RAD_ITS ---
STUDY: X-RAY CHEST REASON FOR EXAM: Male, 80 years old. Post biopsy -- Immediately post lung biopsy TECHNIQUE: AP inspiration and expiration views. COMPARISON: Comparison is made with prior study done earlier today. FINDINGS: There is a right sided 10% pneumothorax. Persistent right upper lobe nodule. RAD/Chest Insp/Exp 2 View IMPRESSION: 10% right-sided pneumothorax on the immediate post right lung biopsy radiographs. A repeat examination will be obtained. Electronically Signed: Gregory Cota MD at 10:01 EST , Service support ,
--- NOTE | 2021-03-13 10:05 | NURSING ---
starting to calme a litle better in breather, remains wheezing, sitting up in bed, calmer
[2021-03-13] MEDS: Albuterol 2.5 MG/3 ML VIAL.NEB. INHALATION ×2 (10:06→11:24)
--- NOTE | 2021-03-13 11:02 | NURSING ---
updating ER nurse on possible patient to go for evaluation of exstended care
--- NOTE | 2021-03-13 11:44 | RAD_ITS ---
STUDY: X-RAY CHEST REASON FOR EXAM: Male, 80 years old. post biopsy -- 2 hours post lung biopsy TECHNIQUE: Frontal inspiratory and expiratory x-ray of the chest. COMPARISON: Earlier today FINDINGS: Nodule in the right lung base biopsy earlier today. Right-sided pneumothorax has increased in size and similar on inspiratory and expiratory images. Atelectasis of the left infrahilar lung. Normal size heart. Sternal wires and mediastinal surgical clips compatible with prior CABG. Normal visualized pulmonary arteries. There is atherosclerotic calcification of the aortic arch with tortuosity. There is demineralization of the osseous structures. Operative changes of the right humeral head. There is no demonstrated abnormality of the visualized soft tissue structures of the upper abdomen. RAD/Chest Insp/Exp 2 View IMPRESSION: 1. Enlarging right pneumothorax. 2. Partial collapse/atelectasis of right lower lobe. N.B. : The above Results were Read Back by Shaka Almaguer MD (Brooks) to SUGEY IRVING and understanding confirmed on 03/13/2021 12:47:26 (ET). Electronically Signed: Shaka Almaguer MD (Brooks) at 12:48 EST , Service support ,
--- NOTE | 2021-03-13 12:06 | NURSING ---
called and talked with Deisy ER nurse about transfer to ER for increasing sob and wheezing, doctor luis m gave report to er doctor marianne
== END | disposition home or self-care (01) ==
PROVIDERS: PCP Family Medicine; Referring Provider Internal Medicine Hematology & Oncology; Visit Provider Internal Medicine Hematology & Oncology
DX: C34.11 Malignant neoplasm of upper lobe, right bronchus or lung (principal); Z79.01 Long term (current) use of anticoagulants
CPT/HCPCS: 32408; 36415; 71045; 71046; 77012; 85025; 85610; 85730; 88172; 88305; 88313; 88341; 88342; 94640; 99156; J7040; A4216

== ENCOUNTER 2021-03-13 12:01 | Inpatient (IN) | payer MEDICARE, MEDICAID, SELFPAY ==
[2021-03-13] VITALS (15 sets, daily range): BP systolic 100–193; BP diastolic 63–96; PULSE 60–87; RESP 17–24; TEMP 35.9–37; O2SAT 91–99; BMI 26.9; BMI 24.2
--- NOTE | 2021-03-13 12:31 | ED.VIS.DYS ---
HPI History of Present Illness Chief Complaint: Shortness of Breath Informant: patient and family (Sister) Onset/Context/Timing Onset: Today Context: sudden Timing: Continuous Worsened by: Nothing Relieved by: Oxygen Associated Symptoms Negative for cough, clear sputum, white sputum, yellow sputum or green sputum Narrative Narrative: Patient presents with shortness of breath that became worse today. Patient was having an outpatient lung biopsy today. Patient developed a pneumothorax after the lung biopsy. Patient began having increasing shortness of breath after this. Patient has a history of a stroke and aphasia. [facility] Medical History (Updated 03/13/21 @ 15:[address] Miguel Ángel Dia, DO) Abnormal electrocardiogram [ECG] [EKG] Atrial fibrillation Benign essential hypertension CAD S/P percutaneous coronary angioplasty Cerebral infarction GERD (gastroesophageal reflux disease) Hemiparesis Hemiplegia History of alcohol dependence History of gastroesophageal reflux (GERD) Hyperlipidemia Iron deficiency anemia Muscle weakness Right upper lobe pulmonary nodule Stage 3 severe COPD by GOLD classification Tobacco dependence syndrome Type II diabetes mellitus Vitamin D deficiency Home Medications multivitamin 1 ea PO DAILY 07/24/16 [History Last Taken 03/12/21] lisinopril [Zestril] 20 mg PO BID 01/17/18 [History Last Taken 03/12/21] nitroglycerin 0.4 mg SUBLINGUAL Q5M PRN 01/17/18 [History Last Taken Unknown] pantoprazole 20 mg PO DAILY 01/17/18 [History Last Taken 03/12/21] apixaban 5 mg PO BID 07/30/20 [History Last Taken 03/11/21 09:00] budesonide-formoterol 2 puff IH BID 07/30/20 [History Last Taken 03/12/21] carvedilol 25 mg PO BID 07/30/20 [History Last Taken 03/12/21] cholecalciferol (vitamin D3) 1,000 unit PO DAILY 07/30/20 [History Last Taken 03/12/21] doxazosin 2 mg PO QHS 07/30/20 [History Last Taken 03/12/21] lactose-reduced food with fibr [Isosource 1.5 Kemar] 250 ml GT BID 07/30/20 [History Last Taken 03/12/21] sennosides 8.6 mg PO DAILY 07/30/20 [History Last Taken 03/12/21] tiotropium bromide [Spiriva Respimat] 2 inh INHALATION QHS 07/30/20 [History Last Taken 03/12/21] water for injection, sterile 150 ml GT 4X/DAY 07/30/20 [History Last Taken 03/12/21] atorvastatin 20 mg PO QHS 03/13/21 [History Last Taken 03/12/21] ipratropium-albuterol 3 ml INHALATION Q6H 03/13/21 [History Last Taken 03/13/21] magnesium oxide 400 mg PO DAILY 03/13/21 [History Last Taken 03/12/21] sertraline 25 mg PO DAILY 03/13/21 [History Last Taken 03/12/21] Allergy/AdvReac Type Severity Reaction Status Date / Time propoxyphene HCl Allergy Itching Verified 03/13/21 12:06 [From [place]] Family History Father Polio Mother Hypertension History of leukemia Sister Diabetes Cancer of bone Surgical History (Updated 03/13/21 @ 15:[address] Jyothi Collazo MD) H/O heart artery stent S/P percutaneous endoscopic gastrostomy (PEG) tube placement Social History (Updated 03/13/21 @ 16:[address] Jyothi Collazo MD) housing: correction Smoking Status: Former smoker Tobacco: How many years used: 56 Electronic Cigarette Use: not used how long ago did patient quit smokin, 2-3pk/day second hand exposure: Yes alcohol intake: former substance use type: does not use sushila/pentecostal: [employer]ism seatbelt use: always do you feel safe at home: Yes ROS ROS ED Review of Systems ROS Unobtainable: due to mental condition EXAM Physical Exam Const Vital Signs: 03/13/21 12:01 03/13/21 12:05 03/13/21 12:07 Temperature 98.3 F Temperature Source Oral Pulse Rate 79 Pulse Rate [1 (Initial Baseline)] Pulse Rate [3] Pulse Rate [4] Pulse Rate [5] Respiratory Rate 22 H Respiratory Rate [1 (Initial Baseline)] Respiratory Rate [3] Respiratory Rate [4] Respiratory Rate [5] Respiratory Effort Short of Breath Respiratory Depth Normal Blood Pressure 183/81 H Blood Pressure [1 (Initial Baseline)] Blood Pressure [3] Blood Pressure [4] Blood Pressure [5] Blood Pressure Mean 115 Pulse Ox 96 96 Oxygen Delivery Method Venturi Mask Venturi Mask Venturi Mask Oxygen Delivery Method [1 (Initial Baseline)] Oxygen Delivery Method [3] Oxygen Delivery Method [5] Oxygen Flow Rate (L/min) 12 12 Oxygen Flow Rate (L/min) [1 (Initial Baseline)] Oxygen Flow Rate (L/min) [3] Oxygen Flow Rate (L/min) [5] Fraction of Inspired Oxygen (FIO2) 50 50 03/13/21 13:33 03/13/21 13:42 03/13/21 13:55 Temperature Temperature Source Pulse Rate 87 77 Pulse Rate [1 (Initial Baseline)] 86 Pulse Rate [3] 82 Pulse Rate [4] 80 Pulse Rate [5] 77 Respiratory Rate 24 H 20 H Respiratory Rate [1 (Initial Baseline)] 24 H Respiratory Rate [3] 19 H Respiratory Rate [4] 20 H Respiratory Rate [5] 21 H Respiratory Effort Respiratory Depth Blood Pressure 193/96 H 107/66 Blood Pressure [1 (Initial Baseline)] 193/96 H Blood Pressure [3] 137/75 H Blood Pressure [4] 108/66 Blood Pressure [5] 100/63 Blood Pressure Mean Pulse Ox 96 96 Oxygen Delivery Method Non-Rebreather Venturi Mask Oxygen Delivery Method [1 (Initial Baseline)] Non-Rebreather Oxygen Delivery Method [3] Non-Rebreather Oxygen Delivery Method [5] Non-Rebreather Oxygen Flow Rate (L/min) 14 14 Oxygen Flow Rate (L/min) [1 (Initial Baseline)] 14 Oxygen Flow Rate (L/min) [3] 14 Oxygen Flow Rate (L/min) [5] 14 Fraction of Inspired Oxygen (FIO2) 03/13/21 14:00 03/13/21 14:05 Temperature Temperature Source Pulse Rate 79 77 Pulse Rate [1 (Initial Baseline)] Pulse Rate [3] Pulse Rate [4] Pulse Rate [5] Respiratory Rate 20 H 17 Respiratory Rate [1 (Initial Baseline)] Respiratory Rate [3] Respiratory Rate [4] Respiratory Rate [5] Respiratory Effort Respiratory Depth Blood Pressure 123/75 H 112/79 Blood Pressure [1 (Initial Baseline)] Blood Pressure [3] Blood Pressure [4] Blood Pressure [5] Blood Pressure Mean Pulse Ox 95 96 Oxygen Delivery Method Venturi Mask Venturi Mask Oxygen Delivery Method [1 (Initial Baseline)] Oxygen Delivery Method [3] Oxygen Delivery Method [5] Oxygen Flow Rate (L/min) 14 14 Oxygen Flow Rate (L/min) [1 (Initial Baseline)] Oxygen Flow Rate (L/min) [3] Oxygen Flow Rate (L/min) [5] Fraction of Inspired Oxygen (FIO2) Positive well nourished and well developed General Appearance ED: well developed HEENT Reports moist mucous membranes Resp Auscultation: diminished lung sounds right Cardio regular rate Rhythm: abnormal rhythm irregularly irregular GI non-tender Palpation: soft Neuro Neuro Narrative: There is a right hemiparesis and aphasia noted from previous stroke. There are no new focal neuro deficits. Sensorium / Orientation: alert Psych mental status grossly normal MDM MDM MDM Narrative Medical decision making narrative: Chest x-ray that was taken after the procedure was reviewed. There is a large pneumothorax on the right. Informed consent was obtained. Patient and sister were given the opportunity ask questions. Had no further questions. Risks and benefits were explained. Patient and sister understood the risks and benefits and agreed to have the procedure performed. Patient was given a dose of morphine. Patient was given 60 mg of propofol for sedation. Patient was on continuous cardiac and pulse oximeter monitors. Under sterile conditions, the area over the right second rib was anesthetized 1% plain lidocaine locally. A small stab incision was made over the right second rib. The needle and catheter were then inserted over the top of the right second rib in the midclavicular line. Air was aspirated. The catheter was then inserted into the pleural space. Catheter was sutured in place. Xeroform gauze and dressing was applied. The catheter was then hooked up to a Heimlich valve. This was then hooked to suction for a few seconds. There is good condensation noted in the tube. Patient feels better. Chest x-ray postprocedure was obtained. There is 1 view. On my interpretation, it shows the tube in place and the lung is reinflated. Radiologist also interpreted the x-ray and agrees. CBC was within normal limits. Comprehensive metabolic profile was essentially within normal limits. Case was discussed with the hospitalist. She will admit the patient to her service. Patient understood and was agreeable with the plan. All questions were answered. Lab Data Attestation: I reviewed the patient's lab results. Labs: Laboratory Results - last 24 hr 03/13/21 03/13/21 14:35 14:35 WBC 7.8 RBC 4.17 L Hgb 12.7 L Hct 40.1 MCV 96.2 H MCH 30.5 MCHC 31.7 L RDW Std Deviation 47.6 H RDW Coeff of Genaro 13.5 Plt Count 150 MPV 11.6 Immature Gran % (Auto) 0.300 Neut % (Auto) 78.4 H Lymph % (Auto) 12.0 L [place] % (Auto) 8.3 Eos % (Auto) 0.9 Baso % (Auto) 0.1 Absolute Neuts (auto) 6.1 Absolute Lymphs (auto) 0.93 Nucleated RBC % 0 Sodium 142 Potassium 4.5 Chloride 109 H Carbon Dioxide 29.0 Anion Gap 4 L BUN 18 Creatinine 0.74 Estim Creat Clear Calc 64.84 Est GFR (MDRD) Af Amer 131 Est GFR (MDRD) Non-Af 108 BUN/Creatinine Ratio 24.2 H Glucose 124 H Calcium 8.7 Total Bilirubin 0.70 AST 12 L ALT 14 L Alkaline Phosphatase 78 Total Protein 6.6 Albumin 3.1 L Globulin 3.5 Albumin/Globulin Ratio 0.9 Radiography Chest X-Ray - ED: 1 View, Read by ED Physician, Read by Radiologist and - (There is no pneumothorax. The right peripheral lung mass is still unchanged.) Treatment and Re-Evaluation Vital Sign Attestation:: Vital signs were reviewed prior to admission. They are stable. Procedures Other Procedures Procedure(s): Chest tube placement: Informed consent was obtained. Patient and sister were given the opportunity ask questions. Had no further questions. Risks and benefits were explained. Patient and sister understood the risks and benefits and agreed to have the procedure performed. Patient was given a dose of morphine. Patient was given 60 mg of propofol for sedation. Patient was on continuous cardiac and pulse oximeter monitors. Under sterile conditions, the area over the right second rib was anesthetized 1% plain lidocaine locally. A small stab incision was made over the right second rib. The needle and catheter were then inserted over the top of the right second rib in the midclavicular line. Air was aspirated. The catheter was then inserted into the pleural space. Catheter was sutured in place. Xeroform gauze and dressing was applied. The catheter was then hooked up to a Heimlich valve. This was then hooked to suction for a few seconds. There is good condensation noted in the tube. Patient feels better. Chest x-ray postprocedure was obtained. There is 1 view. On my interpretation, it shows the tube in place and the lung is reinflated. Radiologist also interpreted the x-ray and agrees. Discharge Plan Dx/Rx/DC Orders Clinical Impression: Pneumothorax, post biopsy, right Disposition Disposition: Acute Care Hospital [facility]
[2021-03-13] MEDS: Morphine 4 MG/ML Syringe IV (13:30)
[2021-03-13] MEDS: Ondansetron 4 MG/2 ML Vial IV (13:30)
[2021-03-13] MEDS: Propofol 200 MG/20 ML Vial IV BOLUS (13:41)
--- NOTE | 2021-03-13 13:56 | RAD_ITS ---
STUDY: X-RAY CHEST REASON FOR EXAM: Male, 80 years old. Chest tube placement TECHNIQUE: AP COMPARISON: 03/13/2021 FINDINGS: Small caliber right apical chest tube has been placed. Coarsened interstitial lung markings. Nodule in the right lung, previously biopsied. Pneumothorax has nearly resolved with possible tiny right apical pneumothorax, versus overlying rib shadow. There is mild cardiac enlargement. Sternal wires and mediastinal surgical clips compatible with prior CABG. Normal visualized pulmonary arteries. Normal visualized aortic arch and descending thoracic aorta. No acute bony process. There is no demonstrated abnormality of the visualized soft tissue structures of the upper abdomen. RAD/Chest 1 View (Portable) IMPRESSION: 1. Near complete evacuation of right pneumothorax following right chest tube insertion. Electronically Signed: Shaka Almaguer MD ([place]) at 16:54 EST , Service support ,
[2021-03-13 14:46] LABS: Absolute Lymphocyte Count 0.93 X10^3/uL (0.83-4.51); Absolute Neutrophil Count 6.1 X10^3/uL (2.0-7.7); Basophil# 0.01 X10^3/uL; Basophil% 0.1 % (0-1); Eosinophil# 0.07 X10^3/uL; Eosinophils% 0.9 % (0-5); Hematocrit 40.1 % (40-54); Hemoglobin 12.7 g/dL (13.0-16.5); Lymphocyte # 0.93 X10^3/ul (0.83-4.51); Mean Corp Hgb Conc 31.7 g/dL (32-36); Mean Corpuscular Hgb 30.5 pg (27.0-32.0); Mean Corpuscular Volume 96.2 fL (80-94); Mean Platelet Vol. 11.6 fl (6.2-12.0); Monocyte# 0.64 X10^3/uL; Monocyte% 8.3 % (0-10); NRBC Flagged by Analyzer 0 % (0-5); Neutrophil # 6.08 X10^3/uL (2.7-7.7); Neutrophil % 78.4 % (47-70); Platelet Count 150 K/mm3 (150-450); RBC Distribution Width CV 13.5 % (11.6-14.6); RBC Distribution Width SD 47.6 fl (35.1-43.9); Red Blood Count 4.17 M/mm3 (4.6-6.2); White Blood Count 7.8 K/mm3 (4.4-11.0)
[2021-03-13 15:00] LABS: ALB/GLOB Ratio 0.9 RATIO (0.9-2.4); AST(SGOT) 12 U/L (15-37); Alanine Aminotransfer ALT/SGPT 14 U/L (16-61); Albumin, Serum 3.1 g/dL (3.2-5.0); Alkaline Phosphatase 78 U/L (45-117); Anion Gap 4 (5-15); BUN 18 mg/dL (7-18); BUN/Creat Ratio 24.2 RATIO (10-20); Calcium,Total 8.7 mg/dL (8.5-10.1); Chloride 109 mmol/L (98-107); Creatinine, Serum 0.74 mg/dL (0.70-1.30); EST Glomerular Filtration Rate 108 mL/min (>60); Est Glom Filt Rate - Afr Amer 131 mL/min (>60); Estimated Creatinine Clearance 64.84 ml/min; Globulin 3.5 g/dL (2.2-4.2); Glucose 124 mg/dL (74-106); Potassium 4.5 mmol/L (3.5-5.1); Protein, Total 6.6 g/dL (6.4-8.2); Sodium Level 142 mmol/L (136-145)
--- NOTE | 2021-03-13 15:23 | HP.PCM.HOS_ITS ---
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 Work-up in the ED included T 98.3, heart rate 75, BP initially 196/97, respiratory rate 27, 88% on a nonrebreather with 15 L with most recent vital signs heart rate 77, BP 112/79, respiratory rate 17, 96% on 14 L Venti mask, CBC with WBC 7.8, hemoglobin 12.7, platelet 150 without marked shift, CMP with chloride 109, glucose 124, AST/ALT 03/24 otherwise not marked appearing, chest x-ray initially with a large pneumothoraces on the right with ED initiated catheter placement in the pleural space hooked up to Heimlich valve with repeat chest x-ray following with tube in place with improvement in pneumothoraces. ED discussed case with Dr. Gallagher for chest tube management who recommended placement of Heimlich valve and if repeat chest x-ray not marked appearing discharged home with follow-up in our office on Tuesday unfortunately patient still required oxygen therapy therefore rediscussed with her and will admit patient with this discharge plan if repeat chest x-ray in a.m. appropriate and oxygen requirement has de-escalate it. If necessary Dr. Gallagher will be consulted which was discussed with her. COUNT INCLUDES [facility] Medical History (Updated 03/13/21 @ 15:[address] Miguel Ángel Dia, DO) Abnormal electrocardiogram [ECG] [EKG] Atrial fibrillation Benign essential hypertension CAD S/P percutaneous coronary angioplasty Cerebral infarction GERD (gastroesophageal reflux disease) Hemiparesis Hemiplegia History of alcohol dependence History of gastroesophageal reflux (GERD) Hyperlipidemia Iron deficiency anemia Muscle weakness Right upper lobe pulmonary nodule Stage 3 severe COPD by GOLD classification Tobacco dependence syndrome Type II diabetes mellitus Vitamin D deficiency Home Medications multivitamin 1 ea PO DAILY 04/15/17 [History Last Taken 03/12/21] lisinopril [Zestril] 20 mg PO BID 01/17/18 [History Last Taken 03/12/21] nitroglycerin 0.4 mg SUBLINGUAL Q5M PRN 01/17/18 [History Last Taken Unknown] pantoprazole 20 mg PO DAILY 01/17/18 [History Last Taken 03/12/21] apixaban 5 mg PO BID 07/30/20 [History Last Taken 03/11/21 09:00] budesonide-formoterol 2 puff IH BID 07/30/20 [History Last Taken 03/12/21] carvedilol 25 mg PO BID 07/30/20 [History Last Taken 03/12/21] cholecalciferol (vitamin D3) 1,000 unit PO DAILY 07/30/20 [History Last Taken 03/12/21] doxazosin 2 mg PO QHS 07/30/20 [History Last Taken 03/12/21] lactose-reduced food with fibr [Isosource 1.5 Kemar] 250 ml GT BID 07/30/20 [History Last Taken 03/12/21] sennosides 8.6 mg PO DAILY 07/30/20 [History Last Taken 03/12/21] tiotropium bromide [Spiriva Respimat] 2 inh INHALATION QHS 07/30/20 [History Last Taken 03/12/21] water for injection, sterile 150 ml GT 4X/DAY 07/30/20 [History Last Taken 03/12/21] atorvastatin 20 mg PO QHS 03/13/21 [History Last Taken 03/12/21] ipratropium-albuterol 3 ml INHALATION Q6H 03/13/21 [History Last Taken 03/13/21] magnesium oxide 400 mg PO DAILY 03/13/21 [History Last Taken 03/12/21] sertraline 25 mg PO DAILY 03/13/21 [History Last Taken 03/12/21] Allergy/AdvReac Type Severity Reaction Status Date / Time propoxyphene HCl Allergy Itching Verified 03/13/21 12:06 [From Lee] Family History Father Polio Mother Hypertension History of leukemia Sister Diabetes Cancer of bone Surgical History (Updated 12/03/21 @ 15:[address] Jyothi Collazo MD) H/O heart artery stent S/P percutaneous endoscopic gastrostomy (PEG) tube placement Social History (Updated 03/13/21 @ 16:[address] Jyothi Collazo MD) housing: longterm Smoking Status: Former smoker Tobacco: How many years used: 56 Electronic Cigarette Use: not used how long ago did patient quit smokin, 2-3pk/day second hand exposure: Yes alcohol intake: former substance use type: does not use sushila/jehovah's witness: [employer] seatbelt use: always do you feel safe at home: Yes ROS ROS Narrative Physical Examination: General: Awake, alert, unable to answer orientation questions secondary to expressive aphasia but able to give hand signals with his left hand with thumb up and down, remains cooperative, seated upright in the ED bed, fatigued appearing, Ventimask in place, increased work of breathing but notes feeling improved since initial presentation. Skin: Normal color, normal turgor, no icterus, no cyanosis. HEENT: AT/NC, EOMI, PERRLA, mildly dry , no carotid bruits or JVD noted, VM in place. Lungs: Significantly diminished, greater bases, mild rhonchi, increased respiratory rate and some accessory muscle usage but notes feeling improved since initial ED presentation, occasional end expiratory wheeze. Heart: Regular rate and rhythm; no gallop, rub audible, right upper chest with chest tube catheter in place hooked up to flutter valve. Abdomen: Soft, overweight, PEG tube in place, NTTP, ND, normal BS, no HSM. Extremities: No cyanosis, clubbing, or edema. Neurological: Patient awake, alert, unable to answer orientation questions secondary to severe expressive aphasia, cognitive function intact; pupils equally reactive to light and accommodation, cranial nerves grossly appear normal, right-sided chronic hemiplegia, strength moderately to severely global decreased Psychiatric: Affect appears fatigued, increased work of breathing is noted, improving since initial ED presentation no acute evidence of depressive or anxiety feelings. Vital Signs Vital Signs Vital Signs: 03/13/21 12:01 03/13/21 12:05 03/13/21 12:07 Temperature 98.3 F Temperature Source Oral Pulse Rate 79 Pulse Rate [1 (Initial Baseline)] Pulse Rate [3] Pulse Rate [4] Pulse Rate [5] Respiratory Rate 22 H Respiratory Rate [1 (Initial Baseline)] Respiratory Rate [3] Respiratory Rate [4] Respiratory Rate [5] Respiratory Effort Short of Breath Respiratory Depth Normal Blood Pressure 183/81 H Blood Pressure [1 (Initial Baseline)] Blood Pressure [3] Blood Pressure [4] Blood Pressure [5] Blood Pressure Mean 115 Pulse Ox 96 96 Oxygen Delivery Method Venturi Mask Venturi Mask Venturi Mask Oxygen Delivery Method [1 (Initial Baseline)] Oxygen Delivery Method [3] Oxygen Delivery Method [5] Oxygen Flow Rate (L/min) 12 12 Oxygen Flow Rate (L/min) [1 (Initial Baseline)] Oxygen Flow Rate (L/min) [3] Oxygen Flow Rate (L/min) [5] Fraction of Inspired Oxygen (FIO2) 50 50 03/13/21 13:33 03/13/21 13:42 03/13/21 13:55 Temperature Temperature Source Pulse Rate 87 77 Pulse Rate [1 (Initial Baseline)] 86 Pulse Rate [3] 82 Pulse Rate [4] 80 Pulse Rate [5] 77 Respiratory Rate 24 H 20 H Respiratory Rate [1 (Initial Baseline)] 24 H Respiratory Rate [3] 19 H Respiratory Rate [4] 20 H Respiratory Rate [5] 21 H Respiratory Effort Respiratory Depth Blood Pressure 193/96 H 107/66 Blood Pressure [1 (Initial Baseline)] 193/96 H Blood Pressure [3] 137/75 H Blood Pressure [4] 108/66 Blood Pressure [5] 100/63 Blood Pressure Mean Pulse Ox 96 96 Oxygen Delivery Method Non-Rebreather Venturi Mask Oxygen Delivery Method [1 (Initial Baseline)] Non-Rebreather Oxygen Delivery Method [3] Non-Rebreather Oxygen Delivery Method [5] Non-Rebreather Oxygen Flow Rate (L/min) 14 14 Oxygen Flow Rate (L/min) [1 (Initial Baseline)] 14 Oxygen Flow Rate (L/min) [3] 14 Oxygen Flow Rate (L/min) [5] 14 Fraction of Inspired Oxygen (FIO2) 03/13/21 14:00 03/13/21 14:05 Temperature Temperature Source Pulse Rate 79 77 Pulse Rate [1 (Initial Baseline)] Pulse Rate [3] Pulse Rate [4] Pulse Rate [5] Respiratory Rate 20 H 17 Respiratory Rate [1 (Initial Baseline)] Respiratory Rate [3] Respiratory Rate [4] Respiratory Rate [5] Respiratory Effort Respiratory Depth Blood Pressure 123/75 H 112/79 Blood Pressure [1 (Initial Baseline)] Blood Pressure [3] Blood Pressure [4] Blood Pressure [5] Blood Pressure Mean Pulse Ox 95 96 Oxygen Delivery Method Venturi Mask Venturi Mask Oxygen Delivery Method [1 (Initial Baseline)] Oxygen Delivery Method [3] Oxygen Delivery Method [5] Oxygen Flow Rate (L/min) 14 14 Oxygen Flow Rate (L/min) [1 (Initial Baseline)] Oxygen Flow Rate (L/min) [3] Oxygen Flow Rate (L/min) [5] Fraction of Inspired Oxygen (FIO2) Weight Weight: 193 lb 1.999 oz Body Mass Index (BMI) 26.9 Results Lab / Micro Data Result Diagrams: 03/13/21 14:35 03/13/21 14:35 Labs: Laboratory Results - last 24 hr 03/13/21 14:35: WBC 7.8, RBC 4.17 L, Hgb 12.7 L, Hct 40.1, MCV 96.2 H, MCH 30.5, MCHC 31.7 L, RDW Std Deviation 47.6 H, RDW Coeff of Genaro 13.5, Plt Count 150, MPV 11.6, Immature Gran % (Auto) 0.300, Neut % (Auto) 78.4 H, Lymph % (Auto) 12.0 L, [place] % (Auto) 8.3, Eos % (Auto) 0.9, Baso % (Auto) 0.1, Absolute Neuts (auto) 6.1, Absolute Lymphs (auto) 0.93, Nucleated RBC % 0 03/13/21 14:35: Sodium 142, Potassium 4.5, Chloride 109 H, Carbon Dioxide 29.0, Anion Gap 4 L, BUN 18, Creatinine 0.74, Estim Creat Clear Calc 64.84, Est GFR (MDRD) Af Amer 131, Est GFR (MDRD) Non-Af 108, BUN/Creatinine Ratio 24.2 H, Glucose 124 H, Calcium 8.7, Total Bilirubin 0.70, AST 12 L, ALT 14 L, Alkaline Phosphatase 78, Total Protein 6.6, Albumin 3.1 L, Globulin 3.5, Albumin/Globulin Ratio 0.9 Assessment & Plan Assessment/Plan (1) Pneumothorax, post biopsy, right: PLAN: The patient is a 80 y/o M w/ PMHx: Anxiety and Depression, Former Tobacco use, GERD, HTN, HLD, BPH, CAD, Diabetes mellitus type II, PAF, Chronic COPD, 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 #1. Acute hypoxic respiratory failure secondary to acute large right-sided pneumothoraces following lung biopsy for underlying lung cancer diagnosis evaluation/treatment (Right Upper Lobe Nodule): We will admit to PCU given significant oxygen requirement, maintain on monitor, continue recently initiated chest tube catheter to flutter valve per discussion with general surgery, plan repeat a.m. chest x-ray and if no further evidence of recurrent pneumothoraces and oxygen requirement de-escalate it would discharge to home with follow-up outpatient on Tuesday with Dr. Gallagher for potential removal at her discretion, continue to encourage incentive spirometry as well as ATC DuoNeb therapies as well as as needed albuterol. #2. Hx CVA: Notable debilitating CVA with expressive aphasia, aspiration risk as well as right-sided hemiparesis, PEG tube placed, continue tube feeds, maintain aspiration and fall precautions, continue altered diet with mechanical soft and nectar thickened, continue PT/OT/speech consultations as well as case management for discharge planning. Temporarily holding patient home Eliquis therapy. Currently does not list aspirin and Plavix which he had been on in the past, will await medication clarification. We will continue patient hypertensive regimen. Patient not on any diabetic regimen but history listed therefore will obtain hemoglobin A1c to be cautious. #3. Chronic COPD: Will maintain on oxygen with wean as tolerated, hold home inhalers and will transition to ATC duonebs, PRN albuterol, HOB, IS parameters. #4. CAD: s/p PCI x 3, continue home regimen statin, BB. Temporarily holding patient home Eliquis therapy. Current list does not list aspirin and Plavix, will await medication reconciliation. #5. PAF: Maintain on home coreg regimen, holding home eliquis regimen given recent biopsy. #6. Former Tobacco Abuse: Encouraged continued tobacco cessation. #7. Hypertension: Continue home regimen including lisinopril, coreg, doxazosin, PRN IV hydralazine. #8. Anxiety and Depression: Will continue home sertraline regimen. #9. History of Diabetes mellitus type II: Not on regimen, currently at regular diet at SNF, will obtain HgBA1c, if notable add accu checks and ISS w/ diet transition. #10. BPH: Continue home flomax regimen. #11. GERD: Will continue home PPI. #12. DVT Prophylaxis: SCDs, holding home #13. CODE STATUS: Full code per skilled facility paperwork. Charges/Coding Visit Charges OBSV E&M: 79106 Initial observation care L3
--- NOTE | 2021-03-13 16:12 | ED.RN ---
[facility] called, informed them that the pt was being admitted.
--- NOTE | 2021-03-13 16:19 | ED.RN ---
called report to [facility].
--- NOTE | 2021-03-13 16:48 | PCS.PANDOC ---
PANDEMIC DOCUMENTATION INITIATED: Date: 11/24/2020 Time: 190
[2021-03-13 17:25] LABS: Hemoglobin A1c 5.9 % (3.8-5.6)
--- NOTE | 2021-03-13 18:43 | NURSING ---
Called Saurabh Tee, nurse said that he takes his pills crushed orally.
[2021-03-13] MEDS: Acetaminophen 325 MG Tablet 650 MG PO ×2 (18:49→23:14)
[2021-03-13] MEDS: Ipratropium/Albuterol Sulfate 3 ML AMPUL.NEB INHALATION (21:05)
[2021-03-13] MEDS: Doxazosin 1 MG Tablet 2 MG PO (22:32)
[2021-03-13] MEDS: Carvedilol 25 MG Tablet PO (22:32)
[2021-03-13] MEDS: Atorvastatin Calcium 20 MG Tablet PO (22:32)
[2021-03-13] MEDS: Jevity 1.5. 1,000 ML Bottle 250 ML GT (22:32)
[2021-03-13] MEDS: Lisinopril 20 MG Tablet PO (22:32)
[2021-03-14] VITALS (11 sets, daily range): BP systolic 99–136; BP diastolic 44–75; PULSE 52–86; RESP 16–20; TEMP 36.2–37.2; O2SAT 88–100
[2021-03-14] MEDS: Acetaminophen 325 MG Tablet 650 MG PO (05:15)
--- NOTE | 2021-03-14 05:55 | RAD_ITS ---
STUDY: X-RAY CHEST REASON FOR EXAM: Male, 80 years old. Dyspnea, PTX TECHNIQUE: Single AP portable view of the chest. COMPARISON: 03/13/2021 FINDINGS: Right-sided small bore thoracostomy tube with small apical pneumothorax. Status post median sternotomy. No change in the 2.5 cm nodule in the lower right lung. Some bibasilar atelectasis. There is no demonstrated pleural abnormality. Normal size heart. Normal mediastinum and amanda. Normal visualized pulmonary arteries. Normal visualized aortic arch and descending thoracic aorta. Normal visualized thoracic spine. Normal visualized ribs, clavicles, and shoulders. There is no demonstrated abnormality of the visualized soft tissue structures of the upper abdomen. RAD/Chest 1 View (Portable) IMPRESSION: Right-sided small bore thoracostomy tube with a small apical pneumothorax. Electronically Signed: Jag Robert MD at 9:10 EST Tel , Service support ,
[2021-03-14 07:20] LABS: Absolute Neutrophil Count 4.7 X10^3/uL (2.0-7.7); Basophil# 0.01 X10^3/uL; Basophil% 0.2 % (0-1); Eosinophils% 1.5 % (0-5); Hematocrit 39.8 % (40-54); Hemoglobin 12.5 g/dL (13.0-16.5); Lymphocyte % 16.9 % (19-41); Mean Corp Hgb Conc 31.4 g/dL (32-36); Mean Corpuscular Hgb 30.6 pg (27.0-32.0); Mean Corpuscular Volume 97.3 fL (80-94); Mean Platelet Vol. 12.2 fl (6.2-12.0); Monocyte# 0.62 X10^3/uL; Monocyte% 9.5 % (0-10); NRBC Flagged by Analyzer 0 % (0-5); Neutrophil # 4.66 X10^3/uL (2.7-7.7); Neutrophil % 71.6 % (47-70); Platelet Count 136 K/mm3 (150-450); RBC Distribution Width CV 13.6 % (11.6-14.6); RBC Distribution Width SD 48.6 fl (35.1-43.9); Red Blood Count 4.09 M/mm3 (4.6-6.2); White Blood Count 6.5 K/mm3 (4.4-11.0)
[2021-03-14 07:43] LABS: ALB/GLOB Ratio 0.9 RATIO (0.9-2.4); AST(SGOT) 16 U/L (15-37); Alanine Aminotransfer ALT/SGPT 14 U/L (16-61); Albumin, Serum 2.9 g/dL (3.2-5.0); Alkaline Phosphatase 76 U/L (45-117); Anion Gap 5 (5-15); BUN 26 mg/dL (7-18); BUN/Creat Ratio 33.4 RATIO (10-20); Calcium,Total 8.8 mg/dL (8.5-10.1); Chloride 107 mmol/L (98-107); Creatinine, Serum 0.78 mg/dL (0.70-1.30); EST Glomerular Filtration Rate 102 mL/min (>60); Est Glom Filt Rate - Afr Amer 124 mL/min (>60); Globulin 3.4 g/dL (2.2-4.2); Glucose 97 mg/dL (74-106); Potassium 4.5 mmol/L (3.5-5.1); Protein, Total 6.3 g/dL (6.4-8.2); Sodium Level 140 mmol/L (136-145)
[2021-03-14] MEDS: Ipratropium/Albuterol Sulfate 3 ML AMPUL.NEB INHALATION ×2 (07:57→20:11)
--- NOTE | 2021-03-14 08:36 | EX.PCM.CONCC ---
Assessment & Plan Assessment/Plan (1) Iatrogenic pneumothorax: PLAN: RECOMMENDATIONS: 1. Continue supplemental oxygen as ordered. 2. Place chest tube to wall suction for the next 24 hours. Repeat chest x-ray tomorrow morning. 3. Continue scheduled bronchodilators. IMPRESSIONS: 1. Iatrogenic pneumothorax The patient developed a pneumothorax status post CT-guided lung biopsy and underwent small bore catheter placement. There does still appear to be some residual apical pneumothorax on my review of his chest x-ray from this morning. The patient currently only has a Heimlich valve in place. Therefore, I did recommend that he be hooked to an atrium and placed on wall suction for the next 24 hours. Plan to obtain repeat chest x-ray tomorrow morning, with the possibility for chest tube removal, if pneumothorax is resolved. Continue supplemental oxygen for now. 2. History of advanced stage COPD Continue bronchodilators as ordered. 3. History of CVA with residual deficits/coronary artery disease/paroxysmal atrial fibrillation/hypertension/diabetes mellitus Complicates care, management, recovery and prognosis. Continue home medications as indicated. This note was generated with The [employer] dictation software. It may contain incorrect words, spelling, and punctuation that were not noted in checking the note before signing. HPI Consult Data Date of Consult: 03/14/21 HPI Narrative Reason for Consultation: Iatrogenic pneumothorax HPI Narrative: The patient is a 80-year-old male, with a history as outlined below, who presented for admission due to an iatrogenic pneumothorax following CT-guided lung biopsy. The patient has a known history of severe obstructive lung disease and recurrent aspiration following CVA in early 2020. The patient was evaluated in our pulmonary medicine clinic in 2016, but has not followed up with us since that time. In February [address] chest was obtained which revealed a 1.1 x 1.6 cm spiculated nodule in the right upper lobe. Follow-up PET scan in mid February revealed increased uptake. The patient was evaluated by Dr. Perez of oncology. He was then referred to undergo a percutaneous CT-guided lung biopsy. The patient's biopsy was completed on March 13. Post procedure, the patient developed a pneumothorax. The patient was then referred to the emergency department and underwent small bore catheter insertion. FORMERLY [facility], [facility]–1983 Medical History (Updated 03/14/21 @ 08:[address] Duc Toth, DO) Abnormal electrocardiogram [ECG] [EKG] Atrial fibrillation Benign essential hypertension CAD S/P percutaneous coronary angioplasty Cerebral infarction GERD (gastroesophageal reflux disease) Hemiparesis Hemiplegia History of alcohol dependence History of gastroesophageal reflux (GERD) Hyperlipidemia Iron deficiency anemia Muscle weakness Right upper lobe pulmonary nodule Stage 3 severe COPD by GOLD classification Tobacco dependence syndrome Type II diabetes mellitus Vitamin D deficiency Home Medications multivitamin 1 ea PO DAILY 07/24/16 [History Last Taken 03/12/21] lisinopril [Zestril] 20 mg PO BID 01/17/18 [History Last Taken 03/12/21] nitroglycerin 0.4 mg SUBLINGUAL Q5M PRN 01/17/18 [History Last Taken Unknown] pantoprazole 20 mg PO DAILY 01/17/18 [History Last Taken 03/12/21] apixaban 5 mg PO BID 07/30/20 [History Last Taken 03/11/21 09:00] budesonide-formoterol 2 puff IH BID 07/30/20 [History Last Taken 03/12/21] carvedilol 25 mg PO BID 07/30/20 [History Last Taken 03/12/21] cholecalciferol (vitamin D3) 1,000 unit PO DAILY 07/30/20 [History Last Taken 03/12/21] doxazosin 2 mg PO QHS 07/30/20 [History Last Taken 03/12/21] lactose-reduced food with fibr [Isosource 1.5 Kemar] 250 ml GT BID 07/30/20 [History Last Taken 03/12/21] sennosides 8.6 mg PO DAILY 07/30/20 [History Last Taken 03/12/21] tiotropium bromide [Spiriva Respimat] 2 inh INHALATION QHS 07/30/20 [History Last Taken 03/12/21] water for injection, sterile 150 ml GT 4X/DAY 07/30/20 [History Last Taken 03/12/21] atorvastatin 20 mg PO QHS 03/13/21 [History Last Taken 03/12/21] ipratropium-albuterol 3 ml INHALATION Q6H 03/13/21 [History Last Taken 03/13/21] magnesium oxide 400 mg PO DAILY 03/13/21 [History Last Taken 03/12/21] sertraline 25 mg PO DAILY 03/13/21 [History Last Taken 03/12/21] Allergy/AdvReac Type Severity Reaction Status Date / Time propoxyphene HCl Allergy Itching Verified 03/13/21 12:06 [From Lee] Family History Father Polio Mother Hypertension History of leukemia Sister Diabetes Cancer of bone Surgical History (Updated 03/13/21 @ 15:[address] Jyothi Collazo MD) H/O heart artery stent S/P percutaneous endoscopic gastrostomy (PEG) tube placement Social History (Updated 03/13/21 @ 16:[address] Jyothi Collazo MD) housing: half-way Smoking Status: Former smoker Tobacco: How many years used: 56 Electronic Cigarette Use: not used how long ago did patient quit smokin, 2-3pk/day second hand exposure: Yes alcohol intake: former substance use type: does not use sushila/cheondoism: Yarsani seatbelt use: always do you feel safe at home: Yes ROS Review of Systems ROS Unobtainable: due to mental status and other Details: Expressive aphasia Physical Exam Const alert and no apparent distress General Appearance: cooperative HEENT normocephalic and head/scalp atraumatic Eyes PERRL, EOMs intact bilaterally and conjunctivae normal Neck supple General: trachea midline Chest inspection of chest normal Chest: chest tube Resp no use of accessory muscles Auscultation: diminished lung sounds Cardio regular rate and regular rhythm GI normal to inspection, nondistended, normoactive bowel sounds Inspection: GI tube present Extremity no clubbing, cyanosis or edema Neuro Neuro Narrative: Expressive aphasia noted. Chronic right hemiplegia. Lab / Micro Data Result Diagrams: 03/14/21 05:38 03/14/21 05:38 Labs: Laboratory Results - last 24 hr 03/13/21 14:35: WBC 7.8, RBC 4.17 L, Hgb 12.7 L, Hct 40.1, MCV 96.2 H, MCH 30.5, MCHC 31.7 L, RDW Std Deviation 47.6 H, RDW Coeff of Genaro 13.5, Plt Count 150, MPV 11.6, Immature Gran % (Auto) 0.300, Neut % (Auto) 78.4 H, Lymph % (Auto) 12.0 L, [place] % (Auto) 8.3, Eos % (Auto) 0.9, Baso % (Auto) 0.1, Absolute Neuts (auto) 6.1, Absolute Lymphs (auto) 0.93, Nucleated RBC % 0 03/13/21 14:35: Sodium 142, Potassium 4.5, Chloride 109 H, Carbon Dioxide 29.0, Anion Gap 4 L, BUN 18, Creatinine 0.74, Estim Creat Clear Calc 64.84, Est GFR (MDRD) Af Amer 131, Est GFR (MDRD) Non-Af 108, BUN/Creatinine Ratio 24.2 H, Glucose 124 H, Calcium 8.7, Total Bilirubin 0.70, AST 12 L, ALT 14 L, Alkaline Phosphatase 78, Total Protein 6.6, Albumin 3.1 L, Globulin 3.5, Albumin/Globulin Ratio 0.9 03/13/21 14:35: Hemoglobin A1c 5.9 H 03/14/21 05:38: WBC 6.5, RBC 4.09 L, Hgb 12.5 L, Hct 39.8 L, MCV 97.3 H, MCH 30.6, MCHC 31.4 L, RDW Std Deviation 48.6 H, RDW Coeff of Genaro 13.6, Plt Count 136 L, MPV 12.2 H, Immature Gran % (Auto) 0.300, Neut % (Auto) 71.6 H, Lymph % (Auto) 16.9 L, [place] % (Auto) 9.5, Eos % (Auto) 1.5, Baso % (Auto) 0.2, Absolute Neuts (auto) 4.7, Absolute Lymphs (auto) 1.10, Nucleated RBC % 0 03/14/21 05:38: Sodium 140, Potassium 4.5, Chloride 107, Carbon Dioxide 28.0, Anion Gap 5, BUN 26 H, Creatinine 0.78, Estim Creat Clear Calc 68.80, Est GFR (MDRD) Af Amer 124, Est GFR (MDRD) Non-Af 102, BUN/Creatinine Ratio 33.4 H, Glucose 97, Calcium 8.8, Total Bilirubin 0.70, AST 16, ALT 14 L, Alkaline Phosphatase 76, Total Protein 6.3 L, Albumin 2.9 L, Globulin 3.4, Albumin/Globulin Ratio 0.9 Radiology Impression Chest X-Ray 03/13/21 13:56 IMPRESSION: 1. Near complete evacuation of right pneumothorax following right chest tube insertion. Electronically Signed: Shaka Almaguer MD (Brooks) at 16:54 EST , Service support , Charges/Coding Visit Charges Inpatient E&M: 40031 Init Hosp L3
[2021-03-14] MEDS: Pantoprazole Sodium 20 MG Tablet PO (09:02)
[2021-03-14] MEDS: Carvedilol 25 MG Tablet PO ×2 (09:02→22:28)
[2021-03-14] MEDS: Magnesium Chloride 64 MG Delay Rel.Tablet 128 MG PO (09:02)
[2021-03-14] MEDS: Senna Tablet 1 TABLET PO (09:03)
[2021-03-14] MEDS: Sertraline 50 MG Tablet 25 MG PO (09:03)
[2021-03-14] MEDS: Lisinopril 20 MG Tablet PO ×2 (09:03→22:32)
--- NOTE | 2021-03-14 12:16 | NURSING ---
Heimlich valve transitioned to wall suction chamber, set at 20
[2021-03-14] MEDS: Jevity 1.5. 1,000 ML Bottle 250 ML GT ×2 (12:26→22:52)
--- NOTE | 2021-03-14 12:50 | RAD_ITS ---
STUDY: X-RAY CHEST REASON FOR EXAM: Male, 80 years old. PTX, chest tube TECHNIQUE: Single AP portable view of the chest. COMPARISON: 03/14/2021 at 06 25 FINDINGS: Right-sided small bore thoracostomy tube with increase in the right-sided pneumothorax which is now moderate in size. Status post median sternotomy. No change in the 2.5 cm nodule in the right lower lobe. There is no demonstrated pleural abnormality. Normal size heart. Normal mediastinum and amanda. Normal visualized pulmonary arteries. Normal visualized aortic arch and descending thoracic aorta. Normal visualized thoracic spine. Normal visualized ribs, clavicles, and shoulders. There is no demonstrated abnormality of the visualized soft tissue structures of the upper abdomen. RAD/Chest 1 View (Portable) IMPRESSION: Right-sided small bore thoracostomy tube with increase in the size of the pneumothorax which is now moderate in size. Electronically Signed: Jag Robert MD at 13:16 EST Tel , Service support ,
--- NOTE | 2021-03-14 14:40 | RAD_ITS ---
HISTORY: chest tube insertion. TECHNIQUE: XR Chest 1 View. EXAM TIME: 2021-03-14 14:40. # of images incl. paperwork: 1. COMPARISON:13:04. FINDINGS: LINES/DEVICES: Right chest wall emphysema with exchange and reposition of the right chest tube. Surgical anchors in the right humeral head. CARDIOMEDIASTINAL BORDERS: Stable with midline sternotomy. LUNGS: Bibasilar opacities, decreased on the right. Round mass or focal pneumonia in the right midlung. PLEURA: Near complete resolution of right pneumothorax. RAD/Chest 1 View (Portable) IMPRESSION: Near complete resolution of right pneumothorax status post chest tube placement. Right chest wall subcutaneous emphysema. Focal pneumonia or mass in the right midlung. at 1556 Reported and signed by: Amirah Fried MD Electronically Signed: Amirah Fried MD at 15:55 EST Tel , Service support ,
[2021-03-14] MEDS: 0.9% Saline Lock 10 ML Syringe IV ×3 (14:55→17:47)
[2021-03-14] MEDS: Midazolam 2 MG/2 ML Syringe 5 MG IV (14:55)
--- NOTE | 2021-03-14 14:56 | CASEMGMT ---
LEXY WELLS NOTE: Insurance review for hospitals In-network with [facility] (formerly [facility])[3] Insurance if transfer is recommended is as follows: [facility], [place], [facility], [facility], [facility], [facility]), and . Adam SNIDERN LEXY CM
--- NOTE | 2021-03-14 14:56 | NURSING ---
Dr Gallagher at bedside, insertion of new chest tube. Removal of old chest tube. Stat CXR to verify placement. at bedside and aware of procedure.
--- NOTE | 2021-03-14 15:02 | PCM.OPRPT ---
Report of Operation Date of Procedure: 03/14/21 Pre-Operative Diagnosis: right iatrogenic pneumothorax Post-Operative Diagnosis: same Surgery/Procedure Performed:: placement of chest tube - right sided Description of Surgical Findings:: right lung mass Surgeon: Nancy Gallagher Type of Anesthesia: IV Sedation (IV 2 mg versed) and Local (15 ml xylocaine 1%) Anesthesiologist: Nancy Gallagher Specimen's removed: none Drains: 20 Fr right sided chest tube Estimated Blood Loss (mL): minimal Fluids Replaced: none Description of Procedure: After informed consent was obtained, the procedure was done at the patient's beside. Appropriate time out protocol was followed. IV conscious sedation was used with - IV versed 2 mg and local anesthesia 1% xylocaine 15 ml - total anesthesia time - 24 minutes He was placed in the supine position with HOB elevated and slightly left lateral position. The right chest was then prepped and draped in a sterile fashion. Palpation of the ribs of the anterior chest wall was done to determine position of the chest tube Local anesthetic was injected in to the skin and subcutaneous tissues at the site marked out for placement of the chest tube. A skin incision was then made with an 11 blade at the proposed chest tube entrance site. Blunt dissection was then done over to the rib superior to the incision site and then to the superior aspect of the rib. This was done to bluntly create a tunnel from the skin to the pleural space. This was done with blunt dissection through the subcutaneous tissues, through the chest wall fascia, through the pectoralis muscles, through the pleura. The pleural space was then entered with a curved Ree clamp. A 20 Fr chest tube was then positioned into the pleural space and directed cephalad after determining the proper distance to the apex of the lung. The chest tube was then connected to the Pleurevac container. The chest tube was sutured to the skin with silk suture. Sterile dressing was then applied to the site. The previous thoracostomy tube was removed. A CXR was obtained which revealed good position of the chest tube and the right sided pneumothorax was resolved. . Complications none noted Admit VTE Documentation VTE Present on Admission: Yes VTE Mechan Device Prophylaxis: SCD's
[2021-03-14 15:06] LABS: Bedside Glucose 113 mg/dL (70-110)
--- NOTE | 2021-03-14 15:07 | PCM.PN.HOSP ---
Subjective Subjective Patient with expressive aphasia. Was admitted overnight with a Thomson catheter in place for a iatrogenic pneumothorax status post CT-guided biopsy of a lung mass. He remains on 3 L nasal cannula. Oxygen saturations are in the low 90s. No significant issues overnight. Objective Data Objective Data Vital Signs: Vital Signs Temp Pulse Resp BP Pulse Ox 98.8 F 71 20 H 99/56 L 100 03/14/21 14:28 03/14/21 14:28 03/14/21 14:28 03/14/21 14:28 03/14/21 14:28 Oxygen Flow Rate (L/min) [5] 14 Oxygen Flow Rate (L/min) [3] 14 Oxygen Flow Rate (L/min) [1 ( 14 Initial Baseline)] Oxygen Flow Rate (L/min) 6 Oxygen Delivery Method [5] Non-Rebreather Oxygen Delivery Method [3] Non-Rebreather Oxygen Delivery Method [1 ( Non-Rebreather Initial Baseline)] Oxygen Delivery Method Nasal Cannula Weight: 82.3 kg Body Mass Index (BMI) 24.2 Intake & Output: Intake and Output for Last 24 Hours 03/12/21 03/13/21 03/14/21 23:59 23:59 23:59 Intake Total 1020 / 1020 200 / 200 Output Total 200 / 200 150 / 150 Balance 820 / 820 50 / 50 Lab / Micro Data Result Diagrams: 03/14/21 05:38 03/14/21 05:38 Labs: Laboratory Results - last 24 hr 03/13/21 14:35: Hemoglobin A1c 5.9 H 03/14/21 05:38: WBC 6.5, RBC 4.09 L, Hgb 12.5 L, Hct 39.8 L, MCV 97.3 H, MCH 30.6, MCHC 31.4 L, RDW Std Deviation 48.6 H, RDW Coeff of Genaro 13.6, Plt Count 136 L, MPV 12.2 H, Immature Gran % (Auto) 0.300, Neut % (Auto) 71.6 H, Lymph % (Auto) 16.9 L, Maries % (Auto) 9.5, Eos % (Auto) 1.5, Baso % (Auto) 0.2, Absolute Neuts (auto) 4.7, Absolute Lymphs (auto) 1.10, Nucleated RBC % 0 03/14/21 05:38: Sodium 140, Potassium 4.5, Chloride 107, Carbon Dioxide 28.0, Anion Gap 5, BUN 26 H, Creatinine 0.78, Estim Creat Clear Calc 68.80, Est GFR (MDRD) Af Amer 124, Est GFR (MDRD) Non-Af 102, BUN/Creatinine Ratio 33.4 H, Glucose 97, Calcium 8.8, Total Bilirubin 0.70, AST 16, ALT 14 L, Alkaline Phosphatase 76, Total Protein 6.3 L, Albumin 2.9 L, Globulin 3.4, Albumin/Globulin Ratio 0.9 03/14/21 15:03: POC Glucose 113 H Radiography Diagnostic Testing: Radiology Impression Chest X-Ray 03/13/21 13:56 IMPRESSION: 1. Near complete evacuation of right pneumothorax following right chest tube insertion. Electronically Signed: Shaka Almaguer MD (Brooks) at 16:54 EST , Service support , Chest X-Ray 03/14/21 05:55 IMPRESSION: Right-sided small bore thoracostomy tube with a small apical pneumothorax. Electronically Signed: Jag Robert MD at 9:10 EST Tel , Service support , Chest X-Ray 03/14/21 12:50 IMPRESSION: Right-sided small bore thoracostomy tube with increase in the size of the pneumothorax which is now moderate in size. Electronically Signed: Jag Robert MD at 13:16 EST Tel , Service support , Physical Exam Const alert Constitutional Narrative: Elderly white male sitting up in bed, fairly dense right hemiparesis with expressive aphasia but follows commands, nontoxic-appearing, no acute respiratory distress at this time Exam Limitations: language barrier HEENT head/scalp atraumatic, moist oral mucous membranes and oropharynx normal HEENT Narrative: Edentulous, Mallampati 3, no thrush Head and Scalp: normocephalic Eyes PERRL, EOMs intact bilaterally and conjunctivae normal Eyes Narrative: No scleral icterus Neck no lymphadenopathy, supple and no JVD Neck Narrative: Trachea midline, no thyroid large Resp normal respiratory effort, no retractions and no use of accessory muscles Resp Narrative: Extensive rhonchi right but fairly clear on the left, decreased breath sounds at the right apex, somewhat of upper airway adventitious sounds as well, mild tachypnea Auscultation: rhonchi; Negative for crackles, rales or wheezes Cardio regular rate, regular rhythm, S1 normal heart sound, S2 normal heart sound, no murmurs, no rub, no gallops, no clicks and no JVD GI normal to inspection, nondistended, normoactive bowel sounds, soft to palpation, non-tender and non-distended GI Narrative: PEG tube in place left upper quadrant-clean and dry Extremity no clubbing, cyanosis or edema Peripheral Pulses: Yes pulses 2+ throughout Neuro Neuro Narrative: Follows commands but unable to communicate well other than yes and no secondary to expressive aphasia, right hemiparesis Sensorium / Orientation: awake Psych Psych Narrative: Difficult to access secondary to aphasia Assessment & Plan Assessment/Plan (1) Iatrogenic pneumothorax: (2) Acute respiratory failure with hypoxia: (3) Dysphagia: (4) Aspiration pneumonia: PLAN: Acute hypoxic respiratory failure secondary to right iatrogenic pneumothorax and suspected aspiration pneumonia -Start Unasyn -Obtain culture if possible -Is pertinent for marked rhonchi right base -Large bore chest tube placed today given worsening pneumothorax status post Thomson catheter -Follow-up chest x-ray appears improved -Patient to wall suction at -30 mmHg -Patient with marked leak -As needed morphine for pain -Pulmonary and general surgery are following Dysphagia -Patient was seen by speech therapy and diet downgraded to honey thick liquids with teaspoon -Patient is a full feed -Continue tube feed via PEG as ordered -RN NT suctioning Right upper lobe pulmonary nodule -PET scan suggestive of malignancy -Biopsy was done on 03/13/2021--> patient with pneumothorax following procedure -Per extensive discussion with patient's older sister who is his healthcare POA the biopsy was done at the patient's wishes but there was no intent to treat down the line as he would not want any further aggressive intervention. -Given the complication with this nodule finding and his overall goals of care we discussed palliative care and hospice and she was very interested in talking to them and possibly enrolling him in hospice given his current suspected malignancy and his other comorbidities -Biopsy results are pending at this time--> await pathology -We also discussed current CODE STATUS which was full code CODE STATUS was changed to DNR CCA no intubation -Order was placed History of stroke -Patient with expressive aphasia at baseline as well as right-sided hemiparesis -PEG tube in place -Continue therapies as ordered -Continue to hold Eliquis -Diet altered as above COPD -Former tobacco abuse up until prior to stroke -Scheduled and as needed aerosols -Continue I-S -Hold home inhalers CAD/HTN/HPL -Continue home Coreg -Continue home lisinopril -As needed hydralazine -Continue atorvastatin DM-2 -hgb A1c was 5.9 -No need for diet transition or Accu-Cheks/SSI BPH -Continue doxazosin PAF -Continue beta-killian -Hold Eliquis with procedures GERD -Continue PPI Anxiety/depression -Continue Zoloft DVT prophylaxis -SCDs -Hold home Eliquis for procedures -If hemoglobin stable tomorrow initiate chemoprophylaxis with Lovenox CODE STATUS -Per discussion with sister who is at the bedside and healthcare POA we will transition to DNR CCA with no intubation as she states her brother has expressed previously that he does not want any aggressive treatment including chemotherapy for his potential lung cancer. She indicates he had the biopsy done per his wishes although she and her other sister recommended against it but he had told them he did not want treated. Charges/Coding Visit Charges Inpatient E&M: 56500 [facility] Hosp L3
[2021-03-14] MEDS: Morphine 2 MG/ML Syringe IV ×2 (15:08→17:47)
--- NOTE | 2021-03-14 15:13 | EKG12_ITS ---
Test Reason : Blood Pressure : / mmHG Vent. Rate : 073 BPM Atrial Rate : 073 BPM P-R Int : 182 ms QRS Dur : 092 ms QT Int : 412 ms P-R-T Axes : 047 031 047 degrees QTc Int : 453 ms Normal sinus rhythm Normal ECG When compared with ECG of 30-JUL-2020 00:28, No significant change was found Confirmed by MICHAEL MARINELLI, RAYMOND ([id number]), online marketing strategist ANJUM CANTRELL ([id number]) on 03/16/2021 2:08:26 PM Referred By: CHAO Confirmed By:RAYMOND RODRIGUEZ MD
--- NOTE | 2021-03-14 15:21 | CON.PCM.SX_ITS ---
Assessment & Plan Assessment/Plan (1) Iatrogenic pneumothorax: PLAN: Will plan immediate placement of right sided chest tube. Risks/benefits explained to patient and his who is present with him. I have answered all their questions and they have no further questions. HPI Consult Data Date of Consult: 03/14/21 HPI Narrative HPI Narrative: FER GLORIA, is a 80 M who presents with right sided iatrogenic pneumothorax after lung biopsy. A thoracostomy catheter had been placed in the ED by the ED physician yesterday however, the pneumothorax has worsened by today's chest xray. COUNT INCLUDES THE [facility] Medical History Abnormal electrocardiogram [ECG] [EKG] Atrial fibrillation Benign essential hypertension CAD S/P percutaneous coronary angioplasty Cerebral infarction GERD (gastroesophageal reflux disease) Hemiparesis Hemiplegia History of alcohol dependence History of gastroesophageal reflux (GERD) Hyperlipidemia Iron deficiency anemia Muscle weakness Right upper lobe pulmonary nodule Stage 3 severe COPD by GOLD classification Tobacco dependence syndrome Type II diabetes mellitus Vitamin D deficiency Home Medications multivitamin 1 ea PO DAILY 07/24/16 [History Last Taken 03/12/21] lisinopril [Zestril] 20 mg PO BID 01/17/18 [History Last Taken 03/12/21] nitroglycerin 0.4 mg SUBLINGUAL Q5M PRN 01/17/18 [History Last Taken Unknown] pantoprazole 20 mg PO DAILY 01/17/18 [History Last Taken 03/12/21] apixaban 5 mg PO BID 07/30/20 [History Last Taken 03/11/21 09:00] budesonide-formoterol 2 puff IH BID 07/30/20 [History Last Taken 03/12/21] carvedilol 25 mg PO BID 07/30/20 [History Last Taken 03/12/21] cholecalciferol (vitamin D3) 1,000 unit PO DAILY 07/30/20 [History Last Taken 03/12/21] doxazosin 2 mg PO QHS 07/30/20 [History Last Taken 03/12/21] lactose-reduced food with fibr [Isosource 1.5 Kemar] 250 ml GT BID 07/30/20 [History Last Taken 03/12/21] sennosides 8.6 mg PO DAILY 07/30/20 [History Last Taken 03/12/21] tiotropium bromide [Spiriva Respimat] 2 inh INHALATION QHS 07/30/20 [History Last Taken 03/12/21] water for injection, sterile 150 ml GT 4X/DAY 07/30/20 [History Last Taken 03/12/21] atorvastatin 20 mg PO QHS 03/13/21 [History Last Taken 03/12/21] ipratropium-albuterol 3 ml INHALATION Q6H 03/13/21 [History Last Taken 03/13/21] magnesium oxide 400 mg PO DAILY 03/13/21 [History Last Taken 03/12/21] sertraline 25 mg PO DAILY 03/13/21 [History Last Taken 03/12/21] Allergy/AdvReac Type Severity Reaction Status Date / Time propoxyphene HCl Allergy Itching Verified 03/13/21 12:06 [From Lee] Family History Father Polio Mother Hypertension History of leukemia Sister Diabetes Cancer of bone Surgical History H/O heart artery stent S/P percutaneous endoscopic gastrostomy (PEG) tube placement Social History housing: intermediate Smoking Status: Former smoker Tobacco: How many years used: 56 Electronic Cigarette Use: not used how long ago did patient quit smokin, 2-3pk/day second hand exposure: Yes alcohol intake: former substance use type: does not use sushila/yarsanism: Bahai seatbelt use: always do you feel safe at home: Yes ROS ROS Narrative patient is non communicative, see previous notes Physical Exam Const Constitutional Narrative: non verbal General Appearance: frail HEENT normocephalic Resp normal respiratory effort GI soft to palpation Lab / Micro Data Result Diagrams: 03/14/21 05:38 03/14/21 05:38 Labs: Laboratory Results - last 24 hr 03/13/21 14:35: Hemoglobin A1c 5.9 H 03/14/21 05:38: WBC 6.5, RBC 4.09 L, Hgb 12.5 L, Hct 39.8 L, MCV 97.3 H, MCH 30.6, MCHC 31.4 L, RDW Std Deviation 48.6 H, RDW Coeff of Genaro 13.6, Plt Count 136 L, MPV 12.2 H, Immature Gran % (Auto) 0.300, Neut % (Auto) 71.6 H, Lymph % (Auto) 16.9 L, [place] % (Auto) 9.5, Eos % (Auto) 1.5, Baso % (Auto) 0.2, Absolute Neuts (auto) 4.7, Absolute Lymphs (auto) 1.10, Nucleated RBC % 0 03/14/21 05:38: Sodium 140, Potassium 4.5, Chloride 107, Carbon Dioxide 28.0, Anion Gap 5, BUN 26 H, Creatinine 0.78, Estim Creat Clear Calc 68.80, Est GFR (MDRD) Af Amer 124, Est GFR (MDRD) Non-Af 102, BUN/Creatinine Ratio 33.4 H, Glucose 97, Calcium 8.8, Total Bilirubin 0.70, AST 16, ALT 14 L, Alkaline Phosphatase 76, Total Protein 6.3 L, Albumin 2.9 L, Globulin 3.4, Albumin/Globulin Ratio 0.9 03/14/21 15:03: POC Glucose 113 H Radiology Impression Chest X-Ray 03/13/21 13:56 IMPRESSION: 1. Near complete evacuation of right pneumothorax following right chest tube insertion. Electronically Signed: Shaka Almaguer MD (Brooks) at 16:54 EST , Service support , Chest X-Ray 03/14/21 05:55 IMPRESSION: Right-sided small bore thoracostomy tube with a small apical pneumothorax. Electronically Signed: Jag Robert MD at 9:10 EST Tel , Service support , Chest X-Ray 03/14/21 12:50 IMPRESSION: Right-sided small bore thoracostomy tube with increase in the size of the pneumothorax which is now moderate in size. Electronically Signed: Jag Robert MD at 13:16 EST Tel , Service support ,
[2021-03-14 16:19] LABS: Troponin-I HS 8 pg/mL (3.0-78.0)
[2021-03-14] MEDS: Doxazosin 1 MG Tablet 2 MG PO (22:28)
[2021-03-14] MEDS: Atorvastatin Calcium 20 MG Tablet PO (22:28)
[2021-03-15] VITALS (11 sets, daily range): BP systolic 126–137; BP diastolic 62–68; PULSE 61–89; RESP 18–24; TEMP 36.6–37.3; O2SAT 92–96
[2021-03-15] MEDS: Morphine 2 MG/ML Syringe IV ×5 (00:05→20:19)
[2021-03-15] MEDS: 0.9% Saline Lock 10 ML Syringe IV ×4 (00:05→20:19)
[2021-03-15] MEDS: Ipratropium/Albuterol Sulfate 3 ML AMPUL.NEB INHALATION ×3 (06:46→20:39)
[2021-03-15 06:48] LABS: Absolute Lymphocyte Count 1.26 X10^3/uL (0.83-4.51); Absolute Neutrophil Count 4.5 X10^3/uL (2.0-7.7); Basophil# 0.01 X10^3/uL; Basophil% 0.2 % (0-1); Eosinophil# 0.11 X10^3/uL; Eosinophils% 1.7 % (0-5); Hematocrit 35.9 % (40-54); Hemoglobin 11.2 g/dL (13.0-16.5); Lymphocyte # 1.26 X10^3/ul (0.83-4.51); Lymphocyte % 19.5 % (19-41); Mean Corp Hgb Conc 31.2 g/dL (32-36); Mean Corpuscular Hgb 30.4 pg (27.0-32.0); Mean Corpuscular Volume 97.3 fL (80-94); Mean Platelet Vol. 11.8 fl (6.2-12.0); Monocyte% 9.3 % (0-10); NRBC Flagged by Analyzer 0 % (0-5); Neutrophil # 4.47 X10^3/uL (2.7-7.7); Platelet Count 133 K/mm3 (150-450); RBC Distribution Width CV 13.4 % (11.6-14.6); RBC Distribution Width SD 48.2 fl (35.1-43.9); Red Blood Count 3.69 M/mm3 (4.6-6.2); White Blood Count 6.5 K/mm3 (4.4-11.0)
[2021-03-15 07:18] LABS: ALB/GLOB Ratio 0.8 RATIO (0.9-2.4); AST(SGOT) 12 U/L (15-37); Alanine Aminotransfer ALT/SGPT 12 U/L (16-61); Albumin, Serum 2.6 g/dL (3.2-5.0); Alkaline Phosphatase 65 U/L (45-117); Anion Gap 6 (5-15); BUN 24 mg/dL (7-18); BUN/Creat Ratio 37.6 RATIO (10-20); Calcium,Total 8.4 mg/dL (8.5-10.1); Chloride 106 mmol/L (98-107); Creatinine, Serum 0.64 mg/dL (0.70-1.30); EST Glomerular Filtration Rate 129 mL/min (>60); Est Glom Filt Rate - Afr Amer 156 mL/min (>60); Globulin 3.4 g/dL (2.2-4.2); Glucose 90 mg/dL (74-106); Sodium Level 141 mmol/L (136-145)
--- NOTE | 2021-03-15 08:24 | PN.CC_ITS ---
Assessment & Plan Assessment/Plan (1) Iatrogenic pneumothorax: PLAN: RECOMMENDATIONS: 1. Continue supplemental oxygen as ordered. 2. Continue chest tube to wall suction, pending repeat chest x-ray from this morning. 3. If no pneumothorax is noted on chest imaging, chest tube can be placed to waterseal. 4. Continue scheduled bronchodilators. IMPRESSIONS: 1. Iatrogenic pneumothorax The patient developed a pneumothorax status post CT-guided lung biopsy and underwent small bore catheter placement. Despite the aforementioned, the joann huertas's pneumothorax enlarged, for which she required large bore chest tube placement on March 14. Follow-up imaging demonstrated near complete resolution of his pneumothorax. There is no air leak noted this morning. Repeat morning chest x-ray is pending. He may be a candidate for a waterseal trial if his chest imaging from this morning does not demonstrate further pneumothorax. Continue supplemental oxygen for now. 2. History of advanced stage COPD Continue bronchodilators as ordered. 3. History of CVA with residual deficits/coronary artery disease/paroxysmal atrial fibrillation/hypertension/diabetes mellitus Complicates care, management, recovery and prognosis. Continue home medications as indicated. This note was generated with [employer] dictation software. It may contain incorrect words, spelling, and punctuation that were not noted in checking the note before signing. Subjective Subjective The patient was seen and examined at the bedside this morning. Events from the last 24 hours have been reviewed. The patient is currently afebrile, hemo dynamically stable and maintaining appropriate oxygen saturations on 2 L/min via nasal cannula. The patient decompensated yesterday afternoon with increasing pneumothorax, which ultimately required large bore chest tube placement. The patient remains clinically stable. Repeat chest x-ray from this morning has yet to be completed. There is no air leak noted this morning. Objective Data Objective Data The patient's most recent lab work, culture data and imaging studies have all been personally reviewed. Vital Signs: Vital Signs Temp Pulse Resp BP Pulse Ox 97.8 F 66 20 H 132/64 H 94 03/15/21 05:44 03/15/21 06:55 03/15/21 05:44 03/15/21 05:44 03/15/21 05:44 Oxygen Flow Rate (L/min) [5] 14 Oxygen Flow Rate (L/min) [3] 14 Oxygen Flow Rate (L/min) [1 ( 14 Initial Baseline)] Oxygen Flow Rate (L/min) 2 Oxygen Delivery Method [5] Non-Rebreather Oxygen Delivery Method [3] Non-Rebreather Oxygen Delivery Method [1 ( Non-Rebreather Initial Baseline)] Oxygen Delivery Method Nasal Cannula Weight: 82.9 kg Body Mass Index (BMI) 24.2 Intake & Output: Intake and Output for Last 24 Hours 03/13/21 03/14/21 03/15/21 23:59 23:59 23:59 Intake Total 1020 / 1020 1644 / 2144 762 / 762 Output Total 200 / 200 500 / 500 Balance 820 / 820 1144 / 1644 762 / 762 Lab / Micro Data Attestation: I reviewed the patient's lab results. Result Diagrams: 03/15/21 05:20 03/15/21 05:20 Labs: Laboratory Results - last 24 hr 03/14/21 15:03: POC Glucose 113 H 03/14/21 15:30: Troponin I High Sens 8 03/15/21 05:20: WBC 6.5, RBC 3.69 L, Hgb 11.2 L, Hct 35.9 L, MCV 97.3 H, MCH 30.4, MCHC 31.2 L, RDW Std Deviation 48.2 H, RDW Coeff of Genaro 13.4, Plt Count 133 L, MPV 11.8, Immature Gran % (Auto) 0.300, Neut % (Auto) 69.0, Lymph % (Auto) 19.5, Elliott % (Auto) 9.3, Eos % (Auto) 1.7, Baso % (Auto) 0.2, Absolute Neuts (auto) 4.5, Absolute Lymphs (auto) 1.26, Nucleated RBC % 0 03/15/21 05:20: Sodium 141, Potassium 4.0, Chloride 106, Carbon Dioxide 29.0, An ion Gap 6, BUN 24 H, Creatinine 0.64 L, Estim Creat Clear Calc 68.80, Est GFR (MDRD) Af Amer 156, Est GFR (MDRD) Non-Af 129, BUN/Creatinine Ratio 37.6 H, Glucose 90, Calcium 8.4 L, Total Bilirubin 0.70, AST 12 L, ALT 12 L, Alkaline Phosphatase 65, Total Protein 6.0 L, Albumin 2.6 L, Globulin 3.4, Albumi n/Globulin Ratio 0.8 L Micro: Microbiology 03/14/21 16:00 Nasal Secretion SARS-CoV-2 Antigen (Rapid) - Final Radiography Diagnostic Testing: Radiology Impression Chest X-Ray 03/14/21 05:55 IMPRESSION: Right-sided small bore thoracostomy tube with a small apical pneumothorax. Electronically Signed: Jag Robert MD at 9:10 EST Tel , Service support , Chest X-Ray 03/14/21 12:50 IMPRESSION: Right-sided small bore thoracostomy tube with increase in the size of the pneumothorax which is now moderate in size. Electronically Signed: Jag Robert MD at 13:16 EST Tel , Service support , Chest X-Ray 03/14/21 14:40 IMPRESSION: Near complete resolution of right pneumothorax status post chest tube placement. Right chest wall subcutaneous emphysema. Focal pneumonia or mass in the right midlung. at 1556 Reported and signed by: Amirah Fried MD Electronically Signed: Amirah Fried MD at 15:55 EST Tel , Service support , Physical Exam Const alert and no apparent distress General Appearance: cooperative HEENT normocephalic and head/scalp atraumatic Eyes PERRL, EOMs intact bilaterally and conjunctivae normal Neck supple General: trachea midline Chest inspection of chest normal Chest Narrative: No air leak noted in the chest tube atrium. Chest: chest tube Resp no use of accessory muscles Auscultation: rhonchi and diminished lung sounds Cardio regular rate and regular rhythm GI normal to inspection, nondistended, normoactive bowel sounds Inspection: GI tube present Extremity no clubbing, cyanosis or edema Neuro Neuro Narrative: Expressive aphasia noted. Chronic right hemiplegia. Charges/Coding Visit Charges Inpatient E&M: 37753 Subs Hosp L2
[2021-03-15] MEDS: Magnesium Chloride 64 MG Delay Rel.Tablet 128 MG PO (08:25)
[2021-03-15] MEDS: Lisinopril 20 MG Tablet PO ×2 (08:25→20:49)
[2021-03-15] MEDS: Carvedilol 25 MG Tablet PO ×2 (08:25→20:49)
[2021-03-15] MEDS: Sertraline 50 MG Tablet 25 MG PO (08:26)
[2021-03-15] MEDS: Senna Tablet 1 TABLET PO (08:26)
[2021-03-15] MEDS: Pantoprazole Sodium 20 MG Tablet PO (08:26)
--- NOTE | 2021-03-15 09:00 | RAD_ITS ---
STUDY: X-RAY CHEST REASON FOR EXAM: Male, 80 years old. Follow-up pneumothorax TECHNIQUE: Frontal view of the chest COMPARISON: 03/14/21 FINDINGS: Again noted is a right-sided chest tube. The previously seen right pneumothorax is no longer present. There is no left pneumothorax. There is a stable pulmonary nodule in right lung. There are no pulmonary infiltrates or pleural effusions. The heart is normal in size. The visualized osseous structures are within normal limits. Again noted is subcutaneous air in the right chest wall. RAD/Chest 1 View (Portable) IMPRESSION: Resolution of the previously seen right pneumothorax. Right-sided chest tube in place. Stable pulmonary nodule in the right lung. No pulmonary infiltrates or pleural effusions. Electronically Signed: Greg Davis MD at 12:44 EST Tel , Service support ,
--- NOTE | 2021-03-15 10:13 | PN.HOSP_ITS ---
Subjective Subjective No overnight issues. The patient is oxygenating better and has been weaned to 2 L nasal cannula. Significant ramon of secretions were suctioned during NT suctioning. His chest tube remains in place but appears to have a resolved air leak. Chest x-ray is pending. Objective Data Objective Data Vital Signs: Vital Signs Temp Pulse Resp BP Pulse Ox 97.8 F 66 20 H 132/64 H 94 03/15/21 05:44 03/15/21 06:55 03/15/21 05:44 03/15/21 05:44 03/15/21 05:44 Oxygen Flow Rate (L/min) [5] 14 Oxygen Flow Rate (L/min) [3] 14 Oxygen Flow Rate (L/min) [1 ( 14 Initial Baseline)] Oxygen Flow Rate (L/min) 2 Oxygen Delivery Method [5] Non-Rebreather Oxygen Delivery Method [3] Non-Rebreather Oxygen Delivery Method [1 ( Non-Rebreather Initial Baseline)] Oxygen Delivery Method Nasal Cannula Weight: 82.9 kg Body Mass Index (BMI) 24.2 Intake & Output: Intake and Output for Last 24 Hours 03/13/21 03/14/21 03/15/21 23:59 23:59 23:59 Intake Total 1020 / 1020 1644 / 2144 762 / 762 Output Total 200 / 200 500 / 500 Balance 820 / 820 1144 / 1644 762 / 762 Lab / Micro Data Result Diagrams: 03/15/21 05:20 03/15/21 05:20 Labs: Laboratory Results - last 24 hr 03/14/21 15:03: POC Glucose 113 H 03/14/21 15:30: Troponin I High Sens 8 03/15/21 05:20: WBC 6.5, RBC 3.69 L, Hgb 11.2 L, Hct 35.9 L, MCV 97.3 H, MCH 30.4, MCHC 31.2 L, RDW Std Deviation 48.2 H, RDW Coeff of [place]aro 13.4, Plt Count 133 L, MPV 11.8, Immature Gran % (Auto) 0.300, Neut % (Auto) 69.0, Lymph % (Auto) 19.5, [place] % (Auto) 9.3, Eos % (Auto) 1.7, Baso % (Auto) 0.2, Absolute Neuts (auto) 4.5, Absolute Lymphs (auto) 1.26, Nucleated RBC % 0 03/15/21 05:20: Sodium 141, Potassium 4.0, Chloride 106, Carbon Dioxide 29.0, Anion Gap 6, BUN 24 H, Creatinine 0.64 L, Estim Creat Clear Calc 68.80, Est GFR (MDRD) Af Amer 156, Est GFR (MDRD) Non-Af 129, BUN/Creatinine Ratio 37.6 H, Glucose 90, Calcium 8.4 L, Total Bilirubin 0.70, AST 12 L, ALT 12 L, Alkaline Phosphatase 65, Total Protein 6.0 L, Albumin 2.6 L, Globulin 3.4, Albumin/Globulin Ratio 0.8 L Micro: Microbiology 03/14/21 16:00 Nasal Secretion SARS-CoV-2 Antigen (Rapid) - Final Radiography Diagnostic Testing: Radiology Impression Chest X-Ray 03/14/21 12:50 IMPRESSION: Right-sided small bore thoracostomy tube with increase in the size of the pneumothorax which is now moderate in size. Electronically Signed: Jag Robert MD at 13:16 EST Tel , Service support , Chest X-Ray 03/14/21 14:40 IMPRESSION: Near complete resolution of right pneumothorax status post chest tube placement. Right chest wall subcutaneous emphysema. Focal pneumonia or mass in the right midlung. at 1556 Reported and signed by: Amirah Fried MD Electronically Signed: Amirah Fried MD at 15:55 EST Tel , Service support , Physical Exam Const alert Constitutional Narrative: Elderly white male sitting up in bed, dense right hemiparesis with expressive aphasia but follows commands, nontoxic-appearing, no acute respiratory distress at this time Exam Limitations: language barrier HEENT head/scalp atraumatic, moist oral mucous membranes and oropharynx normal Head and Scalp: normocephalic Resp normal respiratory effort, no retractions and no use of accessory muscles Resp Narrative: Much improved lung sounds with only mild right basilar rhonchi, no upper airway adventitious sounds, right chest tube concha in place to wall suction but appears not to have any further air leak Auscultation: rhonchi; Negative for crackles, rales or wheezes Cardio regular rate, regular rhythm, S1 normal heart sound, S2 normal heart sound, no murmurs, no rub, no gallops, no clicks and no JVD GI normal to inspection, nondistended, normoactive bowel sounds, soft to palpation, non-tender and non-distended GI Narrative: PEG tube in place left upper quadrant-clean and dry Extremity no clubbing, cyanosis or edema Peripheral Pulses: Yes pulses 2+ throughout Neuro Neuro Narrative: Follows commands but unable to communicate well other than yes and no secondary to expressive aphasia, right hemiparesis with right upper extremity flexion contracture Sensorium / Orientation: awake and alert Assessment & Plan Assessment/Plan (1) Iatrogenic pneumothorax: (2) Acute respiratory failure with hypoxia: (3) Dysphagia: (4) Aspiration pneumonia: PLAN: Acute hypoxic respiratory failure secondary to right iatrogenic pneumothorax and suspected aspiration pneumonia -Continue Unasyn -Sputum culture is pending -Is pertinent for marked rhonchi right base -Large bore chest tube placed today given worsening pneumothorax status post Thomson catheter -Follow-up chest x-ray was improved after chest tube placement -Airleak seems to be resolved--> no pneumo on chest x-ray from this morning--> will try waterseal -Discussed with pulmonary medicine -As needed morphine for pain -Pulmonary and general surgery are following--> appreciate input Dysphagia -Patient was seen by speech therapy and diet downgraded to honey thick liquids with teaspoon -Patient is a full feed -Continue tube feed via PEG as ordered -RN NT suctioning Right upper lobe pulmonary nodule -PET scan suggestive of malignancy -Biopsy was done on 03/13/2021--> patient with pneumothorax following procedure -Per extensive discussion with patient's older sister who is his healthcare POA the biopsy was done at the patient's wishes but there was no intent to treat down the line as he would not want any further aggressive intervention. -Given the complication with this nodule finding and his overall goals of care we discussed palliative care and hospice and she was very interested in talking to them and possibly enrolling him in hospice given his current suspected malignancy and his other comorbidities -Biopsy results are pending at this time--> pathology remains pending -We also discussed current CODE STATUS which was full code CODE STATUS was changed to DNR CCA no intubation -Order was placed History of stroke -Patient with expressive aphasia at baseline as well as right-sided hemiparesis -PEG tube in place -Continue therapies as ordered -Continue to hold Eliquis -Diet altered as above COPD -Former tobacco abuse up until prior to stroke -Scheduled and as needed aerosols -Continue I-S -Hold home inhalers CAD/HTN/HPL -Continue home Coreg -Continue home lisinopril -As needed hydralazine -Continue atorvastatin DM-2 -hgb A1c was 5.9 -No need for diet transition or Accu-Cheks/SSI BPH -Continue doxazosin PAF -Continue beta-killian -Hold Eliquis with procedures GERD -Continue PPI Anxiety/depression -Continue Zoloft DVT prophylaxis -Continue SCDs -Hold home Eliquis for procedures with likely reinitiation after chest tube is removed -Start heparin 5000 units subcu 3 times daily CODE STATUS -Per discussion with sister who was at the bedside on 03/14/2021 and healthcare POA we transitioned to DNR CCA with no intubation as she stated her brother had expressed previously that he did not want any aggressive treatment including chemotherapy for his potential lung cancer. She indicates he had the biopsy done per his wishes although she and her other sister recommended against it but he had told them he did not want treated. -Palliative care is to meet with the patient and family today at 1 PM Charges/Coding Visit Charges Inpatient E&M: 46553 Subs Hosp L2
--- NOTE | 2021-03-15 10:15 | PCM.PN.SRG ---
Subjective Subjective patient responsive, seems alert and able to respond to my questions able to cough on my command Objective Data Objective Data Vital Signs: Vital Signs Temp Pulse Resp BP Pulse Ox 97.8 F 66 20 H 132/64 H 94 03/15/21 05:44 03/15/21 06:55 03/15/21 05:44 03/15/21 05:44 03/15/21 05:44 Oxygen Flow Rate (L/min) [5] 14 Oxygen Flow Rate (L/min) [3] 14 Oxygen Flow Rate (L/min) [1 ( 14 Initial Baseline)] Oxygen Flow Rate (L/min) 2 Oxygen Delivery Method [5] Non-Rebreather Oxygen Delivery Method [3] Non-Rebreather Oxygen Delivery Method [1 ( Non-Rebreather Initial Baseline)] Oxygen Delivery Method Nasal Cannula Weight: 82.9 kg Body Mass Index (BMI) 24.2 Intake & Output: Intake and Output for Last 24 Hours 03/13/21 03/14/21 03/15/21 23:59 23:59 23:59 Intake Total 1020 / 1020 1644 / 2144 762 / 762 Output Total 200 / 200 500 / 500 Balance 820 / 820 1144 / 1644 762 / 762 Lab / Micro Data Result Diagrams: 03/15/21 05:20 03/15/21 05:20 Labs: Laboratory Results - last 24 hr 03/14/21 15:03: POC Glucose 113 H 03/14/21 15:30: Troponin I High Sens 8 03/15/21 05:20: WBC 6.5, RBC 3.69 L, Hgb 11.2 L, Hct 35.9 L, MCV 97.3 H, MCH 30.4, MCHC 31.2 L, RDW Std Deviation 48.2 H, RDW Coeff of Genaro 13.4, Plt Count 133 L, MPV 11.8, Immature Gran % (Auto) 0.300, Neut % (Auto) 69.0, Lymph % (Auto) 19.5, [place] % (Auto) 9.3, Eos % (Auto) 1.7, Baso % (Auto) 0.2, Absolute Neuts (auto) 4.5, Absolute Lymphs (auto) 1.26, Nucleated RBC % 0 03/15/21 05:20: Sodium 141, Potassium 4.0, Chloride 106, Carbon Dioxide 29.0, Anion Gap 6, BUN 24 H, Creatinine 0.64 L, Estim Creat Clear Calc 68.80, Est GFR (MDRD) Af Amer 156, Est GFR (MDRD) Non-Af 129, BUN/Creatinine Ratio 37.6 H, Glucose 90, Calcium 8.4 L, Total Bilirubin 0.70, AST 12 L, ALT 12 L, Alkaline Phosphatase 65, Total Protein 6.0 L, Albumin 2.6 L, Globulin 3.4, Albumin/Globulin Ratio 0.8 L Micro: Microbiology 03/14/21 16:00 Nasal Secretion SARS-CoV-2 Antigen (Rapid) - Final Radiography Diagnostic Testing: Radiology Impression Chest X-Ray 03/14/21 12:50 IMPRESSION: Right-sided small bore thoracostomy tube with increase in the size of the pneumothorax which is now moderate in size. Electronically Signed: Jag Robert MD at 13:16 EST Tel , Service support , Chest X-Ray 03/14/21 14:40 IMPRESSION: Near complete resolution of right pneumothorax status post chest tube placement. Right chest wall subcutaneous emphysema. Focal pneumonia or mass in the right midlung. at 1556 Reported and signed by: Amirah Fried MD Electronically Signed: Amirah Fried MD at 15:55 EST Tel , Service support , Physical Exam Const alert HEENT normocephalic Resp normal respiratory effort GI non-tender Assessment & Plan Assessment/Plan (1) Iatrogenic pneumothorax: PLAN: inspection of pleurevac - patient still with small air leak, continue suction at 30 cm, no changes at this point
[2021-03-15] MEDS: Jevity 1.5. 1,000 ML Bottle 250 ML GT ×2 (12:47→20:50)
[2021-03-15] MEDS: Heparin Injection (Vial) 5,000 UNIT/ML VIAL 5000 UNIT SC ×2 (13:20→20:49)
[2021-03-15] MEDS: Atorvastatin Calcium 20 MG Tablet PO (20:49)
[2021-03-15] MEDS: Doxazosin 1 MG Tablet 2 MG PO (20:49)
[2021-03-16] VITALS (11 sets, daily range): BP systolic 149–186; BP diastolic 73–99; PULSE 55–90; RESP 16–26; TEMP 36.7–37.1; O2SAT 92–97
[2021-03-16] MEDS: 0.9% Saline Lock 10 ML Syringe IV ×3 (02:34→21:17)
[2021-03-16] MEDS: Morphine 2 MG/ML Syringe IV ×4 (02:34→21:17)
[2021-03-16] MEDS: Heparin Injection (Vial) 5,000 UNIT/ML VIAL 5000 UNIT SC ×3 (05:17→21:17)
[2021-03-16] MEDS: Ipratropium/Albuterol Sulfate 3 ML AMPUL.NEB INHALATION ×3 (07:18→19:15)
--- NOTE | 2021-03-16 08:17 | PCM.PN.SRG ---
Subjective Subjective patient somnolent this morning but responsive Objective Data Objective Data Vital Signs: Vital Signs Temp Pulse Resp BP Pulse Ox 98.5 F 61 16 149/73 H 96 03/16/21 02:50 03/16/21 07:18 03/16/21 07:18 03/16/21 02:50 03/16/21 07:18 Oxygen Flow Rate (L/min) [5] 14 Oxygen Flow Rate (L/min) [3] 14 Oxygen Flow Rate (L/min) [1 ( 14 Initial Baseline)] Oxygen Flow Rate (L/min) 2 Oxygen Delivery Method [5] Non-Rebreather Oxygen Delivery Method [3] Non-Rebreather Oxygen Delivery Method [1 ( Non-Rebreather Initial Baseline)] Oxygen Delivery Method Nasal Cannula Weight: 87.1 kg Body Mass Index (BMI) 24.2 Intake & Output: Intake and Output for Last 24 Hours 03/14/21 03/15/21 03/16/21 23:59 23:59 23:59 Intake Total 1644 / 2144 2254 / 2254 350 / 350 Output Total 500 / 500 475 / 475 150 / 150 Balance 1144 / 1644 1779 / 1779 200 / 200 Lab / Micro Data Result Diagrams: 03/15/21 05:20 03/15/21 05:20 Micro: Microbiology 03/14/21 16:00 Sputum, Expectorated/Coughed Gram Stain - Final 03/14/21 16:00 Sputum, Expectorated/Coughed Respiratory Culture - Preliminary GNR lactose tester compressed gases 03/14/21 16:00 Nasal Secretion SARS-CoV-2 Antigen (Rapid) - Final Radiography Diagnostic Testing: Radiology Impression Chest X-Ray 03/15/21 09:00 IMPRESSION: Resolution of the previously seen right pneumothorax. Right-sided chest tube in place. Stable pulmonary nodule in the right lung. No pulmonary infiltrates or pleural effusions. Electronically Signed: Greg Davis MD at 12:44 EST Tel , Service support , Physical Exam Narrative sleeping this morning chest tube dressing intact examination of pleurevac - no air leak noted this morning and yesterday's CXR showed complete reinflation of right lung Assessment & Plan Assessment/Plan (1) Iatrogenic pneumothorax: PLAN: no air leak detected this morning, will place chest tube on water seal and check CXR later today
[2021-03-16] MEDS: Magnesium Chloride 64 MG Delay Rel.Tablet 128 MG PO (11:13)
[2021-03-16] MEDS: Senna Tablet 1 TABLET PO (11:13)
[2021-03-16] MEDS: Carvedilol 25 MG Tablet PO ×2 (11:13→21:23)
[2021-03-16] MEDS: Pantoprazole Sodium 20 MG Tablet PO (11:13)
[2021-03-16] MEDS: Jevity 1.5. 1,000 ML Bottle 250 ML GT ×2 (11:14→21:24)
[2021-03-16] MEDS: Lisinopril 20 MG Tablet PO ×2 (11:14→21:23)
[2021-03-16] MEDS: Sertraline 50 MG Tablet 25 MG PO (11:14)
--- NOTE | 2021-03-16 12:00 | RAD_ITS ---
STUDY: X-RAY CHEST REASON FOR EXAM: Male, 80 years old. Pneumothorax TECHNIQUE: Single AP portable view of the chest. COMPARISON: Comparison is made with prior examination of 03/15/2021. FINDINGS: A large caliber chest tube is seen with tip in the right lung apex. Persistent right subcutaneous emphysema. No evidence of pneumothorax. Persistent nodular density in the right upper lobe abutting the right minor fissure. Stable increased markings at the left lung base suggestive of atelectasis. . RAD/Chest 1 View IMPRESSION: No evidence of pneumothorax. Persistent right subcutaneous emphysema. Electronically Signed: Gregory Cota MD at 12:30 EST , Service support ,
--- NOTE | 2021-03-16 13:10 | CASEMGMT ---
SOPHIA called Luda at [facility] and let her know the patient will be going to inpatient Hospice. SOPHIA told her SW will let her know. Dana PARIKH
--- NOTE | 2021-03-16 13:12 | PCM.PN.BLA ---
Progress Note will leave patient on water seal overnight and repeat CXR in am, if looks good, will d/c chest tube tomorrow
--- NOTE | 2021-03-16 14:45 | PCM.PN.HOSP ---
Subjective Subjective No issues overnight. Patient has developed some subcu crepitus on the right side but oxygen saturations remained stable and there appears to be no leak. Chest tube was placed to waterseal and follow-up chest x-ray 2 hours after was stable. Objective Data Objective Data Vital Signs: Vital Signs Temp Pulse Resp BP Pulse Ox 98.2 F 60 16 183/85 H 96 03/16/21 12:00 03/16/21 13:16 03/16/21 13:16 03/16/21 12:00 03/16/21 12:00 Oxygen Flow Rate (L/min) [5] 14 Oxygen Flow Rate (L/min) [3] 14 Oxygen Flow Rate (L/min) [1 ( 14 Initial Baseline)] Oxygen Flow Rate (L/min) 2 Oxygen Delivery Method [5] Non-Rebreather Oxygen Delivery Method [3] Non-Rebreather Oxygen Delivery Method [1 ( Non-Rebreather Initial Baseline)] Oxygen Delivery Method Nasal Cannula Weight: 87.1 kg Body Mass Index (BMI) 24.2 Intake & Output: Intake and Output for Last 24 Hours 03/14/21 03/15/21 03/16/21 23:59 23:59 23:59 Intake Total 1644 / 2144 2254 / 2254 1050 / 1050 Output Total 500 / 500 475 / 475 580 / 580 Balance 1144 / 1644 1779 / 1779 470 / 470 Lab / Micro Data Result Diagrams: 03/15/21 05:20 03/15/21 05:20 Micro: Microbiology 03/14/21 16:00 Sputum, Expectorated/Coughed Gram Stain - Final 03/14/21 16:00 Sputum, Expectorated/Coughed Respiratory Culture - Preliminary Escherichia coli 03/14/21 16:00 Nasal Secretion SARS-CoV-2 Antigen (Rapid) - Final Radiography Diagnostic Testing: Radiology Impression Chest X-Ray 03/16/21 12:00 IMPRESSION: No evidence of pneumothorax. Persistent right subcutaneous emphysema. Electronically Signed: Gregory Cota MD at 12:30 EST , Service support , Physical Exam Const alert Constitutional Narrative: Elderly white male sitting up in bed, dense right hemiparesis with expressive aphasia but follows commands, nontoxic-appearing, no acute respiratory distress at this time Exam Limitations: language barrier HEENT head/scalp atraumatic, moist oral mucous membranes and oropharynx normal Head and Scalp: normocephalic Resp normal respiratory effort, no retractions and no use of accessory muscles Resp Narrative: Slight rhonchi in the right base, subcu emphysema in the right anterior chest wall-mild Auscultation: rhonchi; Negative for crackles, rales or wheezes Cardio regular rate, regular rhythm, S1 normal heart sound, S2 normal heart sound, no murmurs, no rub, no gallops, no clicks and no JVD GI normal to inspection, nondistended, normoactive bowel sounds, soft to palpation, non-tender and non-distended GI Narrative: PEG tube in place left upper quadrant-clean and dry Extremity no clubbing, cyanosis or edema Peripheral Pulses: Yes pulses 2+ throughout Neuro Neuro Narrative: Follows commands but unable to communicate well other than yes and no secondary to expressive aphasia, right hemiparesis with right upper extremity flexion contracture Sensorium / Orientation: awake and alert Assessment & Plan Assessment/Plan (1) Iatrogenic pneumothorax: (2) Acute respiratory failure with hypoxia: (3) Dysphagia: (4) Aspiration pneumonia: (5) Non-small cell lung cancer (NSCLC): PLAN: Acute hypoxic respiratory failure secondary to right iatrogenic pneumothorax and E. coli pneumonia -Is pertinent for marked rhonchi right base -Large bore chest tube placed today given worsening pneumothorax status post Thomson catheter -Follow-up chest x-ray was improved after chest tube placement -Airleak seems to be resolved--> waterseal was held at general surgery's request yesterday -Waterseal today--> follow-up chest x-ray shows no recurrent of pneumothorax -General surgery would like the patient to remain at [facility] today with repeat chest x-ray in the morning and discontinue chest tube tomorrow 03/17/2021 if stable -As needed morphine for pain -Pulmonary and general surgery are following--> appreciate input E. coli pneumonia -Narrow to Unasyn -Day day 3 of 7 Dysphagia -Patient was seen by speech therapy and diet downgraded to honey thick liquids with teaspoon -Patient is a full feed -Continue tube feed via PEG as ordered -As needed NT suctioning Right lung non-small cell lung CA -PET scan suggestive of malignancy -Biopsy was done on 03/13/2021--> patient with pneumothorax following procedure -Plan is to discharge to acute inpatient hospice unit after chest tube removal -Biopsy results showed non-small cell lung CA -We also discussed current CODE STATUS which was full code CODE STATUS was changed to DNR CCA no intubation -Order was placed History of stroke -Patient with expressive aphasia at baseline as well as right-sided hemiparesis -PEG tube in place -Continue therapies as ordered -Continue to hold Eliquis -Diet altered as above COPD -Former tobacco abuse up until prior to stroke -Scheduled and as needed aerosols -Continue I-S -Hold home inhalers CAD/HTN/HPL -Continue home Coreg -Continue home lisinopril -As needed hydralazine -Continue atorvastatin DM-2 -hgb A1c was 5.9 -No need for diet transition or Accu-Cheks/SSI BPH -Continue doxazosin PAF -Continue beta-killian -Hold Eliquis with procedures--> will consider restarting after chest tube removal GERD -Continue PPI Anxiety/depression -Continue Zoloft DVT prophylaxis -Continue SCDs -Hold home Eliquis for procedures with likely reinitiation after chest tube is removed -Continue heparin 5000 units subcu 3 times daily CODE STATUS -Per discussion with sister who was at the bedside on 03/14/2021 and healthcare POA we transitioned to DNR CCA with no intubation as she stated her brother had expressed previously that he did not want any aggressive treatment including chemotherapy for his potential lung cancer. She indicates he had the biopsy done per his wishes although she and her other sister recommended against it but he had told them he did not want treated. -Plan is for discharge to inpatient palliative unit with hospice once chest tube has been removed Charges/Coding Visit Charges Inpatient E&M: 81282 Subs Hosp L2
--- NOTE | 2021-03-16 14:46 | CASEMGMT ---
Per Dr. Doty, pt will likely go to Hospice [facility] tomorrow, 03/17. Bonita PUGH CM
--- NOTE | 2021-03-16 14:48 | PCM.PN.INT ---
Assessment & Plan Assessment/Plan (1) Iatrogenic pneumothorax: PLAN: RECOMMENDATIONS: 1. Continue supplemental oxygen as ordered. 2. Continue chest tube to waterseal 3. Okay to discontinue chest tube from a pulmonary perspective 4. Continue scheduled bronchodilators. IMPRESSIONS: 1. Iatrogenic pneumothorax The patient developed a pneumothorax status post CT-guided lung biopsy and underwent small bore catheter placement. Despite the aforementioned, the patient's pneumothorax enlarged, for which she required large bore chest tube placement on March 14. Follow-up imaging demonstrated near complete resolution of his pneumothorax. There is no air leak noted this morning. Chest x-ray shows no reaccumulation of pneumothorax after 2 hours of waterseal. Continue supplemental oxygen for now. 2. History of advanced stage COPD Continue bronchodilators as ordered. 3. History of CVA with residual deficits/coronary artery disease/paroxysmal atrial fibrillation/hypertension/diabetes mellitus Complicates care, management, recovery and prognosis. Continue home medications as indicated. Anticipate transition to hospice on discharge This note was generated with Slingjot dictation software. It may contain incorrect words, spelling, and punctuation that were not noted in checking the note before signing. Subjective Subjective Patient did okay overnight. Patient has been on waterseal for over 2 hours on my arrival. Patient was able to communicate using hand signals and stated no worsening in shortness of breath. Pain was controlled. Objective Data Objective Data Chest x-ray following waterseal showed no reaccumulation of pneumothorax Vital Signs: Vital Signs Temp Pulse Resp BP Pulse Ox 36.8 C 60 16 183/85 H 96 03/16/21 12:00 03/16/21 13:16 03/16/21 13:16 03/16/21 12:00 03/16/21 12:00 Oxygen Flow Rate (L/min) [5] 14 Oxygen Flow Rate (L/min) [3] 14 Oxygen Flow Rate (L/min) [1 ( 14 Initial Baseline)] Oxygen Flow Rate (L/min) 2 Oxygen Delivery Method [5] Non-Rebreather Oxygen Delivery Method [3] Non-Rebreather Oxygen Delivery Method [1 ( Non-Rebreather Initial Baseline)] Oxygen Delivery Method Nasal Cannula Weight: 87.1 kg Body Mass Index (BMI) 24.2 Intake & Output: Intake and Output for Last 24 Hours 03/14/21 03/15/21 03/16/21 23:59 23:59 23:59 Intake Total 1644 / 2144 2254 / 2254 1050 / 1050 Output Total 500 / 500 475 / 475 580 / 580 Balance 1144 / 1644 1779 / 1779 470 / 470 Lab / Micro Data Result Diagrams: 03/15/21 05:20 03/15/21 05:20 Micro: Microbiology 03/14/21 16:00 Sputum, Expectorated/Coughed Gram Stain - Final 03/14/21 16:00 Sputum, Expectorated/Coughed Respiratory Culture - Preliminary Escherichia coli 03/14/21 16:00 Nasal Secretion SARS-CoV-2 Antigen (Rapid) - Final Radiography Diagnostic Testing: Radiology Impression Chest X-Ray 03/16/21 12:00 IMPRESSION: No evidence of pneumothorax. Persistent right subcutaneous emphysema. Electronically Signed: Gregory Cota MD at 12:30 EST , Service support , Physical Exam Const alert and no apparent distress General Appearance: cooperative HEENT normocephalic and head/scalp atraumatic Eyes PERRL, EOMs intact bilaterally and conjunctivae normal Neck supple General: trachea midline Chest inspection of chest normal Chest Narrative: No air leak noted in the chest tube atrium. Chest: crepitus clavicle right and chest tube Resp no use of accessory muscles Auscultation: rhonchi and diminished lung sounds Cardio regular rate and regular rhythm GI normal to inspection, nondistended, normoactive bowel sounds Inspection: GI tube present Extremity no clubbing, cyanosis or edema Neuro Neuro Narrative: Expressive aphasia noted. Chronic right hemiplegia. Able to communicate through hand gestures Charges/Coding Visit Charges Inpatient E&M: 48371 Subs Hosp L2
[2021-03-16] MEDS: hydrALAZINE 20 MG/ML Vial 10 MG IV (18:20)
[2021-03-16] MEDS: Atorvastatin Calcium 20 MG Tablet PO (21:23)
[2021-03-16] MEDS: Doxazosin 1 MG Tablet 2 MG PO (21:23)
[2021-03-17 03:15] VITALS: BP 124/66; PULSE 67; RESP 18; TEMP 36.7; O2SAT 92
[2021-03-17] MEDS: Heparin Injection (Vial) 5,000 UNIT/ML VIAL 5000 UNIT SC (05:32)
--- NOTE | 2021-03-17 05:55 | RAD_ITS ---
STUDY: X-RAY CHEST REASON FOR EXAM: Male, 80 years old. Pneumothorax TECHNIQUE: Single AP portable view of the chest. COMPARISON: Comparison is made with prior study dated 03/16/2021. FINDINGS: A chest tube is once again in situ with the tip in the right lung apex. There is no evidence of pneumothorax. Decreased right subcutaneous emphysema. The appearance of the lungs is unchanged. RAD/Chest 1 View (Portable) IMPRESSION: No evidence of pneumothorax. Interval decrease in the amount of the subcutaneous emphysema overlying the right lateral chest wall. Electronically Signed: Gregory Cota MD at 10:26 EST , Service support ,
[2021-03-17] MEDS: Ipratropium/Albuterol Sulfate 3 ML AMPUL.NEB INHALATION ×2 (07:07→13:13)
--- NOTE | 2021-03-17 08:37 | NURSING ---
feeding patient with slow small bits/sips. After about 5 bits, throat sounding moist. slight cough. Pulled tray for now. Sandrita PUGH notified and Dana BOYER aware. will notify speech therapy when they come around
--- NOTE | 2021-03-17 09:15 | PCM.PN.SRG ---
Subjective Subjective no air leak this morning Objective Data Objective Data Vital Signs: Vital Signs Temp Pulse Resp BP Pulse Ox 98.0 F 67 18 124/66 H 92 03/17/21 03:15 03/17/21 03:15 03/17/21 03:15 03/17/21 03:15 03/17/21 03:15 Oxygen Flow Rate (L/min) [5] 14 Oxygen Flow Rate (L/min) [3] 14 Oxygen Flow Rate (L/min) [1 ( 14 Initial Baseline)] Oxygen Flow Rate (L/min) 3 Oxygen Delivery Method [5] Non-Rebreather Oxygen Delivery Method [3] Non-Rebreather Oxygen Delivery Method [1 ( Non-Rebreather Initial Baseline)] Oxygen Delivery Method Room Air Weight: 86.3 kg Body Mass Index (BMI) 24.2 Intake & Output: Intake and Output for Last 24 Hours 03/15/21 03/16/21 03/17/21 23:59 23:59 23:59 Intake Total 2254 / 2254 2200 / 2200 350 / 350 Output Total 475 / 475 1230 / 1365 435 / 435 Balance 1779 / 1779 970 / 835 -85 / -85 Lab / Micro Data Result Diagrams: 03/15/21 05:20 03/15/21 05:20 Micro: Microbiology 03/14/21 16:00 Sputum, Expectorated/Coughed Gram Stain - Final 03/14/21 16:00 Sputum, Expectorated/Coughed Respiratory Culture - Preliminary Escherichia coli 03/14/21 16:00 Nasal Secretion SARS-CoV-2 Antigen (Rapid) - Final Radiography Diagnostic Testing: Radiology Impression Chest X-Ray 03/16/21 12:00 IMPRESSION: No evidence of pneumothorax. Persistent right subcutaneous emphysema. Electronically Signed: Gregory Cota MD at 12:30 EST , Service support , Physical Exam Narrative unchanged Assessment & Plan Assessment/Plan (1) Iatrogenic pneumothorax: PLAN: chest tube d/c'd pneumothorax - resolved will sign off this case
--- NOTE | 2021-03-17 09:33 | RAD_ITS ---
STUDY: X-RAY CHEST REASON FOR EXAM: Male, 80 years old. Pulled out chest tube TECHNIQUE: Single AP portable view of the chest. COMPARISON: Comparison is made with prior study done earlier today. FINDINGS: The right-sided chest tube has been removed. There is no evidence of pneumothorax. The remainder of the examination is unchanged. RAD/Chest 1 View (Portable) IMPRESSION: The right-sided chest tube has been removed. There is no evidence of pneumothorax. The remainder of the examination is unchanged. Electronically Signed: Gregory Cota MD at 10:34 EST , Service support ,
[2021-03-17 09:39] VITALS: BP 162/76; PULSE 64; RESP 18; TEMP 36.7; O2SAT 95
--- NOTE | 2021-03-17 09:55 | PN.CC_ITS ---
Assessment & Plan Assessment/Plan (1) Iatrogenic pneumothorax: PLAN: RECOMMENDATIONS: 1. Continue supplemental oxygen as ordered. 2. Okay to remove chest tube from my perspective 3. Will follow peripherally of chest tube removed 4. Continue scheduled bronchodilators. 5. Agree with disposition to hospice when available IMPRESSIONS: 1. Iatrogenic pneumothorax The patient developed a pneumothorax status post CT-guided lung biopsy and underwent small bore catheter placement. Despite the aforementioned, the patient's pneumothorax enlarged, for which she required large bore chest tube placement on March 14. Follow-up imaging demonstrated near complete resolution of his pneumothorax. There is no air leak noted this morning. Chest x-ray shows no reaccumulation of pneumothorax after over 24 hours of waterseal. Patient tolerating room air. Removal of chest tube per surgery. 2. History of advanced stage COPD/new diagnosis non-small cell lung carcinoma Continue bronchodilators as ordered. Patient is electing for palliative measures. This is appropriate. 3. History of CVA with residual deficits/coronary artery disease/paroxysmal atrial fibrillation/hypertension/diabetes mellitus Complicates care, management, recovery and prognosis. Continue home medications as indicated. Anticipate transition to hospice on discharge This note was generated with [facility] dictation software. It may contain incorrect words, spelling, and punctuation that were not noted in checking the note before signing. Subjective Subjective Patient did well overnight. No acute issues were reported. Patient currently tolerating room air. Patient uses hand signals to communicate and is reporting discomfort in the right chest Objective Data Objective Data Vital Signs: Vital Signs Temp Pulse Resp BP Pulse Ox 36.7 C 64 18 162/76 H 95 03/17/21 09:39 03/17/21 09:39 03/17/21 09:39 03/17/21 09:39 03/17/21 09:39 Oxygen Flow Rate (L/min) [5] 14 Oxygen Flow Rate (L/min) [3] 14 Oxygen Flow Rate (L/min) [1 ( 14 Initial Baseline)] Oxygen Flow Rate (L/min) 3 Oxygen Delivery Method [5] Non-Rebreather Oxygen Delivery Method [3] Non-Rebreather Oxygen Delivery Method [1 ( Non-Rebreather Initial Baseline)] Oxygen Delivery Method Room Air Weight: 86.3 kg Body Mass Index (BMI) 24.2 Intake & Output: Intake and Output for Last 24 Hours 03/15/21 03/16/2121 23:59 23:59 23:59 Intake Total 2254 / 2254 2200 / 2200 400 / 400 Output Total 475 / 475 1230 / 1365 435 / 435 Balance 1779 / 1779 970 / 835 -35 / -35 Lab / Micro Data Result Diagrams: 03/15/21 05:20 03/15/21 05:20 Micro: Microbiology 03/14/21 16:00 Sputum, Expectorated/Coughed Gram Stain - Final 03/14/21 16:00 Sputum, Expectorated/Coughed Respiratory Culture - Prelimi nary Escherichia coli 03/14/21 16:00 Nasal Secretion SARS-CoV-2 Antigen (Rapid) - Final Radiography Diagnostic Testing: Radiology Impression Chest X-Ray 03/16/21 12:00 IMPRESSION: No evidence of pneumothorax. Persistent right subcutaneous emphysema. Electronically Signed: Gregory Cota MD at 12:30 EST , Service support , Physical Exam Const alert and no apparent distress General Appearance: cooperative HEENT normocephalic and head/scalp atraumatic Eyes PERRL, EOMs intact bilaterally and conjunctivae normal Neck supple General: trachea midline Chest inspection of chest normal Chest Narrative: No air leak noted in the chest tube atrium. Chest: chest tube; Negative for crepitus Resp no use of accessory muscles Auscultation: rhonchi and diminished lung sounds Cardio regular rate and regular rhythm GI normal to inspection, nondistended, normoactive bowel sounds Inspection: GI tube present Extremity no clubbing, cyanosis or edema Neuro Neuro Narrative: Expressive aphasia noted. Chronic right hemiplegia. Able to communicate through hand gestures Charges/Coding Visit Charges Inpatient E&M: 14748 Subs Hosp L2
[2021-03-17] MEDS: Lisinopril 20 MG Tablet PO (10:03)
[2021-03-17] MEDS: Senna Tablet 1 TABLET PO (10:04)
[2021-03-17] MEDS: Carvedilol 25 MG Tablet PO (10:04)
[2021-03-17] MEDS: Sertraline 50 MG Tablet 25 MG PO (10:04)
[2021-03-17] MEDS: Magnesium Chloride 64 MG Delay Rel.Tablet 128 MG PO (10:04)
[2021-03-17] MEDS: Pantoprazole Sodium 20 MG Tablet PO (10:04)
[2021-03-17] MEDS: Jevity 1.5. 1,000 ML Bottle 250 ML GT (10:05)
[2021-03-17] MEDS: 0.9% Saline Lock 10 ML Syringe IV (11:13)
[2021-03-17] MEDS: Morphine 2 MG/ML Syringe IV (11:13)
--- NOTE | 2021-03-17 12:38 | CASEMGMT ---
Per Dr. Doty after talking to Dr. Cristina at Hospice, Dr. Cristina states that pt is not symptomatic enough for the IPU now and pt to discharge back to [facility] with hospice. Shawna CORTES aware, voices understanding. Bonita PUGH CM
[2021-03-17 13:13] VITALS: PULSE 66; RESP 24; O2SAT 95
--- NOTE | 2021-03-17 13:16 | CASEMGMT ---
Per physician Hospice physician is not approving patient for the inpatient unit as he is no longer symptomatic. SW went to patient's room and spoke with Mei and patient letting them know this information. SW said he will have to go back to [facility] on Hospice. Patient said he does not want to. SW told them SW will check back in a little bit when patient's other sister is present. Dana Painter DEMO SPECIALIST JL
--- NOTE | 2021-03-17 13:41 | CASEMGMT ---
SOPHIA went back to patient's room and his sister Miroslava was present. SOPHIA explained to her that he no longer qualifies for the inpatient Hospice unit. Miroslava said he has to go back to [facility] as she cannot care for him. They asked if there were any other options and SOPHIA said he could go to a different [facility]. They prefer he go back to [facility] as he has been there since May 2020. SOPHIA told them he will return today and SOPHIA will let them know when SOPHIA has a time set up. SOPHIA also spoke with Luda and [facility] and she is aware patient will return today on [facility]. Dana PARIKH
--- NOTE | 2021-03-17 13:53 | TREXTCAR_ITS ---
Diet 03/14/21 10:14 Diet: Regular - General Food consistency:: Pureed Liquid Consistency:: Honey/Moderately Thick Is pt able to select menu?: No Diet Comments: total feed/supervision, feed by tsp Routine Orders/Code Status O2 Frequency: PRN (For comfort only) Code Status: DNRCC Wound(s) right arm: Wound Type: scabbed over areas right upper chest: Wound Type: Puncture Suggestions for Active Care Change Position every (hours): 2 Problem/Diagnosis (1) Iatrogenic pneumothorax: Status: Acute Allergies/Procedures Done in Hospital Allergies propoxyphene HCl [From Darvon] Allergy (Verified 03/13/21 12:06) Itching Procedures: - (Chest tube placement) Type of Care/Length of Stay Estimated LOS: More Than 30 Days Type of Care Needed: Intermediate Rehab Potential: Poor Prognosis: Poor Additional Orders/Day of Discharge Day of Discharge: 03/17/21 Dietary and Speech Recommendations Dietitian Recommendations/Changes: Regular diet for pleasure as patient is transitioning to hospice and comfort care measures only Patient is to be [facility] by [facility] at discharge Discharge Plan Admission Admit Date/Time: 03/14/21 14:51 Attending Provider: Brit Doty Primary Care Provider: Wiley Carlson Consulting Providers: Antonio Spenecr ; Duc Toth ; Aubree Pugh SEED POTATO ARRANGER ; Nancy José ; Sirisha Soler ; Kyle Fuentes ; Yolette Gordon ; Mary Ellen Baxter ; Elif Sosa ; Mago Weaver SEED POTATO ARRANGER Discharge Orders/Prescriptions Prescriptions: No Action multivitamin 1 EACH tablet 1 ea PO DAILY RF: 0 lisinopril [Zestril] 20 MG tablet 20 mg PO BID RF: 0 nitroglycerin 0.4 MG tablet 0.4 mg sublingual Q5M PRN (Reason: Chest Pain) RF: 0 pantoprazole 20 MG tablet 20 mg PO DAILY RF: 0 Isosource 1.5 Kemar 1,000 ML liquid 250 ml GT BID RF: 0 water for injection, sterile 10 ML syringe 150 ml GT 4X/DAY RF: 0 budesonide-formoterol 10.2 GM HFA aerosol inhaler 2 puff IH BID RF: 0 apixaban 5 MG tablet 5 mg PO BID RF: 0 carvedilol 25 MG tablet 25 mg PO BID RF: 0 sennosides 8.6 MG tablet 8.6 mg PO DAILY RF: 0 doxazosin 2 MG tablet 2 mg PO QHS RF: 0 cholecalciferol (vitamin D3) 2,000 UNIT capsule 1,000 unit PO DAILY RF: 0 Spiriva Respimat 4 GM mist 2 inh inhalation QHS RF: 0 atorvastatin 20 mg tablet 20 mg PO QHS RF: 0 ipratropium-albuterol 0.5 mg-3 mg(2.5 mg base)/3 mL solution for nebulization 3 ml inhalation Q6H RF: 0 sertraline 25 mg tablet 25 mg PO DAILY RF: 0 magnesium oxide 400 mg magnesium Tablet 400 mg PO DAILY RF: 0 Referrals / Follow Up: Shashank Perez MD [STAFF PHYSICIAN] - 03/26/21 2:00 pm Wiley Carlson MD [Primary Care Provider] - Henry Lopez DO [NON-STAFF] - 03/26/21 2:30 pm
--- NOTE | 2021-03-17 13:55 | PCM.DC.SUM ---
Providers Date of Admission: 03/14/21 Primary Care Physician: Dr. Wiley Carlson MD Consultations 03/14/21 07:46 Consult: [employer] / Pulmonary Medicine Routine Consulting Provider: [facility] Reason for Consult: R Pneumothorax s/p CT guided bx EMERGENT Consult: No Notified: Yes Date Notified: 03/14/21 Time Notified: 08:10 Method of Notification: Text 03/14/21 13:29 Consult: General Surgery Routine Consulting Provider: Nancy Gallagher Reason for Consult: chest tube EMERGENT Consult: No Notified: Yes Date Notified: 03/14/21 Time Notified: 13:39 Method of Notification: telephone 03/14/21 15:29 Consult: Hospice / Palliative Care Routine Consulting Provider: [facility] Reason for Consult: POA HC (older sister) interested in hospice EMERGENT Consult: No Notified: Yes Date Notified: 03/14/21 Time Notified: 15:00 Method of Notification: telephone Reason For Visit: PTX Diagnosis Discharge Diagnosis (1) Iatrogenic pneumothorax: Status: Acute Code(s): J95.811 - Postprocedural pneumothorax Medications at Discharge Home Medications nitroglycerin 0.4 mg SUBLINGUAL Q5M PRN 01/17/18 pantoprazole 20 mg PO DAILY 01/17/18 Spiriva Respimat 2 inh INHALATION QHS 07/30/20 apixaban 5 mg PO BID 07/30/20 budesonide-formoterol 2 puff IH BID 07/30/20 carvedilol 25 mg PO BID 07/30/20 doxazosin 2 mg PO QHS 07/30/20 sennosides 8.6 mg PO DAILY 07/30/20 ipratropium-albuterol 3 ml INHALATION Q6H 03/13/21 sertraline 25 mg PO DAILY 03/13/21 amoxicillin-pot clavulanate 800 mg G-TUBE BIDCM #0 ml 03/17/21 guaifenesin 20 ml PO Q4H PRN PRN #0 ml 03/17/21 Hospital Course Operations None Procedures - (Chest tube placement right) Summary of Care Provided Minutes Spent on Discharge: 42 Hospital Course: Mr. Manuel is a 72-year-old white male who presented to the emergency department [facility] on 03/13/2021 with dyspnea following a CT-guided lung biopsy. A CT of his chest had been done on February 09, 2021 that showed a 1.1 x 1.6 spiculated nodule in the right upper lobe with a subsequent PET scan being performed on 02/24/2021 that showed increased glucose uptake consistent with neoplasm. He followed up with oncology and elected to have a CT-guided biopsy done which was performed on the 03/13/2021. He unfortunately developed postprocedural dyspnea and was brought to the emergency department and found to have a right pneumothorax. The case was discussed with the general surgeon on-call and they recommended Thomson catheter placement which was performed by the ER physician. He unfortunately remained hypoxic and was admitted to the hospital. Follow-up chest x-ray done 24 hours later showed worsening pneumothorax and a large bore chest tube had to be placed in his right thorax. This resulted in resolution of his pneumothorax and his air leak resolved on 03/16/2021. At that time his chest tube was placed to waterseal and a follow-up chest x-ray was performed on the a.m. of 03/17/2021. His pneumothorax remained resolved at that time and his chest tube was able to be removed. During his hospitalization I had a discussion with both he and his sister who is his healthcare power of commercial real estate attorney and she indicated for me, as he has some expressive aphasia and difficulty verbalizing his desires, that even if this was a cancer he did not want to pursue any treatment and based on previous wishes would like to focus more on comfort measures. He had a recent stroke and has chronic dysphagia and a PEG tube. He had been able to eat with a modified diet but was reevaluated during this hospitalization and his diet was downgraded to honey thick liquids. Both the patient and the family were very interested in a session with hospice. Hospice initially evaluated the patient on 03/15/2021 and felt that he would be appropriate for inpatient hospice but he clinically improved throughout his hospital course and was able to be discharged back to his nursing facility with hospice there. He was also found to have an E. coli pneumonia during his hospitalization for which she was treated with and will complete treatment with 3 more days of antibiotics after discharge. His medications were altered at baseline to be more consistent with his goals of care which include palliation and comfort and less focus on quantity of life and more focus on quality of life. His lung biopsy did resolve during his hospital course and he was found to have non-small cell lung CA. These results were discussed with both he and his family prior to discharge. He was discharged back to [facility] with intent for hospice follow-up there in stable condition on 03/17/2021. He was on room air at the time. Discharge diagnoses: Acute hypoxic respiratory failure Iatrogenic pneumothorax E. coli pneumonia Dysphagia Non-small cell lung CA History of stroke Right hemiparesis COPD CAD Hypertension Hyperlipidemia DM-2 BPH PAF GERD Anxiety Depression Physical Exam Const alert Constitutional Narrative: Elderly white male sitting up in bed, dense right hemiparesis with expressive aphasia but follows commands, nontoxic-appearing, chest tube has been removed, sisters are at the bedside General Appearance: cooperative, comfortable, well kempt and well developed Orientation / Consciousness: awake Exam Limitations: language barrier HEENT normocephalic, head/scalp atraumatic, moist oral mucous membranes and oropharynx normal HEENT Narrative: Hard of hearing, edentulous Eyes PERRL, EOMs intact bilaterally and conjunctivae normal Eyes Narrative: No scleral icterus Neck no lymphadenopathy, supple and no JVD Neck Narrative: Trachea midline, no thyroid large Resp normal respiratory effort, no retractions, no use of accessory muscles and clear to auscultation bilaterally Resp Narrative: Chest tube has been removed, no further subcutaneous crepitus, respiratory effort is normal and patient is on room air Auscultation: Negative for crackles, rales, rhonchi or wheezes Cardio regular rate, regular rhythm, S1 normal heart sound, S2 normal heart sound, no murmurs, no rub, no gallops, no clicks and no JVD GI normal to inspection, nondistended, normoactive bowel sounds, soft to palpation, non-tender and non-distended GI Narrative: PEG tube in place left upper quadrant-clean and dry Extremity no clubbing, cyanosis or edema Extremity Narrative: Right upper extremity contracture Skin no rashes or lesions noted, skin turgor normal and no jaundice Skin Narrative: Right sided chest wound from chest tube with dressing in place and clean and dry Neuro Neuro Narrative: Follows commands but unable to communicate well secondary to expressive aphasia, right hemiparesis with right upper extremity flexion contracture Sensorium / Orientation: awake and alert Psych Psych Narrative: Patient's mood appears to be stable and affect is good with excellent eye contact and jovial interaction Weight / BMI Weight Weight: 86.3 kg Body Mass Index (BMI) 24.2 ABG / Lab / Microbiology Data Result Diagrams: 03/15/21 05:20 03/15/21 05:20 Microbiology: Microbiology 03/14/21 16:00 Sputum, Expectorated/Coughed Gram Stain - Final 03/14/21 16:00 Sputum, Expectorated/Coughed Respiratory Culture - Preliminary Escherichia coli 03/14/21 16:00 Nasal Secretion SARS-CoV-2 Antigen (Rapid) - Final Radiography Diagnostic Testing: Radiology Impression Chest X-Ray 03/17/21 05:55 IMPRESSION: No evidence of pneumothorax. Interval decrease in the amount of the subcutaneous emphysema overlying the right lateral chest wall. Electronically Signed: Gregory Cota MD at 10:26 EST , Service support , Chest X-Ray 03/17/21 09:33 IMPRESSION: The right-sided chest tube has been removed. There is no evidence of pneumothorax. The remainder of the examination is unchanged. Electronically Signed: Gregory Cota MD at 10:34 EST , Service support , D/C Instructions Discharge Diet: No restrictions Discharge Activity: Return to Normal Activity Meaningful Use Info Meaningful Use Diagnoses (Choose all that apply): None applicable Discharge Plan Admission Admit Date/Time: 03/14/21 14:51 Primary Reason for Your Visit: Iatrogenic pneumothorax Attending Provider: Brit Doty Primary Care Provider: Wiley Carlson Consulting Providers: Antonio Spencer ; Duc Toth ; Aubree Pugh BRICK MOLDER HAND ; Nancy Gallagher ; Sirisha Soler ; Kyle Fuentes ; Yolette Gordon ; Mary Ellen Baxter ; Elif Sosa ; Mago Weaver BRICK MOLDER HAND Discharge Orders/Prescriptions Prescriptions: New amoxicillin-pot clavulanate 400-57 mg/5 mL Suspension For Reconstitution 800 mg G-tube BIDCM Qty: 0 RF: 0 guaifenesin 100 mg/5 mL Liquid 20 ml PO Q4H PRN PRN (Reason: COUGH) Qty: 0 RF: 0 Continued nitroglycerin 0.4 MG tablet 0.4 mg sublingual Q5M PRN (Reason: Chest Pain) RF: 0 pantoprazole 20 MG tablet 20 mg PO DAILY RF: 0 budesonide-formoterol 10.2 GM HFA aerosol inhaler 2 puff IH BID RF: 0 carvedilol 25 MG tablet 25 mg PO BID RF: 0 sennosides 8.6 MG tablet 8.6 mg PO DAILY RF: 0 doxazosin 2 MG tablet 2 mg PO QHS RF: 0 Spiriva Respimat 4 GM mist 2 inh inhalation QHS RF: 0 ipratropium-albuterol 0.5 mg-3 mg(2.5 mg base)/3 mL solution for nebulization 3 ml inhalation Q6H RF: 0 sertraline 25 mg tablet 25 mg PO DAILY RF: 0 Held apixaban 5 MG tablet 5 mg PO BID RF: 0 Hold Instructions: Resume on 03/20/21. Discontinued multivitamin 1 EACH tablet 1 ea PO DAILY RF: 0 lisinopril [Zestril] 20 MG tablet 20 mg PO BID RF: 0 Isosource 1.5 Kemar 1,000 ML liquid 250 ml GT BID RF: 0 water for injection, sterile 10 ML syringe 150 ml GT 4X/DAY RF: 0 cholecalciferol (vitamin D3) 2,000 UNIT capsule 1,000 unit PO DAILY RF: 0 atorvastatin 20 mg tablet 20 mg PO QHS RF: 0 magnesium oxide 400 mg magnesium Tablet 400 mg PO DAILY RF: 0 Referrals / Follow Up: Shashank Perez MD [STAFF PHYSICIAN] - None Wiley Carlson MD [Primary Care Provider] - See Referral Note (as needed) Henry Lopez DO [NON-STAFF] - None Disposition Disposition (needs filled in before D/C Order can be placed): Nursing Home Facility Charges/Coding Visit Charges Inpatient E&M: 70076 SNF Disch >30 Min
--- NOTE | 2021-03-17 14:21 | PHA.DC.MR ---
Pharmacy Service has performed discharge medication reconciliation for this patient. The patient's discharge medication list was reviewed for discrepancies and discrepancies were resolved. Home Medications nitroglycerin 0.4 mg SUBLINGUAL Q5M PRN 01/17/18 pantoprazole 20 mg PO DAILY 01/17/18 Spiriva Respimat 2 inh INHALATION QHS 07/30/20 apixaban 5 mg PO BID 07/30/20 budesonide-formoterol 2 puff IH BID 07/30/20 carvedilol 25 mg PO BID 07/30/20 doxazosin 2 mg PO QHS 07/30/20 sennosides 8.6 mg PO DAILY 07/30/20 ipratropium-albuterol 3 ml INHALATION Q6H 03/13/21 sertraline 25 mg PO DAILY 03/13/21 amoxicillin-pot clavulanate 800 mg G-TUBE BIDCM #0 ml 03/17/21 guaifenesin 20 ml PO Q4H PRN PRN #0 ml 03/17/21
--- NOTE | 2021-03-17 14:39 | CASEMGMT ---
SW received d/c orders. SW arranged for patient to get picked up at [facility] via cot. SW faxed orders, negative COVID, and transport time to [facility] and Hospice. SW called Hospice and spoke with Erika letting her know this information. SW also called [facility] and notified Luda. SW notified RN, patient and his family. All in agreement with d/c plan. Plan: d/c back to [facility] under Hospice Care with [facility]. [facility] transported via cot. Dana PARIKH
[2021-03-17 15:01] VITALS: BP 166/85; PULSE 71; RESP 18; TEMP 36.8; O2SAT 96
--- NOTE | 2021-03-17 15:54 | NURSING ---
Report called to [facility] nurse Zenaida
== END 2021-03-17 15:52 | disposition skilled nursing facility (03) | DRG 199 ==
LOC: ED 15:38 → PCU 16:22
PROVIDERS: Admitting Provider Family Medicine; Emergency Provider Emergency Medicine; PCP Family Medicine; Visit Provider Internal Medicine
DX: J95.811 Postprocedural pneumothorax (principal); J96.01 Acute respiratory failure with hypoxia; J69.0 Pneumonitis due to inhalation of food and vomit; J15.5 Pneumonia due to Escherichia coli; I69.351 Hemiplegia and hemiparesis following cerebral infarction affecting right dominant side; J44.0 Chronic obstructive pulmonary disease with (acute) lower respiratory infection; C34.91 Malignant neoplasm of unspecified part of right bronchus or lung; I69.391 Dysphagia following cerebral infarction; R13.10 Dysphagia, unspecified; I69.320 Aphasia following cerebral infarction; K21.9 Gastro-esophageal reflux disease without esophagitis; N40.0 Benign prostatic hyperplasia without lower urinary tract symptoms; D50.9 Iron deficiency anemia, unspecified; E11.9 Type 2 diabetes mellitus without complications; E55.9 Vitamin D deficiency, unspecified; E78.5 Hyperlipidemia, unspecified; F32.A Depression, unspecified; F41.9 Anxiety disorder, unspecified; I10 Essential (primary) hypertension; I25.10 Atherosclerotic heart disease of native coronary artery without angina pectoris; I48.0 Paroxysmal atrial fibrillation; Z66 Do not resuscitate; Z95.5 Presence of coronary angioplasty implant and graft; Z79.01 Long term (current) use of anticoagulants; Z79.899 Other long term (current) drug therapy; F17.290 Nicotine dependence, other tobacco product, uncomplicated
CPT/HCPCS: 31720; 32551; 36415; 71045; 80053; 82962; 83036; 84484; 85025; 87070; 87077; 87186; 87205; 87426; 92507; 92526; 92610; 93005; 94640; 97161; 97165; 97802; 97803; 99152; 99284; J7030; J7040; A4216; J0295; J2405